=== PATIENT | female | born 1945 | race Caucasian/White ===

== ENCOUNTER 2017-07-28 08:51 | Outpatient (RCR) | payer MEDICARE, OTHER, SELFPAY ==
[2017-07-28 09:45] VITALS: RESP 16; BMI 26.5
--- NOTE | 2017-07-28 10:44 | PCM.WC.HP ---
(1) Peripheral vascular occlusive disease Status: Acute Current Visit: Yes Code(s): I73.9 - Peripheral vascular disease, unspecified (2) Lower leg edema Status: Acute Current Visit: Yes Code(s): R60.0 - Localized edema (3) Atherosclerotic peripheral vascular disease with ulceration Status: Acute Current Visit: Yes Qualifiers: Peripheral atherosclerosis location: lower extremity Lower extremity ulceration location: ankle Laterality: left Code(s): I70.209 - Unspecified atherosclerosis of [place] arteries of extremities, unspecified extremity; L98.499 - Non-pressure chronic ulcer of skin of other sites with unspecified severity (4) History of deep vein thrombosis (DVT) of lower extremity Status: Acute Current Visit: Yes Code(s): Z86.718 - Personal history of other venous thrombosis and embolism History of Present Illness Date of Service: 07/28/17 Chief Complaint: Follow-up on a ulcer on the left ankle History of Wound: 71-year-old white female with a prior history of peripheral vascular occlusive disease. Arrived with an ulcer on her left medial malleolus from June 21. Patient had been using antibiotic ointment and cream to the leg. Has seen her family doctor and was put on Santyl and has been using that daily. Past Medical History Past Medical History: High cholesterol history of DVTs anxiety peripheral vascular disease psoriasis of the skin Surgical History: cataract Home Medications: Ambulatory Orders Medication Instructions Recorded Cholecalciferol (Vitamin D3) 2,000 unit PO DAILY 07/28/17 [D3-2000] Citalopram Hydrobromide [Celexa] 20 mg PO DAILY 07/28/17 Pravastatin Sodium [Pravachol] 10 mg PO DAILY 07/28/17 Rivaroxaban [Xarelto] 10 mg PO DAILY 07/28/17 Ubidecarenone/Vit E Acetate [Co 1 each PO DAILY 07/28/17 Q-10 100 mg Softgel] Lives: Spouse/ Significant Other Smoking Status: Never smoker Tobacco Use: Non-smoker Alcohol: None Drugs: None Review of Systems Constitutional: Denies: Chills, Fever Eyes: Denies: Blurred vision, Drainage, Pain HEENT: Denies: Difficulty Hearing, Difficulty Swallowing, Sore Throat, Visual Changes Cardiovascular: Denies: Chest Pain, Palpitations, Syncope Respiratory: Denies: Cough, Shortness of Breath Gastrointestinal: Denies: Abdominal Pain, Nausea, Vomiting Genitourinary: Denies: Dysuria, Frequency Musculoskeletal: Denies: Joint Pain, Muscle pain Skin: Reports: - - Open ulcer left medial malleolus. Denies: Jaundice, Rash Neurological: Denies: Balance problems, Change in Speech, Difficulty swallowing, Focal weakness Psychiatric: Denies: Anxiety, Depression Endocrine: Denies: Change in Body Habitus Hematologic/ Lymphatic: Denies: Adenopathy - Physical Exam Vital Signs Resp 16 07/28/17 09:45 General: Oriented x3, Cooperative, Well developed HEENT: Atraumatic, PERRLA Oral: Moist Mucosa Neck: Supple, No JVD Lungs: Clear to auscultation, Normal air movement Cardiovascular: Regular rate, Regular Rhythm Abdomen: Bowel Sounds Present, Soft, Non Tender, No Hepato-splenomegaly Extremities: No clubbing, No edema, - - Left medial malleolus venous ulcer Wound Measurements and Assessment WC - Nurse 1 - General Ulcer Measurement Start: 07/28/17 09:19 Freq: Status: Active Protocol: Activity Type Activity Date Activity User E-Sign Co-Sign Detail Recorded Client Recorded Date Recorded By Document 07/28/17 09:45 DV [id number] 07/28/17 10:07 DV 07/28/17 09:45 Wound Center Nurse 1 [Ulcer Assessment Protocol: MELIDA.WD.LOC] #1 Left Medial Malleous -Combined with other wound No -Current Size (cm) - Length 1.0 -Current Size (cm) - Width 0.7 -Current Size (cm) - Depth 0.3 -Total Square Cm 0.70 -Photo Taken Yes -Epithelialization Small 1-33% -Tunneling No -Undermining/Tunneling No -Circular Undermining No -Exudate Amt Small (1-33%) -Exudate Type Serosanguineous -Wound Margin Distinct, Outline Attached -Granulation Amt None Present (0 %) -Granulation Quality N/A -Slough/Fibrin Yes -Necrosis Amt Large (67-100%) -Necrotic Tissue Type Adherent Slough -Structure Exposed None/Limited to Skin Breakdown -Texture (Ines-wound Skin Appearance) Assessed Localized Edema Scarring Rash -Moisture (Ines-wound Skin Appearance No Abnormality ) Weeping -Color (Ines-wound Skin Appearance) Assessed Erythema Hemosiderin Staining -Temperature (Ines-wound Skin No Abnormality Appearance) (Pt Warm) -Tenderness on Palpation (Ines-wound No Skin Appearance) -Ulcer Cleansing Rinsed/ Irrigated with Saline -Foul Odor after Cleansing No -Anesthetic Used 5% Lidocaine Gel [Edema Assessment] -Lower Limb Edema Present No -Right Calf (cm) 33.0 -Right Ankle (cm) 21.0 -Left Calf (cm) 36.5 -Left Ankle (cm) 22.5 WC - Nurse 2 - General Ulcer CM Notes Start: 07/28/17 09:19 Freq: Status: Active Protocol: Activity Type Activity Date Activity User E-Sign Co-Sign Detail Recorded Client Recorded Date Recorded By Document 07/28/17 10:32 MW [id number] 07/28/17 10:36 MW 07/28/17 10:32 Wound Center Nurse 2 [Procedure/Treatment] #1 Left Medial Malleous -Time 10:32 -Correct Patient Yes -Correct Side, Site, Position Yes -Correct Procedure Yes -Procedure Performed Yes -Type of Procedure Debridement -Clinical Debridement Subcutaneous -Post Debridement Size (cm) - Length 1.7 -Post Debridement Size (cm) - Width 1.5 -Post Debridement Size (cm) - Depth 0.2 -Total Square Cm 2.55 -Wound/Ulcer Outcome Not Healed -Ulcer Cleansing Rinsed/ Irrigated with Saline -Foul Odor after Cleansing No -Bioengineered Tissue No -Cetacaine [place] No -Bleeding Controlled with Pressure -Treatment Response Procedure Tolerated Well [See Physician Procedure note for Specifics] Pain Scale: 0-10 Numeric [Pain] -Is Patient Pain Free? Yes Musculoskeletal: No Tenderness to Palpation of Joints or Extremities Lymphatic: No Cervical, Supraclavicular, or Inguinal Adenopathy Neurological: Cranial nerves II-XII grossly intact, Neuro grossly intact Psych/Mental Status: Normal Affect, Appropriate Debridement Note Post-Debridement Measurements/Treatment WC - Nurse 2 - General Ulcer CM Notes Start: 07/28/17 09:19 Freq: Status: Active Protocol: Activity Type Activity Date Activity User E-Sign Co-Sign Detail Recorded Client Recorded Date Recorded By Document 07/28/17 10:32 MW [id number] 07/28/17 10:36 MW 07/28/17 10:32 Wound Center Nurse 2 #1 Left Medial Malleous -Time 10:32 -Correct Patient Yes -Correct Side, Site, Position Yes -Correct Procedure Yes -Procedure Performed Yes -Type of Procedure Debridement -Clinical Debridement Subcutaneous -Post Debridement Size (cm) - Length 1.7 -Post Debridement Size (cm) - Width 1.5 -Post Debridement Size (cm) - Depth 0.2 -Total Square Cm 2.55 -Wound/Ulcer Outcome Not Healed -Ulcer Cleansing Rinsed/ Irrigated with Saline -Foul Odor after Cleansing No -Bioengineered Tissue No -Cetacaine [place] No -Bleeding Controlled with Pressure -Treatment Response Procedure Tolerated Well Pain Scale: 0-10 Numeric Is Patient Pain Free? Yes Wound debrided: Left venous medial malleolus ulcer Type of Debridement: Excisional debridement Anesthesia Used: 5% Lidocaine Gel Depth: Down to and including healthy tissue, in the subcutaneous layer Percentage of wound debrided: 100 Instrument Used: 5mm curette Tissue Removed: Left some fibrin Severity: Limited To Skin Breakdown Amount of bleeding with debridement: Mild Bleeding Controlled with: Compression and gauze Patient tolerated procedure well Assessment/Plan Active Problems Peripheral vascular occlusive disease (Acute) Lower leg edema (Acute) Atherosclerotic peripheral vascular disease with ulceration (Acute) History of deep vein thrombosis (DVT) of lower extremity (Acute) Assessment: Venous ulcer left medial malleolus. Edema bilateral lower legs. Peripheral vascular occlusive disease. History of DVTs Plan: Wash leg with Hibiclens. Apply the Santyl nickel thickness cover with moistened gauze Valeriano. Double layer Tubigrip left leg. Follow-up one week
--- NOTE | 2017-07-28 10:53 | HP.PCM_ITS ---
(1) Peripheral vascular occlusive disease Status: Acute Current Visit: Yes Code(s): I73.9 - Peripheral vascular disease, unspecified (2) Lower leg edema Status: Acute Current Visit: Yes Code(s): R60.0 - Localized edema (3) Atherosclerotic peripheral vascular disease with ulceration Status: Acute Current Visit: Yes Qualifiers: Peripheral atherosclerosis location: lower extremity Lower extremity ulceration location: ankle Laterality: left Code(s): I70.209 - Unspecified atherosclerosis of [place] arteries of extremities , unspecified extremity; L98.499 - Non-pressure chronic ulcer of skin of other sites with unspecified severity (4) History of deep vein thrombosis (DVT) of lower extremity Status: Acute Current Visit: Yes Code(s): Z86.718 - Personal history of other venous thrombosis and embolism History of Present Illness Date of Service: 07/28/17 Chief Complaint: Follow-up on a ulcer on the left ankle History of Wound: 71-year-old white female with a prior history of peripheral vascular occlusive disease. Arrived with an ulcer on her left medial malleolus from June 21. Patient had been using antibiotic ointment and cream to the leg. Has seen her family doctor and was put on Santyl and has been using that daily. Past Medical History Past Medical History: High cholesterol history of DVTs anxiety peripheral vascular disease psoriasis of the skin Surgical History: cataract Home Medications: Ambulatory Orders Medication Instructions Recorded Cholecalciferol (Vitamin D3) 2,000 unit PO DAILY 07/28/17 [D3-2000] Citalopram Hydrobromide [Celexa] 20 mg PO DAILY 07/28/17 Pravastatin Sodium [Pravachol] 10 mg PO DAILY 07/28/17 Rivaroxaban [Xarelto] 10 mg PO DAILY 07/28/17 Ubidecarenone/Vit E Acetate [Co 1 each PO DAILY 07/28/17 Q-10 100 mg Softgel] Lives: Spouse/ Significant Other Smoking Status: Never smoker Tobacco Use: Non-smoker Alcohol: None Drugs: None Review of Systems Constitutional: Denies: Chills, Fever Eyes: Denies: Blurred vision, Drainage, Pain HEENT: Denies: Difficulty Hearing, Difficulty Swallowing, Sore Throat, Visual Changes Cardiovascular: Denies: Chest Pain, Palpitations, Syncope Respiratory: Denies: Cough, Shortness of Breath Gastrointestinal: Denies: Abdominal Pain, Nausea, Vomiting Genitourinary: Denies: Dysuria, Frequency Musculoskeletal: Denies: Joint Pain, Muscle pain Skin: Reports: - - Open ulcer left medial malleolus. Denies: Jaundice, Rash Neurological: Denies: Balance problems, Change in Speech, Difficulty swallowing , Focal weakness Psychiatric: Denies: Anxiety, Depression Endocrine: Denies: Change in Body Habitus Hematologic/ Lymphatic: Denies: Adenopathy - Physical Exam Vital Signs Resp 16 07/28/17 09:45 General: Oriented x3, Cooperative, Well developed HEENT: Atraumatic, PERRLA Oral: Moist Mucosa Neck: Supple, No JVD Lungs: Clear to auscultation, Normal air movement Cardiovascular: Regular rate, Regular Rhythm Abdomen: Bowel Sounds Present, Soft, Non Tender, No Hepato-splenomegaly Extremities: No clubbing, No edema, - - Left medial malleolus venous ulcer Wound Measurements and Assessment WC - Nurse 1 - General Ulcer Measurement Start: 07/28/17 09:19 Freq: Status: Active Protocol: Activity Type Activity Date Activity User E-Sign Co-Sign Detail Recorded Client Recorded Date Recorded By Document 07/28/17 09:45 DV [id number] 07/28/17 10:07 DV 07/28/17 09:45 Wound Center Nurse 1 [Ulcer Assessment Protocol: MELIDA.WD.LOC] #1 Left Medial Malleous -Combined with other wound No -Current Size (cm) - Length 1.0 -Current Size (cm) - Width 0.7 -Current Size (cm) - Depth 0.3 -Total Square Cm 0.70 -Photo Taken Yes -Epithelialization Small 1-33% -Tunneling No -Undermining/Tunneling No -Circular Undermining No -Exudate Amt Small (1-33%) -Exudate Type Serosanguineous -Wound Margin Distinct, Outline Attached -Granulation Amt None Present (0 %) -Granulation Quality N/A -Slough/Fibrin Yes -Necrosis Amt Large (67-100%) -Necrotic Tissue Type Adherent Slough -Structure Exposed None/Limited to Skin Breakdown -Texture (Ines-wound Skin Appearance) Assessed Localized Edema Scarring Rash -Moisture (Ines-wound Skin Appearance No Abnormality ) Weeping -Color (Ines-wound Skin Appearance) Assessed Erythema Hemosiderin Staining -Temperature (Ines-wound Skin No Abnormality Appearance) (Pt Warm) -Tenderness on Palpation (Ines-wound No Skin Appearance) -Ulcer Cleansing Rinsed/ Irrigated with Saline -Foul Odor after Cleansing No -Anesthetic Used 5% Lidocaine Gel [Edema Assessment] -Lower Limb Edema Present No -Right Calf (cm) 33.0 -Right Ankle (cm) 21.0 -Left Calf (cm) 36.5 -Left Ankle (cm) 22.5 WC - Nurse 2 - General Ulcer CM Notes Start: 07/28/17 09:19 Freq: Status: Active Protocol: Activity Type Activity Date Activity User E-Sign Co-Sign Detail Recorded Client Recorded Date Recorded By Document 07/28/17 10:32 MW [id number] 07/28/17 10:36 MW 07/28/17 10:32 Wound Center Nurse 2 [Procedure/Treatment] #1 Left Medial Malleous -Time 10:32 -Correct Patient Yes -Correct Side, Site, Position Yes -Correct Procedure Yes -Procedure Performed Yes -Type of Procedure Debridement -Clinical Debridement Subcutaneous -Post Debridement Size (cm) - Length 1.7 -Post Debridement Size (cm) - Width 1.5 -Post Debridement Size (cm) - Depth 0.2 -Total Square Cm 2.55 -Wound/Ulcer Outcome Not Healed -Ulcer Cleansing Rinsed/ Irrigated with Saline -Foul Odor after Cleansing No -Bioengineered Tissue No -Cetacaine [place] No -Bleeding Controlled with Pressure -Treatment Response Procedure Tolerated Well [See Physician Procedure note for Specifics] Pain Scale: 0-10 Numeric [Pain] -Is Patient Pain Free? Yes Musculoskeletal: No Tenderness to Palpation of Joints or Extremities Lymphatic: No Cervical, Supraclavicular, or Inguinal Adenopathy Neurological: Cranial nerves II-XII grossly intact, Neuro grossly intact Psych/Mental Status: Normal Affect, Appropriate Debridement Note Post-Debridement Measurements/Treatment WC - Nurse 2 - General Ulcer CM Notes Start: 07/28/17 09:19 Freq: Status: Active Protocol: Activity Type Activity Date Activity User E-Sign Co-Sign Detail Recorded Client Recorded Date Recorded By Document 07/28/17 10:32 MW [id number] 07/28/17 10:36 MW 07/28/17 10:32 Wound Center Nurse 2 #1 Left Medial Malleous -Time 10:32 -Correct Patient Yes -Correct Side, Site, Position Yes -Correct Procedure Yes -Procedure Performed Yes -Type of Procedure Debridement -Clinical Debridement Subcutaneous -Post Debridement Size (cm) - Length 1.7 -Post Debridement Size (cm) - Width 1.5 -Post Debridement Size (cm) - Depth 0.2 -Total Square Cm 2.55 -Wound/Ulcer Outcome Not Healed -Ulcer Cleansing Rinsed/ Irrigated with Saline -Foul Odor after Cleansing No -Bioengineered Tissue No -Cetacaine [place] No -Bleeding Controlled with Pressure -Treatment Response Procedure Tolerated Well Pain Scale: 0-10 Numeric Is Patient Pain Free? Yes Wound debrided: Left venous medial malleolus ulcer Type of Debridement: Excisional debridement Anesthesia Used: 5% Lidocaine Gel Depth: Down to and including healthy tissue, in the subcutaneous layer Percentage of wound debrided: 100 Instrument Used: 5mm curette Tissue Removed: Left some fibrin Severity: Limited To Skin Breakdown Amount of bleeding with debridement: Mild Bleeding Controlled with: Compression and gauze Patient tolerated procedure well Assessment/Plan Active Problems Peripheral vascular occlusive disease (Acute) Lower leg edema (Acute) Atherosclerotic peripheral vascular disease with ulceration (Acute) History of deep vein thrombosis (DVT) of lower extremity (Acute) Assessment: Venous ulcer left medial malleolus. Edema bilateral lower legs. Peripheral vascular occlusive disease. History of DVTs Plan: Wash leg with Hibiclens. Apply the Santyl nickel thickness cover with moistened gauze Valeriano. Double layer Tubigrip left leg. Follow-up one week
== END 2017-08-02 23:59 ==
LOC: WC 08:51
PROVIDERS: Family Provider Internal Medicine; PCP Internal Medicine; Visit Provider Nurse Practitioner
DX: I70.243 Atherosclerosis of native arteries of left leg with ulceration of ankle (principal); L97.321 Non-pressure chronic ulcer of left ankle limited to breakdown of skin; Z86.718 Personal history of other venous thrombosis and embolism; R60.0 Localized edema; E78.00 Pure hypercholesterolemia, unspecified; F41.9 Anxiety disorder, unspecified; Z79.899 Other long term (current) drug therapy; Z79.01 Long term (current) use of anticoagulants
CPT/HCPCS: 11042; 99213; G0463

== ENCOUNTER → 2017-08-21 09:14 | Outpatient (CLI) | payer MEDICARE, OTHER, SELFPAY ==
--- NOTE | 2017-08-21 09:16 | HPBI_ITS ---
MAMMOGRAPHY - BILATERAL SCREENING REASON FOR EXAM: Female, 71 years old. Routine annual screening examination. PERTINENT HISTORY: Non-contributory. Remote left stereotactic breast biopsy. TECHNIQUE: Digital bilateral breast pinky (3D mammographic acquisition) in the CC and MLO projections. 2-D mediolateral oblique (MLO) and craniocaudad (CC) views of both breasts were obtained. CAD: Full Field Digital Mammography with Computer Added Detection was performed. COMPARISON: Comparison is made with prior study dated August 18, 2016 and December 04, 2014. FINDINGS: Breast Composition: The breasts are heterogeneously dense, which may obscure small masses. There are no dominant masses or suspicious calcifications. A tissue clip marker from a prior stereotactic biopsy is seen in the slightly upper lateral portion of the left breast. Stable scattered bilateral secretory calcifications. No other significant abnormalities are identified. There has been no significant change since the prior study. HPBI/SCREENING MAMM (CAD), BILAT IMPRESSION: Stable bilateral screening mammogram. Yearly follow-up mammogram recommended. (A) ASSESSMENT CATEGORY: BIRADS Category 2: Benign. A letter regarding these results will be sent to the patient by the facility within 30 days. Approximately 10% of breast cancers are not detected by mammography. A normal mammogram should not delay biopsy of a clinically suspicious abnormality. [id number] Electronically Signed: Tj Roca MD at 11:01 EST Tel [phone], Service support ,
== END ==
PROVIDERS: Family Provider Internal Medicine; PCP Internal Medicine; Visit Provider Internal Medicine
DX: Z12.31 Encounter for screening mammogram for malignant neoplasm of breast (principal)
CPT/HCPCS: 77063; 77067

== ENCOUNTER 2017-08-28 13:00 | Outpatient (RCR) | payer MEDICARE, OTHER, SELFPAY ==
[2017-08-03 01:20] VITALS: RESP 16
[2017-08-04 11:39] VITALS: BP 125/72; PULSE 85; RESP 18; TEMP 36.8; BMI 26.5
--- NOTE | 2017-08-04 12:05 | PN.PCM_ITS ---
(1) Atherosclerotic peripheral vascular disease with ulceration Status: Acute Current Visit: Yes Code(s): I70.209 - Unspecified atherosclerosis of [place] arteries of extremities, unspecified extremity; L98.499 - Non-pressure chronic ulcer of skin of other sites with unspecified severity (2) History of deep vein thrombosis (DVT) of lower extremity Status: Acute Current Visit: Yes Code(s): Z86.718 - Personal history of other venous thrombosis and embolism (3) Lower leg edema Status: Acute Current Visit: Yes Code(s): R60.0 - Localized edema (4) Peripheral vascular occlusive disease Status: Acute Current Visit: Yes Code(s): I73.9 - Peripheral vascular disease, unspecified Type of Wound Date of Service: 08/04/17 Chief Complaint: Follow-up on a ulcer on the left ankle History of Wound: 71-year-old white female with a prior history of peripheral vascular occlusive disease. Arrived with an ulcer on her left medial malleolus from June 21. Patient had been using antibiotic ointment and cream to the leg. Has seen her family doctor and was put on Santyl and has been using that daily. Progress of Wound: Today the ulcer is about half the size very painful though still has a lot of slough in the base of the ulcer. Patient is still using Santyl with good results. - Physical Exam Vital Signs Temp Pulse Resp BP 98.2 F 85 18 125/72 H 08/04/17 11:39 08/04/17 11:39 08/04/17 11:39 08/04/17 11:39 General: Oriented x3, Cooperative, Well developed HEENT: Atraumatic, PERRLA Oral: Moist Mucosa Neck: Supple, No JVD Lungs: Clear to auscultation, Normal air movement Cardiovascular: Regular rate, Regular Rhythm Abdomen: Bowel Sounds Present, Soft, Non Tender, No Hepato-splenomegaly Extremities: No clubbing, No edema Skin: No rashes, Ulcer/ Wound - Left medial ankle ulcer Wound Measurements and Assessment WC - Nurse 1 - General Ulcer Measurement Start: 08/04/17 11:24 Freq: Status: Active Protocol: Activity Type Activity Date Activity User E-Sign Co-Sign Detail Recorded Client Recorded Date Recorded By Document 08/04/17 11:39 TM [id number] 08/04/17 11:42 TM 08/04/17 11:39 Wound Center Nurse 1 [Ulcer Assessment Protocol: WC.WD.LOC] #1 Left Medial Malleous -Combined with other wound No -Current Size (cm) - Length 1.0 -Current Size (cm) - Width 0.9 -Current Size (cm) - Depth 0.1 -Total Square Cm 0.90 -Photo Taken No -Epithelialization Small 1-33% -Tunneling No -Undermining/Tunneling No -Circular Undermining No -Classification - Thickness Full Thickness without Exposed Support Structure -Exudate Amt Small (1-33%) -Exudate Type Serosanguineous -Wound Margin Fibrotic Scar, Thickened Scar -Granulation Amt Small (1-33%) -Granulation Quality [place] -Slough/Fibrin Yes -Necrosis Amt Large (67-100%) -Necrotic Tissue Type Adherent Slough -Structure Exposed Fascia Fat Layer Exposed -Texture (Ines-wound Skin Appearance) Friable Scarring -Moisture (Ines-wound Skin Appearance No Abnormality ) -Color (Ines-wound Skin Appearance) Erythema Hemosiderin Staining -Temperature (Ines-wound Skin No Abnormality Appearance) (Pt Warm) -Tenderness on Palpation (Ines-wound No Skin Appearance) -Ulcer Cleansing Rinsed/ Irrigated with Saline -Foul Odor after Cleansing No [Edema Assessment] -Lower Limb Edema Present No -Left Calf (cm) 36.0 -Left Ankle (cm) 22.0 - Nurse 2 - General Ulcer CM Notes Start: 08/04/17 11:24 Freq: Status: Active Protocol: Activity Type Activity Date Activity User E-Sign Co-Sign Detail Recorded Client Recorded Date Recorded By Document 08/04/17 11:50 MW [id number] 08/04/17 11:51 MW 08/04/17 11:50 Wound Center Nurse 2 [Procedure/Treatment] #1 Left Medial Malleous -Time 11:50 -Correct Patient Yes -Correct Side, Site, Position Yes -Correct Procedure Yes -Procedure Performed Yes -Type of Procedure Debridement -Clinical Debridement Subcutaneous -Post Debridement Size (cm) - Length 1.0 -Post Debridement Size (cm) - Width 0.7 -Post Debridement Size (cm) - Depth 0.2 -Total Square Cm 0.70 -Wound/Ulcer Outcome Not Healed -Ulcer Cleansing Rinsed/ Irrigated with Saline -Foul Odor after Cleansing No -Bioengineered Tissue No -Cetacaine [place] No -Bleeding Controlled with Pressure -Treatment Response Procedure Tolerated Well [See Physician Procedure note for Specifics] Pain Scale: 0-10 Numeric [Pain] -Is Patient Pain Free? Yes Musculoskeletal: No Tenderness to Palpation of Joints or Extremities Lymphatic: No Cervical, Supraclavicular, or Inguinal Adenopathy Neurological: Cranial nerves II-XII grossly intact, Neuro grossly intact Psych/Mental Status: Normal Affect, Appropriate, Alert and oriented to time, place, person, mood and affect Debridement Note Post-Debridement Measurements/Treatment WC - Nurse 2 - General Ulcer CM Notes Start: 08/04/17 11:24 Freq: Status: Active Protocol: Activity Type Activity Date Activity User E-Sign Co-Sign Detail Recorded Client Recorded Date Recorded By Document 08/04/17 11:50 MW [id number] 08/04/17 11:51 MW 08/04/17 11:50 Wound Center Nurse 2 #1 Left Medial Malleous -Time 11:50 -Correct Patient Yes -Correct Side, Site, Position Yes -Correct Procedure Yes -Procedure Performed Yes -Type of Procedure Debridement -Clinical Debridement Subcutaneous -Post Debridement Size (cm) - Length 1.0 -Post Debridement Size (cm) - Width 0.7 -Post Debridement Size (cm) - Depth 0.2 -Total Square Cm 0.70 -Wound/Ulcer Outcome Not Healed -Ulcer Cleansing Rinsed/ Irrigated with Saline -Foul Odor after Cleansing No -Bioengineered Tissue No -Cetacaine [place] No -Bleeding Controlled with Pressure -Treatment Response Procedure Tolerated Well Pain Scale: 0-10 Numeric Is Patient Pain Free? Yes Wound debrided: Medial ankle ulcer Type of Debridement: Excisional debridement Anesthesia Used: 5% Lidocaine Gel Depth: Down to and including healthy tissue, in the subcutaneous layer Percentage of wound debrided: 100 Instrument Used: 5mm curette Tissue Removed: Slough Severity: Limited To Skin Breakdown Amount of bleeding with debridement: Mild Bleeding Controlled with: Compression and gauze Patient tolerated procedure well Assessment/Plan Active Problems Peripheral vascular occlusive disease (Acute) Lower leg edema (Acute) Atherosclerotic peripheral vascular disease with ulceration (Acute) History of deep vein thrombosis (DVT) of lower extremity (Acute) Assessment: Venous ulcer left medial malleolus. Edema bilateral lower legs. Peripheral vascular occlusive disease. History of DVTs Plan: Wash leg with Hibiclens. Apply the Santyl nickel thickness cover with moistened gauze Val[place]. Double layer Tubigrip left leg. Follow-up one week
[2017-08-11 10:37] VITALS: BP 137/71; PULSE 86; RESP 20; BMI 26.5
--- NOTE | 2017-08-11 11:52 | PCM.WC.PN ---
(1) Atherosclerotic peripheral vascular disease with ulceration Status: Acute Current Visit: Yes Qualifiers: Peripheral atherosclerosis location: lower extremity Lower extremity ulceration location: ankle Laterality: left Code(s): I70.209 - Unspecified atherosclerosis of [place] arteries of extremities, unspecified extremity; L98.499 - Non-pressure chronic ulcer of skin of other sites with unspecified severity (2) History of deep vein thrombosis (DVT) of lower extremity Status: Acute Current Visit: Yes Code(s): Z86.718 - Personal history of other venous thrombosis and embolism (3) Lower leg edema Status: Acute Current Visit: Yes Code(s): R60.0 - Localized edema (4) Peripheral vascular occlusive disease Status: Acute Current Visit: Yes Code(s): I73.9 - Peripheral vascular disease, unspecified Type of Wound Date of Service: 08/11/17 Chief Complaint: Follow-up on a ulcer on the left ankle History of Wound: 71-year-old white female with a prior history of peripheral vascular occlusive disease. Arrived with an ulcer on her left medial malleolus from June 21. Patient had been using antibiotic ointment and cream to the leg. Has seen her family doctor and was put on Santyl and has been using that daily. Progress of Wound: Today the ulcer is about half the size very painful though still has a lot of slough in the base of the ulcer. Patient is still using Santyl with good results. Use sharps today to debride. Bases clear change her from Santyl and we are going to try asthma moistened with Adaptic over the top daily - Physical Exam Vital Signs Temp Pulse Resp BP 98.2 F 86 20 H 137/71 H 08/04/17 11:39 08/11/17 10:37 08/11/17 10:37 08/11/17 10:37 General: Oriented x3, Cooperative, Well developed HEENT: Atraumatic, PERRLA Oral: Moist Mucosa Neck: Supple, No JVD Lungs: Clear to auscultation, Normal air movement Cardiovascular: Regular rate, Regular Rhythm Abdomen: Bowel Sounds Present, Soft, Non Tender, No Hepato-splenomegaly Extremities: No clubbing, No edema, - - Left medial ankle peripheral vascular ulcer Wound Measurements and Assessment WC - Nurse 1 - General Ulcer Measurement Start: 08/04/17 11:24 Freq: Status: Active Protocol: Activity Type Activity Date Activity User E-Sign Co-Sign Detail Recorded Client Recorded Date Recorded By Document 08/11/17 10:37 JS [id number] 08/11/17 10:52 JS 08/11/17 10:37 Wound Center Nurse 1 [Ulcer Assessment Protocol: MELIDA.WD.LOC] #1 Left Medial Malleous -Combined with other wound No -Current Size (cm) - Length 1.0 -Current Size (cm) - Width 0.7 -Current Size (cm) - Depth 0.2 -Total Square Cm 0.70 -Date of Last Picture (Recall this 07/28/17 field) -Photo Taken No -Epithelialization None Present -Tunneling No -Undermining/Tunneling No -Circular Undermining No -Classification - Thickness Full Thickness without Exposed Support Structure -Exudate Amt Medium (34-66%) -Exudate Type Yellow/Green -Wound Margin Distinct, Outline Attached -Granulation Amt None Present (0 %) -Granulation Quality N/A -Slough/Fibrin Yes -Necrosis Amt None Present (0 %) -Necrotic Tissue Type Adherent Slough -Structure Exposed Fascia Fat Layer Exposed -Texture (Ines-wound Skin Appearance) Scarring -Moisture (Ines-wound Skin Appearance No Abnormality ) -Color (Ines-wound Skin Appearance) Hemosiderin Staining -Temperature (Ines-wound Skin No Abnormality Appearance) (Pt Warm) -Tenderness on Palpation (Ines-wound Yes Skin Appearance) -Ulcer Cleansing Rinsed/ Irrigated with Saline -Foul Odor after Cleansing No -Anesthetic Used 5% Lidocaine Gel [Edema Assessment] -Lower Limb Edema Present No -Left Calf (cm) 36.0 -Left Ankle (cm) 22.0 - Nurse 2 - General Ulcer CM Notes Start: 08/04/17 11:24 Freq: Status: Active Protocol: Activity Type Activity Date Activity User E-Sign Co-Sign Detail Recorded Client Recorded Date Recorded By Document 08/11/17 11:02 MW [id number] 08/11/17 11:03 MW 08/11/17 11:02 Wound Center Nurse 2 [Procedure/Treatment] #1 Left Medial Malleous -Time 11:02 -Correct Patient Yes -Correct Side, Site, Position Yes -Correct Procedure Yes -Procedure Performed Yes -Type of Procedure Debridement -Clinical Debridement Subcutaneous -Post Debridement Size (cm) - Length 1.0 -Post Debridement Size (cm) - Width 0.3 -Post Debridement Size (cm) - Depth 0.2 -Total Square Cm 0.30 -Wound/Ulcer Outcome Not Healed -Ulcer Cleansing Rinsed/ Irrigated with Saline -Foul Odor after Cleansing No -Bioengineered Tissue No -Bleeding Controlled with Pressure -Treatment Response Procedure Tolerated Well [See Physician Procedure note for Specifics] Pain Scale: 0-10 Numeric [Pain] -Is Patient Pain Free? Yes Musculoskeletal: No Tenderness to Palpation of Joints or Extremities Lymphatic: No Cervical, Supraclavicular, or Inguinal Adenopathy Neurological: Cranial nerves II-XII grossly intact, Neuro grossly intact Psych/Mental Status: Normal Affect, Appropriate, Alert and oriented to time, place, person, mood and affect Debridement Note Post-Debridement Measurements/Treatment WC - Nurse 2 - General Ulcer CM Notes Start: 08/04/17 11:24 Freq: Status: Active Protocol: Activity Type Activity Date Activity User E-Sign Co-Sign Detail Recorded Client Recorded Date Recorded By Document 08/04/17 11:50 MW [id number] 08/04/17 11:51 MW Document 08/11/17 11:02 MW [id number] 08/11/17 11:03 MW 08/04/17 08/11/17 11:50 11:02 Wound Center Nurse 2 #1 Left Medial Malleous -Time 11:50 11:02 -Correct Patient Yes Yes -Correct Side, Site, Position Yes Yes -Correct Procedure Yes Yes -Procedure Performed Yes Yes -Type of Procedure Debridement Debridement -Clinical Debridement Subcutaneous Subcutaneous -Post Debridement Size (cm) - Length 1.0 1.0 -Post Debridement Size (cm) - Width 0.7 0.3 -Post Debridement Size (cm) - Depth 0.2 0.2 -Total Square Cm 0.70 0.30 -Wound/Ulcer Outcome Not Healed Not Healed -Ulcer Cleansing Rinsed/ Rinsed/ Irrigated with Irrigated with Saline Saline -Foul Odor after Cleansing No No -Bioengineered Tissue No No -Cetacaine [place] No -Bleeding Controlled with Pressure Pressure -Treatment Response Procedure Procedure Tolerated Well Tolerated Well Pain Scale: 0-10 Numeric Is Patient Pain Free? Yes Yes Wound debrided: Left medial peripheral vascular ulcer Type of Debridement: Excisional debridement Anesthesia Used: 4% Lidocaine Solution Depth: Down to and including healthy tissue, in the subcutaneous layer Percentage of wound debrided: 100 Instrument Used: 3mm curette, #15 blade Tissue Removed: Slough Severity: Limited To Skin Breakdown Amount of bleeding with debridement: Mild Bleeding Controlled with: Compression and gauze Patient tolerated procedure well Assessment/Plan Active Problems History of deep vein thrombosis (DVT) of lower extremity (Acute) Atherosclerotic peripheral vascular disease with ulceration (Acute) Lower leg edema (Acute) Peripheral vascular occlusive disease (Acute) Assessment: Venous ulcer left medial malleolus. Edema bilateral lower legs. Peripheral vascular occlusive disease. History of DVTs Plan: Wash leg with Hibiclens. Apply Bianca moistened cover with Adaptic and gauze tape moistened gauze Valeriano. Double layer Tubigrip left leg. Follow-up one week
--- NOTE | 2017-08-11 11:56 | PN.PCM_ITS ---
(1) Atherosclerotic peripheral vascular disease with ulceration Status: Acute Current Visit: Yes Qualifiers: Peripheral atherosclerosis location: lower extremity Lower extremity ulceration location: ankle Laterality: left Code(s): I70.209 - Unspecified atherosclerosis of [place] arteries of extremities , unspecified extremity; L98.499 - Non-pressure chronic ulcer of skin of other sites with unspecified severity (2) History of deep vein thrombosis (DVT) of lower extremity Status: Acute Current Visit: Yes Code(s): Z86.718 - Personal history of other venous thrombosis and embolism (3) Lower leg edema Status: Acute Current Visit: Yes Code(s): R60.0 - Localized edema (4) Peripheral vascular occlusive disease Status: Acute Current Visit: Yes Code(s): I73.9 - Peripheral vascular disease, unspecified Type of Wound Date of Service: 08/11/17 Chief Complaint: Follow-up on a ulcer on the left ankle History of Wound: 71-year-old white female with a prior history of peripheral vascular occlusive disease. Arrived with an ulcer on her left medial malleolus from June 21. Patient had been using antibiotic ointment and cream to the leg. Has seen her family doctor and was put on Santyl and has been using that daily. Progress of Wound: Today the ulcer is about half the size very painful though still has a lot of slough in the base of the ulcer. Patient is still using Santyl with good results. Use sharps today to debride. Bases clear change her from Santyl and we are going to try asthma moistened with Adaptic over the top daily - Physical Exam Vital Signs Temp Pulse Resp BP 98.2 F 86 20 H 137/71 H 08/04/17 11:39 08/11/17 10:37 08/11/17 10:37 08/11/17 10:37 General: Oriented x3, Cooperative, Well developed HEENT: Atraumatic, PERRLA Oral: Moist Mucosa Neck: Supple, No JVD Lungs: Clear to auscultation, Normal air movement Cardiovascular: Regular rate, Regular Rhythm Abdomen: Bowel Sounds Present, Soft, Non Tender, No Hepato-splenomegaly Extremities: No clubbing, No edema, - - Left medial ankle peripheral vascular ulcer Wound Measurements and Assessment WC - Nurse 1 - General Ulcer Measurement Start: 08/04/17 11:24 Freq: Status: Active Protocol: Activity Type Activity Date Activity User E-Sign Co-Sign Detail Recorded Client Recorded Date Recorded By Document 08/11/17 10:37 JS [id number] 08/11/17 10:52 JS 08/11/17 10:37 Wound Center Nurse 1 [Ulcer Assessment Protocol: MELIDA.WD.LOC] #1 Left Medial Malleous -Combined with other wound No -Current Size (cm) - Length 1.0 -Current Size (cm) - Width 0.7 -Current Size (cm) - Depth 0.2 -Total Square Cm 0.70 -Date of Last Picture (Recall this 07/28/17 field) -Photo Taken No -Epithelialization None Present -Tunneling No -Undermining/Tunneling No -Circular Undermining No -Classification - Thickness Full Thickness without Exposed Support Structure -Exudate Amt Medium (34-66%) -Exudate Type Yellow/Green -Wound Margin Distinct, Outline Attached -Granulation Amt None Present (0 %) -Granulation Quality N/A -Slough/Fibrin Yes -Necrosis Amt None Present (0 %) -Necrotic Tissue Type Adherent Slough -Structure Exposed Fascia Fat Layer Exposed -Texture (Ines-wound Skin Appearance) Scarring -Moisture (Ines-wound Skin Appearance No Abnormality ) -Color (Ines-wound Skin Appearance) Hemosiderin Staining -Temperature (Ines-wound Skin No Abnormality Appearance) (Pt Warm) -Tenderness on Palpation (Ines-wound Yes Skin Appearance) -Ulcer Cleansing Rinsed/ Irrigated with Saline -Foul Odor after Cleansing No -Anesthetic Used 5% Lidocaine Gel [Edema Assessment] -Lower Limb Edema Present No -Left Calf (cm) 36.0 -Left Ankle (cm) 22.0 - Nurse 2 - General Ulcer CM Notes Start: 08/04/17 11:24 Freq: Status: Active Protocol: Activity Type Activity Date Activity User E-Sign Co-Sign Detail Recorded Client Recorded Date Recorded By Document 08/11/17 11:02 MW [id number] 08/11/17 11:03 MW 08/11/17 11:02 Wound Center Nurse 2 [Procedure/Treatment] #1 Left Medial Malleous -Time 11:02 -Correct Patient Yes -Correct Side, Site, Position Yes -Correct Procedure Yes -Procedure Performed Yes -Type of Procedure Debridement -Clinical Debridement Subcutaneous -Post Debridement Size (cm) - Length 1.0 -Post Debridement Size (cm) - Width 0.3 -Post Debridement Size (cm) - Depth 0.2 -Total Square Cm 0.30 -Wound/Ulcer Outcome Not Healed -Ulcer Cleansing Rinsed/ Irrigated with Saline -Foul Odor after Cleansing No -Bioengineered Tissue No -Bleeding Controlled with Pressure -Treatment Response Procedure Tolerated Well [See Physician Procedure note for Specifics] Pain Scale: 0-10 Numeric [Pain] -Is Patient Pain Free? Yes Musculoskeletal: No Tenderness to Palpation of Joints or Extremities Lymphatic: No Cervical, Supraclavicular, or Inguinal Adenopathy Neurological: Cranial nerves II-XII grossly intact, Neuro grossly intact Psych/Mental Status: Normal Affect, Appropriate, Alert and oriented to time, place, person, mood and affect Debridement Note Post-Debridement Measurements/Treatment WC - Nurse 2 - General Ulcer CM Notes Start: 08/04/17 11:24 Freq: Status: Active Protocol: Activity Type Activity Date Activity User E-Sign Co-Sign Detail Recorded Client Recorded Date Recorded By Document 08/04/17 11:50 MW [id number] 08/04/17 11:51 MW Document 08/11/17 11:02 MW [id number] 08/11/17 11:03 MW 08/04/17 08/11/17 11:50 11:02 Wound Center Nurse 2 #1 Left Medial Malleous -Time 11:50 11:02 -Correct Patient Yes Yes -Correct Side, Site, Position Yes Yes -Correct Procedure Yes Yes -Procedure Performed Yes Yes -Type of Procedure Debridement Debridement -Clinical Debridement Subcutaneous Subcutaneous -Post Debridement Size (cm) - Length 1.0 1.0 -Post Debridement Size (cm) - Width 0.7 0.3 -Post Debridement Size (cm) - Depth 0.2 0.2 -Total Square Cm 0.70 0.30 -Wound/Ulcer Outcome Not Healed Not Healed -Ulcer Cleansing Rinsed/ Rinsed/ Irrigated with Irrigated with Saline Saline -Foul Odor after Cleansing No No -Bioengineered Tissue No No -Cetacaine [place] No -Bleeding Controlled with Pressure Pressure -Treatment Response Procedure Procedure Tolerated Well Tolerated Well Pain Scale: 0-10 Numeric Is Patient Pain Free? Yes Yes Wound debrided: Left medial peripheral vascular ulcer Type of Debridement: Excisional debridement Anesthesia Used: 4% Lidocaine Solution Depth: Down to and including healthy tissue, in the subcutaneous layer Percentage of wound debrided: 100 Instrument Used: 3mm curette, #15 blade Tissue Removed: Slough Severity: Limited To Skin Breakdown Amount of bleeding with debridement: Mild Bleeding Controlled with: Compression and gauze Patient tolerated procedure well Assessment/Plan Active Problems History of deep vein thrombosis (DVT) of lower extremity (Acute) Atherosclerotic peripheral vascular disease with ulceration (Acute) Lower leg edema (Acute) Peripheral vascular occlusive disease (Acute) Assessment: Venous ulcer left medial malleolus. Edema bilateral lower legs. Peripheral vascular occlusive disease. History of DVTs Plan: Wash leg with Hibiclens. Apply Bianca moistened cover with Adaptic and gauze tape moistened gauze Valeriano. Double layer Tubigrip left leg. Follow-up one week
--- NOTE | 2017-08-28 12:56 | VDLE_ITS ---
Reason For Study: Non-healing wound RIGHT LEFT FV is compressible, spontaneous, phasic, CFV, FV and POP V are patent, compressible, competent and demonstrates normal spontaneous, phasic and demonstrate augmentation. INCOMPETENCY with augmentation POP V is compressible, spontaneous, phasic, T/P trunk is compressible competent and demonstrates normal PTV is compressible augmentation. PER V is compressible T/P Trunk is compressible. PTV is compressible. SFJ is INCOMPETENT with reflux greater RT PerV is compressible. than .5 sec CFV is partially compressible with bright GSV is INCOMPETENT with reflux greater intraluminal ehoes consistant with chronic than .5 sec and diameter of .62 x .64 cm clot GSV branch at S4 is INCOMPETENT with reflux greater than .5 sec and diameter of .56 SFJ is competent x .55 cm GSV is INCOMPETENT with reflux greater SSV is competent than .5 sec and diameter of .35 x .40 cm INCOMPETENT perforators at 13 and 23 cm prox SSV is INCOMPETENT with reflux greater to medial malleolus. than .5 sec and diameter of .36 x .38 cm. Procedure Exam performed in department. A preliminary report was called and/or faxed to [facility]. Interpretation Summary Chronic venous changes are noted in the right common femoral vein, which is partially compressible and demonstrates bright intraluminal echogenicity. The remainder of the right lower extremity deep venous system is patent and compressible. The right femoral vein and popliteal vein are competent. Deep veins of the left lower extremity are patent and compressible segmentally. There is no evidence of left lower extremity deep vein thrombosis. The left common femoral vein, femoral vein, and popliteal vein are incompetent. Great saphenous veins are patent and compressible bilaterally. The right sapheno-femoral junction is competent. The left sapheno-femoral junction is incompetent. Great saphenous veins are incompetent bilaterally. The right small saphenous vein is patent and incompetent. The left small saphenous vein is patent and competent. The left accessory saphenous vein at S4 is incompetent. Incompetent campus administrative assistant veins are identified in the left calf, located 13 centimeters and 23 centimeters proximal to the left medial malleolus. Ordering Physician: PROMISE MOON Referring Physician: Promise Moon Performed By: Yen Issa RVT
--- NOTE | 2017-09-03 11:09 | LEAS ---
Arterial Study - Arterial Study Arterial Study: This is a 71-year-old female with a history of hyperlipidemia. The patient presents with a chronic nonhealing wound to the left lower extremity. Suspecting the presence of atherosclerotic peripheral arterial occlusive disease, the patient was brought to the noninvasive vascular laboratory at this time for the purpose of bilateral noninvasive lower extremity arterial assessment. Doppler signal assessment was used to evaluate the pulses at ankle level bilaterally. Posterior tibial and dorsalis pedis pulses were triphasic bilaterally. Segmental limb pressures were obtained at ankle level bilaterally. The right ankle pressure, as determined by posterior tibial pulse, was measured at 151 mmHg. The right ankle pressure, as determined by dorsalis pedis pulse, was measured at 147 mmHg. The left ankle pressure, as determined by posterior tibial pulse, was measured at 150 mmHg. The left ankle pressure, as determined by dorsalis pedis pulse, was measured at 125 mmHg. Pulse-volume recordings were obtained bilaterally and segmentally. Waveform amplitudes appeared to be satisfactory at all levels bilaterally, including low thigh, calf, ankle, and digital levels. Resting ankle-brachial indices were calculated bilaterally. The resting right ankle-brachial index was calculated to be 1.23. The resting left ankle-brachial index was calculated to be 1.22. Impression: Based upon the findings of this resting noninvasive lower extremity trial study, there is no evidence of significant atherosclerotic peripheral arterial occlusive disease in the lower extremities bilaterally. Triphasic waveforms are noted at ankle level bilaterally. Resting ankle-brachial indices are bilaterally normal. In summary, this represents a normal resting noninvasive lower extremity arterial study bilaterally.
--- NOTE | 2017-09-03 11:12 | LEAS_ITS ---
Arterial Study - Arterial Study Arterial Study: This is a 71-year-old female with a history of hyperlipidemia. The patient presents with a chronic nonhealing wound to the left lower extremity. Suspecting the presence of atherosclerotic peripheral arterial occlusive disease , the patient was brought to the noninvasive vascular laboratory at this time for the purpose of bilateral noninvasive lower extremity arterial assessment. Doppler signal assessment was used to evaluate the pulses at ankle level bilaterally. Posterior tibial and dorsalis pedis pulses were triphasic bilaterally. Segmental limb pressures were obtained at ankle level bilaterally. The right ankle pressure, as determined by posterior tibial pulse, was measured at 151 mmHg. The right ankle pressure, as determined by dorsalis pedis pulse, was measured at 147 mmHg. The left ankle pressure, as determined by posterior tibial pulse, was measured at 150 mmHg. The left ankle pressure, as determined by dorsalis pedis pulse, was measured at 125 mmHg. Pulse-volume recordings were obtained bilaterally and segmentally. Waveform amplitudes appeared to be satisfactory at all levels bilaterally, including low thigh, calf, ankle, and digital levels. Resting ankle-brachial indices were calculated bilaterally. The resting right ankle-brachial index was calculated to be 1.23. The resting left ankle- brachial index was calculated to be 1.22. Impression: Based upon the findings of this resting noninvasive lower extremity trial study, there is no evidence of significant atherosclerotic peripheral arterial occlusive disease in the lower extremities bilaterally. Triphasic waveforms are noted at ankle level bilaterally. Resting ankle-brachial indices are bilaterally normal. In summary, this represents a normal resting noninvasive lower extremity arterial study bilaterally.
== END 2017-08-30 23:59 ==
LOC: CVS 13:00
PROVIDERS: Family Provider Internal Medicine; PCP Internal Medicine; Visit Provider Nurse Practitioner
DX: I70.243 Atherosclerosis of native arteries of left leg with ulceration of ankle (principal); Z86.718 Personal history of other venous thrombosis and embolism; R60.0 Localized edema; L97.321 Non-pressure chronic ulcer of left ankle limited to breakdown of skin
CPT/HCPCS: 11042; 93923; 93970

== ENCOUNTER 2017-09-22 09:00 | Outpatient (RCR) | payer MEDICARE, OTHER, SELFPAY ==
[2017-08-31 00:59] VITALS: BP 137/71; PULSE 86; RESP 20; TEMP 36.8; BMI 26.5
[2017-09-01 10:24] VITALS: BP 133/60; PULSE 76; RESP 18; TEMP 35.6; BMI 26.5
--- NOTE | 2017-09-01 13:35 | PCM.WC.PN ---
(1) Atherosclerotic peripheral vascular disease with ulceration Status: Acute Current Visit: Yes Code(s): I70.209 - Unspecified atherosclerosis of [place] arteries of extremities, unspecified extremity; L98.499 - Non-pressure chronic ulcer of skin of other sites with unspecified severity (2) Peripheral vascular occlusive disease Status: Acute Current Visit: Yes Code(s): I73.9 - Peripheral vascular disease, unspecified Type of Wound Date of Service: 09/01/17 Chief Complaint: Follow-up on a ulcer on the left ankle History of Wound: 71-year-old white female with a prior history of peripheral vascular occlusive disease. Arrived with an ulcer on her left medial malleolus from June 21. Patient had been using antibiotic ointment and cream to the leg. Has seen her family doctor and was put on Santyl and has been using that daily. Progress of Wound: Today the ulcer is about half the size very painful though. Still has some slough in the base. Patient had been changed to Bianca and it seemed to irritate the skin around the ulcer. Seems to think she is having allergic reaction to silver. Patient will be started on Promogran instead. Patient received her arterial brachial studies and venous studies arteries are good veins she has a lot of blockage especially in the upper leg and in the lower calf anterior posterior area on both legs the lower extremities. Fine varicosities. The wound itself is very pebbled and punctuated like it UC and on venous ulcer. Patient talked to her family doctor and would prefer to go to a vascular surgeon in [place] for follow-up. - Physical Exam Vital Signs Temp Pulse Resp BP 96.0 F L 76 18 133/60 H 09/01/17 10:24 09/01/17 10:24 09/01/17 10:24 09/01/17 10:24 General: Oriented x3, Cooperative, Well developed HEENT: Atraumatic, PERRLA Oral: Moist Mucosa Neck: Supple, No JVD Lungs: Clear to auscultation, Normal air movement Cardiovascular: Regular rate, Regular Rhythm Abdomen: Bowel Sounds Present, Soft, Non Tender, No Hepato-splenomegaly Extremities: No clubbing, No edema, - - Left medial ankle ulcer Wound Measurements and Assessment WC - Nurse 1 - General Ulcer Measurement Start: 09/01/17 10:23 Freq: Status: Active Protocol: Activity Type Activity Date Activity User E-Sign Co-Sign Detail Recorded Client Recorded Date Recorded By Document 09/01/17 10:24 TM [id number] 09/01/17 10:26 TM 09/01/17 10:24 Wound Center Nurse 1 [Ulcer Assessment] #1 Left Medial Malleous -Combined with other wound No -Current Size (cm) - Length 2.6 -Current Size (cm) - Width 2.7 -Current Size (cm) - Depth 0.2 -Total Square Cm 7.02 -Date of Last Picture (Recall this 09/01/17 field) -Photo Taken Yes -Epithelialization Small 1-33% -Tunneling No -Undermining/Tunneling No -Circular Undermining No -Classification - Thickness Full Thickness without Exposed Support Structure -Exudate Amt Small (1-33%) -Exudate Type Serosanguineous -Wound Margin Fibrotic Scar, Thickened Scar -Granulation Amt Small (1-33%) -Granulation Quality Red -Slough/Fibrin Yes -Necrosis Amt Large (67-100%) -Necrotic Tissue Type Adherent Slough -Structure Exposed Fascia Fat Layer Exposed -Texture (Ines-wound Skin Appearance) Friable Localized Edema Scarring Rash -Moisture (Ines-wound Skin Appearance No Abnormality ) -Color (Ines-wound Skin Appearance) Erythema Hemosiderin Staining -Temperature (Ines-wound Skin No Abnormality Appearance) (Pt Warm) -Tenderness on Palpation (Ines-wound Yes Skin Appearance) -Ulcer Cleansing Rinsed/ Irrigated with Saline -Foul Odor after Cleansing No -Anesthetic Used 5% Lidocaine Gel [Edema Assessment] -Lower Limb Edema Present Yes -Left Calf (cm) 36.5 -Left Ankle (cm) 22.5 WC - Nurse 2 - General Ulcer CM Notes Start: 09/01/17 10:23 Freq: Status: Active Protocol: Activity Type Activity Date Activity User E-Sign Co-Sign Detail Recorded Client Recorded Date Recorded By Document 09/01/17 10:33 MW [id number] 09/01/17 10:40 MW 09/01/17 10:33 Wound Center Nurse 2 [Procedure/Treatment] #1 Left Medial Malleous -Time 10:33 -Correct Patient Yes -Correct Side, Site, Position Yes -Correct Procedure Yes -Procedure Performed Yes -Type of Procedure Debridement -Clinical Debridement Subcutaneous -Post Debridement Size (cm) - Length 2.3 -Post Debridement Size (cm) - Width 0.7 -Post Debridement Size (cm) - Depth 0.1 -Total Square Cm 1.61 -Wound/Ulcer Outcome Not Healed -Ulcer Cleansing Rinsed/ Irrigated with Saline -Foul Odor after Cleansing No -Bioengineered Tissue No -Bleeding Controlled with Pressure -Treatment Response Procedure Tolerated Well [See Physician Procedure note for Specifics] Pain Scale: 0-10 Numeric [Pain] -Is Patient Pain Free? Yes Musculoskeletal: No Tenderness to Palpation of Joints or Extremities Lymphatic: No Cervical, Supraclavicular, or Inguinal Adenopathy Neurological: Cranial nerves II-XII grossly intact, Neuro grossly intact Psych/Mental Status: Normal Affect, Appropriate, Alert and oriented to time, place, person, mood and affect Debridement Note Post-Debridement Measurements/Treatment WC - Nurse 2 - General Ulcer CM Notes Start: 09/01/17 10:23 Freq: Status: Active Protocol: Activity Type Activity Date Activity User E-Sign Co-Sign Detail Recorded Client Recorded Date Recorded By Document 09/01/17 10:33 MW [id number] 09/01/17 10:40 MW 09/01/17 10:33 Wound Center Nurse 2 #1 Left Medial Malleous -Time 10:33 -Correct Patient Yes -Correct Side, Site, Position Yes -Correct Procedure Yes -Procedure Performed Yes -Type of Procedure Debridement -Clinical Debridement Subcutaneous -Post Debridement Size (cm) - Length 2.3 -Post Debridement Size (cm) - Width 0.7 -Post Debridement Size (cm) - Depth 0.1 -Total Square Cm 1.61 -Wound/Ulcer Outcome Not Healed -Ulcer Cleansing Rinsed/ Irrigated with Saline -Foul Odor after Cleansing No -Bioengineered Tissue No -Bleeding Controlled with Pressure -Treatment Response Procedure Tolerated Well Pain Scale: 0-10 Numeric Is Patient Pain Free? Yes Wound debrided: Left medial ankle ulcer venous Type of Debridement: Excisional debridement Anesthesia Used: 5% Lidocaine Gel Depth: Down to and including healthy tissue, in the subcutaneous layer Percentage of wound debrided: 100 Instrument Used: 5mm curette Tissue Removed: Slough fibrin Severity: Limited To Skin Breakdown Amount of bleeding with debridement: Mild Bleeding Controlled with: Compression and gauze Patient tolerated procedure well Assessment/Plan Active Problems Atherosclerotic peripheral vascular disease with ulceration (Acute) Peripheral vascular occlusive disease (Acute) Assessment: Venous ulcer left medial malleolus. Edema bilateral lower legs. Peripheral vascular occlusive disease. History of DVTs Plan: Wash leg with Hibiclens. Apply promogran moistened cover with Adaptic and gauze tape moistened gauze Valeriano. Double layer Tubigrip left leg. Follow-up 2 week. Patient to her vascular surgeon in [place] Dr Bass
--- NOTE | 2017-09-01 13:41 | PN.PCM_ITS ---
(1) Atherosclerotic peripheral vascular disease with ulceration Status: Acute Current Visit: Yes Code(s): I70.209 - Unspecified atherosclerosis of [place] arteries of extremities, unspecified extremity; L98.499 - Non-pressure chronic ulcer of skin of other sites with unspecified severity (2) Peripheral vascular occlusive disease Status: Acute Current Visit: Yes Code(s): I73.9 - Peripheral vascular disease, unspecified Type of Wound Date of Service: 09/01/17 Chief Complaint: Follow-up on a ulcer on the left ankle History of Wound: 71-year-old white female with a prior history of peripheral vascular occlusive disease. Arrived with an ulcer on her left medial malleolus from June 21. Patient had been using antibiotic ointment and cream to the leg. Has seen her family doctor and was put on Santyl and has been using that daily. Progress of Wound: Today the ulcer is about half the size very painful though. Still has some slough in the base. Patient had been changed to Bianca and it seemed to irritate the skin around the ulcer. Seems to think she is having allergic reaction to silver. Patient will be started on Promogran instead. Patient received her arterial brachial studies and venous studies arteries are good veins she has a lot of blockage especially in the upper leg and in the lower calf anterior posterior area on both legs the lower extremities. Fine varicosities. The wound itself is very pebbled and punctuated like it UC and on venous ulcer. Patient talked to her family doctor and would prefer to go to a vascular surgeon in [place] for follow-up. - Physical Exam Vital Signs Temp Pulse Resp BP 96.0 F L 76 18 133/60 H 09/01/17 10:24 09/01/17 10:24 09/01/17 10:24 09/01/17 10:24 General: Oriented x3, Cooperative, Well developed HEENT: Atraumatic, PERRLA Oral: Moist Mucosa Neck: Supple, No JVD Lungs: Clear to auscultation, Normal air movement Cardiovascular: Regular rate, Regular Rhythm Abdomen: Bowel Sounds Present, Soft, Non Tender, No Hepato-splenomegaly Extremities: No clubbing, No edema, - - Left medial ankle ulcer Wound Measurements and Assessment WC - Nurse 1 - General Ulcer Measurement Start: 09/01/17 10:23 Freq: Status: Active Protocol: Activity Type Activity Date Activity User E-Sign Co-Sign Detail Recorded Client Recorded Date Recorded By Document 09/01/17 10:24 TM [id number] 09/01/17 10:26 TM 09/01/17 10:24 Wound Center Nurse 1 [Ulcer Assessment] #1 Left Medial Malleous -Combined with other wound No -Current Size (cm) - Length 2.6 -Current Size (cm) - Width 2.7 -Current Size (cm) - Depth 0.2 -Total Square Cm 7.02 -Date of Last Picture (Recall this 09/01/17 field) -Photo Taken Yes -Epithelialization Small 1-33% -Tunneling No -Undermining/Tunneling No -Circular Undermining No -Classification - Thickness Full Thickness without Exposed Support Structure -Exudate Amt Small (1-33%) -Exudate Type Serosanguineous -Wound Margin Fibrotic Scar, Thickened Scar -Granulation Amt Small (1-33%) -Granulation Quality Red -Slough/Fibrin Yes -Necrosis Amt Large (67-100%) -Necrotic Tissue Type Adherent Slough -Structure Exposed Fascia Fat Layer Exposed -Texture (Ines-wound Skin Appearance) Friable Localized Edema Scarring Rash -Moisture (Ines-wound Skin Appearance No Abnormality ) -Color (Nies-wound Skin Appearance) Erythema Hemosiderin Staining -Temperature (Ines-wound Skin No Abnormality Appearance) (Pt Warm) -Tenderness on Palpation (Ines-wound Yes Skin Appearance) -Ulcer Cleansing Rinsed/ Irrigated with Saline -Foul Odor after Cleansing No -Anesthetic Used 5% Lidocaine Gel [Edema Assessment] -Lower Limb Edema Present Yes -Left Calf (cm) 36.5 -Left Ankle (cm) 22.5 WC - Nurse 2 - General Ulcer CM Notes Start: 09/01/17 10:23 Freq: Status: Active Protocol: Activity Type Activity Date Activity User E-Sign Co-Sign Detail Recorded Client Recorded Date Recorded By Document 09/01/17 10:33 MW [id number] 09/01/17 10:40 MW 09/01/17 10:33 Wound Center Nurse 2 [Procedure/Treatment] #1 Left Medial Malleous -Time 10:33 -Correct Patient Yes -Correct Side, Site, Position Yes -Correct Procedure Yes -Procedure Performed Yes -Type of Procedure Debridement -Clinical Debridement Subcutaneous -Post Debridement Size (cm) - Length 2.3 -Post Debridement Size (cm) - Width 0.7 -Post Debridement Size (cm) - Depth 0.1 -Total Square Cm 1.61 -Wound/Ulcer Outcome Not Healed -Ulcer Cleansing Rinsed/ Irrigated with Saline -Foul Odor after Cleansing No -Bioengineered Tissue No -Bleeding Controlled with Pressure -Treatment Response Procedure Tolerated Well [See Physician Procedure note for Specifics] Pain Scale: 0-10 Numeric [Pain] -Is Patient Pain Free? Yes Musculoskeletal: No Tenderness to Palpation of Joints or Extremities Lymphatic: No Cervical, Supraclavicular, or Inguinal Adenopathy Neurological: Cranial nerves II-XII grossly intact, Neuro grossly intact Psych/Mental Status: Normal Affect, Appropriate, Alert and oriented to time, place, person, mood and affect Debridement Note Post-Debridement Measurements/Treatment WC - Nurse 2 - General Ulcer CM Notes Start: 09/01/17 10:23 Freq: Status: Active Protocol: Activity Type Activity Date Activity User E-Sign Co-Sign Detail Recorded Client Recorded Date Recorded By Document 09/01/17 10:33 MW [id number] 09/01/17 10:40 MW 09/01/17 10:33 Wound Center Nurse 2 #1 Left Medial Malleous -Time 10:33 -Correct Patient Yes -Correct Side, Site, Position Yes -Correct Procedure Yes -Procedure Performed Yes -Type of Procedure Debridement -Clinical Debridement Subcutaneous -Post Debridement Size (cm) - Length 2.3 -Post Debridement Size (cm) - Width 0.7 -Post Debridement Size (cm) - Depth 0.1 -Total Square Cm 1.61 -Wound/Ulcer Outcome Not Healed -Ulcer Cleansing Rinsed/ Irrigated with Saline -Foul Odor after Cleansing No -Bioengineered Tissue No -Bleeding Controlled with Pressure -Treatment Response Procedure Tolerated Well Pain Scale: 0-10 Numeric Is Patient Pain Free? Yes Wound debrided: Left medial ankle ulcer venous Type of Debridement: Excisional debridement Anesthesia Used: 5% Lidocaine Gel Depth: Down to and including healthy tissue, in the subcutaneous layer Percentage of wound debrided: 100 Instrument Used: 5mm curette Tissue Removed: Slough fibrin Severity: Limited To Skin Breakdown Amount of bleeding with debridement: Mild Bleeding Controlled with: Compression and gauze Patient tolerated procedure well Assessment/Plan Active Problems Atherosclerotic peripheral vascular disease with ulceration (Acute) Peripheral vascular occlusive disease (Acute) Assessment: Venous ulcer left medial malleolus. Edema bilateral lower legs. Peripheral vascular occlusive disease. History of DVTs Plan: Wash leg with Hibiclens. Apply promogran moistened cover with Adaptic and gauze tape moistened gauze Valeriano. Double layer Tubigrip left leg. Follow- up 2 week. Patient to her vascular surgeon in [place] Dr Bass
[2017-09-15 09:40] VITALS: BP 121/70; PULSE 85; RESP 16; TEMP 36.5; BMI 26.5
--- NOTE | 2017-09-15 10:10 | PCM.WC.PN ---
(1) Atherosclerotic peripheral vascular disease with ulceration Status: Acute Current Visit: Yes Qualifiers: Peripheral atherosclerosis location: lower extremity Code(s): I70.209 - Unspecified atherosclerosis of [place] arteries of extremities, unspecified extremity; L98.499 - Non-pressure chronic ulcer of skin of other sites with unspecified severity (2) Peripheral vascular occlusive disease Status: Acute Current Visit: Yes Code(s): I73.9 - Peripheral vascular disease, unspecified Type of Wound Date of Service: 09/15/17 Chief Complaint: Follow-up on a ulcer on the left ankle History of Wound: 71-year-old white female with a prior history of peripheral vascular occlusive disease. Arrived with an ulcer on her left medial malleolus from June 21. Patient had been using antibiotic ointment and cream to the leg. Has seen her family doctor and was put on Santyl and has been using that daily. Progress of Wound: Today the ulcer is about quqrter of the size it wasand denies pain. Patient should be healed by next week very superficial now. Still has some slough in the base. Patient has been using Promogran and tolerating well. Patient received her arterial brachial studies and venous studies arteries are good veins she has a lot of blockage especially in the upper leg and in the lower calf anterior posterior area on both legs the lower extremities. Fine varicosities. The wound itself is very pebbled and punctuated like it UC and on venous ulcer. Patient talked to her family doctor and would prefer to go to a vascular surgeon in [place] for follow-up. Patient has met with her [place] Dr and was told she is not a canadate for ablation because of her clotting disorder and that this is the only 2 nd time in 10 years she has had a wound he suggests better copression. - Physical Exam Vital Signs Temp Pulse Resp BP 97.7 F L 85 16 121/70 H 09/15/17 09:40 09/15/17 09:40 09/15/17 09:40 09/15/17 09:40 General: Oriented x3, Cooperative, Well developed HEENT: Atraumatic, PERRLA Oral: Moist Mucosa Neck: Supple, No JVD Lungs: Clear to auscultation, Normal air movement Cardiovascular: Regular rate, Regular Rhythm Abdomen: Bowel Sounds Present, Soft, Non Tender, No Hepato-splenomegaly Extremities: No clubbing, No edema Wound Measurements and Assessment WC - Nurse 1 - General Ulcer Measurement Start: 09/01/17 10:23 Freq: Status: Active Protocol: Activity Type Activity Date Activity User E-Sign Co-Sign Detail Recorded Client Recorded Date Recorded By Document 09/15/17 09:40 BM [id number] 09/15/17 09:48 BM 09/15/17 09:40 Wound Center Nurse 1 [Ulcer Assessment] #1 Left Medial Malleous -Combined with other wound No -Current Size (cm) - Length 0.5 -Current Size (cm) - Width 0.3 -Current Size (cm) - Depth 0.2 -Total Square Cm 0.15 -Photo Taken No -Epithelialization Small 1-33% -Tunneling No -Undermining/Tunneling No -Exudate Amt Small (1-33%) -Exudate Type Serous -Wound Margin Distinct, Outline Attached -Granulation Amt None Present (0 %) -Slough/Fibrin No -Necrosis Amt Large (67-100%) -Necrotic Tissue Type Adherent Slough -Structure Exposed N/A -Texture (Ines-wound Skin Appearance) Scarring -Moisture (Ines-wound Skin Appearance Dry/Scaly ) -Color (Ines-wound Skin Appearance) Erythema -Temperature (Ines-wound Skin No Abnormality Appearance) (Pt Warm) -Tenderness on Palpation (Ines-wound No Skin Appearance) -Ulcer Cleansing Rinsed/ Irrigated with Saline -Foul Odor after Cleansing No -Anesthetic Used 4% Lidocaine Solution [Edema Assessment] -Lower Limb Edema Present Yes -Right Calf (cm) 37.5 -Right Ankle (cm) 22.5 WC - Nurse 2 - General Ulcer CM Notes Start: 09/01/17 10:23 Freq: Status: Active Protocol: Activity Type Activity Date Activity User E-Sign Co-Sign Detail Recorded Client Recorded Date Recorded By Document 09/15/17 10:03 MW [id number] 09/15/17 10:04 MW 09/15/17 10:03 Wound Center Nurse 2 [Procedure/Treatment] #1 Left Medial Malleous -Time 10:03 -Correct Patient Yes -Correct Side, Site, Position Yes -Correct Procedure Yes -Procedure Performed Yes -Type of Procedure Debridement -Clinical Debridement Subcutaneous -Post Debridement Size (cm) - Length 2.0 -Post Debridement Size (cm) - Width 3.0 -Post Debridement Size (cm) - Depth 0.1 -Total Square Cm 6.00 -Wound/Ulcer Outcome Not Healed -Ulcer Cleansing Rinsed/ Irrigated with Saline -Foul Odor after Cleansing No -Bioengineered Tissue No -Bleeding Controlled with Pressure -Treatment Response Procedure Tolerated Well [See Physician Procedure note for Specifics] Pain Scale: 0-10 Numeric [Pain] -Is Patient Pain Free? Yes Musculoskeletal: No Tenderness to Palpation of Joints or Extremities Lymphatic: No Cervical, Supraclavicular, or Inguinal Adenopathy Neurological: Cranial nerves II-XII grossly intact, Neuro grossly intact Psych/Mental Status: Normal Affect, Appropriate, Alert and oriented to time, place, person, mood and affect Debridement Note Post-Debridement Measurements/Treatment WC - Nurse 2 - General Ulcer CM Notes Start: 09/01/17 10:23 Freq: Status: Active Protocol: Activity Type Activity Date Activity User E-Sign Co-Sign Detail Recorded Client Recorded Date Recorded By Document 09/01/17 10:33 MW [id number] 09/01/17 10:40 MW Document 09/15/17 10:03 MW [id number] 09/15/17 10:04 MW 09/01/17 09/15/17 10:33 10:03 Wound Center Nurse 2 #1 Left Medial Malleous -Time 10:33 10:03 -Correct Patient Yes Yes -Correct Side, Site, Position Yes Yes -Correct Procedure Yes Yes -Procedure Performed Yes Yes -Type of Procedure Debridement Debridement -Clinical Debridement Subcutaneous Subcutaneous -Post Debridement Size (cm) - Length 2.3 2.0 -Post Debridement Size (cm) - Width 0.7 3.0 -Post Debridement Size (cm) - Depth 0.1 0.1 -Total Square Cm 1.61 6.00 -Wound/Ulcer Outcome Not Healed Not Healed -Ulcer Cleansing Rinsed/ Rinsed/ Irrigated with Irrigated with Saline Saline -Foul Odor after Cleansing No No -Bioengineered Tissue No No -Bleeding Controlled with Pressure Pressure -Treatment Response Procedure Procedure Tolerated Well Tolerated Well Pain Scale: 0-10 Numeric Is Patient Pain Free? Yes Yes Wound debrided: Left medial ankle Type of Debridement: Excisional debridement Anesthesia Used: 5% Lidocaine Gel Depth: Down to and including healthy tissue, in the subcutaneous layer Percentage of wound debrided: 100 Instrument Used: 3mm curette Tissue Removed: slough Severity: Limited To Skin Breakdown Amount of bleeding with debridement: None Bleeding Controlled with: Pressure Patient tolerated procedure well Assessment/Plan Active Problems Atherosclerotic peripheral vascular disease with ulceration (Acute) Peripheral vascular occlusive disease (Acute) Assessment: Venous ulcer left medial malleolus. Edema bilateral lower legs. Peripheral vascular occlusive disease. History of DVTs Plan: Wash leg with Hibiclens. Apply promogran moistened cover with Adaptic and gauze tape moistened gauze Valeriano. Double layer Tubigrip left leg. Follow-up 1 week. Patient to her vascular surgeon in [place] Dr Bass
--- NOTE | 2017-09-15 10:15 | PN.PCM_ITS ---
(1) Atherosclerotic peripheral vascular disease with ulceration Status: Acute Current Visit: Yes Qualifiers: Peripheral atherosclerosis location: lower extremity Code(s): I70.209 - Unspecified atherosclerosis of [place] arteries of extremities , unspecified extremity; L98.499 - Non-pressure chronic ulcer of skin of other sites with unspecified severity (2) Peripheral vascular occlusive disease Status: Acute Current Visit: Yes Code(s): I73.9 - Peripheral vascular disease, unspecified Type of Wound Date of Service: 09/15/17 Chief Complaint: Follow-up on a ulcer on the left ankle History of Wound: 71-year-old white female with a prior history of peripheral vascular occlusive disease. Arrived with an ulcer on her left medial malleolus from June 21. Patient had been using antibiotic ointment and cream to the leg. Has seen her family doctor and was put on Santyl and has been using that daily. Progress of Wound: Today the ulcer is about quqrter of the size it wasand denies pain. Patient should be healed by next week very superficial now. Still has some slough in the base. Patient has been using Promogran and tolerating well. Patient received her arterial brachial studies and venous studies arteries are good veins she has a lot of blockage especially in the upper leg and in the lower calf anterior posterior area on both legs the lower extremities. Fine varicosities. The wound itself is very pebbled and punctuated like it UC and on venous ulcer. Patient talked to her family doctor and would prefer to go to a vascular surgeon in [place] for follow-up. Patient has met with her [place] Dr and was told she is not a canadate for ablation because of her clotting disorder and that this is the only 2 nd time in 10 years she has had a wound he suggests better copression. - Physical Exam Vital Signs Temp Pulse Resp BP 97.7 F L 85 16 121/70 H 09/15/17 09:40 09/15/17 09:40 09/15/17 09:40 09/15/17 09:40 General: Oriented x3, Cooperative, Well developed HEENT: Atraumatic, PERRLA Oral: Moist Mucosa Neck: Supple, No JVD Lungs: Clear to auscultation, Normal air movement Cardiovascular: Regular rate, Regular Rhythm Abdomen: Bowel Sounds Present, Soft, Non Tender, No Hepato-splenomegaly Extremities: No clubbing, No edema Wound Measurements and Assessment WC - Nurse 1 - General Ulcer Measurement Start: 09/01/17 10:23 Freq: Status: Active Protocol: Activity Type Activity Date Activity User E-Sign Co-Sign Detail Recorded Client Recorded Date Recorded By Document 09/15/17 09:40 BM [id number] 09/15/17 09:48 BM 09/15/17 09:40 Wound Center Nurse 1 [Ulcer Assessment] #1 Left Medial Malleous -Combined with other wound No -Current Size (cm) - Length 0.5 -Current Size (cm) - Width 0.3 -Current Size (cm) - Depth 0.2 -Total Square Cm 0.15 -Photo Taken No -Epithelialization Small 1-33% -Tunneling No -Undermining/Tunneling No -Exudate Amt Small (1-33%) -Exudate Type Serous -Wound Margin Distinct, Outline Attached -Granulation Amt None Present (0 %) -Slough/Fibrin No -Necrosis Amt Large (67-100%) -Necrotic Tissue Type Adherent Slough -Structure Exposed N/A -Texture (Ines-wound Skin Appearance) Scarring -Moisture (Ines-wound Skin Appearance Dry/Scaly ) -Color (Ines-wound Skin Appearance) Erythema -Temperature (Ines-wound Skin No Abnormality Appearance) (Pt Warm) -Tenderness on Palpation (Ines-wound No Skin Appearance) -Ulcer Cleansing Rinsed/ Irrigated with Saline -Foul Odor after Cleansing No -Anesthetic Used 4% Lidocaine Solution [Edema Assessment] -Lower Limb Edema Present Yes -Right Calf (cm) 37.5 -Right Ankle (cm) 22.5 WC - Nurse 2 - General Ulcer CM Notes Start: 09/01/17 10:23 Freq: Status: Active Protocol: Activity Type Activity Date Activity User E-Sign Co-Sign Detail Recorded Client Recorded Date Recorded By Document 09/15/17 10:03 MW [id number] 09/15/17 10:04 MW 09/15/17 10:03 Wound Center Nurse 2 [Procedure/Treatment] #1 Left Medial Malleous -Time 10:03 -Correct Patient Yes -Correct Side, Site, Position Yes -Correct Procedure Yes -Procedure Performed Yes -Type of Procedure Debridement -Clinical Debridement Subcutaneous -Post Debridement Size (cm) - Length 2.0 -Post Debridement Size (cm) - Width 3.0 -Post Debridement Size (cm) - Depth 0.1 -Total Square Cm 6.00 -Wound/Ulcer Outcome Not Healed -Ulcer Cleansing Rinsed/ Irrigated with Saline -Foul Odor after Cleansing No -Bioengineered Tissue No -Bleeding Controlled with Pressure -Treatment Response Procedure Tolerated Well [See Physician Procedure note for Specifics] Pain Scale: 0-10 Numeric [Pain] -Is Patient Pain Free? Yes Musculoskeletal: No Tenderness to Palpation of Joints or Extremities Lymphatic: No Cervical, Supraclavicular, or Inguinal Adenopathy Neurological: Cranial nerves II-XII grossly intact, Neuro grossly intact Psych/Mental Status: Normal Affect, Appropriate, Alert and oriented to time, place, person, mood and affect Debridement Note Post-Debridement Measurements/Treatment WC - Nurse 2 - General Ulcer CM Notes Start: 09/01/17 10:23 Freq: Status: Active Protocol: Activity Type Activity Date Activity User E-Sign Co-Sign Detail Recorded Client Recorded Date Recorded By Document 09/01/17 10:33 MW [id number] 09/01/17 10:40 MW Document 09/15/17 10:03 MW [id number] 09/15/17 10:04 MW 09/01/17 09/15/17 10:33 10:03 Wound Center Nurse 2 #1 Left Medial Malleous -Time 10:33 10:03 -Correct Patient Yes Yes -Correct Side, Site, Position Yes Yes -Correct Procedure Yes Yes -Procedure Performed Yes Yes -Type of Procedure Debridement Debridement -Clinical Debridement Subcutaneous Subcutaneous -Post Debridement Size (cm) - Length 2.3 2.0 -Post Debridement Size (cm) - Width 0.7 3.0 -Post Debridement Size (cm) - Depth 0.1 0.1 -Total Square Cm 1.61 6.00 -Wound/Ulcer Outcome Not Healed Not Healed -Ulcer Cleansing Rinsed/ Rinsed/ Irrigated with Irrigated with Saline Saline -Foul Odor after Cleansing No No -Bioengineered Tissue No No -Bleeding Controlled with Pressure Pressure -Treatment Response Procedure Procedure Tolerated Well Tolerated Well Pain Scale: 0-10 Numeric Is Patient Pain Free? Yes Yes Wound debrided: Left medial ankle Type of Debridement: Excisional debridement Anesthesia Used: 5% Lidocaine Gel Depth: Down to and including healthy tissue, in the subcutaneous layer Percentage of wound debrided: 100 Instrument Used: 3mm curette Tissue Removed: slough Severity: Limited To Skin Breakdown Amount of bleeding with debridement: None Bleeding Controlled with: Pressure Patient tolerated procedure well Assessment/Plan Active Problems Atherosclerotic peripheral vascular disease with ulceration (Acute) Peripheral vascular occlusive disease (Acute) Assessment: Venous ulcer left medial malleolus. Edema bilateral lower legs. Peripheral vascular occlusive disease. History of DVTs Plan: Wash leg with Hibiclens. Apply promogran moistened cover with Adaptic and gauze tape moistened gauze Valeriano. Double layer Tubigrip left leg. Follow- up 1 week. Patient to her vascular surgeon in [place] Dr Bass
[2017-09-22 09:03] VITALS: BP 136/69; PULSE 81; RESP 16; TEMP 36.2; BMI 26.5
--- NOTE | 2017-09-22 09:37 | PCM.WC.PN ---
(1) Atherosclerotic peripheral vascular disease with ulceration Status: Acute Current Visit: Yes Qualifiers: Peripheral atherosclerosis location: lower extremity Code(s): I70.209 - Unspecified atherosclerosis of [place] arteries of extremities, unspecified extremity; L98.499 - Non-pressure chronic ulcer of skin of other sites with unspecified severity (2) Peripheral vascular occlusive disease Status: Acute Current Visit: Yes Code(s): I73.9 - Peripheral vascular disease, unspecified Type of Wound Date of Service: 09/22/17 Chief Complaint: Follow-up on a ulcer on the left ankle History of Wound: 71-year-old white female with a prior history of peripheral vascular occlusive disease. Arrived with an ulcer on her left medial malleolus from June 21. Patient had been using antibiotic ointment and cream to the leg. Has seen her family doctor and was put on Santyl and has been using that daily. Progress of Wound: Today the ulcer is about quqrter of the size it was and denies pain. The distal part of the 1 of the cluster parts is still slightly open should heal by next week patient was disappointed but her skin is smoothing out and less cobblestone affect is apparent. Patient has been using Promogran and tolerating well. Patient received her arterial brachial studies and venous studies arteries are good veins she has a lot of blockage especially in the upper leg and in the lower calf anterior posterior area on both legs the lower extremities. Fine varicosities. The wound itself is very pebbled and punctuated like it UC and on venous ulcer. Patient talked to her family doctor and would prefer to go to a vascular surgeon in [place] for follow-up. Patient has met with her [place] Dr and was told she is not a canadate for ablation because of her clotting disorder and that this is the only 2 nd time in 10 years she has had a wound he suggests better copression. - Physical Exam Vital Signs Temp Pulse Resp BP 97.1 F L 81 16 136/69 H 09/22/17 09:03 09/22/17 09:03 09/22/17 09:03 09/22/17 09:03 General: Oriented x3, Cooperative, Well developed HEENT: Atraumatic, PERRLA Oral: Moist Mucosa Neck: Supple, No JVD Lungs: Clear to auscultation, Normal air movement Cardiovascular: Regular rate, Regular Rhythm Abdomen: Bowel Sounds Present, Soft, Non Tender, No Hepato-splenomegaly Extremities: No clubbing, No edema, - - Left medial ankle ulcer Skin: Ulcer/ Wound Wound Measurements and Assessment WC - Nurse 1 - General Ulcer Measurement Start: 09/01/17 10:23 Freq: Status: Active Protocol: Activity Type Activity Date Activity User E-Sign Co-Sign Detail Recorded Client Recorded Date Recorded By Document 09/22/17 09:03 BM [id number] 09/22/17 09:10 BMF 09/22/17 09:03 Wound Center Nurse 1 [Ulcer Assessment] #1 Left Medial Malleous -Combined with other wound No -Current Size (cm) - Length 0.4 -Current Size (cm) - Width 0.2 -Current Size (cm) - Depth 0.2 -Total Square Cm 0.08 -Photo Taken No -Epithelialization None Present -Tunneling No -Undermining/Tunneling No -Exudate Amt Small (1-33%) -Exudate Type Serous -Wound Margin Distinct, Outline Attached -Granulation Amt None Present (0 %) -Slough/Fibrin Yes -Necrosis Amt Large (67-100%) -Necrotic Tissue Type Adherent Slough -Structure Exposed None/Limited to Skin Breakdown -Texture (Ines-wound Skin Appearance) Scarring Rash -Moisture (Ines-wound Skin Appearance Assessed ) -Color (Ines-wound Skin Appearance) Erythema -Temperature (Ines-wound Skin No Abnormality Appearance) (Pt Warm) -Tenderness on Palpation (Ines-wound No Skin Appearance) -Ulcer Cleansing Rinsed/ Irrigated with Saline -Foul Odor after Cleansing No -Anesthetic Used 4% Lidocaine Solution [Edema Assessment] -Lower Limb Edema Present Yes -Left Calf (cm) 36.9 -Left Ankle (cm) 22.7 WC - Nurse 2 - General Ulcer CM Notes Start: 09/01/17 10:23 Freq: Status: Active Protocol: Activity Type Activity Date Activity User E-Sign Co-Sign Detail Recorded Client Recorded Date Recorded By Document 09/22/17 09:29 MW [id number] 09/22/17 09:30 MW 09/22/17 09:29 Wound Center Nurse 2 [Procedure/Treatment] #1 Left Medial Malleous -Time 09:30 -Correct Patient Yes -Correct Side, Site, Position Yes -Correct Procedure Yes -Procedure Performed Yes -Type of Procedure Debridement -Clinical Debridement Subcutaneous -Post Debridement Size (cm) - Length 0.5 -Post Debridement Size (cm) - Width 0.3 -Post Debridement Size (cm) - Depth 0.1 -Total Square Cm 0.15 -Wound/Ulcer Outcome Not Healed -Ulcer Cleansing Rinsed/ Irrigated with Saline -Foul Odor after Cleansing No -Bioengineered Tissue No -Bleeding Controlled with Pressure -Treatment Response Procedure Tolerated Well [See Physician Procedure note for Specifics] Pain Scale: 0-10 Numeric [Pain] -Is Patient Pain Free? Yes Musculoskeletal: No Tenderness to Palpation of Joints or Extremities Lymphatic: No Cervical, Supraclavicular, or Inguinal Adenopathy Neurological: Cranial nerves II-XII grossly intact, Neuro grossly intact Psych/Mental Status: Normal Affect, Appropriate, Alert and oriented to time, place, person, mood and affect Debridement Note Post-Debridement Measurements/Treatment WC - Nurse 2 - General Ulcer CM Notes Start: 09/01/17 10:23 Freq: Status: Active Protocol: Activity Type Activity Date Activity User E-Sign Co-Sign Detail Recorded Client Recorded Date Recorded By Document 09/01/17 10:33 MW [id number] 09/01/17 10:40 MW Document 09/15/17 10:03 MW [id number] 09/15/17 10:04 MW Document 09/22/17 09:29 MW [id number] 09/22/17 09:30 MW 09/01/17 09/15/17 09/22/17 10:33 10:03 09:29 Wound Center Nurse 2 #1 Left Medial Malleous -Time 10:33 10:03 09:30 -Correct Patient Yes Yes Yes -Correct Side, Site, Position Yes Yes Yes -Correct Procedure Yes Yes Yes -Procedure Performed Yes Yes Yes -Type of Procedure Debridement Debridement Debridement -Clinical Debridement Subcutaneous Subcutaneous Subcutaneous -Post Debridement Size (cm) - Length 2.3 2.0 0.5 -Post Debridement Size (cm) - Width 0.7 3.0 0.3 -Post Debridement Size (cm) - Depth 0.1 0.1 0.1 -Total Square Cm 1.61 6.00 0.15 -Wound/Ulcer Outcome Not Healed Not Healed Not Healed -Ulcer Cleansing Rinsed/ Rinsed/ Rinsed/ Irrigated with Irrigated with Irrigated with Saline Saline Saline -Foul Odor after Cleansing No No No -Bioengineered Tissue No No No -Bleeding Controlled with Pressure Pressure Pressure -Treatment Response Procedure Procedure Procedure Tolerated Well Tolerated Well Tolerated Well Pain Scale: 0-10 Numeric Is Patient Pain Free? Yes Yes Yes Wound debrided: Left medial ankle ulcer Type of Debridement: Excisional debridement Anesthesia Used: 5% Lidocaine Gel Depth: Down to and including healthy tissue, in the subcutaneous layer Percentage of wound debrided: 100 Instrument Used: 3mm curette Tissue Removed: Slough and fibrin Severity: Limited To Skin Breakdown Amount of bleeding with debridement: Mild Bleeding Controlled with: Compression and gauze Patient tolerated procedure well Assessment/Plan Active Problems Atherosclerotic peripheral vascular disease with ulceration (Acute) Peripheral vascular occlusive disease (Acute) Assessment: Venous ulcer left medial malleolus. Edema bilateral lower legs. Peripheral vascular occlusive disease. History of DVTs Plan: Wash leg with Hibiclens. Apply promogran moistened cover with Adaptic and gauze tape moistened gauze Valeriano every other day. Double layer Tubigrip left leg. Follow-up 1 week. Patient to her vascular surgeon in [place] Dr Bass
--- NOTE | 2017-09-22 09:40 | PN.PCM_ITS ---
(1) Atherosclerotic peripheral vascular disease with ulceration Status: Acute Current Visit: Yes Qualifiers: Peripheral atherosclerosis location: lower extremity Code(s): I70.209 - Unspecified atherosclerosis of [place] arteries of extremities , unspecified extremity; L98.499 - Non-pressure chronic ulcer of skin of other sites with unspecified severity (2) Peripheral vascular occlusive disease Status: Acute Current Visit: Yes Code(s): I73.9 - Peripheral vascular disease, unspecified Type of Wound Date of Service: 09/22/17 Chief Complaint: Follow-up on a ulcer on the left ankle History of Wound: 71-year-old white female with a prior history of peripheral vascular occlusive disease. Arrived with an ulcer on her left medial malleolus from June 21. Patient had been using antibiotic ointment and cream to the leg. Has seen her family doctor and was put on Santyl and has been using that daily. Progress of Wound: Today the ulcer is about quqrter of the size it was and denies pain. The distal part of the 1 of the cluster parts is still slightly open should heal by next week patient was disappointed but her skin is smoothing out and less cobblestone affect is apparent. Patient has been using Promogran and tolerating well. Patient received her arterial brachial studies and venous studies arteries are good veins she has a lot of blockage especially in the upper leg and in the lower calf anterior posterior area on both legs the lower extremities. Fine varicosities. The wound itself is very pebbled and punctuated like it UC and on venous ulcer. Patient talked to her family doctor and would prefer to go to a vascular surgeon in [place] for follow-up. Patient has met with her [place] Dr and was told she is not a canadate for ablation because of her clotting disorder and that this is the only 2 nd time in 10 years she has had a wound he suggests better copression. - Physical Exam Vital Signs Temp Pulse Resp BP 97.1 F L 81 16 136/69 H 09/22/17 09:03 09/22/17 09:03 09/22/17 09:03 09/22/17 09:03 General: Oriented x3, Cooperative, Well developed HEENT: Atraumatic, PERRLA Oral: Moist Mucosa Neck: Supple, No JVD Lungs: Clear to auscultation, Normal air movement Cardiovascular: Regular rate, Regular Rhythm Abdomen: Bowel Sounds Present, Soft, Non Tender, No Hepato-splenomegaly Extremities: No clubbing, No edema, - - Left medial ankle ulcer Skin: Ulcer/ Wound Wound Measurements and Assessment WC - Nurse 1 - General Ulcer Measurement Start: 09/01/17 10:23 Freq: Status: Active Protocol: Activity Type Activity Date Activity User E-Sign Co-Sign Detail Recorded Client Recorded Date Recorded By Document 09/22/17 09:03 BM [id number] 09/22/17 09:10 BMF 09/22/17 09:03 Wound Center Nurse 1 [Ulcer Assessment] #1 Left Medial Malleous -Combined with other wound No -Current Size (cm) - Length 0.4 -Current Size (cm) - Width 0.2 -Current Size (cm) - Depth 0.2 -Total Square Cm 0.08 -Photo Taken No -Epithelialization None Present -Tunneling No -Undermining/Tunneling No -Exudate Amt Small (1-33%) -Exudate Type Serous -Wound Margin Distinct, Outline Attached -Granulation Amt None Present (0 %) -Slough/Fibrin Yes -Necrosis Amt Large (67-100%) -Necrotic Tissue Type Adherent Slough -Structure Exposed None/Limited to Skin Breakdown -Texture (Ines-wound Skin Appearance) Scarring Rash -Moisture (Ines-wound Skin Appearance Assessed ) -Color (Ines-wound Skin Appearance) Erythema -Temperature (Ines-wound Skin No Abnormality Appearance) (Pt Warm) -Tenderness on Palpation (Ines-wound No Skin Appearance) -Ulcer Cleansing Rinsed/ Irrigated with Saline -Foul Odor after Cleansing No -Anesthetic Used 4% Lidocaine Solution [Edema Assessment] -Lower Limb Edema Present Yes -Left Calf (cm) 36.9 -Left Ankle (cm) 22.7 WC - Nurse 2 - General Ulcer CM Notes Start: 09/01/17 10:23 Freq: Status: Active Protocol: Activity Type Activity Date Activity User E-Sign Co-Sign Detail Recorded Client Recorded Date Recorded By Document 09/22/17 09:29 MW [id number] 09/22/17 09:30 MW 09/22/17 09:29 Wound Center Nurse 2 [Procedure/Treatment] #1 Left Medial Malleous -Time 09:30 -Correct Patient Yes -Correct Side, Site, Position Yes -Correct Procedure Yes -Procedure Performed Yes -Type of Procedure Debridement -Clinical Debridement Subcutaneous -Post Debridement Size (cm) - Length 0.5 -Post Debridement Size (cm) - Width 0.3 -Post Debridement Size (cm) - Depth 0.1 -Total Square Cm 0.15 -Wound/Ulcer Outcome Not Healed -Ulcer Cleansing Rinsed/ Irrigated with Saline -Foul Odor after Cleansing No -Bioengineered Tissue No -Bleeding Controlled with Pressure -Treatment Response Procedure Tolerated Well [See Physician Procedure note for Specifics] Pain Scale: 0-10 Numeric [Pain] -Is Patient Pain Free? Yes Musculoskeletal: No Tenderness to Palpation of Joints or Extremities Lymphatic: No Cervical, Supraclavicular, or Inguinal Adenopathy Neurological: Cranial nerves II-XII grossly intact, Neuro grossly intact Psych/Mental Status: Normal Affect, Appropriate, Alert and oriented to time, place, person, mood and affect Debridement Note Post-Debridement Measurements/Treatment WC - Nurse 2 - General Ulcer CM Notes Start: 09/01/17 10:23 Freq: Status: Active Protocol: Activity Type Activity Date Activity User E-Sign Co-Sign Detail Recorded Client Recorded Date Recorded By Document 09/01/17 10:33 MW [id number] 09/01/17 10:40 MW Document 09/15/17 10:03 MW [id number] 09/15/17 10:04 MW Document 09/22/17 09:29 MW [id number] 09/22/17 09:30 MW 09/01/17 09/15/17 09/22/17 10:33 10:03 09:29 Wound Center Nurse 2 #1 Left Medial Malleous -Time 10:33 10:03 09:30 -Correct Patient Yes Yes Yes -Correct Side, Site, Position Yes Yes Yes -Correct Procedure Yes Yes Yes -Procedure Performed Yes Yes Yes -Type of Procedure Debridement Debridement Debridement -Clinical Debridement Subcutaneous Subcutaneous Subcutaneous -Post Debridement Size (cm) - Length 2.3 2.0 0.5 -Post Debridement Size (cm) - Width 0.7 3.0 0.3 -Post Debridement Size (cm) - Depth 0.1 0.1 0.1 -Total Square Cm 1.61 6.00 0.15 -Wound/Ulcer Outcome Not Healed Not Healed Not Healed -Ulcer Cleansing Rinsed/ Rinsed/ Rinsed/ Irrigated with Irrigated with Irrigated with Saline Saline Saline -Foul Odor after Cleansing No No No -Bioengineered Tissue No No No -Bleeding Controlled with Pressure Pressure Pressure -Treatment Response Procedure Procedure Procedure Tolerated Well Tolerated Well Tolerated Well Pain Scale: 0-10 Numeric Is Patient Pain Free? Yes Yes Yes Wound debrided: Left medial ankle ulcer Type of Debridement: Excisional debridement Anesthesia Used: 5% Lidocaine Gel Depth: Down to and including healthy tissue, in the subcutaneous layer Percentage of wound debrided: 100 Instrument Used: 3mm curette Tissue Removed: Slough and fibrin Severity: Limited To Skin Breakdown Amount of bleeding with debridement: Mild Bleeding Controlled with: Compression and gauze Patient tolerated procedure well Assessment/Plan Active Problems Atherosclerotic peripheral vascular disease with ulceration (Acute) Peripheral vascular occlusive disease (Acute) Assessment: Venous ulcer left medial malleolus. Edema bilateral lower legs. Peripheral vascular occlusive disease. History of DVTs Plan: Wash leg with Hibiclens. Apply promogran moistened cover with Adaptic and gauze tape moistened gauze Valeriano every other day. Double layer Tubigrip left leg. Follow-up 1 week. Patient to her vascular surgeon in [place] Dr Bass
== END 2017-09-30 23:59 ==
LOC: WC 09:00
PROVIDERS: Family Provider Internal Medicine; PCP Internal Medicine; Visit Provider Nurse Practitioner
DX: I70.243 Atherosclerosis of native arteries of left leg with ulceration of ankle (principal); L97.321 Non-pressure chronic ulcer of left ankle limited to breakdown of skin; R60.0 Localized edema; Z86.718 Personal history of other venous thrombosis and embolism
CPT/HCPCS: 11042

== ENCOUNTER 2017-10-06 10:01 | Outpatient (RCR) | payer MEDICARE, OTHER, SELFPAY ==
[2017-10-01 00:49] VITALS: BP 137/71; PULSE 81; RESP 16; TEMP 36.2; BMI 26.5
[2017-10-06 11:46] VITALS: BP 143/81; PULSE 88; RESP 18; TEMP 36.9; BMI 26.5
--- NOTE | 2017-10-06 13:08 | PN.PCM_ITS ---
(1) Atherosclerotic peripheral vascular disease with ulceration Status: Acute Current Visit: Yes Code(s): I70.209 - Unspecified atherosclerosis of [place] arteries of extremities, unspecified extremity; L98.499 - Non-pressure chronic ulcer of skin of other sites with unspecified severity (2) History of deep vein thrombosis (DVT) of lower extremity Status: Chronic Current Visit: No Code(s): Z86.718 - Personal history of other venous thrombosis and embolism (3) Lower leg edema Status: Acute Current Visit: Yes Code(s): R60.0 - Localized edema (4) Peripheral vascular occlusive disease Status: Acute Current Visit: Yes Code(s): I73.9 - Peripheral vascular disease, unspecified Type of Wound Date of Service: 10/06/17 Chief Complaint: Follow-up on a ulcer on the left ankle History of Wound: 71-year-old white female with a prior history of peripheral vascular occlusive disease. Arrived with an ulcer on her left medial malleolus from June 21. Patient had been using antibiotic ointment and cream to the leg. Has seen her family doctor and was put on Santyl and has been using that daily. Progress of Wound: Today the ulcer is healed patient will be discharged from wound center - Physical Exam Vital Signs Temp Pulse Resp BP 98.4 F 88 18 143/81 H 10/06/17 11:46 10/06/17 11:46 10/06/17 11:46 10/06/17 11:46 General: Oriented x3, Cooperative, Well developed HEENT: Atraumatic, PERRLA Oral: Moist Mucosa Neck: Supple, No JVD Lungs: Clear to auscultation, Normal air movement Cardiovascular: Regular rate, Regular Rhythm Abdomen: Bowel Sounds Present, Soft, Non Tender, No Hepato-splenomegaly Extremities: No clubbing, No edema Wound Measurements and Assessment WC - Nurse 1 - General Ulcer Measurement Start: 10/06/17 11:46 Freq: Status: Active Protocol: Activity Type Activity Date Activity User E-Sign Co-Sign Detail Recorded Client Recorded Date Recorded By Document 10/06/17 11:46 [id number] 10/06/17 11:48 TM 10/06/17 11:46 Wound Center Nurse 1 [Ulcer Assessment] #1 Left Medial Malleous -Combined with other wound No -Current Size (cm) - Length 0.1 -Current Size (cm) - Width 0.1 -Current Size (cm) - Depth 0.1 -Total Square Cm 0.01 -Date of Last Picture (Recall this 10/06/17 field) -Photo Taken Yes -Epithelialization Large 67-100% -Tunneling No -Undermining/Tunneling No -Circular Undermining No -Classification - Thickness Full Thickness without Exposed Support Structure -Exudate Amt None Present (0 %) -Wound Margin Distinct, Outline Attached -Granulation Amt Large (67-100%) -Granulation Quality [place] -Slough/Fibrin No -Necrosis Amt None Present (0 %) -Structure Exposed None/Limited to Skin Breakdown -Texture (Ines-wound Skin Appearance) Friable Scarring -Moisture (Ines-wound Skin Appearance Dry/Scaly ) -Color (Ines-wound Skin Appearance) Erythema Hemosiderin Staining -Temperature (Ines-wound Skin No Abnormality Appearance) (Pt Warm) -Tenderness on Palpation (Ines-wound Yes Skin Appearance) -Ulcer Cleansing Rinsed/ Irrigated with Saline -Foul Odor after Cleansing No [Edema Assessment] -Lower Limb Edema Present Yes -Left Calf (cm) 37.2 -Left Ankle (cm) 22.5 WC - Nurse 2 - General Ulcer CM Notes Start: 10/06/17 11:46 Freq: Status: Active Protocol: Activity Type Activity Date Activity User E-Sign Co-Sign Detail Recorded Client Recorded Date Recorded By Document 10/06/17 12:34 MW [id number] 10/06/17 12:36 MW 10/06/17 12:34 Wound Center Nurse 2 [Procedure/Treatment] #1 Left Medial Malleous -Time 12:35 -Correct Patient Yes -Correct Side, Site, Position Yes -Correct Procedure Yes -Procedure Performed No -Post Debridement Size (cm) - Length 0 -Post Debridement Size (cm) - Width 0 -Post Debridement Size (cm) - Depth 0 -Total Square Cm 0 -Wound/Ulcer Outcome Healed- Epithelialized -Ulcer Cleansing Not Cleansed -Foul Odor after Cleansing No -Bleeding Controlled with NA -Treatment Response Procedure Tolerated Well [See Physician Procedure note for Specifics] Pain Scale: 0-10 Numeric [Pain] -Is Patient Pain Free? Yes Musculoskeletal: No Tenderness to Palpation of Joints or Extremities Lymphatic: No Cervical, Supraclavicular, or Inguinal Adenopathy Neurological: Cranial nerves II-XII grossly intact, Neuro grossly intact Psych/Mental Status: Normal Affect, Appropriate, Alert and oriented to time, place, person, mood and affect Debridement Note Post-Debridement Measurements/Treatment WC - Nurse 2 - General Ulcer CM Notes Start: 10/06/17 11:46 Freq: Status: Active Protocol: Activity Type Activity Date Activity User E-Sign Co-Sign Detail Recorded Client Recorded Date Recorded By Document 10/06/17 12:34 MW [id number] 10/06/17 12:36 MW 10/06/17 12:34 Wound Center Nurse 2 #1 Left Medial Malleous -Time 12:35 -Correct Patient Yes -Correct Side, Site, Position Yes -Correct Procedure Yes -Procedure Performed No -Post Debridement Size (cm) - Length 0 -Post Debridement Size (cm) - Width 0 -Post Debridement Size (cm) - Depth 0 -Total Square Cm 0 -Wound/Ulcer Outcome Healed- Epithelialized -Ulcer Cleansing Not Cleansed -Foul Odor after Cleansing No -Bleeding Controlled with NA -Treatment Response Procedure Tolerated Well Pain Scale: 0-10 Numeric Is Patient Pain Free? Yes No debridement was completed today Assessment/Plan Active Problems Atherosclerotic peripheral vascular disease with ulceration (Acute) Lower leg edema (Acute) Peripheral vascular occlusive disease (Acute) Assessment: Venous ulcer left medial malleolus. Edema bilateral lower legs. Peripheral vascular occlusive disease. History of DVTs Plan: Charge from the wound center follow-up as needed
== END 2017-10-30 23:59 ==
LOC: WC 10:01
PROVIDERS: Family Provider Internal Medicine; PCP Internal Medicine; Visit Provider Nurse Practitioner
DX: I70.243 Atherosclerosis of native arteries of left leg with ulceration of ankle (principal); L97.329 Non-pressure chronic ulcer of left ankle with unspecified severity; Z86.718 Personal history of other venous thrombosis and embolism; R60.0 Localized edema; I73.9 Peripheral vascular disease, unspecified
CPT/HCPCS: 99212; G0463

== ENCOUNTER → 2018-09-24 14:11 | Outpatient (CLI) | payer MEDICARE, OTHER, SELFPAY ==
[2017-10-31 00:42] VITALS: BMI 26.5
--- NOTE | 2018-09-24 14:18 | CT_ITS ---
STUDY: CT ABDOMEN WITH CONTRAST REASON FOR EXAM: Female, 73 years old. Right-sided abdominal pain x3 months. RADIATION DOSAGE (If Supplied By Facility): CTDIvol = ( 24.33 ) mGy, DLP = ( 400.34 ) mGycm TECHNIQUE: Transaxial images were obtained post I.V. administration of 100 IV Isovue 300, and without oral contrast. Sagittal and coronal images were reconstructed. Individualized dose optimization techniques were used for this CT. COMPARISON: 11/27/2014. FINDINGS: The visualized lung bases are unremarkable. The visualized portions of the heart are within normal limits. Normal liver. Postsurgical absence of the gallbladder. Normal spleen. Normal pancreas. Normal bilateral adrenal glands. Normal right kidney. Normal left kidney. Small hiatal hernia. Normal small intestine. Normal colon. The appendix is not visualized and is probably not included since the pelvis was not scanned. A few atherosclerotic calcifications in the abdominal aorta and the common iliac arteries. Normal inferior vena cava. Normal retroperitoneum. Normal abdominal wall. Degenerative disc space height narrowing with degenerative vacuum phenomenon at the L3-L4 down to L5-S1 disc space levels. Mild degenerative retrolisthesis of L3 on L4. No acute osseous abnormality. CT/Abdomen WITH IV Contrast IMPRESSION: 1. No CT evidence of suspicious mass or acute abnormality in the abdomen. 2. Small hiatal hernia. 3. Degenerative disc space height narrowing with degenerative vacuum phenomena at L3-L4 down to L5-S1 disc space levels and mild degenerative retrolisthesis of L3 on L4. 4. No significant interval changes when compared to 11/27/2014. Electronically Signed: Lul Mcdonnell MD at 15:56 EDT , Service support ,
== END ==
PROVIDERS: Family Provider Internal Medicine; PCP Internal Medicine; Referring Provider Internal Medicine; Visit Provider Internal Medicine
DX: R10.9 Unspecified abdominal pain (principal)
CPT/HCPCS: 74160; Q9967

== ENCOUNTER → 2018-10-30 15:28 | Outpatient (CLI) | payer MEDICARE, OTHER, SELFPAY ==
--- NOTE | 2018-10-30 15:36 | BI_ITS ---
MAMMOGRAPHY - BILATERAL SCREENING REASON FOR EXAM: Female, 73 years old. Routine annual screening examination. PERTINENT HISTORY: Non-contributory. Remote left stereotactic breast biopsy. TECHNIQUE: Digital bilateral breast pinky (3D mammographic acquisition) in the CC and MLO projections. 2-D mediolateral oblique (MLO) and craniocaudad (CC) views of both breasts were obtained. CAD: Full Field Digital Mammography with Computer Added Detection was performed. COMPARISON: Comparison is made with prior study dated August 21, 2017 and August 18, 2016. FINDINGS: Breast Composition: The breasts are heterogeneously dense, which may obscure small masses. There are no dominant masses or suspicious calcifications. A tissue clip marker is once again seen in the slightly upper lateral portion of the left breast. Stable bilateral secretory calcifications. No other significant abnormalities are identified. There has been no significant change since the prior study. BI/SCREENING MAMM (CAD), BILAT IMPRESSION: Stable bilateral screening mammogram. Yearly follow-up mammogram recommended. (A) ASSESSMENT CATEGORY: BIRADS Category 2: Benign. A letter regarding these results will be sent to the patient by the facility within 30 days. Approximately 10% of breast cancers are not detected by mammography. A normal mammogram should not delay biopsy of a clinically suspicious abnormality. [id number] Electronically Signed: Tj Roca, at 10:58 EDT , Service support ,
--- NOTE | 2018-10-30 15:39 | BD_ITS ---
STUDY: DUAL ENERGY X-RAY ABSORPTIOMETRY / DXA REASON FOR EXAM: Female, 73 years old. The patient is postmenopausal. Loss of height. TECHNIQUE: Bone Mineral Density (BMD) measurements of lumbar spine and bilateral hips were obtained. COMPARISON: Comparison is made with prior study dated August 18, 2016. FINDINGS: Lumbar Spine (L1-L4): g/cm2 (1.363) / T-score (1.5) / Z-score (3.2) Findings are suggestive of normal bone density with a low fracture risk. Left Femur Total: g/cm2 (0.955) / T-score (-0.4) / Z-score (1.1) Left Femoral Neck: g/cm2 (0.909) / T-score (-0.9) / Z-score (0.8) Right Femur Total: g/cm2 (0.933) / T-score (-0.6) / Z-score (0.9) Right Femoral Neck: g/cm2 (0.883) / T-score (-1.1) / Z-score (0.6) The T-Scores on the most recent prior examination were: Lumbar Spine (L1-L4): There has been worsening of bone density since the previous examination. Left Femur Total: which represents a worsening of 0.2%. Right Femur Total: which represents a worsening of 3.1%. BD/Dexa Bone Density Study IMPRESSION: The patient is considered osteopenic as outlined below according to World [place] Organization (WHO) criteria with a low fracture risk. There has been worsening of bone density since the previous examination. Reference Information: The T-score is the number of standard deviations above or below the standard which is normal for young adults at their peak bone mineral density. The World Health Organization (WHO) interprets the T-scores as follows: Above -1 Normal bone density Between -1 and -2.5 Osteopenia Equal to / or below -2.5 Osteoporosis As a practical clinical guideline, osteopenia may be graded as follows: Mild -1 through -1.5 Moderate -1.6 through -2.0 Severe -2.1 through -2.4 The Z-score is the number of standard deviations above or below age-matched controls. A Z-score of less than -1.5 would be considered abnormal. References: 1. NIH Osteoporosis and Related Bone Diseases http://www.osteo.org 2. International Society for Clinical Densitometry http://www.iscd.org 3. National Osteoporosis Foundation http://www.nof.org Electronically Signed: Tj Roca, at 15:42 EDT , Service support ,
== END ==
PROVIDERS: Family Provider Internal Medicine; PCP Internal Medicine; Referring Provider Internal Medicine; Visit Provider Internal Medicine
DX: Z78.0 Asymptomatic menopausal state (principal); Z12.31 Encounter for screening mammogram for malignant neoplasm of breast
CPT/HCPCS: 77063; 77067; 77080

== ENCOUNTER 2019-01-25 09:54 | Outpatient (RCR) | payer MEDICARE, OTHER, SELFPAY ==
[2019-01-25 10:18] VITALS: BP 158/67; PULSE 80; RESP 18; TEMP 36.1
--- NOTE | 2019-01-25 11:14 | PCM.WC.PN ---
(1) Atherosclerotic peripheral vascular disease with ulceration Status: Acute Current Visit: Yes Qualifiers: Peripheral atherosclerosis location: lower extremity Laterality: left Lower extremity ulceration location: ankle Code(s): I70.209 - Unspecified atherosclerosis of [place] arteries of extremities, unspecified extremity; L98.499 - Non-pressure chronic ulcer of skin of other sites with unspecified severity (2) Lower leg edema Status: Chronic Current Visit: Yes Code(s): R60.0 - Localized edema (3) Peripheral vascular occlusive disease Status: Acute Current Visit: Yes Code(s): I73.9 - Peripheral vascular disease, unspecified (4) History of deep vein thrombosis (DVT) of lower extremity Status: Chronic Current Visit: Yes Code(s): Z86.718 - Personal history of other venous thrombosis and embolism (5) Blood clotting factor deficiency disorder Status: Acute Current Visit: Yes Code(s): D68.4 - Acquired coagulation factor deficiency Type of Wound Date of Service: 01/25/19 Chief Complaint: Follow-up on a ulcer on the left ankle History of Wound: 73 year-old white female with a prior history of peripheral vascular occlusive disease. Arrived with an ulcer on her left medial malleolus from October 2018 due to a trauma hit the leg with a grocery bag. Patient had been using antibiotic ointment and cream to the leg. She also has been washing it with Hibiclens and use Santyl but had a severe drug reaction to the Santyl and was no longer able to use. She has been using wet-to-dry gauze dressings till she was seen here at the wound center. Progress of Wound: The wound itself is one by one with a 0.2-3 depth clean ulcer of the left malleolus. Patient complains of severe pain with dressing changes and walking. The perimeter of the ulcer is very erythematous she feels this is from the Santyl reaction. Some edema of the lower leg no pitting. - Physical Exam Vital Signs Temp Pulse Resp BP 97 F L 80 18 158/67 H 01/25/19 10:18 01/25/19 10:18 01/25/19 10:18 01/25/19 10:18 General: Oriented x3, Cooperative, Well developed HEENT: Atraumatic, PERRLA Oral: Moist Mucosa Neck: Supple, No JVD Lungs: Clear to auscultation, Normal air movement Cardiovascular: Regular rate, Regular Rhythm Abdomen: Bowel Sounds Present, Soft, Non Tender, No Hepato-splenomegaly Extremities: No clubbing, No edema, - - Left malleolus peripheral vascular disease ulcer from trauma Wound Measurements and Assessment WC - Nurse 1 - General Ulcer Measurement Start: 01/25/19 10:18 Freq: Status: Active Protocol: Activity Type Activity Date Activity User E-Sign Co-Sign Detail Recorded Client Recorded Date Recorded By Document 01/25/19 10:18 RB [id number] 01/25/19 10:30 RB 01/25/19 10:18 Wound Center Nurse 1 [Ulcer Assessment] 2. L medial ankle -Combined with other wound No -Current Size (cm) - Length 1.2 -Current Size (cm) - Width 0.7 -Current Size (cm) - Depth 0.3 -Total Square Cm 0.84 -Photo Taken Yes -Tunneling No -Undermining/Tunneling No -Circular Undermining No -Exudate Amt Small -Exudate Type Serosanguineous -Wound Margin Distinct, Outline Attached -Granulation Amt Medium (34-66%) -Granulation Quality [place] -Slough/Fibrin Yes -Necrosis Amt Small (1-33%) -Necrotic Tissue Type Adherent Slough -Structure Exposed N/A -Texture (Ines-wound Skin Appearance) Assessed, Excoriation -Moisture (Ines-wound Skin Appearance Assessed ) -Color (Ines-wound Skin Appearance) Erythema -Temperature (Ines-wound Skin No Abnormality Appearance) (Pt Warm) -Tenderness on Palpation (Ines-wound No Skin Appearance) -Ulcer Cleansing Wound Cleanser -Foul Odor after Cleansing No -Anesthetic Used 5% Lidocaine Gel [Edema Assessment] -Lower Limb Edema Present Yes -Right Calf (cm) 36.5 -Right Ankle (cm) 21.5 -Left Calf (cm) 37.5 -Left Ankle (cm) 23 WC - Nurse 2 - General Ulcer CM Notes Start: 01/25/19 10:18 Freq: Status: Active Protocol: Activity Type Activity Date Activity User E-Sign Co-Sign Detail Recorded Client Recorded Date Recorded By Document 01/25/19 10:53 MW [id number] 01/25/19 11:00 MW 01/25/19 10:53 Wound Center Nurse 2 [Procedure/Treatment] 2. L medial ankle -Time 10:55 -Correct Patient Yes -Correct Side, Site, Position Yes -Correct Procedure Yes -Procedure Performed Yes -Type of Procedure Debridement -Clinical Debridement Subcutaneous -Post Debridement Size (cm) - Length 1.2 -Post Debridement Size (cm) - Width 1.0 -Post Debridement Size (cm) - Depth 0.2 -Total Square Cm 1.20 -Wound/Ulcer Outcome Not Healed -Ulcer Cleansing Rinsed/ Irrigated with Saline -Foul Odor after Cleansing No -Bioengineered Tissue No -Bleeding Controlled with Pressure -Offloading No -Treatment Response Procedure Tolerated Well [See Physician Procedure note for Specifics] Pain Scale: 0-10 Numeric [Pain] -Is Patient Pain Free? Yes Musculoskeletal: No Tenderness to Palpation of Joints or Extremities Lymphatic: No Cervical, Supraclavicular, or Inguinal Adenopathy Neurological: Cranial nerves II-XII grossly intact, Neuro grossly intact Psych/Mental Status: Normal Affect, Appropriate Debridement Note Post-Debridement Measurements/Treatment WC - Nurse 2 - General Ulcer CM Notes Start: 01/25/19 10:18 Freq: Status: Active Protocol: Activity Type Activity Date Activity User E-Sign Co-Sign Detail Recorded Client Recorded Date Recorded By Document 01/25/19 10:53 MW [email or web address] 01/25/19 11:00 MW 01/25/19 10:53 Wound Center Nurse 2 2. L medial ankle -Time 10:55 -Correct Patient Yes -Correct Side, Site, Position Yes -Correct Procedure Yes -Procedure Performed Yes -Type of Procedure Debridement -Clinical Debridement Subcutaneous -Post Debridement Size (cm) - Length 1.2 -Post Debridement Size (cm) - Width 1.0 -Post Debridement Size (cm) - Depth 0.2 -Total Square Cm 1.20 -Wound/Ulcer Outcome Not Healed -Ulcer Cleansing Rinsed/ Irrigated with Saline -Foul Odor after Cleansing No -Bioengineered Tissue No -Bleeding Controlled with Pressure -Offloading No -Treatment Response Procedure Tolerated Well Pain Scale: 0-10 Numeric Is Patient Pain Free? Yes Wound debrided: Left malleolus ulcer Type of Debridement: Excisional debridement Anesthesia Used: 5% Lidocaine Gel Depth: Down to and including healthy tissue, in the subcutaneous layer Percentage of wound debrided: 100 Instrument Used: 3mm curette Tissue Removed: Fibrin Severity: Limited To Skin Breakdown Amount of bleeding with debridement: Mild Bleeding Controlled with: Compression and gauze Patient tolerated procedure well Assessment/Plan Active Problems Blood clotting factor deficiency disorder (Acute) History of deep vein thrombosis (DVT) of lower extremity (Chronic) Atherosclerotic peripheral vascular disease with ulceration (Acute) Lower leg edema (Chronic) Peripheral vascular occlusive disease (Acute) Assessment: Venous ulcer left medial malleolus. Edema bilateral lower legs. Peripheral vascular occlusive disease. History of DVTs Plan: Wash the left ankle area with Hibiclens. Apply Promogran to wound base. Cover with Adaptic and dressing. We will apply for skin substitutes since it has been greater than 4 weeks in the wound is greater than 1 cm. Follow-up 1 week
== END 2019-01-30 23:59 ==
LOC: WC 09:54
PROVIDERS: Family Provider Internal Medicine; PCP Internal Medicine; Visit Provider Nurse Practitioner
DX: I70.243 Atherosclerosis of native arteries of left leg with ulceration of ankle (principal); L97.321 Non-pressure chronic ulcer of left ankle limited to breakdown of skin; Z86.718 Personal history of other venous thrombosis and embolism; R60.0 Localized edema; D68.4 Acquired coagulation factor deficiency
CPT/HCPCS: 11042; 99213; G0463

== ENCOUNTER 2019-03-01 10:45 | Outpatient (RCR) | payer MEDICARE, OTHER, SELFPAY ==
[2017-10-31 00:42] VITALS: BMI 26.5
[2019-01-31 01:19] VITALS: BP 158/67; PULSE 80; RESP 18; TEMP 36.1
[2019-02-01 10:31] VITALS: BP 128/71; PULSE 75; RESP 16; TEMP 36.6; BMI 26.5
--- NOTE | 2019-02-01 11:05 | PCM.WC.PN ---
(1) Atherosclerotic peripheral vascular disease with ulceration Status: Acute Current Visit: Yes Qualifiers: Peripheral atherosclerosis location: lower extremity Laterality: left Lower extremity ulceration location: ankle Code(s): I70.209 - Unspecified atherosclerosis of [place] arteries of extremities, unspecified extremity; L98.499 - Non-pressure chronic ulcer of skin of other sites with unspecified severity (2) Blood clotting factor deficiency disorder Status: Acute Current Visit: Yes Code(s): D68.4 - Acquired coagulation factor deficiency (3) Peripheral vascular occlusive disease Status: Acute Current Visit: Yes Code(s): I73.9 - Peripheral vascular disease, unspecified (4) History of deep vein thrombosis (DVT) of lower extremity Status: Chronic Current Visit: Yes Code(s): Z86.718 - Personal history of other venous thrombosis and embolism (5) Lower leg edema Status: Chronic Current Visit: Yes Code(s): R60.0 - Localized edema Type of Wound Date of Service: 02/01/19 Chief Complaint: Follow-up on a ulcer on the left ankle History of Wound: 73 year-old white female with a prior history of peripheral vascular occlusive disease. Arrived with an ulcer on her left medial malleolus from October 2018 due to a trauma hit the leg with a grocery bag. Patient had been using antibiotic ointment and cream to the leg. She also has been washing it with Hibiclens and use Santyl but had a severe drug reaction to the Santyl and was no longer able to use. She has been using wet-to-dry gauze dressings till she was seen here at the wound center. Progress of Wound: The wound itself is smaller using Promogran for 1 week. Patient was approved for epi fix #1 will be applied today. Still has some 0.2 depth. Redness around the perimeter is improving. Patient did not feel the Neurontin helped her for with her pain and will stick with her extra strength Tylenol. Some edema of the lower leg no pitting. - Physical Exam Vital Signs Temp Pulse Resp BP 97.8 F 75 16 128/71 H 02/01/19 10:31 02/01/19 10:31 02/01/19 10:31 02/01/19 10:31 General: Oriented x3, Cooperative, Well developed HEENT: Atraumatic, PERRLA Oral: Moist Mucosa Neck: Supple, No JVD Lungs: Clear to auscultation, Normal air movement Cardiovascular: Regular rate, Regular Rhythm Abdomen: Bowel Sounds Present, Soft, Non Tender, No Hepato-splenomegaly Extremities: No clubbing, No edema Skin: Ulcer/ Wound - Left lateral malleolus ulcer Wound Measurements and Assessment WC - Nurse 1 - General Ulcer Measurement Start: 02/01/19 10:31 Freq: Status: Active Protocol: Activity Type Activity Date Activity User E-Sign Co-Sign Detail Recorded Client Recorded Date Recorded By Document 02/01/19 10:31 BS [id number] 02/01/19 10:38 BS 02/01/19 10:31 Wound Center Nurse 1 [Ulcer Assessment] 2. L medial ankle -Combined with other wound No -Current Size (cm) - Length 1 -Current Size (cm) - Width 0.5 -Current Size (cm) - Depth 0.2 -Total Square Cm 0.5 -Photo Taken No -Tunneling No -Granulation Amt Small (1-33%) -Granulation Quality [place],Red -Moisture (Ines-wound Skin Appearance Assessed ) -Color (Ines-wound Skin Appearance) Assessed -Temperature (Ines-wound Skin No Abnormality Appearance) (Pt Warm) -Tenderness on Palpation (Ines-wound Yes Skin Appearance) -Ulcer Cleansing Rinsed/ Irrigated with Saline -Foul Odor after Cleansing No -Anesthetic Used 5% Lidocaine Gel [Edema Assessment] -Point of measurement (cm from the 36.5 medial instep) -Point of Measurement (cm from the 22.5 medial instep) WC - Nurse 2 - General Ulcer CM Notes Start: 02/01/19 10:31 Freq: Status: Active Protocol: Activity Type Activity Date Activity User E-Sign Co-Sign Detail Recorded Client Recorded Date Recorded By Document 02/01/19 11:01 MW [id number] 02/01/19 11:03 MW 02/01/19 11:01 Wound Center Nurse 2 [Procedure/Treatment] 2. L medial ankle -Time 11:01 -Correct Patient Yes -Correct Side, Site, Position Yes -Correct Procedure Yes -Procedure Performed Yes -Type of Procedure Debridement -Clinical Debridement Subcutaneous -Post Debridement Size (cm) - Length 1.0 -Post Debridement Size (cm) - Width 0.3 -Post Debridement Size (cm) - Depth 0.2 -Total Square Cm 0.30 -Wound/Ulcer Outcome Not Healed -Ulcer Cleansing Rinsed/ Irrigated with Saline -Foul Odor after Cleansing No -Bioengineered Tissue Yes -Type of bioengineered Tissue EPIFIX -Expiration Date 06/02/23 -Product Lot Number [id number] -Percent Used 100 -Saline Lot Number [id number] -Bleeding Controlled with Pressure -Offloading No -Treatment Response Procedure Tolerated Well [See Physician Procedure note for Specifics] Pain Scale: 0-10 Numeric [Pain] -Is Patient Pain Free? Yes Musculoskeletal: No Tenderness to Palpation of Joints or Extremities Lymphatic: No Cervical, Supraclavicular, or Inguinal Adenopathy Neurological: Cranial nerves II-XII grossly intact, Neuro grossly intact Psych/Mental Status: Normal Affect, Appropriate Debridement Note Post-Debridement Measurements/Treatment WC - Nurse 2 - General Ulcer CM Notes Start: 02/01/19 10:31 Freq: Status: Active Protocol: Activity Type Activity Date Activity User E-Sign Co-Sign Detail Recorded Client Recorded Date Recorded By Document 02/01/19 11:01 MW [id number] 02/01/19 11:03 MW 02/01/19 11:01 Wound Center Nurse 2 2. L medial ankle -Time 11:01 -Correct Patient Yes -Correct Side, Site, Position Yes -Correct Procedure Yes -Procedure Performed Yes -Type of Procedure Debridement -Clinical Debridement Subcutaneous -Post Debridement Size (cm) - Length 1.0 -Post Debridement Size (cm) - Width 0.3 -Post Debridement Size (cm) - Depth 0.2 -Total Square Cm 0.30 -Wound/Ulcer Outcome Not Healed -Ulcer Cleansing Rinsed/ Irrigated with Saline -Foul Odor after Cleansing No -Bioengineered Tissue Yes -Type of bioengineered Tissue EPIFIX -Expiration Date 06/02/23 -Product Lot Number [id number] -Percent Used 100 -Saline Lot Number [id number] -Bleeding Controlled with Pressure -Offloading No -Treatment Response Procedure Tolerated Well Pain Scale: 0-10 Numeric Is Patient Pain Free? Yes Wound debrided: Left lateral malleolus ulcer Type of Debridement: Excisional debridement Depth: Down to and including healthy tissue, in the subcutaneous layer Percentage of wound debrided: 100 Instrument Used: - - Curette number 2 mm Tissue Removed: Fibrin and some slough Severity: Limited To Skin Breakdown Amount of bleeding with debridement: Mild Bleeding Controlled with: Compression and gauze Patient tolerated procedure well Assessment/Plan Active Problems Blood clotting factor deficiency disorder (Acute) History of deep vein thrombosis (DVT) of lower extremity (Chronic) Atherosclerotic peripheral vascular disease with ulceration (Acute) Lower leg edema (Chronic) Peripheral vascular occlusive disease (Acute) Assessment: Venous ulcer left medial malleolus. Edema bilateral lower legs. Peripheral vascular occlusive disease. History of DVTs Plan: Epi fix #1 applied covered with wound veil and Steri-Strips gauze. Using a double layer Tubigrip to left leg. Leave on for 1 week do not get wet. Follow-up in 1 week
[2019-02-08 10:43] VITALS: BP 143/77; PULSE 78; RESP 18; TEMP 35.9; BMI 26.5
--- NOTE | 2019-02-08 12:44 | PN.PCM_ITS ---
(1) Atherosclerotic peripheral vascular disease with ulceration Status: Acute Current Visit: Yes Qualifiers: Peripheral atherosclerosis location: lower extremity Laterality: left Lower extremity ulceration location: ankle Code(s): I70.209 - Unspecified atherosclerosis of [place] arteries of extremities, unspecified extremity; L98.499 - Non-pressure chronic ulcer of skin of other sites with unspecified severity (2) Blood clotting factor deficiency disorder Status: Acute Current Visit: Yes Code(s): D68.4 - Acquired coagulation factor deficiency (3) Peripheral vascular occlusive disease Status: Acute Current Visit: Yes Code(s): I73.9 - Peripheral vascular disease, unspecified (4) History of deep vein thrombosis (DVT) of lower extremity Status: Chronic Current Visit: Yes Code(s): Z86.718 - Personal history of other venous thrombosis and embolism (5) Lower leg edema Status: Chronic Current Visit: Yes Code(s): R60.0 - Localized edema Type of Wound Date of Service: 02/08/19 Chief Complaint: Follow-up on a ulcer on the left ankle History of Wound: 73 year-old white female with a prior history of peripheral vascular occlusive disease. Arrived with an ulcer on her left medial malleolus from October 2018 due to a trauma hit the leg with a grocery bag. Patient had been using antibiotic ointment and cream to the leg. She also has been washing it with Hibiclens and use Santyl but had a severe drug reaction to the Santyl and was no longer able to use. She has been using wet-to-dry gauze dressings till she was seen here at the wound center. Progress of Wound: Patient was approved for epi fix #1 and did fairly well but still has a lot of slough in the base. Still has some 0.2 depth. Redness arou nd the perimeter is improving. Patient did not feel the Neurontin helped her for with her pain and will stick with her extra strength Tylenol. Some edema of the lower leg no pitting. - Physical Exam Vital Signs Temp Pulse Resp BP 96.7 F L 78 18 143/77 H 02/08/19 10:43 02/08/19 10:43 02/08/19 10:43 02/08/19 10:43 General: Oriented x3, Cooperative, Well developed HEENT: Atraumatic, PERRLA Oral: Moist Mucosa Neck: Supple, No JVD Lungs: Clear to auscultation, Normal air movement Cardiovascular: Regular rate, Regular Rhythm Abdomen: Bowel Sounds Present, Soft, Non Tender, No Hepato-splenomegaly Extremities: No clubbing, No edema Skin: Ulcer/ Wound - Left medial ankle Wound Measurements and Assessment WC - Nurse 1 - General Ulcer Measurement Start: 02/01/19 10:31 Freq: Status: Active Protocol: Activity Type Activity Date Activity User E-Sign Co-Sign Detail Recorded Client Recorded Date Recorded By Document 02/08/19 10:43 DL [id number] 02/08/19 10:51 DL 02/08/19 10:43 Wound Center Nurse 1 [Ulcer Assessment] 2. L medial ankle -Current Size (cm) - Length 0.8 -Current Size (cm) - Width 0.5 -Current Size (cm) - Depth 0.1 -Total Square Cm 0.40 -Photo Taken No -Exudate Amt Small -Exudate Type Serosanguineous -Wound Margin Flat & Intact -Granulation Amt Large (67-100%) -Granulation Quality [place] -Necrosis Amt Small (1-33%) -Necrotic Tissue Type Adherent Slough -Structure Exposed N/A -Texture (Ines-wound Skin Appearance) Localized Edema ,Scarring -Moisture (Ines-wound Skin Appearance No Abnormality ) -Color (Ines-wound Skin Appearance) Hemosiderin Staining,Rubor -Temperature (Ines-wound Skin No Abnormality Appearance) (Pt Warm) -Tenderness on Palpation (Ines-wound No Skin Appearance) -Ulcer Cleansing Wound Cleanser -Foul Odor after Cleansing No -Anesthetic Used 5% Lidocaine Gel [Edema Assessment] -Left Calf (cm) 35.6 -Left Ankle (cm) 21.2 - Nurse 2 - General Ulcer CM Notes Start: 02/01/19 10:31 Freq: Status: Active Protocol: Activity Type Activity Date Activity User E-Sign Co-Sign Detail Recorded Client Recorded Date Recorded By Document 02/08/19 11:08 MW [id number] 02/08/19 11:13 MW 02/08/19 11:08 Wound Center Nurse 2 [Procedure/Treatment] 2. L medial ankle -Time 11:11 -Correct Patient Yes -Correct Side, Site, Position Yes -Correct Procedure Yes -Procedure Performed Yes -Type of Procedure Debridement -Clinical Debridement Subcutaneous -Post Debridement Size (cm) - Length 0.8 -Post Debridement Size (cm) - Width 0.4 -Post Debridement Size (cm) - Depth 0.2 -Total Square Cm 0.32 -Wound/Ulcer Outcome Not Healed -Ulcer Cleansing Rinsed/ Irrigated with Saline -Foul Odor after Cleansing No -Bioengineered Tissue Yes -Type of bioengineered Tissue EPIFIX -Expiration Date 06/02/23 -Product Lot Number [id number] -Percent Used 100 -Saline Lot Number [id number] -Bleeding Controlled with Pressure -Offloading No -Treatment Response Procedure Tolerated Well [See Physician Procedure note for Specifics] Pain Scale: 0-10 Numeric [Pain] -Is Patient Pain Free? Yes Musculoskeletal: No Tenderness to Palpation of Joints or Extremities Lymphatic: No Cervical, Supraclavicular, or Inguinal Adenopathy Neurological: Cranial nerves II-XII grossly intact, Neuro grossly intact Psych/Mental Status: Normal Affect, Appropriate Debridement Note Post-Debridement Measurements/Treatment WC - Nurse 2 - General Ulcer CM Notes Start: 02/01/19 10:31 Freq: Status: Active Protocol: Activity Type Activity Date Activity User E-Sign Co-Sign Detail Recorded Client Recorded Date Recorded By Document 02/01/19 11:01 MW [id number] 02/01/19 11:03 MW Document 02/08/19 11:08 MW [id number] 02/08/19 11:13 MW 02/01/19 02/08/19 11:01 11:08 Wound Center Nurse 2 2. L medial ankle -Time 11:01 11:11 -Correct Patient Yes Yes -Correct Side, Site, Position Yes Yes -Correct Procedure Yes Yes -Procedure Performed Yes Yes -Type of Procedure Debridement Debridement -Clinical Debridement Subcutaneous Subcutaneous -Post Debridement Size (cm) - Length 1.0 0.8 -Post Debridement Size (cm) - Width 0.3 0.4 -Post Debridement Size (cm) - Depth 0.2 0.2 -Total Square Cm 0.30 0.32 -Wound/Ulcer Outcome Not Healed Not Healed -Ulcer Cleansing Rinsed/ Rinsed/ Irrigated with Irrigated with Saline Saline -Foul Odor after Cleansing No No -Bioengineered Tissue Yes Yes -Type of bioengineered Tissue EPIFIX EPIFIX -Expiration Date 06/02/23 06/02/23 -Product Lot Number [id number] -Percent Used 100 100 -Saline Lot Number [id number] -Bleeding Controlled with Pressure Pressure -Offloading No No -Treatment Response Procedure Procedure Tolerated Well Tolerated Well Pain Scale: 0-10 Numeric Is Patient Pain Free? 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 Edema bilateral lower legs. Peripheral vascular occlusive disease. History of DVTs Plan: Epi fix 2 applied covered with wound veil and Steri-Strips gauze. Using a double layer Tubigrip to left leg. Leave on for 1 week do not get wet. Follow-up in 1 week
[2019-02-15 10:31] VITALS: TEMP 36.2; BMI 26.5
--- NOTE | 2019-02-15 11:27 | PCM.WC.PN ---
(1) Atherosclerotic peripheral vascular disease with ulceration Status: Acute Current Visit: Yes Qualifiers: Peripheral atherosclerosis location: lower extremity Laterality: left Lower extremity ulceration location: ankle Code(s): I70.209 - Unspecified atherosclerosis of [place] arteries of extremities, unspecified extremity; L98.499 - Non-pressure chronic ulcer of skin of other sites with unspecified severity (2) Blood clotting factor deficiency disorder Status: Acute Current Visit: Yes Code(s): D68.4 - Acquired coagulation factor deficiency (3) Peripheral vascular occlusive disease Status: Acute Current Visit: Yes Code(s): I73.9 - Peripheral vascular disease, unspecified (4) History of deep vein thrombosis (DVT) of lower extremity Status: Chronic Current Visit: Yes Code(s): Z86.718 - Personal history of other venous thrombosis and embolism (5) Lower leg edema Status: Chronic Current Visit: Yes Code(s): R60.0 - Localized edema Type of Wound Date of Service: 02/15/19 Chief Complaint: Follow-up on a ulcer on the left ankle History of Wound: 73 year-old white female with a prior history of peripheral vascular occlusive disease. Arrived with an ulcer on her left medial malleolus from October 2018 due to a trauma hit the leg with a grocery bag. Patient had been using antibiotic ointment and cream to the leg. She also has been washing it with Hibiclens and use Santyl but had a severe drug reaction to the Santyl and was no longer able to use. She has been using wet-to-dry gauze dressings till she was seen here at the wound center. Progress of Wound: Left medial ankle ulcer is resolved and healed patient will be discharged from the wound center - Physical Exam Vital Signs Temp Pulse Resp BP 97.1 F L 78 18 143/77 H 02/15/19 10:31 02/08/19 10:43 02/08/19 10:43 02/08/19 10:43 General: Oriented x3, Cooperative, Well developed HEENT: Atraumatic, PERRLA Oral: Moist Mucosa Neck: Supple, No JVD Lungs: Clear to auscultation, Normal air movement Cardiovascular: Regular rate, Regular Rhythm Abdomen: Bowel Sounds Present, Soft, Non Tender, No Hepato-splenomegaly Extremities: No clubbing, No edema, - - Left medial ankle ulcer Wound Measurements and Assessment WC - Nurse 1 - General Ulcer Measurement Start: 02/01/19 10:31 Freq: Status: Active Protocol: Activity Type Activity Date Activity User E-Sign Co-Sign Detail Recorded Client Recorded Date Recorded By Document 02/15/19 10:31 [facility] [id number] 02/15/19 10:37 [facility] 02/15/19 10:31 Wound Center Nurse 1 [Ulcer Assessment] 2. L medial ankle -Combined with other wound No -Current Size (cm) - Length 1 -Current Size (cm) - Width 0.3 -Current Size (cm) - Depth 0.2 -Total Square Cm 0.3 -Photo Taken No -Epithelialization None Present -Tunneling No -Undermining/Tunneling No -Circular Undermining No -Exudate Amt Small -Exudate Type Serous -Wound Margin Distinct, Outline Attached -Granulation Amt Small (1-33%) -Granulation Quality Red -Slough/Fibrin Yes -Necrosis Amt Large (67-100%) -Necrotic Tissue Type Adherent Slough -Texture (Ines-wound Skin Appearance) Assessed, Excoriation, Scarring,Rash -Moisture (Ines-wound Skin Appearance Assessed, ) Maceration -Color (Ines-wound Skin Appearance) Assessed, Erythema -Temperature (Ines-wound Skin No Abnormality Appearance) (Pt Warm) -Tenderness on Palpation (Ines-wound No Skin Appearance) -Ulcer Cleansing Rinsed/ Irrigated with Saline -Foul Odor after Cleansing No -Anesthetic Used 5% Lidocaine Gel [Edema Assessment] -Lower Limb Edema Present Yes -Left Calf (cm) 37.7 -Left Ankle (cm) 23.5 - Nurse 2 - General Ulcer CM Notes Start: 02/01/19 10:31 Freq: Status: Active Protocol: Activity Type Activity Date Activity User E-Sign Co-Sign Detail Recorded Client Recorded Date Recorded By Document 02/15/19 10:50 [id number] 02/15/19 10:51 02/15/19 10:50 Wound Center Nurse 2 [Procedure/Treatment] 2. L medial ankle -Correct Patient Yes -Correct Side, Site, Position Yes -Correct Procedure Yes -Procedure Performed Yes -Type of Procedure Debridement -Clinical Debridement Selective -Post Debridement Size (cm) - Length 0 -Post Debridement Size (cm) - Width 0 -Post Debridement Size (cm) - Depth 0 -Total Square Cm 0 -Wound/Ulcer Outcome Healed- Epithelialized [See Physician Procedure note for Specifics] Pain Scale: 0-10 Numeric [Pain] -Is Patient Pain Free? Yes Musculoskeletal: No Tenderness to Palpation of Joints or Extremities Lymphatic: No Cervical, Supraclavicular, or Inguinal Adenopathy Neurological: Cranial nerves II-XII grossly intact, Neuro grossly intact Psych/Mental Status: Normal Affect, Appropriate Debridement Note Post-Debridement Measurements/Treatment WC - Nurse 2 - General Ulcer CM Notes Start: 02/01/19 10:31 Freq: Status: Active Protocol: Activity Type Activity Date Activity User E-Sign Co-Sign Detail Recorded Client Recorded Date Recorded By Document 02/01/19 11:01 MW [id number] 02/01/19 11:03 MW Document 02/08/19 11:08 MW [id number] 02/08/19 11:13 MW Document 02/15/19 10:50 JF [id number] 02/15/19 10:51 02/01/19 02/08/19 02/15/19 11:01 11:08 10:50 Wound Center Nurse 2 2. L medial ankle -Time 11:01 11:11 -Correct Patient Yes Yes Yes -Correct Side, Site, Position Yes Yes Yes -Correct Procedure Yes Yes Yes -Procedure Performed Yes Yes Yes -Type of Procedure Debridement Debridement Debridement -Clinical Debridement Subcutaneous Subcutaneous Selective -Post Debridement Size (cm) - Length 1.0 0.8 0 -Post Debridement Size (cm) - Width 0.3 0.4 0 -Post Debridement Size (cm) - Depth 0.2 0.2 0 -Total Square Cm 0.30 0.32 0 -Wound/Ulcer Outcome Not Healed Not Healed Healed- Epithelialized -Ulcer Cleansing Rinsed/ Rinsed/ Irrigated with Irrigated with Saline Saline -Foul Odor after Cleansing No No -Bioengineered Tissue Yes Yes -Type of bioengineered Tissue EPIFIX EPIFIX -Expiration Date 06/02/23 06/02/23 -Product Lot Number [id number] -Percent Used 100 100 -Saline Lot Number [id number] -Bleeding Controlled with Pressure Pressure -Offloading No No -Treatment Response Procedure Procedure Tolerated Well Tolerated Well Pain Scale: 0-10 Numeric Is Patient Pain Free? Yes Yes Yes Wound debrided: Left medial ankle ulcer Type of Debridement: Selective debridement Anesthesia Used: 5% Lidocaine Gel Instrument Used: 3mm curette Tissue Removed: Devitalized tissue Amount of bleeding with debridement: None Patient tolerated procedure well Assessment/Plan Active Problems Blood clotting factor deficiency disorder (Acute) History of deep vein thrombosis (DVT) of lower extremity (Chronic) Atherosclerotic peripheral vascular disease with ulceration (Acute) Lower leg edema (Chronic) Peripheral vascular occlusive disease (Acute) Assessment: Venous ulcer left medial malleolus resolved. Edema bilateral lower legs. Peripheral vascular occlusive disease. History of DVTs Plan: Discharge from the wound center continue covering for the next week continue wearing Tubigrip's or compression stocking.
[2019-02-22 12:11] VITALS: BP 148/78; PULSE 77; RESP 18; TEMP 36.4; BMI 26.5
--- NOTE | 2019-02-22 12:27 | PCM.WC.PN ---
(1) Atherosclerotic peripheral vascular disease with ulceration Status: Acute Current Visit: No Qualifiers: Peripheral atherosclerosis location: lower extremity Laterality: left Lower extremity ulceration location: ankle Code(s): I70.209 - Unspecified atherosclerosis of [place] arteries of extremities, unspecified extremity; L98.499 - Non-pressure chronic ulcer of skin of other sites with unspecified severity (2) Blood clotting factor deficiency disorder Status: Chronic Current Visit: Yes Code(s): D68.4 - Acquired coagulation factor deficiency (3) Peripheral vascular occlusive disease Status: Chronic Current Visit: Yes Code(s): I73.9 - Peripheral vascular disease, unspecified (4) History of deep vein thrombosis (DVT) of lower extremity Status: Chronic Current Visit: Yes Code(s): Z86.718 - Personal history of other venous thrombosis and embolism (5) Lower leg edema Status: Chronic Current Visit: Yes Code(s): R60.0 - Localized edema Type of Wound Date of Service: 02/22/19 Chief Complaint: Follow-up on a ulcer on the left ankle History of Wound: 73 year-old white female with a prior history of peripheral vascular occlusive disease. Arrived with an ulcer on her left medial malleolus from October 2018 due to a trauma hit the leg with a grocery bag. Patient had been using antibiotic ointment and cream to the leg. She also has been washing it with Hibiclens and use Santyl but had a severe drug reaction to the Santyl and was no longer able to use. She has been using wet-to-dry gauze dressings till she was seen here at the wound center. Progress of Wound: Left medial ankle is healing but she has 1.that keeps seeping she is most concerned with the pain in her left ankle and returned after being discharged. No redness no discharge at this point patient was using Promogran all week skin looks very good healing well. Will continue the Promogran and stases pads for added pressure and her compression stocking - Physical Exam Vital Signs Temp Pulse Resp BP 97.5 F L 77 18 148/78 H 02/22/19 12:11 02/22/19 12:11 02/22/19 12:11 02/22/19 12:11 General: Oriented x3, Cooperative, Well developed HEENT: Atraumatic, PERRLA Oral: Moist Mucosa Neck: Supple, No JVD Lungs: Clear to auscultation, Normal air movement Cardiovascular: Regular rate, Regular Rhythm Abdomen: Bowel Sounds Present, Soft, Non Tender, No Hepato-splenomegaly Extremities: No clubbing, No edema, - - Medial ankle Wound Measurements and Assessment WC - Nurse 1 - General Ulcer Measurement Start: 02/01/19 10:31 Freq: Status: Active Protocol: Activity Type Activity Date Activity User E-Sign Co-Sign Detail Recorded Client Recorded Date Recorded By Document 02/22/19 12:11 RB [id number] 02/22/19 12:15 RB 02/22/19 12:11 Wound Center Nurse 1 [Ulcer Assessment] 2. L medial ankle -Combined with other wound No -Current Size (cm) - Length 0.7 -Current Size (cm) - Width 0.3 -Current Size (cm) - Depth 0.1 -Total Square Cm 0.21 -Photo Taken No -Tunneling No -Undermining/Tunneling No -Circular Undermining No -Exudate Amt Small -Exudate Type Serosanguineous -Wound Margin Distinct, Outline Attached -Granulation Amt Medium (34-66%) -Granulation Quality [place] -Slough/Fibrin Yes -Necrosis Amt Small (1-33%) -Necrotic Tissue Type Adherent Slough -Structure Exposed N/A -Texture (Ines-wound Skin Appearance) Assessed -Moisture (Ines-wound Skin Appearance Assessed ) -Color (Ines-wound Skin Appearance) Assessed -Temperature (Ines-wound Skin No Abnormality Appearance) (Pt Warm) -Tenderness on Palpation (Ines-wound No Skin Appearance) -Ulcer Cleansing Wound Cleanser -Foul Odor after Cleansing No -Anesthetic Used 5% Lidocaine Gel [Edema Assessment] -Lower Limb Edema Present Yes -Left Calf (cm) 37.5 -Left Ankle (cm) 22.5 WC - Nurse 2 - General Ulcer CM Notes Start: 02/01/19 10:31 Freq: Status: Active Protocol: Activity Type Activity Date Activity User E-Sign Co-Sign Detail Recorded Client Recorded Date Recorded By Document 02/22/19 12:25 MW [id number] 02/22/19 12:25 MW 02/22/19 12:25 Wound Center Nurse 2 [Procedure/Treatment] 2. L medial ankle -Time 12:25 -Correct Patient Yes -Correct Side, Site, Position Yes -Correct Procedure Yes -Procedure Performed No -Post Debridement Size (cm) - Length 0.1 -Post Debridement Size (cm) - Width 0.1 -Post Debridement Size (cm) - Depth 0.1 -Total Square Cm 0.01 -Wound/Ulcer Outcome Not Healed -Ulcer Cleansing Rinsed/ Irrigated with Saline -Foul Odor after Cleansing No -Bioengineered Tissue No -Bleeding Controlled with Pressure -Offloading No -Treatment Response Procedure Tolerated Well [See Physician Procedure note for Specifics] Pain Scale: 0-10 Numeric [Pain] -Is Patient Pain Free? Yes Musculoskeletal: No Tenderness to Palpation of Joints or Extremities Lymphatic: No Cervical, Supraclavicular, or Inguinal Adenopathy Neurological: Cranial nerves II-XII grossly intact, Neuro grossly intact Psych/Mental Status: Normal Affect, Appropriate Debridement Note Post-Debridement Measurements/Treatment WC - Nurse 2 - General Ulcer CM Notes Start: 02/01/19 10:31 Freq: Status: Active Protocol: Activity Type Activity Date Activity User E-Sign Co-Sign Detail Recorded Client Recorded Date Recorded By Document 02/01/19 11:01 MW [id number] 02/01/19 11:03 MW Document 02/08/19 11:08 MW [id number] 02/08/19 11:13 MW Document 02/15/19 10:50 JF [id number] 02/15/19 10:51 JF Document 02/22/19 12:25 MW [id number] 02/22/19 12:25 MW 02/01/19 02/08/19 02/15/19 11:01 11:08 10:50 Wound Center Nurse 2 2. L medial ankle -Time 11:01 11:11 -Correct Patient Yes Yes Yes -Correct Side, Site, Position Yes Yes Yes -Correct Procedure Yes Yes Yes -Procedure Performed Yes Yes Yes -Type of Procedure Debridement Debridement Debridement -Clinical Debridement Subcutaneous Subcutaneous Selective -Post Debridement Size (cm) - Length 1.0 0.8 0 -Post Debridement Size (cm) - Width 0.3 0.4 0 -Post Debridement Size (cm) - Depth 0.2 0.2 0 -Total Square Cm 0.30 0.32 0 -Wound/Ulcer Outcome Not Healed Not Healed Healed- Epithelialized -Ulcer Cleansing Rinsed/ Rinsed/ Irrigated with Irrigated with Saline Saline -Foul Odor after Cleansing No No -Bioengineered Tissue Yes Yes -Type of bioengineered Tissue EPIFIX EPIFIX -Expiration Date 06/02/23 06/02/23 -Product Lot Number [id number] -Percent Used 100 100 -Saline Lot Number [id number] -Bleeding Controlled with Pressure Pressure -Offloading No No -Treatment Response Procedure Procedure Tolerated Well Tolerated Well Pain Scale: 0-10 Numeric Is Patient Pain Free? Yes Yes Yes 02/22/19 12:25 Wound Center Nurse 2 2. L medial ankle -Time 12:25 -Correct Patient Yes -Correct Side, Site, Position Yes -Correct Procedure Yes -Procedure Performed No -Type of Procedure -Clinical Debridement -Post Debridement Size (cm) - Length 0.1 -Post Debridement Size (cm) - Width 0.1 -Post Debridement Size (cm) - Depth 0.1 -Total Square Cm 0.01 -Wound/Ulcer Outcome Not Healed -Ulcer Cleansing Rinsed/ Irrigated with Saline -Foul Odor after Cleansing No -Bioengineered Tissue No -Type of bioengineered Tissue -Expiration Date -Product Lot Number -Percent Used -Saline Lot Number -Bleeding Controlled with Pressure -Offloading No -Treatment Response Procedure Tolerated Well Pain Scale: 0-10 Numeric Is Patient Pain Free? Yes No debridement was completed today Assessment/Plan Active Problems Blood clotting factor deficiency disorder (Chronic) History of deep vein thrombosis (DVT) of lower extremity (Chronic) Lower leg edema (Chronic) Peripheral vascular occlusive disease (Chronic) Assessment: Venous ulcer left medial malleolus resolved. Edema bilateral lower legs. Peripheral vascular occlusive disease. History of DVTs. Pain left ankle from previous open ulcer Plan: Promogran to the area with stasis pads around dressing over top with compression stockings
[2019-03-01 10:57] VITALS: BP 147/79; PULSE 81; RESP 16; TEMP 36.2; BMI 26.5
--- NOTE | 2019-03-01 11:38 | PCM.WC.PN ---
(1) Atherosclerotic peripheral vascular disease with ulceration Status: Acute Current Visit: No Qualifiers: Peripheral atherosclerosis location: lower extremity Laterality: left Lower extremity ulceration location: ankle Code(s): I70.209 - Unspecified atherosclerosis of [place] arteries of extremities, unspecified extremity; L98.499 - Non-pressure chronic ulcer of skin of other sites with unspecified severity (2) Blood clotting factor deficiency disorder Status: Chronic Current Visit: Yes Code(s): D68.4 - Acquired coagulation factor deficiency (3) Peripheral vascular occlusive disease Status: Chronic Current Visit: Yes Code(s): I73.9 - Peripheral vascular disease, unspecified (4) History of deep vein thrombosis (DVT) of lower extremity Status: Chronic Current Visit: Yes Code(s): Z86.718 - Personal history of other venous thrombosis and embolism (5) Lower leg edema Status: Chronic Current Visit: Yes Code(s): R60.0 - Localized edema Type of Wound Date of Service: 03/01/19 Chief Complaint: Follow-up on a ulcer on the left ankle History of Wound: 73 year-old white female with a prior history of peripheral vascular occlusive disease. Arrived with an ulcer on her left medial malleolus from October 2018 due to a trauma hit the leg with a grocery bag. Patient had been using antibiotic ointment and cream to the leg. She also has been washing it with Hibiclens and use Santyl but had a severe drug reaction to the Santyl and was no longer able to use. She has been using wet-to-dry gauze dressings till she was seen here at the wound center. Progress of Wound: Left medial ankle is healing but she has 1.that keeps seeping she is most concerned with the pain in her left ankle this week she says the pain is just so much better I suggested she there is nothing else we can do for her and she should be discharged and she is to continue the compression and that will help her the most she can continue the Promogran dressing for another week if that makes her feel comfortable but she asked she has a little dot of skin that just needs to be healed she still bleeds easily. Patient will be discharged and she agrees she will not return - Physical Exam Vital Signs Temp Pulse Resp BP 97.1 F L 81 16 147/79 H 03/01/19 10:57 03/01/19 10:57 03/01/19 10:57 03/01/19 10:57 General: Oriented x3, Cooperative, Well developed HEENT: Atraumatic, PERRLA Oral: Moist Mucosa Neck: Supple, No JVD Lungs: Clear to auscultation, Normal air movement Cardiovascular: Regular rate, Regular Rhythm Abdomen: Bowel Sounds Present, Soft, Non Tender, No Hepato-splenomegaly Extremities: No clubbing, No edema Wound Measurements and Assessment WC - Nurse 1 - General Ulcer Measurement Start: 02/01/19 10:31 Freq: Status: Active Protocol: Activity Type Activity Date Activity User E-Sign Co-Sign Detail Recorded Client Recorded Date Recorded By Document 03/01/19 10:57 [facility] [id number] 03/01/19 11:04 [facility] 03/01/19 10:57 Wound Center Nurse 1 [Ulcer Assessment] 2. L medial ankle -Combined with other wound No -Current Size (cm) - Length 1.1 -Current Size (cm) - Width 0.5 -Current Size (cm) - Depth 0.1 -Total Square Cm 0.55 -Photo Taken No -Epithelialization None Present -Tunneling No -Undermining/Tunneling No -Circular Undermining No -Exudate Amt Small -Exudate Type Serous -Wound Margin Flat & Intact -Granulation Amt Small (1-33%) -Granulation Quality [place] -Slough/Fibrin Yes -Necrosis Amt Medium (34-66%) -Necrotic Tissue Type Adherent Slough -Texture (Ines-wound Skin Appearance) Assessed, Scarring -Moisture (Ines-wound Skin Appearance Assessed,Dry/ ) Scaly -Color (Ines-wound Skin Appearance) Assessed, Erythema -Temperature (Ines-wound Skin No Abnormality Appearance) (Pt Warm) -Tenderness on Palpation (Ines-wound No Skin Appearance) -Ulcer Cleansing Rinsed/ Irrigated with Saline -Foul Odor after Cleansing No -Anesthetic Used 5% Lidocaine Gel [Edema Assessment] -Lower Limb Edema Present Yes -Left Calf (cm) 38.1 -Left Ankle (cm) 22.9 WC - Nurse 2 - General Ulcer CM Notes Start: 02/01/19 10:31 Freq: Status: Active Protocol: Activity Type Activity Date Activity User E-Sign Co-Sign Detail Recorded Client Recorded Date Recorded By Document 03/01/19 11:18 MW [id number] 03/01/19 11:22 MW 03/01/19 11:18 Wound Center Nurse 2 [Procedure/Treatment] 2. L medial ankle -Time 11:18 -Correct Patient Yes -Correct Side, Site, Position Yes -Correct Procedure Yes -Procedure Performed No -Post Debridement Size (cm) - Length 0 -Post Debridement Size (cm) - Width 0 -Post Debridement Size (cm) - Depth 0 -Total Square Cm 0 -Wound/Ulcer Outcome Healed- Epithelialized -Ulcer Cleansing Rinsed/ Irrigated with Saline -Foul Odor after Cleansing No -Bioengineered Tissue No -Bleeding Controlled with Pressure -Offloading No -Treatment Response Procedure Tolerated Well [See Physician Procedure note for Specifics] Pain Scale: 0-10 Numeric [Pain] -Is Patient Pain Free? Yes Musculoskeletal: No Tenderness to Palpation of Joints or Extremities Lymphatic: No Cervical, Supraclavicular, or Inguinal Adenopathy Neurological: Cranial nerves II-XII grossly intact, Neuro grossly intact Psych/Mental Status: Normal Affect, Appropriate Debridement Note Post-Debridement Measurements/Treatment WC - Nurse 2 - General Ulcer CM Notes Start: 02/01/19 10:31 Freq: Status: Active Protocol: Activity Type Activity Date Activity User E-Sign Co-Sign Detail Recorded Client Recorded Date Recorded By Document 02/01/19 11:01 MW [id number] 02/01/19 11:03 MW Document 02/08/19 11:08 MW [id number] 02/08/19 11:13 MW Document 02/15/19 10:50 [id number] 02/15/19 10:51 JF Document 02/22/19 12:25 MW [id number] 02/22/19 12:25 MW Document 03/01/19 11:18 MW [id number] 03/01/19 11:22 MW 02/01/19 02/08/19 02/15/19 11:01 11:08 10:50 Wound Center Nurse 2 2. L medial ankle -Time 11:01 11:11 -Correct Patient Yes Yes Yes -Correct Side, Site, Position Yes Yes Yes -Correct Procedure Yes Yes Yes -Procedure Performed Yes Yes Yes -Type of Procedure Debridement Debridement Debridement -Clinical Debridement Subcutaneous Subcutaneous Selective -Post Debridement Size (cm) - Length 1.0 0.8 0 -Post Debridement Size (cm) - Width 0.3 0.4 0 -Post Debridement Size (cm) - Depth 0.2 0.2 0 -Total Square Cm 0.30 0.32 0 -Wound/Ulcer Outcome Not Healed Not Healed Healed- Epithelialized -Ulcer Cleansing Rinsed/ Rinsed/ Irrigated with Irrigated with Saline Saline -Foul Odor after Cleansing No No -Bioengineered Tissue Yes Yes -Type of bioengineered Tissue EPIFIX EPIFIX -Expiration Date 06/02/23 06/02/23 -Product Lot Number [id number] -Percent Used 100 100 -Saline Lot Number [id number] -Bleeding Controlled with Pressure Pressure -Offloading No No -Treatment Response Procedure Procedure Tolerated Well Tolerated Well Pain Scale: 0-10 Numeric Is Patient Pain Free? Yes Yes Yes 02/22/19 03/01/19 12:25 11:18 Wound Center Nurse 2 2. L medial ankle -Time 12:25 11:18 -Correct Patient Yes Yes -Correct Side, Site, Position Yes Yes -Correct Procedure Yes Yes -Procedure Performed No No -Type of Procedure -Clinical Debridement -Post Debridement Size (cm) - Length 0.1 0 -Post Debridement Size (cm) - Width 0.1 0 -Post Debridement Size (cm) - Depth 0.1 0 -Total Square Cm 0.01 0 -Wound/Ulcer Outcome Not Healed Healed- Epithelialized -Ulcer Cleansing Rinsed/ Rinsed/ Irrigated with Irrigated with Saline Saline -Foul Odor after Cleansing No No -Bioengineered Tissue No No -Type of bioengineered Tissue -Expiration Date -Product Lot Number -Percent Used -Saline Lot Number -Bleeding Controlled with Pressure Pressure -Offloading No No -Treatment Response Procedure Procedure Tolerated Well Tolerated Well Pain Scale: 0-10 Numeric Is Patient Pain Free? Yes Yes No debridement was completed today Assessment/Plan Active Problems Blood clotting factor deficiency disorder (Chronic) History of deep vein thrombosis (DVT) of lower extremity (Chronic) Lower leg edema (Chronic) Peripheral vascular occlusive disease (Chronic) Assessment: Venous ulcer left medial malleolus resolved. Edema bilateral lower legs. Peripheral vascular occlusive disease. History of DVTs. Pain left ankle from previous open ulcer Plan: Charge from the wound center follow-up as needed. May continue the Promogran to the area with stasis pads around dressing over top with compression stockings
== END 2019-03-02 23:59 ==
LOC: WC 10:45
PROVIDERS: Family Provider Internal Medicine; PCP Internal Medicine; Visit Provider Nurse Practitioner
DX: I70.243 Atherosclerosis of native arteries of left leg with ulceration of ankle (principal); L97.321 Non-pressure chronic ulcer of left ankle limited to breakdown of skin; D68.4 Acquired coagulation factor deficiency; Z86.718 Personal history of other venous thrombosis and embolism; R60.0 Localized edema
CPT/HCPCS: 15271; 97597; 99213; Q4186; G0463

== ENCOUNTER → 2019-03-27 11:14 | Outpatient (CLI) | payer MEDICARE, OTHER, SELFPAY ==
[2019-03-01 10:57] VITALS: BMI 26.5
--- NOTE | 2019-03-27 11:16 | US_ITS ---
STUDY: THYROID ULTRASOUND REASON FOR EXAM: Female, 73 years old. Thyroid nodule. TECHNIQUE: Ultrasound evaluation of the thyroid was performed with real-time and static hyatt-scale imaging. COMPARISON: None. FINDINGS: RIGHT LOBE: The right lobe of the thyroid gland measures 4.4 x 1.4 x 2.0 cm. There is a homogeneous echotexture. There is a 4 x 2 x 2 mm ovoid well-defined complex nodule of the lower pole and a 3 x 3 x 2 mm cystic nodule of the lower pole. LEFT LOBE: The left lobe of the thyroid gland measures 4.5 x 1.7 x 1.7 cm. There is a homogeneous echotexture. There are no demonstrated solid, cystic or complex lesions. ISTHMUS: The isthmus measures 2 millimeter. US/Thyroid IMPRESSION: Normal size of the thyroid. The parenchyma is generally homogeneous. There is a 4 x 2 x 2 mm well-defined ovoid complex nodule of the lower pole of the thyroid and a 3 x 3 x 2 mm cystic nodule of the lower pole of the right thyroid. Electronically Signed: Shauna Palafox MD at 19:48 EDT , Service support ,
--- NOTE | 2019-03-27 11:55 | RAD_ITS ---
STUDY: X-RAY - RIGHT SHOULDER REASON FOR EXAM: Female, 73 years old. Chronic pain TECHNIQUE: 4 view(s) of the shoulder. COMPARISON: None. FINDINGS: There is mild degenerative arthrosis of the glenohumeral articulation. There is hypertrophic osteoarthrosis of the acromioclavicular joint with inferior osseous spur formation. Normal acromion. Normal humeral head and visualized proximal humerus. There is faint calcifications associated with the rotator cuff tendon. Normal visualized pulmonary apex. RAD/Shoulder min 2 Views IMPRESSION: Mild degenerative arthrosis of the glenohumeral joint. Hypertrophic osteoarthritic changes of the acromioclavicular joint. Mild degenerative changes of the greater tubercle with small linear and amorphous calcifications of the rotator cuff tendon. Electronically Signed: Shauna Palafox MD at 19:45 EDT , Service support ,
--- NOTE | 2019-03-27 11:55 | RAD_ITS ---
STUDY: X-RAY - RIGHT KNEE REASON FOR EXAM: Female, 73 years old. Chronic pain. TECHNIQUE: 4 view(s) of the knee. COMPARISON: None. FINDINGS: Normal visualized distal femur. Normal visualized proximal tibia and fibula. Normal proximal tibiofibular articulation. Enthesophyte of the patella. Slight degenerative squaring of the medial compartment. Slight degenerative squaring of the lateral compartment. Meniscal chondrocalcinosis. There is mild degenerative arthrosis of the patellofemoral articulation. Negative for substantial joint effusion. The soft tissue structures are unremarkable. RAD/Knee 4 or More Views IMPRESSION: Normal knee alignment without fracture, osteolytic or blastic bone lesion. Mild degenerative arthrosis of the patellofemoral compartment and enthesophytes of the superior pole of the patella. Mild degenerative squaring of the medial and lateral compartments with mild meniscal chondrocalcinosis. Negative for substantial joint effusion. Electronically Signed: Shauna Palafox MD at 19:32 EDT , Service support ,
== END ==
PROVIDERS: Family Provider Internal Medicine; PCP Internal Medicine; Referring Provider Internal Medicine; Visit Provider Internal Medicine
DX: E04.1 Nontoxic single thyroid nodule (principal); M17.11 Unilateral primary osteoarthritis, right knee; M19.011 Primary osteoarthritis, right shoulder
CPT/HCPCS: 73030; 73564; 76536

== ENCOUNTER 2019-03-29 09:21 | Outpatient (RCR) | payer MEDICARE, OTHER, SELFPAY ==
[2019-03-03 01:04] VITALS: BP 147/79; PULSE 81; RESP 16; TEMP 36.2
[2019-03-29 10:03] VITALS: BP 151/70; PULSE 80; RESP 18; TEMP 36.3; BMI 26.5
--- NOTE | 2019-03-29 10:56 | HP.PCM_ITS ---
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 She was seeing Lisandra Marte CNP at the wound center and was discharged on 03/01/19 as Lisandra felt the ulcer was healed but the patient states that it was still draining and worsened in the last few weeks. She saw her pCP on Monday and was referred back for evaluation and treatment. Her ulcer on her left medial malleolus began in October 2018 due to a trauma where she hit the leg with a grocery bag. She initially had been using antibiotic ointment and cream to the leg, also was washing it with Hibiclens and using Santyl but had a severe drug reaction to the Santyl and was no longer able to use. During her treatment with Lisandra she received 2 applications of Epifix starting on 02/01/19. She was using Promogran for the last several weeks as instructed by Lisandra when she was discharged. She continues to use tubigrip compression and elevates her legs as much as possible. The ulcer is painful but less than it was previously. Past Medical History Past Medical History: Chronic Problems Blood clotting factor deficiency disorder (Chronic) Venous ulcer of left lower extremity with varicose veins (Chronic) History of deep vein thrombosis (DVT) of lower extremity (Chronic) Lower leg edema (Chronic) Peripheral vascular occlusive disease (Chronic) Surgical History: cataract Allergies/Adverse Reactions: Allergies No Known Allergies Allergy (Verified 01/25/19 10:34) Home Medications: Ambulatory Orders Medication Instructions Recorded Cholecalciferol (Vitamin D3) 2,000 unit PO DAILY 07/28/17 [D3-2000] Citalopram Hydrobromide [Celexa] 20 mg PO DAILY 07/28/17 Pravastatin Sodium [Pravachol] 10 mg PO DAILY 07/28/17 Rivaroxaban [Xarelto] 10 mg PO DAILY 07/28/17 Ubidecarenone/Vit E Acet [Co Q-10 1 each PO DAILY 07/28/17 100 mg Softgel] Vit C/Ascorb Sod/Multivit-Min 500 mg PO DAILY 01/25/19 [Emergen-C 500 mg Chewable Tab] - Family History Maternal No pertinent history Paternal No pertinent history Lives: Spouse/ Significant Other Smoking Status: Never smoker Tobacco Use: Non-smoker Alcohol: None Drugs: None Review of Systems Constitutional: Denies: Chills, Fever, Weight Change Eyes: Denies: Pain, Vision Change HEENT: Denies: Difficulty Hearing, Difficulty Swallowing, Sinus Congestion Cardiovascular: Reports: Edema. Denies: Chest Pain, Palpitations Respiratory: Denies: Cough, Shortness of Breath Gastrointestinal: Denies: Diarrhea, Nausea, Vomiting Genitourinary: Denies: Dysuria, Hematuria Musculoskeletal: Reports: Leg Pain Skin: Reports: Wounds Endocrine: Denies: Heat/ Cold Intolerance, Polydipsia, Polyuria Hematologic/ Lymphatic: Reports: Easy Bruising, Easy Bleeding - Physical Exam Vital Signs Temp Pulse Resp BP 97.3 F L 80 18 151/70 H 03/29/19 10:03 03/29/19 10:03 03/29/19 10:03 03/29/19 10:03 General: Alert, Oriented x3, Cooperative, No apparent distress HEENT: Atraumatic, Normocephalic Oral: Moist Mucosa Neck: Supple Lungs: Clear to auscultation Cardiovascular: Regular rate, Regular Rhythm Abdomen: Soft, Non Tender Extremities: Edema Skin: Ulcer/ Wound Wound Measurements and Assessment WC - Nurse 1 - General Ulcer Measurement Start: 03/29/19 09:43 Freq: Status: Active Protocol: Activity Type Activity Date Activity User E-Sign Co-Sign Detail Recorded Client Recorded Date Recorded By Document 03/29/19 10:03 RB [id number] 03/29/19 10:11 RB 03/29/19 10:03 Wound Center Nurse 1 [Ulcer Assessment] 3. L medial ankle -Combined with other wound No -Current Size (cm) - Length 0.2 -Current Size (cm) - Width 0.1 -Current Size (cm) - Depth 0.1 -Total Square Cm 0.02 -Photo Taken Yes -Tunneling No -Undermining/Tunneling No -Circular Undermining No -Exudate Amt Small -Exudate Type Serosanguineous -Wound Margin Flat & Intact -Granulation Amt Medium (34-66%) -Granulation Quality [place] -Slough/Fibrin Yes -Necrosis Amt Small (1-33%) -Necrotic Tissue Type Adherent Slough -Structure Exposed N/A -Texture (Ines-wound Skin Appearance) Assessed -Moisture (Ines-wound Skin Appearance Assessed ) -Color (Ines-wound Skin Appearance) Erythema -Temperature (Ines-wound Skin No Abnormality Appearance) (Pt Warm) -Tenderness on Palpation (Ines-wound No Skin Appearance) -Ulcer Cleansing Wound Cleanser -Foul Odor after Cleansing No -Anesthetic Used 5% Lidocaine Gel [Edema Assessment] -Lower Limb Edema Present Yes -Left Calf (cm) 38 -Left Ankle (cm) 22.5 WC - Nurse 2 - General Ulcer CM Notes Start: 03/29/19 09:43 Freq: Status: Active Protocol: Activity Type Activity Date Activity User E-Sign Co-Sign Detail Recorded Client Recorded Date Recorded By Document 03/29/19 10:27 MW [id number] 03/29/19 10:38 MW 03/29/19 10:27 Wound Center Nurse 2 [Procedure/Treatment] 3. L medial ankle -Time 10:31 -Correct Patient Yes -Correct Side, Site, Position Yes -Correct Procedure Yes -Procedure Performed Yes -Type of Procedure Debridement -Clinical Debridement Subcutaneous -Post Debridement Size (cm) - Length 0.8 -Post Debridement Size (cm) - Width 0.3 -Post Debridement Size (cm) - Depth 0.2 -Total Square Cm 0.24 -Wound/Ulcer Outcome Not Healed -Ulcer Cleansing Rinsed/ Irrigated with Saline -Foul Odor after Cleansing No -Bioengineered Tissue Yes -Type of bioengineered Tissue EPIFIX -Expiration Date 07/03/23 -Product Lot Number [id number] -Percent Used 100 -Saline Lot Number [id number] -Other c. hydrogel lot #[id number] [See Physician Procedure note for Specifics] Pain Scale: 0-10 Numeric [Pain] -Is Patient Pain Free? Yes Psych/Mental Status: Normal Affect, Appropriate Debridement Note Post-Debridement Measurements/Treatment WC - Nurse 2 - General Ulcer CM Notes Start: 03/29/19 09:43 Freq: Status: Active Protocol: Activity Type Activity Date Activity User E-Sign Co-Sign Detail Recorded Client Recorded Date Recorded By Document 03/29/19 10:27 MW [id number] 03/29/19 10:38 MW 03/29/19 10:27 Wound Center Nurse 2 3. L medial ankle -Time 10:31 -Correct Patient Yes -Correct Side, Site, Position Yes -Correct Procedure Yes -Procedure Performed Yes -Type of Procedure Debridement -Clinical Debridement Subcutaneous -Post Debridement Size (cm) - Length 0.8 -Post Debridement Size (cm) - Width 0.3 -Post Debridement Size (cm) - Depth 0.2 -Total Square Cm 0.24 -Wound/Ulcer Outcome Not Healed -Ulcer Cleansing Rinsed/ Irrigated with Saline -Foul Odor after Cleansing No -Bioengineered Tissue Yes -Type of bioengineered Tissue EPIFIX -Expiration Date 07/03/23 -Product Lot Number [id number] -Percent Used 100 -Saline Lot Number [id number] -Other c. hydrogel lot #[id number] Pain Scale: 0-10 Numeric Is Patient Pain Free? 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 Edema bilateral lower legs. Peripheral vascular occlusive disease. History of DVTs Plan: Yannick ulcer was evaluated and debrided today. It appears free of infection. Epifix #3 was applied to her ulcer using 100% of the product. It was cut in half and layered on the ulcer and rehydrated with hydrogel, covered with adaptic touch and secured with steristrips and covered with gauze. She will be out of town in 1 week so it will remain in place for 2 weeks. She will apply hydrogel over the adaptic touch next Monday and can change the outer dressing as needed for soiling but will keep the Epifix in place and dry until she is next seen. Continue tubigrip compression. F/U in 2 weeks.
== END 2019-04-01 23:59 ==
LOC: WC 09:21
PROVIDERS: Family Provider Internal Medicine; PCP Internal Medicine; Visit Provider Nurse Practitioner
DX: I83.023 Varicose veins of left lower extremity with ulcer of ankle (principal); L97.322 Non-pressure chronic ulcer of left ankle with fat layer exposed; D68.4 Acquired coagulation factor deficiency; Z86.718 Personal history of other venous thrombosis and embolism; R60.0 Localized edema; I87.2 Venous insufficiency (chronic) (peripheral)
CPT/HCPCS: 15271; 99213; Q4186; G0463

== ENCOUNTER 2019-04-19 13:45 | Outpatient (RCR) | payer MEDICARE, OTHER, SELFPAY ==
[2019-04-02 00:57] VITALS: BP 151/70; PULSE 80; RESP 18; TEMP 36.3
[2019-04-12 13:02] VITALS: BP 129/77; PULSE 90; RESP 18; TEMP 36.2; BMI 26.5
--- NOTE | 2019-04-12 18:46 | PCM.WC.PN ---
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 Status: Chronic Current Visit: Yes Code(s): I83.029 - Varicose veins of left lower extremity with ulcer of unspecified site; L97.929 - Non-pressure chronic ulcer of unspecified part of left lower leg with unspecified severity (2) History of deep vein thrombosis (DVT) of lower extremity Status: Chronic Current Visit: Yes Code(s): Z86.718 - Personal history of other venous thrombosis and embolism Type of Wound Date of Service: 04/12/19 Chief Complaint: Follow-up on a ulcer on the left ankle History of Wound: Ivy is a sweet 73 year-old female with a prior history of peripheral vascular occlusive disease and venous insufficiency who is here for a nonhealing left medial ankle venous ulcer. She was seeing Lisandra Marte CNP at the wound center and was discharged on 03/01/19 as Lisandra felt the ulcer was healed but the patient states that it was still draining and worsened in the last few weeks. She saw her pCP on Monday and was referred back for evaluation and treatment. Her ulcer on her left medial malleolus began in October 2018 due to a trauma where she hit the leg with a grocery bag. She initially had been using antibiotic ointment and cream to the leg, also was washing it with Hibiclens and using Santyl but had a severe drug reaction to the Santyl and was no longer able to use. During her treatment with Lisandra she received 2 applications of Epifix starting on 02/01/19. She was using Promogran for the last several weeks as instructed by Lisandra when she was discharged. She continues to use tubigrip compression and elevates her legs as much as possible. The ulcer is painful but less than it was previously. Progress of Wound: Ivy is here for follow up of a venous ulcer of her left medial ankle. SHe underwent application of epifix at her last visit. She was not seen for 2 weeks due to her being in [place] last week. She denies any issues with her dressings. She changed the outer dressing once since she was here last due to soiling of the outer dressing. Denies fever, chills, increased drainage or pain or odor. - Physical Exam Vital Signs Temp Pulse Resp BP 97.1 F L 90 18 129/77 H 04/12/19 13:02 04/12/19 13:02 04/12/19 13:02 04/12/19 13:02 General: Alert, Oriented x3, Cooperative, No apparent distress HEENT: Atraumatic, Normocephalic Oral: Moist Mucosa Extremities: Edema Skin: Ulcer/ Wound Wound Measurements and Assessment WC - Nurse 1 - General Ulcer Measurement Start: 04/12/19 13:01 Freq: Status: Active Protocol: Activity Type Activity Date Activity User E-Sign Co-Sign Detail Recorded Client Recorded Date Recorded By Document 04/12/19 13:02 RB [id number] 04/12/19 13:08 RB 04/12/19 13:02 Wound Center Nurse 1 [Ulcer Assessment] 3. L medial ankle -Combined with other wound No -Current Size (cm) - Length 0.9 -Current Size (cm) - Width 0.4 -Current Size (cm) - Depth 0.1 -Total Square Cm 0.36 -Tunneling No -Undermining/Tunneling No -Circular Undermining No -Exudate Amt Small -Exudate Type Serosanguineous -Wound Margin Flat & Intact -Granulation Amt Medium (34-66%) -Granulation Quality [place] -Slough/Fibrin Yes -Necrosis Amt Small (1-33%) -Necrotic Tissue Type Adherent Slough -Structure Exposed N/A -Texture (Ines-wound Skin Appearance) Assessed -Moisture (Ines-wound Skin Appearance Assessed ) -Color (Ines-wound Skin Appearance) Assessed, Hemosiderin Staining -Temperature (Ines-wound Skin No Abnormality Appearance) (Pt Warm) -Tenderness on Palpation (Ines-wound No Skin Appearance) -Ulcer Cleansing Wound Cleanser -Foul Odor after Cleansing No -Anesthetic Used 5% Lidocaine Gel [Edema Assessment] -Lower Limb Edema Present Yes -Left Calf (cm) 38 -Left Ankle (cm) 23 WC - Nurse 2 - General Ulcer CM Notes Start: 04/12/19 13:01 Freq: Status: Active Protocol: Activity Type Activity Date Activity User E-Sign Co-Sign Detail Recorded Client Recorded Date Recorded By Document 04/12/19 13:23 DV [id number] 04/12/19 13:29 DV 04/12/19 13:23 Wound Center Nurse 2 [Procedure/Treatment] 3. L medial ankle -Time 13:26 -Correct Patient Yes -Correct Side, Site, Position Yes -Correct Procedure Yes -Procedure Performed Yes -Type of Procedure Debridement -Clinical Debridement Subcutaneous -Post Debridement Size (cm) - Length 0.9 -Post Debridement Size (cm) - Width 0.4 -Post Debridement Size (cm) - Depth 0.2 -Total Square Cm 0.36 -Wound/Ulcer Outcome Not Healed -Ulcer Cleansing Rinsed/ Irrigated with Saline -Foul Odor after Cleansing No -Bioengineered Tissue Yes -Type of bioengineered Tissue EPIFIX -Expiration Date 11/01/23 -Product Lot Number [id number] -Percent Used 100 -Topical Lidocaine (%) 5 -Bleeding Controlled with Pressure -Other HYDROGEL -Offloading No -Treatment Response Procedure Tolerated Well [See Physician Procedure note for Specifics] Pain Scale: 0-10 Numeric [Pain] -Is Patient Pain Free? Yes Psych/Mental Status: Normal Affect, Appropriate Debridement Note Post-Debridement Measurements/Treatment WC - Nurse 2 - General Ulcer CM Notes Start: 04/12/19 13:01 Freq: Status: Active Protocol: Activity Type Activity Date Activity User E-Sign Co-Sign Detail Recorded Client Recorded Date Recorded By Document 04/12/19 13:23 DV [id number] 04/12/19 13:29 DV 04/12/19 13:23 Wound Center Nurse 2 3. L medial ankle -Time 13:26 -Correct Patient Yes -Correct Side, Site, Position Yes -Correct Procedure Yes -Procedure Performed Yes -Type of Procedure Debridement -Clinical Debridement Subcutaneous -Post Debridement Size (cm) - Length 0.9 -Post Debridement Size (cm) - Width 0.4 -Post Debridement Size (cm) - Depth 0.2 -Total Square Cm 0.36 -Wound/Ulcer Outcome Not Healed -Ulcer Cleansing Rinsed/ Irrigated with Saline -Foul Odor after Cleansing No -Bioengineered Tissue Yes -Type of bioengineered Tissue EPIFIX -Expiration Date 11/01/23 -Product Lot Number [id number] -Percent Used 100 -Topical Lidocaine (%) 5 -Bleeding Controlled with Pressure -Other HYDROGEL -Offloading No -Treatment Response Procedure Tolerated Well Pain Scale: 0-10 Numeric Is Patient Pain Free? 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 Edema bilateral lower legs. Peripheral vascular occlusive disease. History of DVTs Plan: Yannick ulcer was evaluated and debrided today. It appears free of infection. Epifix #4 was applied to her ulcer using 100% of the product. It was cut in half and layered on the ulcer and rehydrated with hydrogel, covered with adaptic touch and secured with steristrips and covered with gauze. Continue double layer tubigrip compression. Encouraged increase protein and elevation of legs when sitting. F/U in 1 week.
[2019-04-19 14:24] VITALS: BP 145/74; PULSE 76; RESP 16; TEMP 36.2; BMI 26.5
--- NOTE | 2019-04-19 18:51 | PN.PCM_ITS ---
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 Status: Chronic Current Visit: Yes Code(s): I83.029 - Varicose veins of left lower extremity with ulcer of unspecified site; L97.929 - Non-pressure chronic ulcer of unspecified part of left lower leg with unspecified severity (2) History of deep vein thrombosis (DVT) of lower extremity Status: Chronic Current Visit: Yes Code(s): Z86.718 - Personal history of other venous thrombosis and embolism Type of Wound Date of Service: 04/19/19 Chief Complaint: Follow-up on a ulcer on the left ankle History of Wound: Ivy is a sweet 73 year-old female with a prior history of peripheral vascular occlusive disease and venous insufficiency who is here for a nonhealing left medial ankle venous ulcer. She was seeing Lisandra Marte CNP at the wound center and was discharged on 03/01/19 as Lisandra felt the ulcer was healed but the patient states that it was still draining and worsened in the last few weeks. She saw her pCP on Monday and was referred back for evaluation and treatment. Her ulcer on her left medial malleolus began in October 2018 due to a trauma where she hit the leg with a grocery bag. She initially had been using antibiotic ointment and cream to the leg, also was washing it with Hibiclens and using Santyl but had a severe drug reaction to the Santyl and was no longer able to use. During her treatment with Lisandra she received 2 applications of Epifix starting on 02/01/19. She was using Promogran for the last several weeks as inst ructed by Lisandra when she was discharged. She continues to use tubigrip compression and elevates her legs as much as possible. The ulcer is painful but less than it was previously. Progress of Wound: Ivy is here for follow up of a venous ulcer of her left medial ankle. She underwent application of epifix at her last visit. She denies any issues with her dressings. She changed the outer dressing once since she was here last due to soiling of the outer dressing. Denies fever, chills, increased drainage or pain or odor. - Physical Exam Vital Signs Temp Pulse Resp BP 97.1 F L 76 16 145/74 H 04/19/19 14:24 04/19/19 14:24 04/19/19 14:24 04/19/19 14:24 General: Alert, Oriented x3, Cooperative, No apparent distress HEENT: Atraumatic, Normocephalic Oral: Moist Mucosa Extremities: Edema Skin: Ulcer/ Wound Wound Measurements and Assessment WC - Nurse 1 - General Ulcer Measurement Start: 04/12/19 13:01 Freq: Status: Active Protocol: Activity Type Activity Date Activity User E-Sign Co-Sign Detail Recorded Client Recorded Date Recorded By Document 04/19/19 14:24 [facility] [id number] 04/19/19 14:32 [facility] 04/19/19 14:24 Wound Center Nurse 1 [Ulcer Assessment] 3. L medial ankle -Combined with other wound No -Current Size (cm) - Length 0.7 -Current Size (cm) - Width 0.3 -Current Size (cm) - Depth 0.2 -Total Square Cm 0.21 -Photo Taken No -Epithelialization None Present -Tunneling No -Undermining/Tunneling No -Circular Undermining No -Exudate Amt Small -Exudate Type Sanguineous -Wound Margin Distinct, Outline Attached -Granulation Amt Large (67-100%) -Granulation Quality Red -Slough/Fibrin No -Necrosis Amt Small (1-33%) -Necrotic Tissue Type Adherent Slough -Texture (Ines-wound Skin Appearance) Assessed, Scarring -Moisture (Ines-wound Skin Appearance Assessed,Dry/ ) Scaly -Color (Ines-wound Skin Appearance) Assessed -Temperature (Ines-wound Skin No Abnormality Appearance) (Pt Warm) -Tenderness on Palpation (Ines-wound No Skin Appearance) -Ulcer Cleansing soap and water -Foul Odor after Cleansing No -Anesthetic Used 5% Lidocaine Gel [Edema Assessment] -Lower Limb Edema Present Yes -Left Calf (cm) 37.8 -Left Ankle (cm) 22.4 WC - Nurse 2 - General Ulcer CM Notes Start: 04/12/19 13:01 Freq: Status: Active Protocol: Activity Type Activity Date Activity User E-Sign Co-Sign Detail Recorded Client Recorded Date Recorded By Document 04/19/19 15:06 [id number] 04/19/19 15:14 04/19/19 15:06 Wound Center Nurse 2 [Procedure/Treatment] 3. L medial ankle -Time 15:06 -Correct Patient Yes -Correct Side, Site, Position Yes -Correct Procedure Yes -Procedure Performed Yes -Type of Procedure Debridement -Clinical Debridement Subcutaneous -Post Debridement Size (cm) - Length 0.7 -Post Debridement Size (cm) - Width 0.3 -Post Debridement Size (cm) - Depth 0.2 -Total Square Cm 0.21 -Wound/Ulcer Outcome Not Healed -Ulcer Cleansing Rinsed/ Irrigated with Saline -Foul Odor after Cleansing No -Type of bioengineered Tissue EPIFIX -Expiration Date 11/01/23 -Product Lot Number [id number] -Percent Used 100 -Saline Lot Number [id number] -Bleeding Controlled with Pressure -Offloading No [See Physician Procedure note for Specifics] Pain Scale: 0-10 Numeric [Pain] -Is Patient Pain Free? No Psych/Mental Status: Normal Affect, Appropriate Debridement Note Post-Debridement Measurements/Treatment WC - Nurse 2 - General Ulcer CM Notes Start: 04/12/19 13:01 Freq: Status: Active Protocol: Activity Type Activity Date Activity User E-Sign Co-Sign Detail Recorded Client Recorded Date Recorded By Document 04/12/19 13:23 DV [id number] 04/12/19 13:29 DV Document 04/19/19 15:06 [id number] 04/19/19 15:14 04/12/19 04/19/19 13:23 15:06 Wound Center Nurse 2 3. L medial ankle -Time 13:26 15:06 -Correct Patient Yes Yes -Correct Side, Site, Position Yes Yes -Correct Procedure Yes Yes -Procedure Performed Yes Yes -Type of Procedure Debridement Debridement -Clinical Debridement Subcutaneous Subcutaneous -Post Debridement Size (cm) - Length 0.9 0.7 -Post Debridement Size (cm) - Width 0.4 0.3 -Post Debridement Size (cm) - Depth 0.2 0.2 -Total Square Cm 0.36 0.21 -Wound/Ulcer Outcome Not Healed Not Healed -Ulcer Cleansing Rinsed/ Rinsed/ Irrigated with Irrigated with Saline Saline -Foul Odor after Cleansing No No -Bioengineered Tissue Yes -Type of bioengineered Tissue EPIFIX EPIFIX -Expiration Date 11/01/23 11/01/23 -Product Lot Number [id number] -Percent Used 100 100 -Saline Lot Number [id number] -Topical Lidocaine (%) 5 -Bleeding Controlled with Pressure Pressure -Other HYDROGEL -Offloading No No -Treatment Response Procedure Tolerated Well Pain Scale: 0-10 Numeric Is Patient Pain Free? Yes No Wound debrided: left medial ankle Laterality: Left Type of Debridement: Excisional debridement Anesthesia Used: 4% Lidocaine Solution, 5% Lidocaine Gel Depth: Down to and including healthy tissue, in the subcutaneous layer Percentage of wound debrided: 100 Instrument Used: 3mm curette Tissue Removed: yellow slough, devitalized tissue Severity: Fat Layer Exposed Amount of bleeding with debridement: Mild Bleeding Controlled with: Compression and gauze Patient tolerated procedure well Assessment/Plan Active Problems Venous ulcer of left lower extremity with varicose veins (Chronic) History of deep vein thrombosis (DVT) of lower extremity (Chronic) Assessment: Venous ulcer left medial malleolus. Edema bilateral lower legs. Peripheral vascular occlusive disease. History of DVTs Plan: Yannick ulcer was evaluated and debrided today. It appears free of infect ion. Epifix #5 was applied to her ulcer using 100% of the product. It was cut in half and layered on the ulcer and rehydrated with hydrogel, covered with adaptic touch and secured with steristrips and covered with gauze. Continue double layer tubigrip compression. Encouraged increase protein and elevation of legs when sitting. F/U in 2 weeks.
== END 2019-05-02 23:59 ==
LOC: WC 13:45
PROVIDERS: Family Provider Internal Medicine; PCP Internal Medicine; Visit Provider Nurse Practitioner
DX: I83.023 Varicose veins of left lower extremity with ulcer of ankle (principal); L97.322 Non-pressure chronic ulcer of left ankle with fat layer exposed; Z86.718 Personal history of other venous thrombosis and embolism; I87.2 Venous insufficiency (chronic) (peripheral)
CPT/HCPCS: 15271; Q4186

== ENCOUNTER 2019-05-17 15:00 | Outpatient (RCR) | payer MEDICARE, OTHER, SELFPAY ==
[2019-05-03 00:56] VITALS: BP 145/74; PULSE 76; RESP 16; TEMP 36.2
[2019-05-03 14:30] VITALS: BP 134/70; PULSE 80; RESP 18; TEMP 36; BMI 26.5
--- NOTE | 2019-05-03 20:44 | PCM.WC.PN ---
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 She was seeing Lisandra Marte CNP at the wound center and was discharged on 03/01/19 as Lisandra felt the ulcer was healed but the patient states that it was still draining and worsened in the last few weeks. She saw her pCP on Monday and was referred back for evaluation and treatment. Her ulcer on her left medial malleolus began in October 2018 due to a trauma where she hit the leg with a grocery bag. She initially had been using antibiotic ointment and cream to the leg, also was washing it with Hibiclens and using Santyl but had a severe drug reaction to the Santyl and was no longer able to use. During her treatment with Lisandra she received 2 applications of Epifix starting on 02/01/19. She was using Promogran for the last several weeks as instructed by Lisandra when she was discharged. She continues to use tubigrip compression and elevates her legs as much as possible. The ulcer is painful but less than it was previously. Progress of Wound: Ivy is here for follow up of a venous ulcer of her left medial ankle. She underwent application of epifix at her last visit. She denies any issues with her dressings. She changed the outer dressing once since she was here last due to soiling of the outer dressing. Denies fever, chills, increased drainage or pain or odor. - Physical Exam Vital Signs Temp Pulse Resp BP 96.8 F L 80 18 134/70 H 05/03/19 14:30 05/03/19 14:30 05/03/19 14:30 05/03/19 14:30 General: Alert, Oriented x3, Cooperative, No apparent distress HEENT: Atraumatic, Normocephalic Oral: Moist Mucosa Extremities: Edema Skin: Ulcer/ Wound Wound Measurements and Assessment WC - Nurse 1 - General Ulcer Measurement Start: 05/03/19 14:30 Freq: Status: Active Protocol: Activity Type Activity Date Activity User E-Sign Co-Sign Detail Recorded Client Recorded Date Recorded By Document 05/03/19 14:30 RB [id number] 05/03/19 14:33 RB 05/03/19 14:30 Wound Center Nurse 1 [Ulcer Assessment] 3. L medial ankle -Combined with other wound No -Current Size (cm) - Length 0.8 -Current Size (cm) - Width 0.4 -Current Size (cm) - Depth 0.1 -Total Square Cm 0.32 -Tunneling No -Undermining/Tunneling No -Circular Undermining No -Exudate Amt Small -Exudate Type Serosanguineous -Wound Margin Flat & Intact -Granulation Amt Medium (34-66%) -Granulation Quality [place] -Slough/Fibrin Yes -Necrosis Amt Small (1-33%) -Necrotic Tissue Type Adherent Slough -Structure Exposed N/A -Texture (Ines-wound Skin Appearance) Assessed -Moisture (Ines-wound Skin Appearance Assessed ) -Color (Ines-wound Skin Appearance) Assessed -Temperature (Ines-wound Skin No Abnormality Appearance) (Pt Warm) -Tenderness on Palpation (Ines-wound No Skin Appearance) -Ulcer Cleansing Wound Cleanser -Foul Odor after Cleansing No -Anesthetic Used 5% Lidocaine Gel [Edema Assessment] -Lower Limb Edema Present Yes -Left Calf (cm) 38.5 -Left Ankle (cm) 22 WC - Nurse 2 - General Ulcer CM Notes Start: 05/03/19 14:30 Freq: Status: Active Protocol: Activity Type Activity Date Activity User E-Sign Co-Sign Detail Recorded Client Recorded Date Recorded By Document 05/03/19 15:30 [id number] 05/03/19 15:44 05/03/19 15:30 Wound Center Nurse 2 [Procedure/Treatment] 3. L medial ankle -Time 15:31 -Correct Patient Yes -Correct Side, Site, Position Yes -Correct Procedure Yes -Procedure Performed Yes -Type of Procedure Debridement -Clinical Debridement Subcutaneous -Post Debridement Size (cm) - Length 0.6 -Post Debridement Size (cm) - Width 0.4 -Post Debridement Size (cm) - Depth 0.2 -Total Square Cm 0.24 -Wound/Ulcer Outcome Not Healed -Ulcer Cleansing Rinsed/ Irrigated with Saline -Foul Odor after Cleansing No -Bioengineered Tissue Yes -Type of bioengineered Tissue EPIFIX -Expiration Date 11/01/23 -Product Lot Number [id number] -Percent Used 100 -Saline Lot Number [id number] -Bleeding Controlled with Pressure -Other C.Hydrogel [See Physician Procedure note for Specifics] Psych/Mental Status: Normal Affect, Appropriate Debridement Note Post-Debridement Measurements/Treatment WC - Nurse 2 - General Ulcer CM Notes Start: 05/03/19 14:30 Freq: Status: Active Protocol: Activity Type Activity Date Activity User E-Sign Co-Sign Detail Recorded Client Recorded Date Recorded By Document 05/03/19 15:30 [id number] 05/03/19 15:44 05/03/19 15:30 Wound Center Nurse 2 3. L medial ankle -Time 15:31 -Correct Patient Yes -Correct Side, Site, Position Yes -Correct Procedure Yes -Procedure Performed Yes -Type of Procedure Debridement -Clinical Debridement Subcutaneous -Post Debridement Size (cm) - Length 0.6 -Post Debridement Size (cm) - Width 0.4 -Post Debridement Size (cm) - Depth 0.2 -Total Square Cm 0.24 -Wound/Ulcer Outcome Not Healed -Ulcer Cleansing Rinsed/ Irrigated with Saline -Foul Odor after Cleansing No -Bioengineered Tissue Yes -Type of bioengineered Tissue EPIFIX -Expiration Date 11/01/23 -Product Lot Number [id number] -Percent Used 100 -Saline Lot Number [id number] -Bleeding Controlled with Pressure -Other C.Hydrogel Wound debrided: left medial ankle Laterality: Left Type of Debridement: Excisional debridement Anesthesia Used: 4% Lidocaine Solution, 5% Lidocaine Gel Depth: Down to and including healthy tissue, in the subcutaneous layer Percentage of wound debrided: 100 Instrument Used: 3mm curette Tissue Removed: yellow slough, devitalized tissue Severity: Fat Layer Exposed Amount of bleeding with debridement: Mild Bleeding Controlled with: Compression and gauze Patient tolerated procedure well Assessment/Plan Active Problems 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 Edema bilateral lower legs. Peripheral vascular occlusive disease. History of DVTs Plan: Ivy's ulcer was evaluated and debrided today. It appears free of infection. Epifix #6 was applied to her ulcer using 100% of the product. It was cut in half and layered on the ulcer and rehydrated with hydrogel, covered with adaptic touch and secured with steristrips and covered with gauze. Continue double layer tubigrip compression. Encouraged increase protein and elevation of legs when sitting. F/U in 1 week.
[2019-05-10 14:05] VITALS: BP 140/71; PULSE 88; RESP 16; TEMP 36.5; BMI 26.5
--- NOTE | 2019-05-10 19:29 | PCM.WC.PN ---
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 She was seeing Lisandra Marte CNP at the wound center and was discharged on 03/01/19 as Lisandra felt the ulcer was healed but the patient states that it was still draining and worsened in the last few weeks. She saw her pCP on Monday and was referred back for evaluation and treatment. Her ulcer on her left medial malleolus began in October 2018 due to a trauma where she hit the leg with a grocery bag. She initially had been using antibiotic ointment and cream to the leg, also was washing it with Hibiclens and using Santyl but had a severe drug reaction to the Santyl and was no longer able to use. During her treatment with Lisandra she received 2 applications of Epifix starting on 02/01/19. She was using Promogran for the last several weeks as instructed by Lisandra when she was discharged. She continues to use tubigrip compression and elevates her legs as much as possible. The ulcer is painful but less than it was previously. Progress of Wound: Ivy is here for follow up of a venous ulcer of her left medial ankle. She underwent application of epifix at her last visit. She denies any issues with her dressings. She changed the outer dressing once since she was here last due to soiling of the outer dressing. Denies fever, chills, increased drainage or pain or odor. - Physical Exam Vital Signs Temp Pulse Resp BP 97.7 F L 88 16 140/71 H 05/10/19 14:05 05/10/19 14:05 05/10/19 14:05 05/10/19 14:05 General: Alert, Oriented x3, Cooperative, No apparent distress HEENT: Atraumatic, Normocephalic Oral: Moist Mucosa Extremities: Edema Skin: Ulcer/ Wound Wound Measurements and Assessment WC - Nurse 1 - General Ulcer Measurement Start: 05/03/19 14:30 Freq: Status: Active Protocol: Activity Type Activity Date Activity User E-Sign Co-Sign Detail Recorded Client Recorded Date Recorded By Document 05/10/19 14:05 [facility] [id number] 05/10/19 14:13 [facility] 05/10/19 14:05 Wound Center Nurse 1 [Ulcer Assessment] 3. L medial ankle -Combined with other wound No -Current Size (cm) - Length 0.7 -Current Size (cm) - Width 0.2 -Current Size (cm) - Depth 0.2 -Total Square Cm 0.14 -Photo Taken No -Epithelialization Small 1-33% -Tunneling No -Undermining/Tunneling No -Circular Undermining No -Exudate Amt Small -Exudate Type Serous -Wound Margin Distinct, Outline Attached -Granulation Amt Small (1-33%) -Granulation Quality Red -Slough/Fibrin Yes -Necrosis Amt Medium (34-66%) -Necrotic Tissue Type Adherent Slough -Texture (Ines-wound Skin Appearance) Assessed, Scarring -Moisture (Ines-wound Skin Appearance Assessed, ) Maceration,Dry/ Scaly -Color (Ines-wound Skin Appearance) Assessed,Palor -Temperature (Ines-wound Skin No Abnormality Appearance) (Pt Warm) -Tenderness on Palpation (Ines-wound No Skin Appearance) -Ulcer Cleansing soapy water -Foul Odor after Cleansing No -Anesthetic Used 5% Lidocaine Gel [Edema Assessment] -Lower Limb Edema Present Yes -Left Calf (cm) 37 -Left Ankle (cm) 22.4 WC - Nurse 2 - General Ulcer CM Notes Start: 05/03/19 14:30 Freq: Status: Active Protocol: Activity Type Activity Date Activity User E-Sign Co-Sign Detail Recorded Client Recorded Date Recorded By Document 05/10/19 14:49 DV [id number] 05/10/19 14:51 DV 05/10/19 14:49 Wound Center Nurse 2 [Procedure/Treatment] 3. L medial ankle -Time 14:49 -Correct Patient Yes -Correct Side, Site, Position Yes -Correct Procedure Yes -Procedure Performed Yes -Type of Procedure Debridement -Clinical Debridement Subcutaneous -Post Debridement Size (cm) - Length 0.1 -Post Debridement Size (cm) - Width 0.2 -Post Debridement Size (cm) - Depth 0.1 -Total Square Cm 0.02 -Wound/Ulcer Outcome Not Healed -Ulcer Cleansing Rinsed/ Irrigated with Saline -Foul Odor after Cleansing No -Bioengineered Tissue No -Bleeding Controlled with Pressure -Offloading No -Treatment Response Procedure Tolerated Well [See Physician Procedure note for Specifics] Pain Scale: 0-10 Numeric [Pain] -Is Patient Pain Free? Yes Psych/Mental Status: Normal Affect, Appropriate Debridement Note Post-Debridement Measurements/Treatment WC - Nurse 2 - General Ulcer CM Notes Start: 05/03/19 14:30 Freq: Status: Active Protocol: Activity Type Activity Date Activity User E-Sign Co-Sign Detail Recorded Client Recorded Date Recorded By Document 05/03/19 15:30 [id number] 05/03/19 15:44 Document 05/10/19 14:49 DV [id number] 05/10/19 14:51 DV 05/03/19 05/10/19 15:30 14:49 Wound Center Nurse 2 3. L medial ankle -Time 15:31 14:49 -Correct Patient Yes Yes -Correct Side, Site, Position Yes Yes -Correct Procedure Yes Yes -Procedure Performed Yes Yes -Type of Procedure Debridement Debridement -Clinical Debridement Subcutaneous Subcutaneous -Post Debridement Size (cm) - Length 0.6 0.1 -Post Debridement Size (cm) - Width 0.4 0.2 -Post Debridement Size (cm) - Depth 0.2 0.1 -Total Square Cm 0.24 0.02 -Wound/Ulcer Outcome Not Healed Not Healed -Ulcer Cleansing Rinsed/ Rinsed/ Irrigated with Irrigated with Saline Saline -Foul Odor after Cleansing No No -Bioengineered Tissue Yes No -Type of bioengineered Tissue EPIFIX -Expiration Date 11/01/23 -Product Lot Number [id number] -Percent Used 100 -Saline Lot Number [id number] -Bleeding Controlled with Pressure Pressure -Other C.Hydrogel -Offloading No -Treatment Response Procedure Tolerated Well Pain Scale: 0-10 Numeric Is Patient Pain Free? 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 Edema bilateral lower legs. Peripheral vascular occlusive disease. History of DVTs Plan: Trues ulcer was evaluated and debrided today. It appears free of infection. Her ulcer is nearly healed. She will apply promogran every other day moistened with hydrogel and covered with adaptic then covered with gauze and secured with tape. Continue double layer tubigrip compression. Encouraged increase protein and elevation of legs when sitting. F/U in 1 week.
[2019-05-17 14:52] VITALS: BP 140/82; PULSE 79; RESP 18; TEMP 36.1; BMI 26.5
--- NOTE | 2019-05-17 18:44 | PCM.WC.PN ---
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 She was seeing Lisandra Marte CNP at the wound center and was discharged on 03/01/19 as Lisandra felt the ulcer was healed but the patient states that it was still draining and worsened in the last few weeks. She saw her pCP on Monday and was referred back for evaluation and treatment. Her ulcer on her left medial malleolus began in October 2018 due to a trauma where she hit the leg with a grocery bag. She initially had been using antibiotic ointment and cream to the leg, also was washing it with Hibiclens and using Santyl but had a severe drug reaction to the Santyl and was no longer able to use. During her treatment with Lisandra she received 2 applications of Epifix starting on 02/01/19. She was using Promogran for the last several weeks as instructed by Lisandra when she was discharged. She continues to use tubigrip compression and elevates her legs as much as possible. The ulcer is painful but less than it was previously. Progress of Wound: Ivy is here for follow up of a venous ulcer of her left medial ankle. She is healed today. Denies fever, chills, increased drainage or pain or odor. - Physical Exam Vital Signs Temp Pulse Resp BP 97 F L 79 18 140/82 H 05/17/19 14:52 05/17/19 14:52 05/17/19 14:52 05/17/19 14:52 General: Alert, Oriented x3, Cooperative, No apparent distress HEENT: Atraumatic, Normocephalic Oral: Moist Mucosa Extremities: Edema Skin: Ulcer/ Wound Wound Measurements and Assessment WC - Nurse 1 - General Ulcer Measurement Start: 05/03/19 14:30 Freq: Status: Active Protocol: Activity Type Activity Date Activity User E-Sign Co-Sign Detail Recorded Client Recorded Date Recorded By Document 05/17/19 14:52 RB [id number] 05/17/19 14:54 RB 05/17/19 14:52 Wound Center Nurse 1 [Ulcer Assessment] 3. L medial ankle -Combined with other wound No -Current Size (cm) - Length 0.1 -Current Size (cm) - Width 0.1 -Current Size (cm) - Depth 0.1 -Total Square Cm 0.01 -Tunneling No -Undermining/Tunneling No -Circular Undermining No -Exudate Amt Small -Exudate Type Serosanguineous -Wound Margin Flat & Intact -Granulation Amt Medium (34-66%) -Granulation Quality [place] -Slough/Fibrin Yes -Necrosis Amt Small (1-33%) -Necrotic Tissue Type Adherent Slough -Structure Exposed N/A -Texture (Ines-wound Skin Appearance) Assessed -Moisture (Ines-wound Skin Appearance Assessed ) -Color (Ines-wound Skin Appearance) Assessed, Hemosiderin Staining -Temperature (Inse-wound Skin No Abnormality Appearance) (Pt Warm) -Tenderness on Palpation (Ines-wound No Skin Appearance) -Ulcer Cleansing Wound Cleanser -Foul Odor after Cleansing No -Anesthetic Used 4% Lidocaine Solution [Edema Assessment] -Lower Limb Edema Present Yes -Left Calf (cm) 38 -Left Ankle (cm) 22.5 WC - Nurse 2 - General Ulcer CM Notes Start: 05/03/19 14:30 Freq: Status: Active Protocol: Activity Type Activity Date Activity User E-Sign Co-Sign Detail Recorded Client Recorded Date Recorded By Document 05/17/19 15:39 DV [id number] 05/17/19 15:44 DV 05/17/19 15:39 Wound Center Nurse 2 [Procedure/Treatment] 3. L medial ankle -Time 15:42 -Correct Patient Yes -Correct Side, Site, Position Yes -Correct Procedure No -Procedure Performed No -Post Debridement Size (cm) - Length 0 -Post Debridement Size (cm) - Width 0 -Post Debridement Size (cm) - Depth 0 -Total Square Cm 0 -Wound/Ulcer Outcome Healed- Epithelialized [See Physician Procedure note for Specifics] Pain Scale: 0-10 Numeric [Pain] -Is Patient Pain Free? Yes Psych/Mental Status: Normal Affect, Appropriate Debridement Note Post-Debridement Measurements/Treatment WC - Nurse 2 - General Ulcer CM Notes Start: 05/03/19 14:30 Freq: Status: Active Protocol: Activity Type Activity Date Activity User E-Sign Co-Sign Detail Recorded Client Recorded Date Recorded By Document 05/03/19 15:30 [id number] 05/03/19 15:44 MD Document 05/10/19 14:49 DV [id number] 05/10/19 14:51 DV Document 05/17/19 15:39 DV [id number] 05/17/19 15:44 DV 05/03/19 05/10/19 05/17/19 15:30 14:49 15:39 Wound Center Nurse 2 3. L medial ankle -Time 15:31 14:49 15:42 -Correct Patient Yes Yes Yes -Correct Side, Site, Position Yes Yes Yes -Correct Procedure Yes Yes No -Procedure Performed Yes Yes No -Type of Procedure Debridement Debridement -Clinical Debridement Subcutaneous Subcutaneous -Post Debridement Size (cm) - Length 0.6 0.1 0 -Post Debridement Size (cm) - Width 0.4 0.2 0 -Post Debridement Size (cm) - Depth 0.2 0.1 0 -Total Square Cm 0.24 0.02 0 -Wound/Ulcer Outcome Not Healed Not Healed Healed- Epithelialized -Ulcer Cleansing Rinsed/ Rinsed/ Irrigated with Irrigated with Saline Saline -Foul Odor after Cleansing No No -Bioengineered Tissue Yes No -Type of bioengineered Tissue EPIFIX -Expiration Date 11/01/23 -Product Lot Number [id number] -Percent Used 100 -Saline Lot Number [id number] -Bleeding Controlled with Pressure Pressure -Other C.Hydrogel -Offloading No -Treatment Response Procedure Tolerated Well Pain Scale: 0-10 Numeric Is Patient Pain Free? Yes Yes Wound debrided: Left medial ankle Laterality: Left No debridement was completed today - due to her ulcer being healed Assessment/Plan Active Problems 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 Edema bilateral lower legs. Peripheral vascular occlusive disease. History of DVTs Plan: Yannick ulcer was evaluated and is healed today. She will aplly lotion and keep her skin soft and supple to prevent cracking of her skin. Continue double layer tubigrip compression until she receives compression stockings. Encouraged increase protein and elevation of legs when sitting. She will be discharged to follow up as needed.
== END 2019-06-01 23:59 ==
LOC: WC 15:00
PROVIDERS: Family Provider Internal Medicine; PCP Internal Medicine; Visit Provider Nurse Practitioner
DX: I83.023 Varicose veins of left lower extremity with ulcer of ankle (principal); L97.322 Non-pressure chronic ulcer of left ankle with fat layer exposed; I87.2 Venous insufficiency (chronic) (peripheral); Z86.718 Personal history of other venous thrombosis and embolism
CPT/HCPCS: 11042; 15271; 99212; Q4186; G0463

== ENCOUNTER → 2019-11-01 11:57 | Outpatient (CLI) | payer MEDICARE, OTHER, SELFPAY ==
--- NOTE | 2019-11-01 12:00 | BI_ITS ---
MAMMOGRAPHY - BILATERAL SCREENING REASON FOR EXAM: Female, 74 years old. Routine annual screening examination. PERTINENT HISTORY: Non-contributory. Remote left stereotactic breast biopsy. TECHNIQUE: Digital bilateral breast jas (3D mammographic acquisition) in the CC and MLO projections. 2-D mediolateral oblique (MLO) and craniocaudad (CC) views of both breasts were obtained. CAD: Full Field Digital Mammography with Computer Added Detection was performed. COMPARISON: Comparison is made with prior examination dated October 30, 2018 and August 21, 2017. FINDINGS: Breast Composition: The breasts are heterogeneously dense, which may obscure small masses. There are no dominant masses or suspicious calcifications. Stable breast asymmetry were more breast tissue is seen in the right breast as compared to the left side. Once again, a tissue clip marker is seen in the slightly upper lateral aspect of the left breast. Stable bilateral secretory calcifications. No other significant abnormalities are identified. There has been no significant change since the prior study. BI/SCREEN MAMM (CAD) W/JAS BILAT IMPRESSION: Stable bilateral screening mammogram. Yearly follow-up mammogram recommended. (A) ASSESSMENT CATEGORY: BIRADS Category 2: Benign. A letter regarding these results will be sent to the patient by the facility within 30 days. Approximately 10% of breast cancers are not detected by mammography. A normal mammogram should not delay biopsy of a clinically suspicious abnormality. [id number] Electronically Signed: Tj Roca, at 12:48 EDT , Service support ,
== END ==
PROVIDERS: PCP Internal Medicine; Referring Provider Internal Medicine; Visit Provider Internal Medicine
DX: Z12.31 Encounter for screening mammogram for malignant neoplasm of breast (principal)
CPT/HCPCS: 77063; 77067

== ENCOUNTER → 2020-04-24 12:22 | Outpatient (CLI) | payer MEDICARE, OTHER, SELFPAY ==
--- NOTE | 2020-04-24 12:25 | RAD_ITS ---
STUDY: X-RAY - LEFT FOOT CLINICAL: Female, 74 years old. pain TECHNIQUE: 3 view(s) of the foot. COMPARISON: None. FINDINGS: Normal talus, calcaneus, and tarsal bones. Normal visualized subtalar, talonavicular, calcaneocuboid, tarsal and tarsometatarsal articulations. Normal metatarsi. Normal metatarsophalangeal joint of the great toe. Normal tibial and fibular sesamoid bones. Normal interphalangeal joint of the great toe. Normal phalanges of the great toe. Normal second through fifth metatarsophalangeal joints. Normal interphalangeal joints and phalanges of the lesser toes. The soft tissue structures are unremarkable. RAD/Foot min 3 Views IMPRESSION: Normal x-ray examination of the foot. Electronically Signed: Alberto Arcos MD at 15:58 EDT Tel , Service support ,
--- NOTE | 2020-04-24 12:25 | RAD_ITS ---
STUDY: X-RAY - RIGHT FOOT CLINICAL: Female, 74 years old. pain TECHNIQUE: 3 view(s) of the foot. COMPARISON: None. FINDINGS: Normal talus, calcaneus, and tarsal bones. Moderate plantar calcaneal enthesophyte. Normal visualized subtalar, talonavicular, calcaneocuboid, tarsal and tarsometatarsal articulations. Normal metatarsi. There is degenerative arthrosis of the metatarsophalangeal joint of the hallux . Normal tibial and fibular sesamoid bones. Normal interphalangeal joint of the great toe. Normal phalanges of the great toe. Normal second through fifth metatarsophalangeal joints. Normal interphalangeal joints and phalanges of the lesser toes. The soft tissue structures are unremarkable. RAD/Foot min 3 Views IMPRESSION: Mild first metatarsophalangeal joint arthrosis. Electronically Signed: Alberto Arcos MD at 15:59 EDT Tel , Service support ,
--- NOTE | 2020-04-24 12:25 | RAD_ITS ---
STUDY: X-RAY - RIGHT KNEE REASON FOR EXAM: Female, 74 years old. pain TECHNIQUE: 4 view(s) of the knee. COMPARISON: None. FINDINGS: Normal visualized distal femur. Normal visualized proximal tibia and fibula. Normal proximal tibiofibular articulation. There is mild degenerative arthrosis of the medial femorotibial compartment. There is mild degenerative arthrosis of the lateral femorotibial compartment. There is mild degenerative arthrosis of the patellofemoral articulation. 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 The soft tissue structures are unremarkable. RAD/Knee 4 or More Views IMPRESSION: CPPD with mild arthrosis. Electronically Signed: Alberto Arcos MD at 15:56 EDT Tel , Service support ,
== END ==
PROVIDERS: PCP Internal Medicine; Referring Provider Internal Medicine; Visit Provider Internal Medicine
DX: M79.671 Pain in right foot (principal); M79.672 Pain in left foot; M25.561 Pain in right knee
CPT/HCPCS: 73564; 73630

== ENCOUNTER → 2020-05-05 14:51 | Outpatient (CLI) | payer MEDICARE, OTHER, SELFPAY ==
--- NOTE | 2020-05-05 14:54 | ECHOD_ITS ---
Reason For Study: ABN EKG Procedure This was a 2D Doppler, Color Flow transthoracic echocardiogram. The exam was of adequate technical quality. Exam performed in department. Left Ventricle Normal LV size. Left ventricular systolic function is normal. The estimated ejection fraction is 65 %. Diastolic function is indeterminate. No regional wall motion abnormalities noted. Right Ventricle Normal RV size. Normal systolic function. Atria Normal left atrium. Normal right atrium. No doppler evidence for ASD. Mitral Valve There is moderate mitral annular calcification. Mild diffuse mitral valve thickening. Equivocal mitral valve prolapse. Trivial mitral valve insufficiency. Tricuspid Valve Normal tricuspid valve. Trivial tricuspid valve insufficiency. Aortic Valve Trisinus/trileaflet aortic valve. Normal aortic valve. Trivial aortic valve insufficiency. Pulmonic Valve The pulmonic valve is not well visualized. Trivial pulmonic valve insufficiency. Great Vessels Normal sized aortic root. Pericardium/Pleural No pericardial effusion. MMode/2D Measurements & Calculations LVIDd: 4.2 cm IVSd: 0.82 cm Ao root diam: 3.1 cm LVIDs: 2.6 cm LVPWd: 0.81 cm FS: 38.4 % LAV(MOD-bp): 59.5 ml LA A4 area: 19.6 cm2 LA dimension(2D): 3.1 cm LAV(MOD-bp) Indexed: 35.7 ml/m2 LAV(MOD-sp2): 58.0 ml LAV(MOD-sp4): 58.0 ml RA A4 area: 11.9 cm2 Time Measurements MV dec time: 0.17 sec Doppler Measurements & Calculations MV E max fuad: 66.9 cm/sec Lat Peak E' Fuad: 8.6 cm/sec Med Peak E' Fuad: 5.9 cm/sec MV A max fuad: 85.5 cm/sec E/E' lat: 7.7 E/E' med: 11.4 MV E/A: 0.78 Ao V2 max: 123.9 cm/sec AI max fuad: 386.4 cm/sec LV V1 max: 104.1 cm/sec Ao max P.1 mmHg AI max P.8 mmHg LV V1 max P.3 mmHg AI dec slope: 283.2 cm/sec2 AI P1/2t: 399.5 msec PA V2 max: 91.1 cm/sec Interpretation Summary Left ventricular systolic function is normal. The estimated ejection fraction is 65 %. There is moderate mitral annular calcification. Mild diffuse mitral valve thickening. Equivocal mitral valve prolapse. Trivial mitral valve insufficiency. Trivial tricuspid valve insufficiency. Trivial aortic valve insufficiency. Trivial pulmonic valve insufficiency. Diastolic function is indeterminate. Ordering Physician: Nia Tipton Referring Physician: Albertina Garzon Performed By: Shantel Snowden RDCS, RVT
--- NOTE | 2020-05-05 15:32 | US_ITS ---
STUDY: THYROID ULTRASOUND REASON FOR EXAM: Female, 74 years old. Nodules for follow-up. TECHNIQUE: Ultrasound evaluation of the thyroid was performed with real-time and static hyatt-scale imaging. COMPARISON: March 27, 2019. FINDINGS: RIGHT LOBE: The right lobe of the thyroid gland measures 4.7 x 1.4 x 1.3 cm. There is a homogeneous echotexture. A total of 3 simple cystic nodules mid pole measuring 0.4 x 0.3 x 0.3 cm, 0.4 x 0.4 x 0.3 cm and 0.4 x 0.4 x 0.3 cm. A new small cystic nodule is now present. LEFT LOBE: The left lobe of the thyroid gland measures 4.2 x 1.5 x 1.4 cm. There is a homogeneous echotexture. There are no demonstrated solid, cystic or complex lesions. ISTHMUS: The isthmus measures 3 mm . The regional lymph nodes are normal. US/Thyroid IMPRESSION: Borderline enlargement of the right lobe. 3 small cystic nodules right lobe not significantly changed. Electronically Signed: John James MD at 5:56 EST , Service support ,
== END ==
PROVIDERS: PCP Internal Medicine; Referring Provider Internal Medicine; Visit Provider Internal Medicine
DX: R94.31 Abnormal electrocardiogram [ECG] [EKG] (principal); E04.1 Nontoxic single thyroid nodule
CPT/HCPCS: 76536; 93306

== ENCOUNTER → 2021-02-09 12:21 | Outpatient (CLI) | payer MEDICARE, OTHER, SELFPAY ==
--- NOTE | 2021-02-09 12:25 | BI_ITS ---
MAMMOGRAPHY - BILATERAL SCREENING REASON FOR EXAM: Female, 75 years old. Routine annual screening examination. PERTINENT HISTORY: Non-contributory. TECHNIQUE: Digital bilateral breast jas (3D mammographic acquisition) in the CC and MLO projections. 2-D mediolateral oblique (MLO) and craniocaudad (CC) views of both breasts were obtained. CAD: Full Field Digital Mammography with Computer Added Detection was performed. COMPARISON: Comparison is made with prior study dated 11/01/2019 and 10/31/1999 FINDINGS: Breast Composition: The breasts are extremely dense, which lowers the sensitivity of mammography. There are no dominant masses or suspicious calcifications. A tissue clip marker is once again seen in the slightly upper lateral aspect of the left breast. Stable bilateral secretory calcifications. No other significant abnormalities are identified. There has been no significant change since the prior study. BI/SCRN MAMM (CAD)W/JAS BILAT IMPRESSION: Stable bilateral screening mammogram. Yearly follow-up mammogram recommended. (A) ASSESSMENT CATEGORY: BIRADS Category 2: Benign. A letter regarding these results will be sent to the patient by the facility within 30 days. Approximately 10% of breast cancers are not detected by mammography. A normal mammogram should not delay biopsy of a clinically suspicious abnormality. [id number] Electronically Signed: Tj Roca MD at 13:31 EDT , Service support ,
--- NOTE | 2021-02-09 12:29 | BD_ITS ---
STUDY: DUAL ENERGY X-RAY ABSORPTIOMETRY / DXA REASON FOR EXAM: Female, 75 years old. Z780. Patient is postmenopausal. TECHNIQUE: Bone Mineral Density (BMD) measurements of lumbar spine and bilateral hips were obtained. COMPARISON: Comparison is made with prior examination of 10/30/2018. FINDINGS: Lumbar Spine (L1-L4): g/cm2 (1.132) / T-score (1.0) / Z-score (3.3) Findings are suggestive of normal bone density with a low fracture risk. Left Femur Total: g/cm2 (0.881) / T-score (-0.5) / Z-score (1.2) Left Femoral Neck: g/cm2 (0.756) / T-score (-0.8) / Z-score (1.2) Right Femur Total: g/cm2 (0.870) / T-score (-0.6) / Z-score (1.1) Right Femoral Neck: g/cm2 (0.706) / T-score (-1.3) / Z-score (0.7) The T-Scores on the most recent prior examination were: Lumbar Spine (L1-L4): There has been worsening of bone density since the previous examination. Left Femur Total: which represents a worsening of 1.1%. Right Femur Total: which represents an improvement of 0.1%. BD/Dexa Bone Density Study IMPRESSION: The patient is considered osteopenic as outlined below according to World [place] Organization (WHO) criteria with a low fracture risk. There has been worsening of bone density since the previous examination. Reference Information: The T-score is the number of standard deviations above or below the standard which is normal for young adults at their peak bone mineral density. The World Health Organization (WHO) interprets the T-scores as follows: Above -1 Normal bone density Between -1 and -2.5 Osteopenia Equal to / or below -2.5 Osteoporosis As a practical clinical guideline, osteopenia may be graded as follows: Mild -1 through -1.5 Moderate -1.6 through -2.0 Severe -2.1 through -2.4 The Z-score is the number of standard deviations above or below age-matched controls. A Z-score of less than -1.5 would be considered abnormal. References: 1. NIH Osteoporosis and Related Bone Diseases www osteo.org 2. International Society for Clinical Densitometry www iscd.org 3. National Osteoporosis Foundation www nof.org Electronically Signed: Tj Roca MD at 14:46 EDT , Service support ,
== END ==
PROVIDERS: PCP Internal Medicine; Referring Provider Internal Medicine; Visit Provider Internal Medicine
DX: Z78.0 Asymptomatic menopausal state (principal); Z12.31 Encounter for screening mammogram for malignant neoplasm of breast
CPT/HCPCS: 77063; 77067; 77080

== ENCOUNTER → 2021-05-17 14:06 | Outpatient (CLI) | payer MEDICARE, OTHER, SELFPAY ==
--- NOTE | 2021-05-17 14:09 | US_ITS ---
STUDY: THYROID ULTRASOUND REASON FOR EXAM: Female, 75 years old. NODULE TECHNIQUE: Ultrasound evaluation of the thyroid was performed with real-time and static hyatt-scale imaging. COMPARISON: 05/05/2020 FINDINGS: RIGHT LOBE: The right lobe of the thyroid gland measures 4.5 x 1.2 x 1.4 cm. There is a homogeneous echotexture. No change in multiple small colloid cysts measuring less than 5 mm in diameter. LEFT LOBE: The left lobe of the thyroid gland measures 4.2 x 1.8 x 1.1 cm. There is a homogeneous echotexture. No change in multiple small colloid cysts measuring less than 5 mm in diameter. ISTHMUS: The isthmus measures 2 mm thick. . The regional lymph nodes are normal. US/Thyroid IMPRESSION: No change in small colloid cyst. Electronically Signed: Alberto Arcos MD at 15:27 EST Tel , Service support ,
== END ==
PROVIDERS: PCP Internal Medicine; Referring Provider Internal Medicine; Visit Provider Internal Medicine
DX: E04.1 Nontoxic single thyroid nodule (principal); R94.2 Abnormal results of pulmonary function studies
CPT/HCPCS: 76536

== ENCOUNTER → 2021-05-26 17:28 | Outpatient (CLI) | payer MEDICARE, OTHER, SELFPAY ==
--- NOTE | 2021-05-26 17:33 | CT_ITS ---
INDICATION: ILD EXAMINATION: CT CHEST WITHOUT CONTRAST - CT Chest W/O Contrast Injection TECHNIQUE: Helically acquired images were obtained of the chest. A radiation dose optimization technique was used for this scan. IV Contrast dosage and agent: None. COMPARISON: CT abdomen from 09/24/2018. CT abdomen from 06/23/2012 FINDINGS: CENTRAL AIRWAYS: Unremarkable. LUNGS, PLEURA: Parenchymal scarring along the periphery of the right upper lobe and the right lower lobe. There is a 0.7 cm groundglass round nodular opacity in the left lower lobe that has been stable since 2011 that requires no further follow up due to temporal stability. No suspicious pulmonary nodules or masses. No focal consolidations. No pleural effusion or thickening. No pneumothorax. VASCULATURE: Normal caliber thoracic aorta and pulmonary arteries without aneurysmal dilatation. Arterial atherosclerotic disease. Coronary artery calcifications. MEDIASTINUM: Heart size is normal No mediastinal or hilar adenopathy. Esophagus is unremarkable. No hiatal hernia. UPPER ABDOMEN: No acute pathology. BONES: No destructive osseous lesions. No acute findings. CT/Chest without Contrast IMPRESSION: 1. No acute findings. 2. No findings to suggest interstitial lung disease. Electronically Signed: Noé Denson MD at 9:32 EST Tel , Service support ,
== END ==
PROVIDERS: PCP Internal Medicine; Visit Provider Internal Medicine
DX: J98.4 Other disorders of lung (principal)
CPT/HCPCS: 71250

== ENCOUNTER → 2022-02-10 | Outpatient (CLI) | payer MEDICARE, OTHER, SELFPAY ==
--- NOTE | 2022-02-10 12:19 | BI_ITS ---
MAMMOGRAPHY - BILATERAL SCREENING REASON FOR EXAM: Female, 76 years old. Routine annual screening examination. PERTINENT HISTORY: Non-contributory. Remote left stereotactic breast biopsy. TECHNIQUE: Digital bilateral breast jas (3D mammographic acquisition) in the CC and MLO projections. 2-D mediolateral oblique (MLO) and craniocaudad (CC) views of both breasts were obtained. CAD: Full Field Digital Mammography with Computer Added Detection was performed. COMPARISON: Comparison is made with prior study dated 02/09/2021 and 11/01/2019. FINDINGS: Breast Composition: The breasts are extremely dense, which lowers the sensitivity of mammography. There are no dominant masses or suspicious calcifications. A tissue clip marker is once again seen in the slightly upper lateral aspect of the left breast. Stable bilateral secretory calcifications. No other significant abnormalities are identified. There has been no significant change since the prior study. BI/SCRN MAMM (CAD)W/JAS BILAT IMPRESSION: Stable bilateral screening mammogram. Yearly follow-up mammogram recommended. (A) ASSESSMENT CATEGORY: BIRADS Category 2: Benign. A letter regarding these results will be sent to the patient by the facility within 30 days. Approximately 10% of breast cancers are not detected by mammography. A normal mammogram should not delay biopsy of a clinically suspicious abnormality. [id number] Electronically Signed: Tj Roca MD at 13:18 EDT ,
== END | disposition home or self-care (01) ==
LOC: OPBI 12:17
PROVIDERS: PCP Internal Medicine; Visit Provider Internal Medicine
DX: Z12.31 Encounter for screening mammogram for malignant neoplasm of breast (principal)
CPT/HCPCS: 77063; 77067

== ENCOUNTER 2022-07-29 10:30 | Outpatient (RCR) | payer MEDICARE, OTHER, SELFPAY ==
[2022-07-14 13:31] VITALS: BP 144/74; PULSE 82; RESP 16; TEMP 36.2; BMI 26.2
--- NOTE | 2022-07-14 21:26 | HP.PCM_ITS ---
History of Present Illness Date of Service: 07/14/22 Chief Complaint: Follow-up on a ulcer on the left ankle History of Wound: Patient is a pleasant 76 y/o female who presents to the [facility] today for evaluation and treatment of a recurrent left medial ankle ulcer. She reports that this is at least the 10th time she has had this ulcer recur, she is well known to the [facility] though last here in 2019. 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 She does not smoke. She is not diabetic. She has been on Xarelto for years. She reports since starting the Xarelto she has had no further DVTs to her knowledge. She reports all her DVTs have been in the LLE. Most recent vascular labs were in 2018. LEAS revealed no significant arterial disease. Venous studies revealed multiple incompetent veins and chronic post-thrombotic changes. She reports she was evaluated by vascular surgeon in the past for ablation but was told she was not a candidate due to her hypercoagulable state. Her current wound has been ongoing for about 3 weeks. She thinks it may have been incited by a recent INGRID performed during her annual medicare physical. She has been treating at home with leftover wound care supplies. She was seen by her PCP for the wound and was placed her on doxycycline x 10 days. She reports she took about 4 days and then developed a blistering rash around the wound and a yeast infection and thus stopped the doxycycline. She was also applying aquaphor to the wound and covering with occlusive dressing. Since the wound started she has been wearing tubigrips she ordered online, but was not previously wearing co mpression. She reports moderate amounts of drainage and the wound is quite painful. No foul odor, F/C, N/V. No other complaints. [facility] Home Medications cholecalciferol (vitamin D3) 50 mcg (2,000 unit) capsule (D3-2000) 500 PO DAILY 07/28/17 [History Last Taken Unknown] citalopram 20 mg tablet (Celexa) 10 mg PO DAILY 07/28/17 [History Last Taken Unknown] rivaroxaban 10 mg tablet (Xarelto) 10 mg PO DAILY 07/28/17 [History Last Taken Unknown] omega-3 fatty acids 500 mg capsule 1,500 mg PO DAILY 07/14/22 [History Last Taken Unknown] Allergy/AdvReac Type Severity Reaction Status Date / Time doxycycline Allergy Hives Verified 07/14/22 13:51 fluconazole Allergy Other Verified 07/14/22 14:18 Penicillins [PCN] Allergy Other Verified 07/14/22 13:51 isosorbide [From Imdur] AdvReac Other Verified 07/14/22 13:51 furosin Allergy Hives Uncoded 07/14/22 13:51 Social History Smoking Status: Never smoker ROS Constitutional Constitutional: Denies change in weight, chills, difficulty sleeping, fatigue, fever(s), frequent falls, lethargy, night sweats or weakness Eyes Eyes: Denies blindness, blurry vision, change in vision, eye pain or ptosis ENT HEENT: Denies abnormal hearing, change in voice, hearing loss, loss taste/smell or vertigo Cardiovascular Cardiovascular: Reports leg edema and leg ulcers; Denies abdominal pain, chest pain, claudication, cold extremities, cyanosis, diaphoresis, dyspnea, dyspnea on exertion, fatigue, hypertension, irregular heart rhythm, orthopnea, palpitations, radiating jaw, neck or arm pain or syncope Respiratory/Chest Respiratory/Chest: Denies cough, dyspnea, hemoptysis, nail bed cyanosis, ines- oral cyanosis, portable oxygen @ home, productive cough or wheezing Gastrointestinal Gastrointestinal: Denies abdominal pain, change in bowel habits, change in stool character, coffee ground emesis, melena, rectal bleeding or weight changes Genitourinary Genitourinary: Denies abdominal discomfort, burning urination, difficulty urinating or flank pain Musculoskeletal Musculoskeletal: Denies abnormal gait, difficulty walking, joint swelling, muscle cramps, muscle weakness or numbness Integumentary Integumentary: Reports wounds; Denies change in pigmentation, changing lesions, erythema, lesions or unusual bruising Neurologic Neurologic: Denies abnormal gait, abnormal movements, abnormal speech, behavior changes, frequent falls, syncope, tingling or weakness Psychiatric Psychiatric: Denies behavioral changes, cognitive impairment or depression Endocrine Endocrinology: Denies change in body appearance, cold intolerance, excessive sweating, flushing, heat intolerance, palpitations, polydipsia, polyphagia or polyuria Hematologic/Lymphatic Hematologic/Lymphatic: Denies anemia, easy bleeding, easy bruising or lymphadenopathy Allergic/Immunologic Allergic/Immunologic: Denies seasonal rhinorrhea, throat swelling, tongue swelling, hives or asthma Vital Signs Vital Signs Vital Signs: 07/14/22 13:31 Temperature 97.1 F L Temperature Source Temporal Pulse Rate 82 Respiratory Rate 16 Blood Pressure 144/74 H Blood Pressure Mean 97 Blood Pressure Source Monitor Blood Pressure Position Sitting Blood Pressure Location Left Arm Oxygen Delivery Method Room Air Weight Weight: 143 lb Body Mass Index (BMI) 26.2 Physical Exam Const alert, oriented x3, no apparent distress and healthy appearing General Appearance: cooperative, comfortable and well kempt Exam Limitations: no limitations HEENT normocephalic, head/scalp atraumatic, hearing grossly normal bilaterally, external ears normal and external nose normal Eyes PERRL and EOMs intact bilaterally General Eye: normal appearance of both eyes Neck full ROM General: normal visual inspection and trachea midline; Negative for anterior neck swelling Resp normal respiratory effort, normal air movement, no retractions, no use of accessory muscles and clear to auscultation bilaterally Effort and Inspection: able to speak in complete sentences and symmetric chest movement; Negative for labored, stridor, uses accessory muscles or audible wheezes Cardio regular rate, regular rhythm and peripheral pulses 2+ throughout Bruits: Negative for carotid bruit Extremity Extremity Narrative: Bilateral lower extremity edema. Multiple varicosities and reticular veins noted bilaterally. Skin Wounds: wounds noted Wound Narrative: Venous ulcer noted to left medial ankle. slough noted in wound bed. significant periwound erythema, border of which is in the shape of a square dressing, can see that was previously blistered but no active blisters. No foul odor, fluctuance, induration. Neuro oriented x3, CN's II-XII intact bilaterally, moves all extremities, no focal motor deficits, no sensory deficits noted and gait normal Speech: speech normal Psych mental status grossly normal, thought process normal, affect normal, speech normal and activity/motor behavior normal Insight: insight good Judgement: judgement good Debridement Note Debridement Note Wound debrided: Left medial ankle ulcer Laterality: Left Type of Debridement: Excisional debridement Anesthesia Used: 5% Lidocaine Gel Depth: Down to and including healthy tissue and in the subcutaneous layer Percentage of wound debrided: 100 Instrument Used: 5mm curette Tissue Removed: slough, devitalized tissue Amount of bleeding with debridement: Mild Bleeding Controlled with: Pressure Patient tolerated procedure: Patient tolerated procedure well Post-Debridement Measurements and Additional Note: Post-Debridement Measurements/Treatment WC - Nurse 1 - General Ulcer Assessment Start: 07/14/22 13:30 Freq: Status: Active Protocol: [email or web address] Activity Type Activity Date Activity User E-sign Co-sign Detail Recorded Client Recorded Date Recorded By Document 07/14/22 13:31 [facility] [id number] 07/14/22 13:42 [facility] 07/14/22 13:31 WC - Today's Visit Information Type of service Initial Visit Arrival Mode Ambulatory Transfer Assistance None Patient Identification Verified (Name & Yes ) Height and Weight Height 5 ft 2 in Weight 143 lb Weight in Pounds 143.0 lbs Body Mass Index (BMI) 26.2 BMI Classification Overweight BSA - Kwame 1.66 Vital Signs Temperature (97.8 F-99.1 F) 97.1 F L Temperature Source Temporal Pulse Rate (60-100) 82 Pulse Location Monitor Respiratory Rate (12-18) 16 Respiratory rate source Observation Oxygen Delivery Method Room Air Blood Pressure (90/60-120/80) 144/74 H Blood Pressure Mean 97 Source Monitor Position Sitting Blood Pressure Location Left Arm History Since Last Visit- (Skip if this is Patient's initial visit) Left Footwear Regular Shoe Right Footwear Regular Shoe Pain Scale: 0-10 Numeric Is Patient Pain Free? Yes Lower Extremity Assessment/ Foot Assessment/ Toe Nail Assessment Right -Posterior Tibial Doppler Multiphasic -Dorsalis Pedis Palpable Yes -Dorsalis Pedis Doppler Multiphasic -Extremity Color Pale -Hair Growth on Legs Yes -Hair Growth on Toes Yes -Temperature of Extremity Warm -Thick No -Discolored No -Deformed No -Improper Length & Hygeine No Left -Posterior Tibial Doppler Multiphasic -Dorsalis Pedis Palpable Yes -Dorsalis Pedis Doppler Monophasic -Extremity Color Pale -Hair Growth on Legs Yes -Hair Growth on Toes Yes -Temperature of Extremity Warm -Capillary Refill Less than 3 Seconds -Other Deformity No -Prior Foot Ulcer No -Charcot Joint No -Prior Amputation No -Thick No -Discolored No -Deformed No -Improper Length & Hygeine No Neuropathy Assessment Feet - Top Side and Bottom <Entered> (a) Communication Assessment Preferred language 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 Able to Read Yes Able to Write Yes Communication Tools None Right Hearing Abillity Normal Left Hearing Abillity Normal Visual Assistive Devices Glasses Teaching Assessment Preferences Verbal,Written, Audio/Visual, Demonstration Barriers to Learning None Readiness To Learn Excellent Willingness to Engage in Self Management High Activies Readiness to Engage in Self Management High Activities Anxiety Level Calm Cooperation Cooperative Perception Coherent Interest in Health Problem Asks Questions Education Importance Acknowledges Need Does Patient Smoke tobacco or other No substances Smoking Status Never smoker Is Patient Diabetic Yes Functional Assessment Recent Decline in Ability to Perform Denies Any Declines Culture/Mosque/[place] Cultural/Mosque Needs that may affect No Treatment Plan Teaching: Wound Center *Welcome to the Wound Center -Person Taught Patient, Significant Other -Teaching Method Discussion -Response to teaching Verbalize understanding Welcome to the Wound Care Center Citizen [place] (a) 1 - + WC - Nurse 1 - General Ulcer Measurement Start: 07/14/22 13:30 Freq: Status: Active Protocol: Activity Type Activity Date Activity User E-sign Co-sign Detail Recorded Client Recorded Date Recorded By Document 07/14/22 13:31 [facility] [id number] 07/14/22 13:42 [facility] 07/14/22 13:31 Wound Center Nurse 1 #4- L MED ANKLE -Combined with other wound No -Current Size (cm) - Length 0.4 -Current Size (cm) - Width 0.5 -Current Size (cm) - Depth 0.1 -Total Square Cm 0.20 -Date of Last Picture (Recall this 07/14/22 field) -Photo Taken Yes -Epithelialization None Present -Tunneling No -Undermining/Tunneling No -Exudate Amt Medium -Exudate Type Serosanguineous -Wound Margin Distinct, Outline Attached -Granulation Amt Small (1-33%) -Granulation Quality [place] -Slough/Fibrin Yes -Necrosis Amt Large (67-100%) -Necrotic Tissue Type Adherent Slough -Texture (Ines-wound Skin Appearance) Assessed, Scarring -Moisture (Ines-wound Skin Appearance) Assessed,Dry/ Scaly -Color (Ines-wound Skin Appearance) Assessed, Erythema -Temperature (Ines-wound Skin No Abnormality Appearance) (Pt Warm) -Tenderness on Palpation (Ines-wound No Skin Appearance) -Ulcer Cleansing Rinsed/ Irrigated with Saline -Foul Odor after Cleansing No -Anesthetic Used 5% Lidocaine Gel WC - Nurse 2 - General Ulcer CM Notes Start: 07/14/22 13:30 Freq: Status: Active Protocol: Activity Type Activity Date Activity User E-sign Co-sign Detail Recorded Client Recorded Date Recorded By Document 07/14/22 14:11 MW [id number] 07/14/22 14:33 MW 07/14/22 14:11 Wound Center Nurse 2 -Time 14:12 -Correct Patient Yes -Correct Side, Site, Position Yes -Correct Procedure Yes -Procedure Performed Yes -Type of Procedure Chemical Cauterization ( $) -Clinical Debridement Subcutaneous -Tissue Removed Subcutaneous -Post Debridement (cm) - Length 0.5 -Post Debridement (cm) - Width 0.7 -Post Debridement (cm) - Depth 0.1 -Total Square (Post) (cm) 0.35 -Area of Debridement (cm) - Length 0.5 -Area of Debridement (cm) - Width 0.7 -Total Square (Area) (cm) 0.35 -Tunneling No -Undermining/Tunneling No -Circular Undermining No -Wound/Ulcer Outcome Not Healed -Ulcer Cleansing Rinsed/ Irrigated with Saline -Foul Odor after Cleansing No -Bioengineered Tissue No -Bleeding Controlled with Pressure -Treatment Response Procedure Tolerated Well -Offloading No -Debridement - Subq, 1st 20sq cm Yes Pain Scale: 0-10 Numeric Is Patient Pain Free? Yes WC - Nurse 3 - General Ulcer D/C NN Start: 07/14/22 13:30 Freq: Status: Active Protocol: Activity Type Activity Date Activity User E-sign Co-sign Detail Recorded Client Recorded Date Recorded By Document 07/14/22 14:50 [facility] [id number] 07/14/22 14:52 [facility] 07/14/22 14:50 Wound Care Nurse 3 #4- L MED ANKLE -Ulcer Cleansing Rinsed/ Irrigated with Saline -Foul Odor after Cleansing No -Primary Dressing Applied Mepilex Border, Promogran -Mepilex Border 1 -Promogran 1 Left -Tubular Bandage Double Layer -Size of Tubigrip Used Size D -Size D ($) 1 Treatment Response Procedure Tolerated Well Pain Scale: 0-10 Numeric Is Patient Pain Free? 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 Will apply promogram with foam dressing, double tubigrips. Change dressing daily or more often as needed to keep clean and dry. Periwound area erythematous, but erythema sharply demarcated and edges square- shaped. Patient believes this periwound erythema to be a rash associated with doxycycline. I think this is unlikely as rashes associated with systemic antibiotic not likely to be so focal, typically more diffuse and begin centrally. I think it is more likely that the erythema/periwound irritation is secondary to occlusive dressing and aquaphor application leading to too much trapped moisture compromising skin integrity. I hope a more absorbent/nonocclusive dressing will help. Also possible infection contributing, especially since antibiotic course was not completed. Obtained wound cultures, will call patient with results. Would like to obtain new venous studies given recurrent nature of wound and known venous disease. Would consider vascular surgery referral for re-evaluation for ablation. Discussed the importance of continued consistent compression and elevation/off- loading. Discussed the importance of increasing protein and decreasing carbohydrates/sugars in diet. Patient will follow up in the wound center in 1 week or sooner as needed should symptoms worsen.
--- NOTE | 2022-07-18 09:47 | VDLE_ITS ---
Reason For Study: EDEMA RIGHT LEFT CFV is compressible, spontaneous, phasic, CFV is compressible, spontaneous, phasic, competent and demonstrates normal competent, and demonstrates normal augmentation. augmentation. FV is compressible, spontaneous, phasic, FV & POP V are compressible, spontaneous, competent and demonstrates normal phasic and demonstrates refulx > 1.0 second. augmentation. T/P Trunk is compressible. POP V is compressible, spontaneous, phasic, PTV is compressible. competent and demonstrates normal LT PerV is compressible. augmentation. SFJ is INCOMPETENT and measures 0.68 x 0.58 T/P Trunk is compressible. cm. PTV is compressible. GSV proximal thigh measures 0.67 x 0.59 cm. RT PerV is compressible. GSV at knee measures 0.55 x 0.51 cm. SFJ is competent and measures 0.51 x 0.48 cm. GSV INCOMPETENT throughout for greater than GSV proximal thigh measures 0.38 x 0.32 cm. 0.5 seconds. GSV at knee measures 0.24 x 0.24 cm. SSV proximal calf is competent and measures GSV is competent throughout. 0.32 x 0.29 cm. SSV proximal calf is competent and measures 0.33 x 0.33 cm. Procedure Exam performed in department. The exam was diagnostic. VL/Venous Duplex US - Joo Extrem Interpretation Summary Deep veins of the bilateral lower extremities are patent and compressible segme ntally. There is no evidence of bilateral lower extremity deep vein thrombosis. The bilateral great saphenous veins appear patent and compressible segmentally. Positive for reflux in the left saphenofemoral junction and throughout the grea ter saphenous vein Ordering Physician: Ashley Arenas Referring Physician: Albertina Garzon Performed By: Shantel Snowden, JOELCS, RVT
[2022-07-22 09:26] VITALS: BP 156/70; PULSE 90; RESP 20; TEMP 36.5; BMI 26.2
--- NOTE | 2022-07-22 10:58 | PN.PCM_ITS ---
History of Present Illness Date of Service: 07/22/22 Chief Complaint: Follow-up on a ulcer on the left ankle History of Wound: Patient is a pleasant 76 y/o female who presents to the [facility] today for evaluation and treatment of a recurrent left medial ankle ulcer. She reports that this is at least the 10th time she has had this ulcer recur, she is well known to the [facility] though last here in 2019. She has a medical history significant for clotting disorder (Prothrombin thrombophilia), history of DVTs, and venous insufficiency. She does not smoke. She is not diabetic. She has been on Xarelto for years. She reports since starting the Xarelto she has had no further DVTs to her knowledge. She reports all her DVTs have been in the LLE. She reports she was evaluated by vascular surgeon in the past for ablation but was told she was not a candidate due to her hypercoagulable state. Her current wound has been ongoing since late June. She thinks it may have been incited by a recent INGRID performed during her annual medicare physical. She has been treating at home with leftover wound care supplies. She was seen by her PCP for the wound and was empirically started on doxycycline x 10 days. She reports she took about 4 days and then developed a blistering rash around the wound and a yeast infection and thus stopped the doxycycline. She was also applying aquaphor to the wound and covering with occlusive dressing. Since the wound started she has been wearing tubigrips she ordered online, but was not previously wearing compression. Subjective Subjective She reports moderate amounts of drainage and the wound remains quite painful, she reports it as a burning pain around the wound. No foul odor, F/C, N/V. No other complaints. She started the Bactrim on Monday evening and has been doing well with it. She reports some nausea right after she takes it, but no vomiting/diarrhea, no rash, no yeast infection thus far. Objective Data Objective Data Vital Signs: Vital Signs Temp Pulse Resp BP O2 Del Method 97.7 F L 90 20 H 156/70 H Room Air 07/22/22 09:26 07/22/22 09:26 07/22/22 09:26 07/22/22 09:26 07/14/22 13:31 Oxygen Delivery Method Room Air Weight: 143 lb Body Mass Index (BMI) 26.2 Lab / Micro Data Micro: Microbiology 07/14/22 14:30 Wound - Ankle Gram Stain - Final 07/14/22 14:30 Wound - Ankle Wound Culture - Final Serratia liquefaciens group Staphylococcus aureus Enterococcus faecalis 07/14/22 14:30 Wound - Ankle Anaerobic Culture - Final No anaerobic bacteria isolated. Charges/Coding Wound Center CF Procedures [id number]: [id number] RMVL DEVITAL TIS 20 CM/< Multi Select Codes Wound Center CF Procedures [id number]: [id number] RMVL DEVITAL TIS 20 CM/< Physical Exam Const alert, oriented x3, no apparent distress and healthy appearing General Appearance: cooperative, comfortable and well kempt Exam Limitations: no limitations HEENT normocephalic, head/scalp atraumatic, hearing grossly normal bilaterally, external ears normal and external nose normal Eyes PERRL and EOMs intact bilaterally General Eye: normal appearance of both eyes Neck full ROM General: normal visual inspection and trachea midline; Negative for anterior neck swelling Resp normal respiratory effort, normal air movement, no retractions and no use of accessory muscles Effort and Inspection: able to speak in complete sentences and symmetric chest movement; Negative for labored, stridor, uses accessory muscles or audible wheezes Cardio regular rate, regular rhythm and peripheral pulses 2+ throughout Bruits: Negative for carotid bruit Extremity Extremity Narrative: Bilateral lower extremity edema. Multiple varicosities and reticular veins noted bilaterally. Skin Wounds: wounds noted Wound Narrative: Venous ulcer noted to left medial ankle. slough in wound bed. No foul odor, fluctuance, induration. Periwound erythema reduced from prior exam. Neuro oriented x3, CN's II-XII intact bilaterally, moves all extremities, no focal motor deficits, no sensory deficits noted and gait normal Speech: speech normal Psych mental status grossly normal, thought process normal, affect normal, speech normal and activity/motor behavior normal Insight: insight good Judgement: judgement good Debridement Note Debridement Note Wound debrided: Left medial ankle ulcer Laterality: Left Type of Debridement: Excisional debridement Anesthesia Used: 5% Lidocaine Gel Depth: Down to and including healthy tissue and in the subcutaneous layer Percentage of wound debrided: 100 Instrument Used: 3mm curette Tissue Removed: slough, devitalized tissue Amount of bleeding with debridement: Mild Bleeding Controlled with: Pressure Patient tolerated procedure: Patient tolerated procedure well Post-Debridement Measurements and Additional Note: Post-Debridement Measurements/Treatment WC - Nurse 1 - General Ulcer Assessment Start: 07/14/22 13:30 Freq: Status: Active Protocol: PEMA Activity Type Activity Date Activity User E-sign Co-sign Detail Recorded Client Recorded Date Recorded By Document 07/14/22 13:31 [facility] [id number] 07/14/22 13:42 BM Document 07/22/22 09:26 DL [id number] 07/22/22 09:31 DL 07/14/22 07/22/22 13:31 09:26 WC - Today's Visit Information Type of service Initial Visit Follow-up Visit (Physician/DENTAL OFFICE MANAGER ) Arrival Mode Ambulatory Ambulatory Transfer Assistance None None Patient Identification Verified (Name & Yes Yes ) Patient Requires Transmission-Based No Precautions Height and Weight Height 5 ft 2 in Weight 143 lb Weight in Pounds 143.0 lbs Body Mass Index (BMI) 26.2 26.2 BMI Classification Overweight Overweight BSA - Kwame 1.66 Vital Signs Temperature (97.8 F-99.1 F) 97.1 F L 97.7 F L Temperature Source Temporal Temporal Pulse Rate (60-100) 82 90 Pulse Location Monitor Monitor Respiratory Rate (12-18) 16 20 H Respiratory rate source Observation Observation Oxygen Delivery Method Room Air Blood Pressure (90/60-120/80) 144/74 H 156/70 H Blood Pressure Mean (mm Hg) 97 98 Source Monitor Monitor Position Sitting Blood Pressure Location Left Arm History Since Last Visit- (Skip if this is Patient's initial visit) Have you changed medications since your No last visit? Any new allergies or adverse reactions No Had a fall/change in ADL's that may No increase risk of falls Signs or symptoms of abuse and/or No neglect since last visit Have you been in the hospital since your No last visit? Has dressing in place as prescribed Yes Has compression in place as prescribed Yes Has offloadiing in place as prescribed N/A Experienced any changes in pain level or No management Left Footwear Regular Shoe Regular Shoe Right Footwear Regular Shoe Regular Shoe Pain Scale: 0-10 Numeric Is Patient Pain Free? Yes Yes Lower Extremity Assessment/ Foot Assessment/ Toe Nail Assessment Right -Posterior Tibial Doppler Multiphasic -Dorsalis Pedis Palpable Yes -Dorsalis Pedis Doppler Multiphasic -Extremity Color Pale -Hair Growth on Legs Yes -Hair Growth on Toes Yes -Temperature of Extremity Warm -Thick No -Discolored No -Deformed No -Improper Length & Hygeine No Left -Posterior Tibial Doppler Multiphasic -Dorsalis Pedis Palpable Yes -Dorsalis Pedis Doppler Monophasic -Extremity Color Pale -Hair Growth on Legs Yes -Hair Growth on Toes Yes -Temperature of Extremity Warm -Capillary Refill Less than 3 Seconds -Other Deformity No -Prior Foot Ulcer No -Charcot Joint No -Prior Amputation No -Thick No -Discolored No -Deformed No -Improper Length & Hygeine No Neuropathy Assessment Feet - Top Side and Bottom <Entered> (a) Communication Assessment Preferred language [place]e Mammographer Required No Able to Read Yes Able to Write Yes Communication Tools None Right Hearing Abillity Normal Left Hearing Abillity Normal Visual Assistive Devices Glasses Teaching Assessment Preferences Verbal,Written, Audio/Visual, Demonstration Barriers to Learning None Readiness To Learn Excellent Willingness to Engage in Self Management High Activies Readiness to Engage in Self Management High Activities Anxiety Level Calm Cooperation Cooperative Perception Coherent Interest in Health Problem Asks Questions Education Importance Acknowledges Need Does Patient Smoke tobacco or other No substances Smoking Status Never smoker Is Patient Diabetic Yes Functional Assessment Recent Decline in Ability to Perform Denies Any Declines Culture/Mandaeism/Dairy Laboratory Technician Cultural/Mandaeism Needs that may affect No Treatment Plan Teaching: Wound Center *Welcome to the Wound Center -Person Taught Patient, Significant Other -Teaching Method Discussion -Response to teaching Verbalize understanding Welcome to the Wound Care Center [place]amese (a) 1 - + WC - Nurse 1 - General Ulcer Measurement Start: 07/14/22 13:30 Freq: Status: Active Protocol: Activity Type Activity Date Activity User E-sign Co-sign Detail Recorded Client Recorded Date Recorded By Document 07/14/22 13:31 [facility] [id number] 07/14/22 13:42 BMF Document 07/22/22 09:26 DL [id number] 07/22/22 09:31 DL 07/14/22 07/22/22 13:31 09:26 Wound Center Nurse 1 #4- L MED ANKLE -Combined with other wound No -Current Size (cm) - Length 0.4 1.4 -Current Size (cm) - Width 0.5 0.7 -Current Size (cm) - Depth 0.1 0.2 -Total Square Cm 0.20 0.98 -Date of Last Picture (Recall this 07/14/22 field) -Photo Taken Yes Yes -Epithelialization None Present -Tunneling No -Undermining/Tunneling No -Exudate Amt Medium Small -Exudate Type Serosanguineous Serosanguineous -Wound Margin Distinct, Distinct, Outline Outline Attached Attached -Granulation Amt Small (1-33%) None Present (0 %) -Granulation Quality [place] -Slough/Fibrin Yes -Necrosis Amt Large (67-100%) Large (67-100%) -Necrotic Tissue Type Adherent Slough Adherent Slough -Texture (Ines-wound Skin Appearance) Assessed, Scarring,Rash Scarring -Moisture (Ines-wound Skin Appearance) Assessed,Dry/ Dry/Scaly Scaly -Color (Ines-wound Skin Appearance) Assessed, Erythema, Erythema Hemosiderin Staining -Temperature (Ines-wound Skin No Abnormality No Abnormality Appearance) (Pt Warm) (Pt Warm) -Tenderness on Palpation (Ines-wound No Yes Skin Appearance) -Ulcer Cleansing Rinsed/ Rinsed/ Irrigated with Irrigated with Saline Saline -Foul Odor after Cleansing No -Anesthetic Used 5% Lidocaine 5% Lidocaine Gel Gel Left Calf (cm) 36.4 Left Ankle (cm) 23.4 WC - Nurse 2 - General Ulcer CM Notes Start: 07/14/22 13:30 Freq: Status: Active Protocol: Activity Type Activity Date Activity User E-sign Co-sign Detail Recorded Client Recorded Date Recorded By Document 07/14/22 14:11 MW [id number] 07/14/22 14:33 MW 07/14/22 14:11 Wound Center Nurse 2 #4- L MED ANKLE -Time 14:12 -Correct Patient Yes -Correct Side, Site, Position Yes -Correct Procedure Yes -Procedure Performed Yes -Type of Procedure Chemical Cauterization ( $) -Clinical Debridement Subcutaneous -Tissue Removed Subcutaneous -Post Debridement (cm) - Length 0.5 -Post Debridement (cm) - Width 0.7 -Post Debridement (cm) - Depth 0.1 -Total Square (Post) (cm) 0.35 -Area of Debridement (cm) - Length 0.5 -Area of Debridement (cm) - Width 0.7 -Total Square (Area) (cm) 0.35 -Tunneling No -Undermining/Tunneling No -Circular Undermining No -Wound/Ulcer Outcome Not Healed -Ulcer Cleansing Rinsed/ Irrigated with Saline -Foul Odor after Cleansing No -Bioengineered Tissue No -Bleeding Controlled with Pressure -Treatment Response Procedure Tolerated Well -Offloading No -Debridement - Subq, 1st 20sq cm Yes Pain Scale: 0-10 Numeric Is Patient Pain Free? Yes - Nurse 3 - General Ulcer D/C NN Start: 07/14/22 13:30 Freq: Status: Active Protocol: Activity Type Activity Date Activity User E-sign Co-sign Detail Recorded Client Recorded Date Recorded By Document 07/14/22 14:50 [facility] [id number] 07/14/22 14:52 BM Document 07/22/22 10:17 DL [id number] 07/22/22 10:20 DL 07/14/22 07/22/22 14:50 10:17 Wound Care Nurse 3 #4- L MED ANKLE -Ulcer Cleansing Rinsed/ Rinsed/ Irrigated with Irrigated with Saline Saline -Foul Odor after Cleansing No No -Primary Dressing Applied Mepilex Border, Mepilex Border, Promogran Promogran -Mepilex Border 1 1 -Promogran 1 1 Left -Tubular Bandage Double Layer Single Layer -Size of Tubigrip Used Size D Size C -Size C ($) 1 -Size D ($) 1 Treatment Response Procedure Procedure Tolerated Well Tolerated Well Pain Scale: 0-10 Numeric Is Patient Pain Free? 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 Will continue promogram with foam dressing, tubigrip compression 20-40mmHg. Change dressing daily or more often as needed to keep clean and dry. Periwound area mildly erythematous, improved from last week. Wound cultures positive for Serratia liquefaciens, Staph aureus, and E. faecalis. Will treat in staged fashion as will require 2 antibiotics to address based upon sensitivity results. Prescribed Bactrim DS x14 days. Patient has tolerated well so far. 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 Will refer to Dr. Lord for evaluation for possible ablation given recurrent wounds, pain, and swelling. Patient has been consistent with compression, tolerates it well. Patient will follow up in the wound center in 1 week or sooner as needed should symptoms worsen.
[2022-07-29 10:49] VITALS: BP 137/82; PULSE 79; TEMP 35.7; BMI 26.2
--- NOTE | 2022-07-29 11:23 | PCM.WC.PN ---
History of Present Illness Date of Service: 07/29/22 Chief Complaint: Follow-up on a ulcer on the left ankle History of Wound: Patient is a pleasant 76 y/o female who presents to the [facility] today for evaluation and treatment of a recurrent left medial ankle ulcer. She reports that this is at least the 10th time she has had this ulcer recur, she is well known to the [facility] though last here in 2019. She has a medical history significant for clotting disorder (Prothrombin thrombophilia), history of DVTs, and venous insufficiency. She does not smoke. She is not diabetic. She has been on Xarelto for years. She reports since starting the Xarelto she has had no further DVTs to her knowledge. She reports all her DVTs have been in the LLE. She reports she was evaluated by vascular surgeon in the past for ablation but was told she was not a candidate due to her hypercoagulable state. Her current wound has been ongoing since late June. She was seen by her PCP for the wound and was empirically started on doxycycline x 10 days. She reports she took about 4 days and then developed a blistering rash around the wound and a yeast infection and thus stopped the doxycycline. She was also applying aquaphor to the wound and covering with occlusive dressing. Since the wound started she has been wearing tubigrips she ordered online, but was not previously wearing compression. Subjective Subjective She reports moderate amounts of drainage and the wound remains quite painful, she reports it as a burning pain around the wound. No foul odor, F/C, N/V. No other complaints. She continues to do well with Bactrim. She reports some nausea right after she takes it, but no vomiting/diarrhea, no rash, no yeast infection thus far. Objective Data Objective Data Vital Signs: Vital Signs Temp Pulse Resp BP O2 Del Method 96.2 F L 79 20 H 137/82 H Room Air 07/29/22 10:49 07/29/22 10:49 07/22/22 09:26 07/29/22 10:49 07/14/22 13:31 Oxygen Delivery Method Room Air Weight: 143 lb Body Mass Index (BMI) 26.2 Lab / Micro Data Micro: Microbiology 07/14/22 14:30 Wound - Ankle Gram Stain - Final 07/14/22 14:30 Wound - Ankle Wound Culture - Final Serratia liquefaciens group Staphylococcus aureus Enterococcus faecalis 07/14/22 14:30 Wound - Ankle Anaerobic Culture - Final No anaerobic bacteria isolated. Charges/Coding Wound Center CF Procedures [id number]: [id number] RMVL DEVITAL TIS 20 CM/< Multi Select Codes Wound Center CF Procedures [id number]: [id number] RMVL DEVITAL TIS 20 CM/< Physical Exam Const alert, oriented x3, no apparent distress and healthy appearing General Appearance: cooperative, comfortable and well kempt Exam Limitations: no limitations HEENT normocephalic, head/scalp atraumatic, hearing grossly normal bilaterally, external ears normal and external nose normal Eyes PERRL and EOMs intact bilaterally General Eye: normal appearance of both eyes Neck full ROM General: normal visual inspection and trachea midline; Negative for anterior neck swelling Resp normal respiratory effort, normal air movement, no retractions and no use of accessory muscles Effort and Inspection: able to speak in complete sentences and symmetric chest movement; Negative for labored, stridor, uses accessory muscles or audible wheezes Cardio regular rate, regular rhythm and peripheral pulses 2+ throughout Bruits: Negative for carotid bruit Extremity Extremity Narrative: Bilateral lower extremity edema. Multiple varicosities and reticular veins noted bilaterally. Skin Wounds: wounds noted Wound Narrative: Venous ulcer noted to left medial ankle. slough in wound bed. No foul odor, fluctuance, induration. Periwound erythema reduced from prior exam. Neuro oriented x3, CN's II-XII intact bilaterally, moves all extremities, no focal motor deficits, no sensory deficits noted and gait normal Speech: speech normal Psych mental status grossly normal, thought process normal, affect normal, speech normal and activity/motor behavior normal Insight: insight good Judgement: judgement good Debridement Note Debridement Note Wound debrided: Left medial ankle ulcer Laterality: Left Type of Debridement: Excisional debridement Anesthesia Used: 5% Lidocaine Gel Depth: Down to and including healthy tissue and in the subcutaneous layer Percentage of wound debrided: 100 Instrument Used: 5mm curette Tissue Removed: slough, devitalized tissue Amount of bleeding with debridement: Mild Bleeding Controlled with: Pressure Patient tolerated procedure: Patient tolerated procedure well Post-Debridement Measurements and Additional Note: Post-Debridement Measurements/Treatment MELIDA - Nurse 1 - General Ulcer Assessment Start: 07/14/22 13:30 Freq: Status: Active Protocol: WC.LOWEXT Activity Type Activity Date Activity User E-sign Co-sign Detail Recorded Client Recorded Date Recorded By Document 07/14/22 13:31 [facility] [id number] 07/14/22 13:42 BMF Document 07/22/22 09:26 DL [id number] 07/22/22 09:31 DL Document 07/29/22 10:49 AK [id number] 07/29/22 10:51 AK 07/14/22 07/22/22 07/29/22 13:31 09:26 10:49 WC - Today's Visit Information Type of service Initial Visit Follow-up Visit Follow-up Visit (Physician/MEASUREMENT DEPARTMENT CHIEF CLERK (Physician/MEASUREMENT DEPARTMENT CHIEF CLERK ) ) Arrival Mode Ambulatory Ambulatory Ambulatory Transfer Assistance None None Patient Identification Verified (Name & Yes Yes Yes ) Patient Requires Transmission-Based No No Precautions Safety Precautions NA Height and Weight Height 5 ft 2 in Weight 143 lb Weight in Pounds 143.0 lbs Body Mass Index (BMI) 26.2 26.2 26.2 BMI Classification Overweight Overweight Overweight BSA - Kwame 1.66 Vital Signs Temperature (97.8 F-99.1 F) 97.1 F L 97.7 F L 96.2 F L Temperature Source Temporal Temporal Temporal Pulse Rate (60-100) 82 90 79 Pulse Location Monitor Monitor Monitor Respiratory Rate (12-18) 16 20 H Respiratory rate source Observation Observation Oxygen Delivery Method Room Air Blood Pressure (90/60-120/80) 144/74 H 156/70 H 137/82 H Blood Pressure Mean (mm Hg) 97 98 100 Source Monitor Monitor Monitor Position Sitting Blood Pressure Location Left Arm History Since Last Visit- (Skip if this is Patient's initial visit) Have you changed medications since your No No last visit? Any new allergies or adverse reactions No No Had a fall/change in ADL's that may No No increase risk of falls Signs or symptoms of abuse and/or No No neglect since last visit Have you been in the hospital since your No No last visit? Has dressing in place as prescribed Yes Yes Has compression in place as prescribed Yes Yes Has offloadiing in place as prescribed N/A N/A Experienced any changes in pain level or No No management Left Footwear Regular Shoe Regular Shoe Regular Shoe Right Footwear Regular Shoe Regular Shoe Regular Shoe Pain Scale: 0-10 Numeric Is Patient Pain Free? Yes Yes No Lower Extremity Assessment/ Foot Assessment/ Toe Nail Assessment Right -Posterior Tibial Doppler Multiphasic -Dorsalis Pedis Palpable Yes -Dorsalis Pedis Doppler Multiphasic -Extremity Color Pale -Hair Growth on Legs Yes -Hair Growth on Toes Yes -Temperature of Extremity Warm -Thick No -Discolored No -Deformed No -Improper Length & Hygeine No Left -Posterior Tibial Doppler Multiphasic -Dorsalis Pedis Palpable Yes -Dorsalis Pedis Doppler Monophasic -Extremity Color Pale -Hair Growth on Legs Yes -Hair Growth on Toes Yes -Temperature of Extremity Warm -Capillary Refill Less than 3 Seconds -Other Deformity No -Prior Foot Ulcer No -Charcot Joint No -Prior Amputation No -Thick No -Discolored No -Deformed No -Improper Length & Hygeine No Neuropathy Assessment Feet - Top Side and Bottom <Entered> (a) Communication Assessment Preferred language [place] 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 Able to Read Yes Able to Write Yes Communication Tools None Right Hearing Abillity Normal Left Hearing Abillity Normal Visual Assistive Devices Glasses Teaching Assessment Preferences Verbal,Written, Audio/Visual, Demonstration Barriers to Learning None Readiness To Learn Excellent Willingness to Engage in Self Management High Activies Readiness to Engage in Self Management High Activities Anxiety Level Calm Cooperation Cooperative Perception Coherent Interest in Health Problem Asks Questions Education Importance Acknowledges Need Does Patient Smoke tobacco or other No substances Smoking Status Never smoker Is Patient Diabetic Yes Functional Assessment Recent Decline in Ability to Perform Denies Any Declines 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 Cultural/Mosque Needs that may affect No Treatment Plan Teaching: Wound Center *Welcome to the Wound Center -Person Taught Patient, Significant Other -Teaching Method Discussion -Response to teaching Verbalize understanding Welcome to the Wound Care Center [place]an (a) 1 - + WC - Nurse 1 - General Ulcer Measurement Start: 07/14/22 13:30 Freq: Status: Active Protocol: Activity Type Activity Date Activity User E-sign Co-sign Detail Recorded Client Recorded Date Recorded By Document 07/14/22 13:31 BMF [id number] 07/14/22 13:42 BMF Document 07/22/22 09:26 DL [id number] 07/22/22 09:31 DL Document 07/29/22 10:49 AK [id number] 07/29/22 10:51 AK 07/14/22 07/22/22 07/29/22 13:31 09:26 10:49 Wound Center Nurse 1 #4- L MED ANKLE -Combined with other wound No No -Current Size (cm) - Length 0.4 1.4 0.4 -Current Size (cm) - Width 0.5 0.7 0.5 -Current Size (cm) - Depth 0.1 0.2 0.2 -Total Square Cm 0.20 0.98 0.20 -Date of Last Picture (Recall this 07/14/22 07/29/22 field) -Photo Taken Yes Yes Yes -Epithelialization None Present -Tunneling No No -Undermining/Tunneling No No -Circular Undermining No -Change in Wound Grade/Stage No -Exudate Amt Medium Small Small -Exudate Type Serosanguineous Serosanguineous Serosanguineous -Wound Margin Distinct, Distinct, Distinct, Outline Outline Outline Attached Attached Attached -Granulation Amt Small (1-33%) None Present (0 Small (1-33%) %) -Granulation Quality [place] -Slough/Fibrin Yes Yes -Necrosis Amt Large (67-100%) Large (67-100%) Large (67-100%) -Necrotic Tissue Type Adherent Slough Adherent Slough Adherent Slough -Structure Exposed N/A -Texture (Ines-wound Skin Appearance) Assessed, Scarring,Rash No Abnormality, Scarring Assessed -Moisture (Ines-wound Skin Appearance) Assessed,Dry/ Dry/Scaly No Abnormality, Scaly Assessed -Color (Ines-wound Skin Appearance) Assessed, Erythema, Assessed, Erythema Hemosiderin Erythema Staining -Temperature (Ines-wound Skin No Abnormality No Abnormality No Abnormality Appearance) (Pt Warm) (Pt Warm) (Pt Warm) -Tenderness on Palpation (Ines-wound No Yes No Skin Appearance) -Ulcer Cleansing Rinsed/ Rinsed/ Rinsed/ Irrigated with Irrigated with Irrigated with Saline Saline Saline -Foul Odor after Cleansing No No -Anesthetic Used 5% Lidocaine 5% Lidocaine 5% Lidocaine Gel Gel Gel Left Calf (cm) 36.4 35.5 Left Ankle (cm) 23.4 23.2 WC - Nurse 2 - General Ulcer CM Notes Start: 07/14/22 13:30 Freq: Status: Active Protocol: Activity Type Activity Date Activity User E-sign Co-sign Detail Recorded Client Recorded Date Recorded By Document 07/14/22 14:11 MW [id number] 07/14/22 14:33 MW Document 07/22/22 13:00 PL [id number] 07/22/22 13:01 PL 07/14/22 07/22/22 14:11 13:00 Wound Center Nurse 2 #4- L MED ANKLE -Time 14:12 09:48 -Correct Patient Yes Yes -Correct Side, Site, Position Yes Yes -Correct Procedure Yes Yes -Procedure Performed Yes Yes -Type of Procedure Chemical Debridement Cauterization ( $) -Clinical Debridement Subcutaneous Subcutaneous -Tissue Removed Subcutaneous Subcutaneous -Post Debridement (cm) - Length 0.5 1.3 -Post Debridement (cm) - Width 0.7 1.0 -Post Debridement (cm) - Depth 0.1 0.1 -Total Square (Post) (cm) 0.35 1.30 -Area of Debridement (cm) - Length 0.5 1.3 -Area of Debridement (cm) - Width 0.7 1.0 -Total Square (Area) (cm) 0.35 1.30 -Tunneling No No -Undermining/Tunneling No No -Circular Undermining No No -Wound/Ulcer Outcome Not Healed Not Healed -Ulcer Cleansing Rinsed/ Rinsed/ Irrigated with Irrigated with Saline Saline -Foul Odor after Cleansing No No -Bioengineered Tissue No No -Bleeding Controlled with Pressure Pressure -Treatment Response Procedure Procedure Tolerated Well Tolerated Well -Offloading No -Debridement - Subq, 1st 20sq cm Yes Yes Pain Scale: 0-10 Numeric Is Patient Pain Free? Yes Yes WC - Nurse 3 - General Ulcer D/C NN Start: 07/14/22 13:30 Freq: Status: Active Protocol: Activity Type Activity Date Activity User E-sign Co-sign Detail Recorded Client Recorded Date Recorded By Document 07/14/22 14:50 [facility] [id number] 07/14/22 14:52 BM Document 07/22/22 10:17 DL [id number] 07/22/22 10:20 DL Document 07/29/22 10:59 JF [id number] 07/29/22 11:00 JF 07/14/22 07/22/22 07/29/22 14:50 10:17 10:59 Wound Care Center Nurse 3 #4- L MED ANKLE -Ulcer Cleansing Rinsed/ Rinsed/ Rinsed/ Irrigated with Irrigated with Irrigated with Saline Saline Saline -Foul Odor after Cleansing No No No -Primary Dressing Applied Mepilex Border, Mepilex Border, NonAdherent Promogran Promogran Contact Layer, Promogran, Mepilex Border -Mepilex Border 1 1 1 -Promogran 1 1 0 Left -Tubular Bandage Double Layer Single Layer Single Layer -Size of Tubigrip Used Size D Size C Size D -Size C ($) 1 -Size D ($) 1 0 Treatment Response Procedure Procedure Tolerated Well Tolerated Well Pain Scale: 0-10 Numeric Is Patient Pain Free? 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 Some adherent slough noted in wound bed, she reports minimal drainage. Continue promogram, cover with adaptic followed by foam dressing, tubigrip compression 20-40mmHg. Change dressing daily or more often as needed to keep clean and dry. Will apply for Epifix as this wound has been ongoing for over 2 months. She has had great response to epifix in the past (last applied in 2019). Periwound area mildly erythematous, stable from last week. Wound cultures positive for Serratia liquefaciens, Staph aureus, and E. faecalis. Will treat in staged fashion as will require 2 antibiotics to address based upon sensitivity results. Prescribed Bactrim DS x14 days. Patient has tolerated well so far. Patient is scheduled to see Dr. Lord on 08/04/22. Patient has been consistent with compression, tolerates it well. Patient will follow up in the wound center in 1 week or sooner as needed should symptoms worsen.
== END 2022-08-02 23:59 | disposition home or self-care (01) ==
LOC: WC 10:30
PROVIDERS: PCP Internal Medicine; Referring Provider Physician Assistant; Visit Provider Physician Assistant
DX: I83.023 Varicose veins of left lower extremity with ulcer of ankle (principal); L97.322 Non-pressure chronic ulcer of left ankle with fat layer exposed; D68.9 Coagulation defect, unspecified; Z86.718 Personal history of other venous thrombosis and embolism; Z79.01 Long term (current) use of anticoagulants; Z79.899 Other long term (current) drug therapy
CPT/HCPCS: 11042; 17250; 87070; 87075; 87077; 87186; 87205; 93970; 99213; G0463

== ENCOUNTER 2022-08-26 10:00 | Outpatient (RCR) | payer MEDICARE, OTHER, SELFPAY ==
[2022-08-03 00:39] VITALS: BP 137/82; PULSE 79; RESP 20; TEMP 35.7; BMI 26.2
[2022-08-05 09:28] VITALS: BP 143/66; PULSE 96; RESP 16; TEMP 36.1; BMI 26.2
--- NOTE | 2022-08-05 10:10 | PCM.WC.PN ---
History of Present Illness Date of Service: 08/05/22 Chief Complaint: Follow-up on a ulcer on the left ankle History of Wound: Patient is a pleasant 76 y/o female who presents to the [facility] today for evaluation and treatment of a recurrent left medial ankle ulcer. She reports that this is at least the 10th time she has had this ulcer recur, she is well known to the [facility] though last here in 2019. She has a medical history significant for clotting disorder (Prothrombin thrombophilia), history of DVTs, and venous insufficiency. She does not smoke. She is not diabetic. She has been on Xarelto for years. She reports since starting the Xarelto she has had no further DVTs to her knowledge. She reports all her DVTs have been in the LLE. She reports she was evaluated by vascular surgeon in the past for ablation but was told she was not a candidate due to her hypercoagulable state. Her current wound has been ongoing since late June. She was seen by her PCP for the wound and was empirically started on doxycycline x 10 days. She reports she took about 4 days and then developed a blistering rash around the wound and a yeast infection and thus stopped the doxycycline. She was also applying aquaphor to the wound and covering with occlusive dressing. Since the wound started she has been wearing tubigrips she ordered online, but was not previously wearing compression. Subjective Subjective She reports moderate amounts of drainage and the wound remains quite painful, she reports it as a burning pain around the wound. No foul odor, F/C, N/V. No other complaints. She has completed Bactrim regimen without issue. She saw Dr. Lord in office yesterday, venogram was offered to evaluate for central venous outflow obstruction and treat as necessary followed by below knee venous glue ablation as indicated. She is considering. Objective Data Objective Data Vital Signs: Vital Signs Temp Pulse Resp BP O2 Del Method 96.9 F L 96 16 143/66 H Room Air 08/05/22 09:28 08/05/22 09:28 08/05/22 09:28 08/05/22 09:28 08/05/22 09:28 Oxygen Delivery Method Room Air Weight: 143 lb Body Mass Index (BMI) 26.2 Charges/Coding Wound Center CF Procedures 96XXX-98XXX: 97176 RMVL DEVITAL TIS 20 CM/< Multi Select Codes Wound Center CF Procedures 96XXX-98XXX: 09732 RMVL DEVITAL TIS 20 CM/< Physical Exam Const alert, oriented x3, no apparent distress and healthy appearing General Appearance: cooperative, comfortable and well kempt Exam Limitations: no limitations HEENT normocephalic, head/scalp atraumatic, hearing grossly normal bilaterally, external ears normal and external nose normal Eyes PERRL and EOMs intact bilaterally General Eye: normal appearance of both eyes Neck full ROM General: normal visual inspection and trachea midline; Negative for anterior neck swelling Resp normal respiratory effort, normal air movement, no retractions and no use of accessory muscles Effort and Inspection: able to speak in complete sentences and symmetric chest movement; Negative for labored, stridor, uses accessory muscles or audible wheezes Cardio regular rate, regular rhythm and peripheral pulses 2+ throughout Bruits: Negative for carotid bruit Extremity Extremity Narrative: Bilateral lower extremity edema. Multiple varicosities and reticular veins noted bilaterally. Skin Wounds: wounds noted Wound Narrative: Venous ulcer noted to left medial ankle. slough in wound bed. No foul odor, fluctuance, induration. Periwound erythema reduced from prior exam. Neuro oriented x3, CN's II-XII intact bilaterally, moves all extremities, no focal motor deficits, no sensory deficits noted and gait normal Speech: speech normal Psych mental status grossly normal, thought process normal, affect normal, speech normal and activity/motor behavior normal Insight: insight good Judgement: judgement good Debridement Note Debridement Note Wound debrided: Left medial ankle ulcer Laterality: Left Type of Debridement: Excisional debridement Anesthesia Used: 5% Lidocaine Gel Depth: Down to and including healthy tissue and in the subcutaneous layer Percentage of wound debrided: 100 Instrument Used: 3mm curette Tissue Removed: slough, devitalized tissue Amount of bleeding with debridement: Mild Bleeding Controlled with: Pressure Patient tolerated procedure: Patient tolerated procedure well Post-Debridement Measurements and Additional Note: Post-Debridement Measurements/Treatment - Nurse 1 - General Ulcer Assessment Start: 08/05/22 09:28 Freq: Status: Active Protocol: PEMA Activity Type Activity Date Activity User E-sign Co-sign Detail Recorded Client Recorded Date Recorded By Document 08/05/22 09:28 [facility] [id number] 08/05/22 09:33 [facility] 08/05/22 09:28 - Today's Visit Information Type of service Follow-up Visit (Physician/RESEARCH BIOSTATISTICIAN ) Arrival Mode Ambulatory Transfer Assistance None Patient Identification Verified (Name & Yes ) Patient Requires Transmission-Based No Precautions Height and Weight Body Mass Index (BMI) 26.2 BMI Classification Overweight Vital Signs Temperature (97.8 F-99.1 F) 96.9 F L Temperature Source Temporal Pulse Rate (60-100) 96 Pulse Location Monitor Respiratory Rate (12-18) 16 Respiratory rate source Observation Oxygen Delivery Method Room Air Blood Pressure (90/60-120/80) 143/66 H Blood Pressure Mean (mm Hg) 91 Source Monitor Position Sitting Blood Pressure Location Left Arm History Since Last Visit- (Skip if this is Patient's initial visit) Have you changed medications since your No last visit? Any new allergies or adverse reactions No Had a fall/change in ADL's that may No increase risk of falls Signs or symptoms of abuse and/or No neglect since last visit Have you been in the hospital since your No last visit? Has dressing in place as prescribed Yes Has compression in place as prescribed Yes Has offloadiing in place as prescribed N/A Experienced any changes in pain level or No management Left Footwear Regular Shoe Right Footwear Regular Shoe Pain Scale: 0-10 Numeric Is Patient Pain Free? Yes - Nurse 1 - General Ulcer Measurement Start: 08/05/22 09:28 Freq: Status: Active Protocol: Activity Type Activity Date Activity User E-sign Co-sign Detail Recorded Client Recorded Date Recorded By Document 08/05/22 09:28 [facility] [id number] 08/05/22 09:33 [facility] 08/05/22 09:28 Wound Center Nurse 1 #4- L MED ANKLE -Combined with other wound No -Current Size (cm) - Length 1.6 -Current Size (cm) - Width 1 -Current Size (cm) - Depth 0.2 -Total Square Cm 1.6 -Date of Last Picture (Recall this 08/05/22 field) -Photo Taken Yes -Epithelialization None Present -Tunneling No -Undermining/Tunneling No -Circular Undermining No -Exudate Amt Small -Exudate Type Serous -Wound Margin Distinct, Outline Attached -Granulation Amt None Present (0 %) -Slough/Fibrin Yes -Necrosis Amt Large (67-100%) -Necrotic Tissue Type Adherent Slough -Texture (Ines-wound Skin Appearance) Assessed, Scarring -Moisture (Ines-wound Skin Appearance) Assessed,Dry/ Scaly -Color (Ines-wound Skin Appearance) Assessed, Hemosiderin Staining -Temperature (Ines-wound Skin No Abnormality Appearance) (Pt Warm) -Tenderness on Palpation (Ines-wound No Skin Appearance) -Ulcer Cleansing Rinsed/ Irrigated with Saline -Foul Odor after Cleansing No -Anesthetic Used 5% Lidocaine Gel Left Calf (cm) 36.7 Left Ankle (cm) 22.4 - Nurse 3 - General Ulcer D/C NN Start: 08/05/22 09:28 Freq: Status: Active Protocol: Activity Type Activity Date Activity User E-sign Co-sign Detail Recorded Client Recorded Date Recorded By Document 08/05/22 10:05 [facility] [id number] 08/05/22 10:06 [facility] 08/05/22 10:05 Wound Care Center Nurse 3 #4- L MED ANKLE -Ulcer Cleansing Rinsed/ Irrigated with Saline -Foul Odor after Cleansing No -Primary Dressing Covered/Secured with Dry Gauze & Roll Gauze, Secured with Tape Left -Tubular Bandage Single Layer -Size of Tubigrip Used Size D -Size D ($) 1 Pain Scale: 0-10 Numeric Is Patient Pain Free? 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 Wound was debrided and wound bed with good bleeding prior to application. Epifix was applied in sterile fashion, moistened with saline, covered with adaptic, secured with steri-strips, covered with dry dressing. 100% of Epifix product was used. Patient was instructed to leave the Epifix securely in place until next week, keep clean and dry. Continue with current compression. Periwound area mildly erythematous, appears now as chronic skin changes related to recurrent wounds in this area versus contact dermatitis secondary to adhesive as prior. Wound cultures positive for Serratia liquefaciens, Staph aureus, and E. faecalis. Patient completed Bactrim regimen. Patient is considering proceeding with venous procedures as discussed with Dr. Lord. Answered additional questions she had, she will continue to consider. Patient will follow up in the wound center in 1 week or sooner as needed should symptoms worsen.
[2022-08-12 09:32] VITALS: BP 119/44; TEMP 36.1; BMI 26.2
--- NOTE | 2022-08-12 11:16 | PCM.WC.PN ---
History of Present Illness Date of Service: 08/12/22 Chief Complaint: Follow-up on a ulcer on the left ankle History of Wound: Patient is a pleasant 76 y/o female who presents to the [facility] today for evaluation and treatment of a recurrent left medial ankle ulcer. She reports that this is at least the 10th time she has had this ulcer recur, she is well known to the [facility] though last here in 2019. She has a medical history significant for clotting disorder (Prothrombin thrombophilia), history of DVTs, and venous insufficiency. She does not smoke. She is not diabetic. She has been on Xarelto for years. She reports since starting the Xarelto she has had no further DVTs to her knowledge. She reports all her DVTs have been in the LLE. She reports she was evaluated by vascular surgeon in the past for ablation but was told she was not a candidate due to her hypercoagulable state. Her current wound has been ongoing since late June. She was seen by her PCP for the wound and was empirically started on doxycycline x 10 days. She reports she took about 4 days and then developed a blistering rash around the wound and a yeast infection and thus stopped the doxycycline. She was also applying aquaphor to the wound and covering with occlusive dressing. Since the wound started she has been wearing tubigrips she ordered online, but was not previously wearing compression. Subjective Subjective She reports moderate amounts of drainage and the wound remains quite painful, she reports it as a burning pain around the wound. She feels there is some increased redness around the wound. No foul odor, F/C, N/V. No other complaints. She continues to consider venous ablation, is concerned about allergy/possible side effects to glue, worried about DVT risk. Objective Data Objective Data Vital Signs: Vital Signs Temp Pulse Resp BP O2 Del Method 97 F L 96 16 119/44 L Room Air 08/12/22 09:32 08/05/22 09:28 08/05/22 09:28 08/12/22 09:32 08/12/22 09:32 Oxygen Delivery Method Room Air Weight: 143 lb Body Mass Index (BMI) 26.2 Charges/Coding Wound Center CF Procedures 96XXX-98XXX: 81301 RMVL DEVITAL TIS 20 CM/< Multi Select Codes Wound Center CF Procedures 96XXX-98XXX: 44835 RMVL DEVITAL TIS 20 CM/< Physical Exam Const alert, oriented x3, no apparent distress and healthy appearing General Appearance: cooperative, comfortable and well kempt Exam Limitations: no limitations HEENT normocephalic, head/scalp atraumatic, hearing grossly normal bilaterally, external ears normal and external nose normal Eyes PERRL and EOMs intact bilaterally General Eye: normal appearance of both eyes Neck full ROM General: normal visual inspection and trachea midline; Negative for anterior neck swelling Resp normal respiratory effort, normal air movement, no retractions and no use of accessory muscles Effort and Inspection: able to speak in complete sentences and symmetric chest movement; Negative for labored, stridor, uses accessory muscles or audible wheezes Cardio regular rate, regular rhythm and peripheral pulses 2+ throughout Bruits: Negative for carotid bruit Extremity Extremity Narrative: Bilateral lower extremity edema. Multiple varicosities and reticular veins noted bilaterally. Skin Wounds: wounds noted Wound Narrative: Venous ulcer noted to left medial ankle. slough in wound bed. No foul odor, fluctuance, induration. Mild periwound erythema. Neuro oriented x3, CN's II-XII intact bilaterally, moves all extremities, no focal motor deficits, no sensory deficits noted and gait normal Speech: speech normal Psych mental status grossly normal, thought process normal, affect normal, speech normal and activity/motor behavior normal Insight: insight good Judgement: judgement good Debridement Note Debridement Note Wound debrided: Left medial ankle ulcer Laterality: Left Type of Debridement: Excisional debridement Anesthesia Used: 5% Lidocaine Gel Depth: Down to and including healthy tissue and in the subcutaneous layer Percentage of wound debrided: 100 Instrument Used: 3mm curette Tissue Removed: slough, devitalized tissue Amount of bleeding with debridement: Mild Bleeding Controlled with: Pressure Patient tolerated procedure: Patient tolerated procedure well Post-Debridement Measurements and Additional Note: Post-Debridement Measurements/Treatment WC - Nurse 1 - General Ulcer Assessment Start: 08/05/22 09:28 Freq: Status: Active Protocol: PEMA Activity Type Activity Date Activity User E-sign Co-sign Detail Recorded Client Recorded Date Recorded By Document 08/05/22 09:28 [facility] [id number] 08/05/22 09:33 [facility] Document 08/12/22 09:32 IN [id number] 08/12/22 09:40 [place] 08/05/22 08/12/22 09:28 09:32 - Today's Visit Information Type of service Follow-up Visit Follow-up Visit (Physician/BOILER SHOP SUPERVISOR (Physician/BOILER SHOP SUPERVISOR ) ) Arrival Mode Ambulatory Ambulatory Transfer Assistance None Accompanied by Patient Identification Verified (Name & Yes Yes ) Patient Requires Transmission-Based No Precautions Safety Precautions Fall Prevention Height and Weight Body Mass Index (BMI) 26.2 26.2 BMI Classification Overweight Overweight Vital Signs Temperature (97.8 F-99.1 F) 96.9 F L 97 F L Temperature Source Temporal Temporal Pulse Rate (60-100) 96 Pulse Location Monitor Monitor Respiratory Rate (12-18) 16 Respiratory rate source Observation Observation Oxygen Delivery Method Room Air Room Air Blood Pressure (90/60-120/80) 143/66 H 119/44 L Blood Pressure Mean (mm Hg) 91 69 Source Monitor Monitor Position Sitting Sitting Blood Pressure Location Left Arm History Since Last Visit- (Skip if this is Patient's initial visit) Have you changed medications since your No No last visit? Any new allergies or adverse reactions No No Had a fall/change in ADL's that may No No increase risk of falls Signs or symptoms of abuse and/or No No neglect since last visit Have you been in the hospital since your No No last visit? Has dressing in place as prescribed Yes Yes Has compression in place as prescribed Yes Yes Has offloadiing in place as prescribed N/A N/A Experienced any changes in pain level or No No management Left Footwear Regular Shoe Regular Shoe Right Footwear Regular Shoe Regular Shoe Pain Scale: 0-10 Numeric Is Patient Pain Free? Yes Yes - Nurse 1 - General Ulcer Measurement Start: 08/05/22 09:28 Freq: Status: Active Protocol: Activity Type Activity Date Activity User E-sign Co-sign Detail Recorded Client Recorded Date Recorded By Document 08/05/22 09:28 [facility] [id number] 08/05/22 09:33 [facility] Document 08/12/22 09:32 IN [id number] 08/12/22 09:40 [place] 08/05/22 08/12/22 09:28 09:32 Wound Center Nurse 1 #4- L MED ANKLE -Combined with other wound No No -Current Size (cm) - Length 1.6 1 -Current Size (cm) - Width 1 0.8 -Current Size (cm) - Depth 0.2 -Total Square Cm 1.6 0.8 -Date of Last Picture (Recall this 08/05/22 field) -Photo Taken Yes Yes -Epithelialization None Present -Tunneling No No -Undermining/Tunneling No No -Circular Undermining No No -Change in Wound Grade/Stage No -Exudate Amt Small Medium -Exudate Type Serous Serosanguineous -Wound Margin Distinct, Distinct, Outline Outline Attached Attached -Granulation Amt None Present (0 Medium (34-66%) %) -Granulation Quality [place] -Slough/Fibrin Yes Yes -Necrosis Amt Large (67-100%) Medium (34-66%) -Necrotic Tissue Type Adherent Slough Adherent Slough -Structure Exposed N/A -Texture (Ines-wound Skin Appearance) Assessed, No Abnormality, Scarring Assessed -Moisture (Ines-wound Skin Appearance) Assessed,Dry/ No Abnormality, Scaly Assessed -Color (Ines-wound Skin Appearance) Assessed, No Abnormality, Hemosiderin Assessed Staining -Temperature (Ines-wound Skin No Abnormality No Abnormality Appearance) (Pt Warm) (Pt Warm) -Tenderness on Palpation (Ines-wound No No Skin Appearance) -Ulcer Cleansing Rinsed/ Soap and Water Irrigated with Saline -Foul Odor after Cleansing No No -Anesthetic Used 5% Lidocaine 5% Lidocaine Gel Gel Left Calf (cm) 36.7 Left Ankle (cm) 22.4 WC - Nurse 2 - General Ulcer CM Notes Start: 08/05/22 09:28 Freq: Status: Active Protocol: Activity Type Activity Date Activity User E-sign Co-sign Detail Recorded Client Recorded Date Recorded By Document 08/05/22 11:50 PL [id number] 08/05/22 11:52 PL 08/05/22 11:50 Wound Center Nurse 2 -Time 09:41 -Correct Patient Yes -Correct Side, Site, Position Yes -Correct Procedure Yes -Procedure Performed Yes -Type of Procedure Debridement -Clinical Debridement Subcutaneous -Tissue Removed Subcutaneous -Post Debridement (cm) - Length 1.2 -Post Debridement (cm) - Width 0.9 -Post Debridement (cm) - Depth 0.1 -Total Square (Post) (cm) 1.08 -Area of Debridement (cm) - Length 1.2 -Area of Debridement (cm) - Width 0.9 -Total Square (Area) (cm) 1.08 -Tunneling No -Undermining/Tunneling No -Circular Undermining No -Wound/Ulcer Outcome Not Healed -Ulcer Cleansing Rinsed/ Irrigated with Saline -Foul Odor after Cleansing No -Bioengineered Tissue Yes -Type of Bioengineered Tissue Epifix 18mm Disc -Expiration Date 05/03/27 -Product Lot Number [id number] -Percent Used 100 -Bleeding Controlled with Pressure -Treatment Response Procedure Tolerated Well -Debridement - Subq, 1st 20sq cm No -Apply Skin Sub - 1st 25 sq cm - Legs 1 -Epifix 18mm Disc 3 Pain Scale: 0-10 Numeric Is Patient Pain Free? Yes - Nurse 3 - General Ulcer D/C NN Start: 08/05/22 09:28 Freq: Status: Active Protocol: Activity Type Activity Date Activity User E-sign Co-sign Detail Recorded Client Recorded Date Recorded By Document 08/05/22 10:05 [facility] [id number] 08/05/22 10:06 [facility] Document 08/12/22 10:44 [place] [id number] 08/12/22 10:44 [place] 08/05/22 08/12/22 10:05 10:44 Wound Care Center Nurse 3 #4- L MED ANKLE -Ulcer Cleansing Rinsed/ Irrigated with Saline -Foul Odor after Cleansing No -Primary Dressing Covered/Secured with Dry Gauze & Roll Gauze, Secured with Tape Left -Lotion applied to leg before No compression wrap -Tubular Bandage Single Layer Single Layer -Size of Tubigrip Used Size D Size D -Size D ($) 1 1 Pain Scale: 0-10 Numeric Is Patient Pain Free? 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 Wound was debrided and wound bed with good bleeding prior to application. Epifix was applied in sterile fashion, moistened with saline, covered with adaptic, secured with steri-strips, covered with dry dressing. 100% of Epifix product was used. Patient was instructed to leave the Epifix securely in place until next week, keep clean and dry. Continue with current compression. Periwound area mildly erythematous, does appear it has extended a bit from last visit. She completed Bactrim regimen, has been taking probiotics. Will start linezolid this week to address E. faecalis. Patient is considering proceeding with venous procedures as discussed with Dr. Lord. Answered additional questions she had, she will continue to consider. Patient will follow up in the wound center in 1 week or sooner as needed should symptoms worsen.
[2022-08-19 09:39] VITALS: BP 131/67; PULSE 86; RESP 18; TEMP 36.1; BMI 26.2
--- NOTE | 2022-08-19 10:27 | PCM.WC.PN ---
History of Present Illness Date of Service: 08/19/22 Chief Complaint: Follow-up on a ulcer on the left ankle History of Wound: Patient is a pleasant 76 y/o female who presents to the [facility] today for evaluation and treatment of a recurrent left medial ankle ulcer. She reports that this is at least the 10th time she has had this ulcer recur, she is well known to the [facility] though last here in 2019. She has a medical history significant for clotting disorder (Prothrombin thrombophilia), history of DVTs, and venous insufficiency. She does not smoke. She is not diabetic. She has been on Xarelto for years. She reports since starting the Xarelto she has had no further DVTs to her knowledge. She reports all her DVTs have been in the LLE. She reports she was evaluated by vascular surgeon in the past for ablation but was told she was not a candidate due to her hypercoagulable state. Her current wound has been ongoing since late June. She was seen by her PCP for the wound and was empirically started on doxycycline x 10 days. She reports she took about 4 days and then developed a blistering rash around the wound and a yeast infection and thus stopped the doxycycline. She was also applying aquaphor to the wound and covering with occlusive dressing. Since the wound started she has been wearing tubigrips she ordered online, but was not previously wearing compression. Subjective Subjective She is doing very well this week. She reports that the pain is much improved, as well as the redness from last week. She has been keeping the dressing dry and intact. No foul odor, F/C, N/V. No other complaints. She continues to consider venous ablation, is concerned about allergy/possible side effects to glue, worried about DVT risk. Objective Data Objective Data Vital Signs: Vital Signs Temp Pulse Resp BP O2 Del Method 97 F L 86 18 131/67 H Room Air 08/19/22 09:39 08/19/22 09:39 08/19/22 09:39 08/19/22 09:39 08/19/22 09:39 Oxygen Delivery Method Room Air Weight: 143 lb Body Mass Index (BMI) 26.2 Charges/Coding Wound Center CF Procedures 96XXX-98XXX: 24931 RMVL DEVITAL TIS 20 CM/< Multi Select Codes Wound Center CF Procedures [id number]-98XXX: 21322 RMVL DEVITAL TIS 20 CM/< Physical Exam Const alert, oriented x3, no apparent distress and healthy appearing General Appearance: cooperative, comfortable and well kempt Exam Limitations: no limitations HEENT normocephalic, head/scalp atraumatic, hearing grossly normal bilaterally, external ears normal and external nose normal Eyes PERRL and EOMs intact bilaterally General Eye: normal appearance of both eyes Neck full ROM General: normal visual inspection and trachea midline; Negative for anterior neck swelling Resp normal respiratory effort, normal air movement, no retractions and no use of accessory muscles Effort and Inspection: able to speak in complete sentences and symmetric chest movement; Negative for labored, stridor, uses accessory muscles or audible wheezes Cardio regular rate, regular rhythm and peripheral pulses 2+ throughout Bruits: Negative for carotid bruit Extremity Extremity Narrative: Bilateral lower extremity edema. Multiple varicosities and reticular veins noted bilaterally. Skin Wounds: wounds noted Wound Narrative: Venous ulcer noted to left medial ankle. slough in wound bed. No foul odor, fluctuance, induration. No cezar-wound erythema today. Neuro oriented x3, CN's II-XII intact bilaterally, moves all extremities, no focal motor deficits, no sensory deficits noted and gait normal Speech: speech normal Psych mental status grossly normal, thought process normal, affect normal, speech normal and activity/motor behavior normal Insight: insight good Judgement: judgement good Debridement Note Debridement Note Wound debrided: Left medial ankle ulcer Laterality: Left Type of Debridement: Excisional debridement Anesthesia Used: 5% Lidocaine Gel and Cetacaine Depth: Down to and including healthy tissue and in the subcutaneous layer Percentage of wound debrided: 100 Instrument Used: 5mm curette Tissue Removed: slough, devitalized tissue Amount of bleeding with debridement: Mild Bleeding Controlled with: Pressure Patient tolerated procedure: Patient tolerated procedure well Post-Debridement Measurements and Additional Note: Post-Debridement Measurements/Treatment WC - Nurse 1 - General Ulcer Assessment Start: 08/05/22 09:28 Freq: Status: Active Protocol: PEMA Activity Type Activity Date Activity User E-sign Co-sign Detail Recorded Client Recorded Date Recorded By Document 08/05/22 09:28 [facility] [id number] 08/05/22 09:33 BM Document 08/12/22 09:32 [place] [id number] 08/12/22 09:40 [place] Document 08/19/22 09:39 [id number] 08/19/22 09:45 08/05/22 08/12/22 08/19/22 09:28 09:32 09:39 - Today's Visit Information Type of service Follow-up Visit Follow-up Visit Follow-up Visit (Physician/SKELP PROCESSOR (Physician/SKELP PROCESSOR (Physician/SKELP PROCESSOR ) ) ) Arrival Mode Ambulatory Ambulatory Ambulatory Transfer Assistance None Accompanied by Patient Identification Verified (Name & Yes Yes No ) Patient Requires Transmission-Based No No Precautions Safety Precautions Fall Prevention Height and Weight Body Mass Index (BMI) 26.2 26.2 26.2 BMI Classification Overweight Overweight Overweight Vital Signs Temperature (97.8 F-99.1 F) 96.9 F L 97 F L 97 F L Temperature Source Temporal Temporal Temporal Pulse Rate (60-100) 96 86 Pulse Location Monitor Monitor Monitor Respiratory Rate (12-18) 16 18 Respiratory rate source Observation Observation Observation Oxygen Delivery Method Room Air Room Air Room Air Blood Pressure (90/60-120/80) 143/66 H 119/44 L 131/67 H Blood Pressure Mean (mm Hg) 91 69 88 Source Monitor Monitor Monitor Position Sitting Sitting Sitting Blood Pressure Location Left Arm Left Arm History Since Last Visit- (Skip if this is Patient's initial visit) Have you changed medications since your No No last visit? Any new allergies or adverse reactions No No Had a fall/change in ADL's that may No No increase risk of falls Signs or symptoms of abuse and/or No No neglect since last visit Have you been in the hospital since your No No No last visit? Has dressing in place as prescribed Yes Yes Yes Has compression in place as prescribed Yes Yes Yes Has offloadiing in place as prescribed N/A N/A Yes Experienced any changes in pain level or No No Yes management Left Footwear Regular Shoe Regular Shoe Regular Shoe Right Footwear Regular Shoe Regular Shoe Regular Shoe Pain Scale: 0-10 Numeric Is Patient Pain Free? Yes Yes Yes - Nurse 1 - General Ulcer Measurement Start: 08/05/22 09:28 Freq: Status: Active Protocol: Activity Type Activity Date Activity User E-sign Co-sign Detail Recorded Client Recorded Date Recorded By Document 08/05/22 09:28 [facility] [id number] 08/05/22 09:33 BMF Document 08/12/22 09:32 [place] [id number] 08/12/22 09:40 [place] Document 08/19/22 09:39 [id number] 08/19/22 09:45 JF 08/05/22 08/12/22 08/19/22 09:28 09:32 09:39 Wound Center Nurse 1 #4- L MED ANKLE -Combined with other wound No No -Current Size (cm) - Length 1.6 1 0.7 -Current Size (cm) - Width 1 0.8 0.4 -Current Size (cm) - Depth 0.2 0.2 -Total Square Cm 1.6 0.8 0.28 -Date of Last Picture (Recall this 08/05/22 08/19/22 field) -Photo Taken Yes Yes Yes -Epithelialization None Present -Tunneling No No -Undermining/Tunneling No No -Circular Undermining No No -Change in Wound Grade/Stage No -Exudate Amt Small Medium Small -Exudate Type Serous Serosanguineous Serosanguineous -Wound Margin Distinct, Distinct, Thickened Outline Outline Attached Attached -Granulation Amt None Present (0 Medium (34-66%) Medium (34-66%) %) -Granulation Quality [place] Pale,[place] -Slough/Fibrin Yes Yes -Necrosis Amt Large (67-100%) Medium (34-66%) Medium (34-66%) -Necrotic Tissue Type Adherent Slough Adherent Slough Adherent Slough -Structure Exposed N/A -Texture (Cezar-wound Skin Appearance) Assessed, No Abnormality, Assessed Scarring Assessed -Moisture (Cezar-wound Skin Appearance) Assessed,Dry/ No Abnormality, Assessed Scaly Assessed -Color (Cezar-wound Skin Appearance) Assessed, No Abnormality, Assessed Hemosiderin Assessed Staining -Temperature (Cezar-wound Skin No Abnormality No Abnormality No Abnormality Appearance) (Pt Warm) (Pt Warm) (Pt Warm) -Tenderness on Palpation (Cezar-wound No No No Skin Appearance) -Ulcer Cleansing Rinsed/ Soap and Water Soap and Water Irrigated with Saline -Foul Odor after Cleansing No No No -Anesthetic Used 5% Lidocaine 5% Lidocaine 5% Lidocaine Gel Gel Gel Left Calf (cm) 36.7 37 Left Ankle (cm) 22.4 23 WC - Nurse 2 - General Ulcer CM Notes Start: 08/05/22 09:28 Freq: Status: Active Protocol: Activity Type Activity Date Activity User E-sign Co-sign Detail Recorded Client Recorded Date Recorded By Document 08/05/22 11:[address] [id number] 08/05/22 11:52 PL Document 08/12/22 13:05 PL [id number] 08/12/22 13:08 PL 08/05/22 08/12/22 11:50 13:05 Wound Center Nurse 2 #4- L MED ANKLE -Time 09:41 09:57 -Correct Patient Yes Yes -Correct Side, Site, Position Yes Yes -Correct Procedure Yes Yes -Procedure Performed Yes Yes -Type of Procedure Debridement Debridement -Clinical Debridement Subcutaneous Subcutaneous -Tissue Removed Subcutaneous Subcutaneous -Post Debridement (cm) - Length 1.2 1.0 -Post Debridement (cm) - Width 0.9 0.9 -Post Debridement (cm) - Depth 0.1 0.1 -Total Square (Post) (cm) 1.08 0.90 -Area of Debridement (cm) - Length 1.2 1.0 -Area of Debridement (cm) - Width 0.9 0.9 -Total Square (Area) (cm) 1.08 0.90 -Tunneling No No -Undermining/Tunneling No No -Circular Undermining No No -Wound/Ulcer Outcome Not Healed Not Healed -Ulcer Cleansing Rinsed/ Rinsed/ Irrigated with Irrigated with Saline Saline -Foul Odor after Cleansing No No -Bioengineered Tissue Yes Yes -Type of Bioengineered Tissue Epifix 18mm Epifix 18mm Disc Disc -Expiration Date 05/03/27 05/03/27 -Product Lot Number [id number] -Percent Used 100 100 -Bleeding Controlled with Pressure Pressure -Treatment Response Procedure Procedure Tolerated Well Tolerated Well -Debridement - Subq, 1st 20sq cm No No -Apply Skin Sub - 1st 25 sq cm - Legs 1 1 -Epifix 18mm Disc 3 3 Pain Scale: 0-10 Numeric Is Patient Pain Free? Yes Yes WC - Nurse 3 - General Ulcer D/C NN Start: 08/05/22 09:28 Freq: Status: Active Protocol: Activity Type Activity Date Activity User E-sign Co-sign Detail Recorded Client Recorded Date Recorded By Document 08/05/22 10:05 [facility] [id number] 08/05/22 10:06 [facility] Document 08/12/22 10:44 [place] [id number] 08/12/22 10:44 [place] 08/05/22 08/12/22 10:05 10:44 Wound Care Center Nurse 3 #4- L MED ANKLE -Ulcer Cleansing Rinsed/ Irrigated with Saline -Foul Odor after Cleansing No -Primary Dressing Covered/Secured with Dry Gauze & Roll Gauze, Secured with Tape Left -Lotion applied to leg before No compression wrap -Tubular Bandage Single Layer Single Layer -Size of Tubigrip Used Size D Size D -Size D ($) 1 1 Pain Scale: 0-10 Numeric Is Patient Pain Free? 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 Epifix was applied in sterile fashion, moistened with hydrogel, covered with adaptic, secured with steri-strips, covered with dry dressing. 100% of Epifix product was used. Patient was instructed to leave the Epifix securely in place until next week, keep clean and dry. Continue with current compression. Periwound erythema has resolved. Her pain has significantly reduced from last week. Clinically, no signs/symptoms of infection at this time. Her wound is making great positive progress. Linezolid has significant interactions with some of her current medications so did not go through with prescribing last week. Do not feel it is indicated at this time. Should she stop making progress or symptoms return would repeat cultures and consult ID as needed for antibiotic selection. She continues to consider venous ablation. She would like to at least wait until the wound is healed. This is reasonable. I encouraged her to make additional appointment with us in vascular should she like to talk more about options, whenever she is ready to proceed. Patient will follow up in the wound center in 1 week or sooner as needed should symptoms worsen.
[2022-08-26 10:04] VITALS: BP 138/77; PULSE 76; TEMP 36.2; BMI 26.2
--- NOTE | 2022-08-26 10:54 | PCM.WC.PN ---
History of Present Illness Date of Service: 08/26/22 Chief Complaint: Follow-up on a ulcer on the left ankle History of Wound: Patient is a pleasant 76 y/o female who presents to the [facility] today for evaluation and treatment of a recurrent left medial ankle ulcer. She reports that this is at least the 10th time she has had this ulcer recur, she is well known to the [facility] though last here in 2019. She has a medical history significant for clotting disorder (Prothrombin thrombophilia), history of DVTs, and venous insufficiency. She does not smoke. She is not diabetic. She has been on Xarelto for years. She reports since starting the Xarelto she has had no further DVTs to her knowledge. She reports all her DVTs have been in the LLE. She reports she was evaluated by vascular surgeon in the past for ablation but was told she was not a candidate due to her hypercoagulable state. Her current wound has been ongoing since late June. She was seen by her PCP for the wound and was empirically started on doxycycline x 10 days. She reports she took about 4 days and then developed a blistering rash around the wound and a yeast infection and thus stopped the doxycycline. She was also applying aquaphor to the wound and covering with occlusive dressing. Since the wound started she has been wearing tubigrips she ordered online, but was not previously wearing compression. Subjective Subjective She is doing very well this week. She reports that the pain continues to improve. She has been keeping the dressing dry and intact. No erythema, swelling, foul odor, F/C, N/V. No other complaints. Objective Data Objective Data Vital Signs: Vital Signs Temp Pulse Resp BP O2 Del Method 97.1 F L 76 18 138/77 H Room Air 08/26/22 10:04 08/26/22 10:04 08/19/22 09:39 08/26/22 10:04 08/19/22 09:39 Oxygen Delivery Method Room Air Weight: 143 lb Body Mass Index (BMI) 26.2 Charges/Coding Wound Center CF Procedures [id number]: [id number] RMVL DEVITAL TIS 20 CM/< Multi Select Codes Wound Center CF Procedures [id number]: [id number] RMVL DEVITAL TIS 20 CM/< Physical Exam Const alert, oriented x3, no apparent distress and healthy appearing General Appearance: cooperative, comfortable and well ket Exam Limitations: no limitations HEENT normocephalic, head/scalp atraumatic, hearing grossly normal bilaterally, external ears normal and external nose normal Eyes EOMs intact bilaterally General Eye: normal appearance of both eyes Neck full ROM General: normal visual inspection and trachea midline; Negative for anterior neck swelling Resp normal respiratory effort, normal air movement, no retractions and no use of accessory muscles Effort and Inspection: able to speak in complete sentences and symmetric chest movement; Negative for labored, stridor, uses accessory muscles or audible wheezes Cardio regular rate, regular rhythm and peripheral pulses 2+ throughout Bruits: Negative for carotid bruit Extremity Extremity Narrative: Bilateral lower extremity edema. Multiple varicosities and reticular veins noted bilaterally. Skin Wounds: wounds noted Wound Narrative: Venous ulcer noted to left medial ankle. slough in wound bed. No foul odor, fluctuance, induration. No cezar-wound erythema. Neuro oriented x3, CN's II-XII intact bilaterally, moves all extremities, no focal motor deficits, no sensory deficits noted and gait normal Speech: speech normal Psych mental status grossly normal, thought process normal, affect normal, speech normal and activity/motor behavior normal Insight: insight good Judgement: judgement good Debridement Note Debridement Note Wound debrided: Left medial ankle ulcer Laterality: Left Type of Debridement: Excisional debridement Anesthesia Used: 5% Lidocaine Gel and Cetacaine Depth: Down to and including healthy tissue and in the subcutaneous layer Percentage of wound debrided: 100 Instrument Used: 3mm curette Tissue Removed: slough, devitalized tissue Amount of bleeding with debridement: Mild Bleeding Controlled with: Pressure Patient tolerated procedure: Patient tolerated procedure well Post-Debridement Measurements and Additional Note: Post-Debridement Measurements/Treatment MELIDA - Nurse 1 - General Ulcer Assessment Start: 08/05/22 09:28 Freq: Status: Active Protocol: PEMA Activity Type Activity Date Activity User E-sign Co-sign Detail Recorded Client Recorded Date Recorded By Document 08/05/22 09:28 [facility] [id number] 08/05/22 09:33 BM Document 08/12/22 09:32 [place] [id number] 08/12/22 09:40 [place] Document 08/19/22 09:39 [id number] 08/19/22 09:45 JF Document 08/26/22 10:04 [place] [id number] 08/26/22 10:06 [place] 08/05/22 08/12/22 08/19/22 09:28 09:32 09:39 WC - Today's Visit Information Type of service Follow-up Visit Follow-up Visit Follow-up Visit (Physician/COMPUTER SYSTEM VALIDATION SPECIALIST (Physician/COMPUTER SYSTEM VALIDATION SPECIALIST (Physician/COMPUTER SYSTEM VALIDATION SPECIALIST ) ) ) Arrival Mode Ambulatory Ambulatory Ambulatory Transfer Assistance None Accompanied by Patient Identification Verified (Name & Yes Yes No ) Patient Requires Transmission-Based No No Precautions Safety Precautions Fall Prevention Height and Weight Body Mass Index (BMI) 26.2 26.2 26.2 BMI Classification Overweight Overweight Overweight Vital Signs Temperature (97.8 F-99.1 F) 96.9 F L 97 F L 97 F L Temperature Source Temporal Temporal Temporal Pulse Rate (60-100) 96 86 Pulse Location Monitor Monitor Monitor Respiratory Rate (12-18) 16 18 Respiratory rate source Observation Observation Observation Oxygen Delivery Method Room Air Room Air Room Air Blood Pressure (90/60-120/80) 143/66 H 119/44 L 131/67 H Blood Pressure Mean (mm Hg) 91 69 88 Source Monitor Monitor Monitor Position Sitting Sitting Sitting Blood Pressure Location Left Arm Left Arm History Since Last Visit- (Skip if this is Patient's initial visit) Have you changed medications since your No No last visit? Any new allergies or adverse reactions No No Had a fall/change in ADL's that may No No increase risk of falls Signs or symptoms of abuse and/or No No neglect since last visit Have you been in the hospital since your No No No last visit? Has dressing in place as prescribed Yes Yes Yes Has compression in place as prescribed Yes Yes Yes Has offloadiing in place as prescribed N/A N/A Yes Experienced any changes in pain level or No No Yes management Left Footwear Regular Shoe Regular Shoe Regular Shoe Right Footwear Regular Shoe Regular Shoe Regular Shoe Pain Scale: 0-10 Numeric Is Patient Pain Free? Yes Yes Yes 08/26/22 10:04 - Today's Visit Information Type of service Follow-up Visit (Physician/COMPUTER SYSTEM VALIDATION SPECIALIST ) Arrival Mode Ambulatory Transfer Assistance Accompanied by Patient Identification Verified (Name & Yes ) Patient Requires Transmission-Based No Precautions Safety Precautions Height and Weight Body Mass Index (BMI) 26.2 BMI Classification Overweight Vital Signs Temperature (97.8 F-99.1 F) 97.1 F L Temperature Source Temporal Pulse Rate (60-100) 76 Pulse Location Monitor Respiratory Rate (12-18) Respiratory rate source Oxygen Delivery Method Blood Pressure (90/60-120/80) 138/77 H Blood Pressure Mean (mm Hg) 97 Source Monitor Position Blood Pressure Location History Since Last Visit- (Skip if this is Patient's initial visit) Have you changed medications since your No last visit? Any new allergies or adverse reactions No Had a fall/change in ADL's that may No increase risk of falls Signs or symptoms of abuse and/or No neglect since last visit Have you been in the hospital since your No last visit? Has dressing in place as prescribed Yes Has compression in place as prescribed Yes Has offloadiing in place as prescribed N/A Experienced any changes in pain level or No management Left Footwear Regular Shoe Right Footwear Regular Shoe Pain Scale: 0-10 Numeric Is Patient Pain Free? Yes WC - Nurse 1 - General Ulcer Measurement Start: 08/05/22 09:28 Freq: Status: Active Protocol: Activity Type Activity Date Activity User E-sign Co-sign Detail Recorded Client Recorded Date Recorded By Document 08/05/22 09:28 [facility] [id number] 08/05/22 09:33 [facility] Document 08/12/22 09:32 [place] [id number] 08/12/22 09:40 [place] Document 08/19/22 09:39 [id number] 08/19/22 09:45 Document 08/26/22 10:04 ND [id number] 08/26/22 10:06 [place] 08/05/22 08/12/22 08/19/22 09:28 09:32 09:39 Wound Center Nurse 1 #4- L MED ANKLE -Combined with other wound No No -Current Size (cm) - Length 1.6 1 0.7 -Current Size (cm) - Width 1 0.8 0.4 -Current Size (cm) - Depth 0.2 0.2 -Total Square Cm 1.6 0.8 0.28 -Date of Last Picture (Recall this 08/05/22 08/19/22 field) -Photo Taken Yes Yes Yes -Epithelialization None Present -Tunneling No No -Undermining/Tunneling No No -Circular Undermining No No -Change in Wound Grade/Stage No -Exudate Amt Small Medium Small -Exudate Type Serous Serosanguineous Serosanguineous -Wound Margin Distinct, Distinct, Thickened Outline Outline Attached Attached -Granulation Amt None Present (0 Medium (34-66%) Medium (34-66%) %) -Granulation Quality [place] Pale,[place] -Slough/Fibrin Yes Yes -Necrosis Amt Large (67-100%) Medium (34-66%) Medium (34-66%) -Necrotic Tissue Type Adherent Slough Adherent Slough Adherent Slough -Structure Exposed N/A -Texture (Cezar-wound Skin Appearance) Assessed, No Abnormality, Assessed Scarring Assessed -Moisture (Cezar-wound Skin Appearance) Assessed,Dry/ No Abnormality, Assessed Scaly Assessed -Color (Cezar-wound Skin Appearance) Assessed, No Abnormality, Assessed Hemosiderin Assessed Staining -Temperature ([place]ezar-wound Skin No Abnormality No Abnormality No Abnormality Appearance) (Pt Warm) (Pt Warm) (Pt Warm) -Tenderness on Palpation ([place]ezar-wound No No No Skin Appearance) -Ulcer Cleansing Rinsed/ Soap and Water Soap and Water Irrigated with Saline -Foul Odor after Cleansing No No No -Anesthetic Used 5% Lidocaine 5% Lidocaine 5% Lidocaine Gel Gel Gel Left Calf (cm) 36.7 37 Left Ankle (cm) 22.4 23 08/26/22 10:04 Wound Center Nurse 1 #4- L MED ANKLE -Combined with other wound No -Current Size (cm) - Length 0.4 -Current Size (cm) - Width 0.4 -Current Size (cm) - Depth 0.1 -Total Square Cm 0.16 -Date of Last Picture (Recall this field) -Photo Taken Yes -Epithelialization -Tunneling No -Undermining/Tunneling No -Circular Undermining No -Change in Wound Grade/Stage No -Exudate Amt Medium -Exudate Type Serosanguineous -Wound Margin Distinct, Outline Attached -Granulation Amt None Present (0 %) -Granulation Quality N/A -Slough/Fibrin Yes -Necrosis Amt Medium (34-66%) -Necrotic Tissue Type Adherent Slough -Structure Exposed N/A -Texture (Cezar-wound Skin Appearance) No Abnormality, Assessed -Moisture ([place]ezar-wound Skin Appearance) No Abnormality, Assessed -Color ([place]ar-wound Skin Appearance) No Abnormality, Assessed -Temperature ([place]-wound Skin No Abnormality Appearance) (Pt Warm) -Tenderness on Palpation (Cezar-wound No Skin Appearance) -Ulcer Cleansing Soap and Water -Foul Odor after Cleansing No -Anesthetic Used 5% Lidocaine Gel Left Calf (cm) 37.5 Left Ankle (cm) 23.2 WC - Nurse 2 - General Ulcer CM Notes Start: 08/05/22 09:28 Freq: Status: Active Protocol: Activity Type Activity Date Activity User E-sign Co-sign Detail Recorded Client Recorded Date Recorded By Document 08/05/22 11:50 PL [id number] 08/05/22 11:52 PL Document 08/12/22 13:05 PL [id number] 08/12/22 13:08 PL Document 08/19/22 12:36 PL [id number] 08/19/22 12:42 PL 08/05/22 08/12/22 08/19/22 11:50 13:05 12:36 Wound Center Nurse 2 #4- L MED ANKLE -Time 09:41 09:57 10:03 -Correct Patient Yes Yes Yes -Correct Side, Site, Position Yes Yes Yes -Correct Procedure Yes Yes Yes -Procedure Performed Yes Yes Yes -Type of Procedure Debridement Debridement Debridement -Clinical Debridement Subcutaneous Subcutaneous Subcutaneous -Tissue Removed Subcutaneous Subcutaneous Subcutaneous -Post Debridement (cm) - Length 1.2 1.0 0.6 -Post Debridement (cm) - Width 0.9 0.9 0.5 -Post Debridement (cm) - Depth 0.1 0.1 0.1 -Total Square (Post) (cm) 1.08 0.90 0.30 -Area of Debridement (cm) - Length 1.2 1.0 0.6 -Area of Debridement (cm) - Width 0.9 0.9 0.5 -Total Square (Area) (cm) 1.08 0.90 0.30 -Tunneling No No No -Undermining/Tunneling No No No -Circular Undermining No No No -Wound/Ulcer Outcome Not Healed Not Healed Not Healed -Ulcer Cleansing Rinsed/ Rinsed/ Rinsed/ Irrigated with Irrigated with Irrigated with Saline Saline Saline -Foul Odor after Cleansing No No No -Bioengineered Tissue Yes Yes Yes -Type of Bioengineered Tissue Epifix 18mm Epifix 18mm Epifix 18mm Disc Disc Disc -Expiration Date 05/03/27 05/03/27 05/03/27 -Product Lot Number [id number] -Percent Used 100 100 100 -Bleeding Controlled with Pressure Pressure Pressure -Treatment Response Procedure Procedure Procedure Tolerated Well Tolerated Well Tolerated Well -Debridement - Subq, 1st 20sq cm No No No -Apply Skin Sub - 1st 25 sq cm - Legs 1 1 1 -Epifix 18mm Disc 3 3 3 Pain Scale: 0-10 Numeric Is Patient Pain Free? Yes Yes Yes - Nurse 3 - General Ulcer D/C NN Start: 08/05/22 09:28 Freq: Status: Active Protocol: Activity Type Activity Date Activity User E-sign Co-sign Detail Recorded Client Recorded Date Recorded By Document 08/05/22 10:05 [facility] [id number] 08/05/22 10:06 [facility] Document 08/12/22 10:44 ND [id number] 08/12/22 10:44 [place] Document 08/19/22 10:27 [place] [id number] 08/19/22 10:29 [place] Document 08/26/22 10:38 [id number] 08/26/22 10:39 08/05/22 08/12/22 08/19/22 10:05 10:44 10:27 Wound Care Center Nurse 3 #4- L MED ANKLE -Ulcer Cleansing Rinsed/ Irrigated with Saline -Foul Odor after Cleansing No -Primary Dressing Applied Mepilex Border -Primary Dressing Covered/Secured with Dry Gauze & Roll Gauze, Secured with Tape -Mepilex Border 1 Left -Lotion applied to leg before No compression wrap -Tubular Bandage Single Layer Single Layer Single Layer -Size of Tubigrip Used Size D Size D Size D -Size D ($) 1 1 1 Pain Scale: 0-10 Numeric Is Patient Pain Free? Yes Yes Yes - Visit Discharge Discharge Condition Stable Stable Stable Ambulatory Status Ambulatory Ambulatory Ambulatory Transportation Private Auto Private Auto Private Auto Accompanied by Medication Reconcilliation completed & Yes Yes No provided to patient/care provider Clinical Summary of Care Provided Yes Yes Yes Notes: pt knows to keep wound, clean, dry and intact 08/26/22 10:38 Wound Care Center Nurse 3 #4- L MED ANKLE -Ulcer Cleansing Rinsed/ Irrigated with Saline -Foul Odor after Cleansing No -Primary Dressing Applied Mepilex Border -Primary Dressing Covered/Secured with -Mepilex Border 1 Left -Lotion applied to leg before compression wrap -Tubular Bandage -Size of Tubigrip Used -Size D ($) Pain Scale: 0-10 Numeric Is Patient Pain Free? 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 Epifix was applied in sterile fashion, moistened with hydrogel, covered with adaptic, secured with steri-strips, covered with dry dressing. 100% of Epifix product was used. Patient was instructed to leave the Epifix securely in place until next week, keep clean and dry. Continue with current compression. No signs/symptoms of active infection. Pain around the wound continues to improve. Patient will follow up in the wound center in 1 week or sooner as needed should symptoms worsen.
== END 2022-08-30 23:59 | disposition home or self-care (01) ==
LOC: WC 10:00
PROVIDERS: PCP Internal Medicine; Referring Provider Physician Assistant; Visit Provider Physician Assistant
DX: L97.329 Non-pressure chronic ulcer of left ankle with unspecified severity (principal); I82.409 Acute embolism and thrombosis of unspecified deep veins of unspecified lower extremity; D68.4 Acquired coagulation factor deficiency; I87.2 Venous insufficiency (chronic) (peripheral); B37.9 Candidiasis, unspecified; Z86.718 Personal history of other venous thrombosis and embolism
CPT/HCPCS: 15271; Q4186

== ENCOUNTER 2022-09-30 08:30 | Outpatient (RCR) | payer MEDICARE, OTHER, SELFPAY ==
[2022-08-31 00:26] VITALS: BP 138/77; PULSE 76; RESP 18; TEMP 36.2; BMI 26.2
[2022-09-02 10:16] VITALS: BP 130/72; PULSE 81; TEMP 36.2; BMI 26.2
--- NOTE | 2022-09-02 19:17 | PCM.WC.PN ---
History of Present Illness Date of Service: 09/02/22 Chief Complaint: Left ankle ulcer History of Wound: Patient is a pleasant 76 y/o female who presents to the [facility] today for evaluation and treatment of a recurrent left medial ankle ulcer. She reports that this is at least the 10th time she has had this ulcer recur, she is well known to the [facility] though last here in 2019. She has a medical history significant for clotting disorder (Prothrombin thrombophilia), history of DVTs, and venous insufficiency. She does not smoke. She is not diabetic. She has been on Xarelto for years. She reports since starting the Xarelto she has had no further DVTs to her knowledge. She reports all her DVTs have been in the LLE. She reports she was evaluated by vascular surgeon in the past for ablation but was told she was not a candidate due to her hypercoagulable state. Her current wound has been ongoing since late June. She was seen by her PCP for the wound and was empirically started on doxycycline x 10 days. She reports she took about 4 days and then developed a blistering rash around the wound and a yeast infection and thus stopped the doxycycline. She was also applying aquaphor to the wound and covering with occlusive dressing. Since the wound started she has been wearing tubigrips she ordered online, but was not previously wearing compression. Subjective Subjective She is doing well, keeping the dressing dry and intact. Pain continues to improve. No erythema, swelling, foul odor, F/C, N/V. No other complaints. Objective Data Objective Data Vital Signs: Vital Signs Temp Pulse Resp BP 97.2 F L 81 18 130/72 H 09/02/22 10:16 09/02/22 10:16 08/31/22 00:26 09/02/22 10:16 Weight: 143 lb Body Mass Index (BMI) 26.2 Charges/Coding Wound Center CF Procedures [id number]: 22317 RMVL DEVITAL TIS 20 CM/< Multi Select Codes Wound Center CF Procedures [id number]: [id number] RMVL DEVITAL TIS 20 CM/< Physical Exam Const alert, oriented x3, no apparent distress and healthy appearing General Appearance: cooperative, comfortable and well kempt Exam Limitations: no limitations HEENT normocephalic, head/scalp atraumatic, hearing grossly normal bilaterally, external ears normal and external nose normal Eyes EOMs intact bilaterally General Eye: normal appearance of both eyes Neck full ROM General: normal visual inspection and trachea midline; Negative for anterior neck swelling Resp normal respiratory effort, normal air movement, no retractions and no use of accessory muscles Effort and Inspection: able to speak in complete sentences and symmetric chest movement; Negative for labored, stridor, uses accessory muscles or audible wheezes Cardio regular rate, regular rhythm and peripheral pulses 2+ throughout Bruits: Negative for carotid bruit Extremity Extremity Narrative: Bilateral lower extremity edema. Multiple varicosities and reticular veins noted bilaterally. Skin Wounds: wounds noted Wound Narrative: Venous ulcer noted to left medial ankle. No foul odor, fluctuance, induration. No ines-wound erythema. Neuro oriented x3, CN's II-XII intact bilaterally, moves all extremities, no focal motor deficits, no sensory deficits noted and gait normal Speech: speech normal Psych mental status grossly normal, thought process normal, affect normal, speech normal and activity/motor behavior normal Insight: insight good Judgement: judgement good Debridement Note Debridement Note Wound debrided: Left medial ankle ulcer Laterality: Left Type of Debridement: Excisional debridement Anesthesia Used: 5% Lidocaine Gel and Cetacaine Depth: Down to and including healthy tissue and in the subcutaneous layer Percentage of wound debrided: 100 Instrument Used: 3mm curette Tissue Removed: slough, devitalized tissue Amount of bleeding with debridement: Mild Bleeding Controlled with: Pressure Patient tolerated procedure: Patient tolerated procedure well Post-Debridement Measurements and Additional Note: Post-Debridement Measurements/Treatment - Nurse 1 - General Ulcer Assessment Start: 09/02/22 10:16 Freq: Status: Active Protocol: PEMA Activity Type Activity Date Activity User E-sign Co-sign Detail Recorded Client Recorded Date Recorded By Document 09/02/22 10:16 PR [id number] 09/02/22 10:18 TALA 09/02/22 10:16 - Today's Visit Information Type of service Follow-up Visit (Physician/QUARTER DOPER ) Arrival Mode Ambulatory Patient Identification Verified (Name & Yes ) Patient Requires Transmission-Based No Precautions Safety Precautions NA Height and Weight Body Mass Index (BMI) 26.2 BMI Classification Overweight Vital Signs Temperature (97.8 F-99.1 F) 97.2 F L Temperature Source Temporal Pulse Rate (60-100) 81 Pulse Location Monitor Blood Pressure (90/60-120/80) 130/72 H Blood Pressure Mean (mm Hg) 91 Source Monitor History Since Last Visit- (Skip if this is Patient's initial visit) Have you changed medications since your No last visit? Any new allergies or adverse reactions No Had a fall/change in ADL's that may No increase risk of falls Signs or symptoms of abuse and/or No neglect since last visit Have you been in the hospital since your No last visit? Has dressing in place as prescribed Yes Has compression in place as prescribed N/A Has offloadiing in place as prescribed N/A Experienced any changes in pain level or No management Left Footwear Regular Shoe Right Footwear Regular Shoe Pain Scale: 0-10 Numeric Is Patient Pain Free? Yes MELIDA - Nurse 1 - General Ulcer Measurement Start: 09/02/22 10:16 Freq: Status: Active Protocol: Activity Type Activity Date Activity User E-sign Co-sign Detail Recorded Client Recorded Date Recorded By Document 09/02/22 10:16 PR [id number] 09/02/22 10:18 TALA 09/02/22 10:16 Wound Center Nurse 1 #4- L MED ANKLE -Combined with other wound No -Current Size (cm) - Length 0.4 -Current Size (cm) - Width 0.4 -Current Size (cm) - Depth 0.1 -Total Square Cm 0.16 -Date of Last Picture (Recall this 09/02/22 field) -Photo Taken Yes -Tunneling No -Undermining/Tunneling No -Circular Undermining No -Change in Wound Grade/Stage No -Exudate Amt Small -Exudate Type Serosanguineous -Wound Margin Distinct, Outline Attached -Granulation Amt None Present (0 %) -Granulation Quality N/A,[employer] -Slough/Fibrin Yes -Necrosis Amt Medium (34-66%) -Necrotic Tissue Type Adherent Slough -Structure Exposed N/A -Texture (Ines-wound Skin Appearance) Assessed -Moisture (Ines-wound Skin Appearance) No Abnormality, Assessed -Color (Ines-wound Skin Appearance) No Abnormality -Temperature (Ines-wound Skin No Abnormality Appearance) (Pt Warm) -Tenderness on Palpation (Ines-wound No Skin Appearance) -Ulcer Cleansing Rinsed/ Irrigated with Saline -Foul Odor after Cleansing No -Anesthetic Used 5% Lidocaine Gel MELIDA - Nurse 2 - General Ulcer CM Notes Start: 09/02/22 10:16 Freq: Status: Active Protocol: Activity Type Activity Date Activity User E-sign Co-sign Detail Recorded Client Recorded Date Recorded By Document 09/02/22 12:38 PL [id number] 09/02/22 12:39 PL 09/02/22 12:38 Wound Center Nurse 2 -Time 10:44 -Correct Patient Yes -Correct Side, Site, Position Yes -Correct Procedure Yes -Procedure Performed Yes -Type of Procedure Debridement -Clinical Debridement Subcutaneous -Tissue Removed Subcutaneous -Post Debridement (cm) - Length 0.6 -Post Debridement (cm) - Width 0.5 -Post Debridement (cm) - Depth 0.1 -Total Square (Post) (cm) 0.30 -Area of Debridement (cm) - Length 0.6 -Area of Debridement (cm) - Width 0.5 -Total Square (Area) (cm) 0.30 -Tunneling No -Undermining/Tunneling No -Circular Undermining No -Wound/Ulcer Outcome Not Healed -Ulcer Cleansing Rinsed/ Irrigated with Saline -Foul Odor after Cleansing No -Bioengineered Tissue Yes -Type of Bioengineered Tissue Epifix 18mm Disc -Expiration Date 06/02/27 -Product Lot Number [id number] -Percent Used 100 -Bleeding Controlled with Pressure -Treatment Response Procedure Tolerated Well -Debridement - Subq, 1st 20sq cm No -Apply Skin Sub - 1st 25 sq cm - Legs 1 -Epifix 18mm Disc 3 Pain Scale: 0-10 Numeric Is Patient Pain Free? Yes - Nurse 3 - General Ulcer D/C NN Start: 09/02/22 10:16 Freq: Status: Active Protocol: Activity Type Activity Date Activity User E-sign Co-sign Detail Recorded Client Recorded Date Recorded By Document 09/02/22 11:35 MT [id number] 09/02/22 11:40 MT 09/02/22 11:35 Wound Care Center Nurse 3 #4- L MED ANKLE -Primary Dressing Applied Mepilex Border -Mepilex Border 1 Pain Scale: 0-10 Numeric Is Patient Pain Free? Yes WC - Visit Discharge Discharge Condition Stable Ambulatory Status Ambulatory Transportation Private Auto Medication Reconcilliation completed & No provided to patient/care provider Clinical Summary of Care Provided Yes Notes: pt refused tubigrips. 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 Will continue with Epifix, application #5. Wound was debrided and wound bed with good bleeding prior to application. Epifix was applied in sterile fashion, moistened with hydrogel, covered with adaptic, secured with steri-strips, covered with dry dressing. 100% of Epifix product was used. Patient was instructed to leave the Epifix securely in place until next week, keep clean and dry. Continue with current compression. No signs/symptoms of active infection. Pain around the wound continues to improve. Continue to encourage increased protein in diet, elevate legs when resting. Patient will follow up in the wound center in 1 week or sooner as needed should symptoms worsen.
[2022-09-09 10:47] VITALS: BP 141/64; PULSE 84; TEMP 36.2; BMI 26.2
--- NOTE | 2022-09-09 15:45 | PN.PCM_ITS ---
History of Present Illness Date of Service: 09/09/22 Chief Complaint: Left ankle ulcer History of Wound: Patient is a pleasant 76 y/o female who presents to the [facility] today for evaluation and treatment of a recurrent left medial ankle ulcer. She reports that this is at least the 10th time she has had this ulcer recur, she is well known to the [facility] though last here in 2019. She has a medical history significant for clotting disorder (Prothrombin thrombophilia), history of DVTs, and venous insufficiency. She does not smoke. She is not diabetic. She has been on Xarelto for years. She reports since starting the Xarelto she has had no further DVTs to her knowledge. She reports all her DVTs have been in the LLE. She reports she was evaluated by vascular surgeon in the past for ablation but was told she was not a candidate due to her hypercoagulable state. Her current wound has been ongoing since late June. She was seen by her PCP for the wound and was empirically started on doxycycline x 10 days. She reports she took about 4 days and then developed a blistering rash around the wound and a yeast infection and thus stopped the doxycycline. She was also applying aquaphor to the wound and covering with occlusive dressing. Since the wound started she has been wearing tubigrips she ordered online, but was not previously wearing compression. Subjective Subjective She is doing well, keeping the dressing dry and intact. Pain continues to improve. No erythema, swelling, foul odor, F/C, N/V. No other complaints. She has been wearing her own compression stockings of unknown strength rather than tubigrips. Has not been measured for new compression stockings as prescribed, some issue with insurance covering them. Objective Data Objective Data Vital Signs: Vital Signs Temp Pulse Resp BP 97.2 F L 84 18 141/64 H 09/09/22 10:47 09/09/22 10:47 08/31/22 00:26 09/09/22 10:47 Weight: 143 lb Body Mass Index (BMI) 26.2 Charges/Coding Wound Center CF Procedures [id number]: 36614 RMVL DEVITAL TIS 20 CM/< Multi Select Codes Wound Center CF Procedures [id number]: [id number] RMVL DEVITAL TIS 20 CM/< Physical Exam Const alert, oriented x3, no apparent distress and healthy appearing General Appearance: cooperative, comfortable and well kempt Exam Limitations: no limitations HEENT normocephalic, head/scalp atraumatic, hearing grossly normal bilaterally, external ears normal and external nose normal Eyes EOMs intact bilaterally General Eye: normal appearance of both eyes Neck full ROM General: normal visual inspection and trachea midline; Negative for anterior neck swelling Resp normal respiratory effort, normal air movement, no retractions and no use of accessory muscles Effort and Inspection: able to speak in complete sentences and symmetric chest movement; Negative for labored, stridor, uses accessory muscles or audible wheezes Cardio regular rate, regular rhythm and peripheral pulses 2+ throughout Bruits: Negative for carotid bruit Extremity Extremity Narrative: Bilateral lower extremity edema. Multiple varicosities and reticular veins noted bilaterally. Skin Wounds: wounds noted Wound Narrative: Venous ulcer noted to left medial ankle. No foul odor, fluctuance, induration. No cezar-wound erythema. Neuro oriented x3, CN's II-XII intact bilaterally, moves all extremities, no focal motor deficits, no sensory deficits noted and gait normal Speech: speech normal Psych mental status grossly normal, thought process normal, affect normal, speech normal and activity/motor behavior normal Insight: insight good Judgement: judgement good Debridement Note Debridement Note Wound debrided: Left medial ankle ulcer Laterality: Left Type of Debridement: Excisional debridement Anesthesia Used: 5% Lidocaine Gel and Cetacaine Depth: Down to and including healthy tissue and in the subcutaneous layer Percentage of wound debrided: 100 Instrument Used: 3mm curette Tissue Removed: slough, devitalized tissue Amount of bleeding with debridement: Mild Bleeding Controlled with: Pressure Patient tolerated procedure: Patient tolerated procedure well Post-Debridement Measurements and Additional Note: Post-Debridement Measurements/Treatment - Nurse 1 - General Ulcer Assessment Start: 09/02/22 10:16 Freq: Status: Active Protocol: PEMA Activity Type Activity Date Activity User E-sign Co-sign Detail Recorded Client Recorded Date Recorded By Document 09/02/22 10:16 MS [id number] 09/02/22 10:18 AK Document 09/09/22 10:47 TALA [id number] 09/09/22 10:49 AK 09/02/22 09/09/22 10:16 10:47 - Today's Visit Information Type of service Follow-up Visit Follow-up Visit (Physician/BIODIESEL PRODUCT MANAGER (Physician/BIODIESEL PRODUCT MANAGER ) ) Arrival Mode Ambulatory Ambulatory Patient Identification Verified (Name & Yes Yes ) Patient Requires Transmission-Based No No Precautions Safety Precautions NA NA Height and Weight Body Mass Index (BMI) 26.2 26.2 BMI Classification Overweight Overweight Vital Signs Temperature (97.8 F-99.1 F) 97.2 F L 97.2 F L Temperature Source Temporal Temporal Pulse Rate (60-100) 81 84 Pulse Location Monitor Monitor Blood Pressure (90/60-120/80) 130/72 H 141/64 H Blood Pressure Mean (mm Hg) 91 89 Source Monitor Monitor History Since Last Visit- (Skip if this is Patient's initial visit) Have you changed medications since your No No last visit? Any new allergies or adverse reactions No No Had a fall/change in ADL's that may No No increase risk of falls Signs or symptoms of abuse and/or No No neglect since last visit Have you been in the hospital since your No No last visit? Has dressing in place as prescribed Yes Yes Has compression in place as prescribed N/A N/A Has offloadiing in place as prescribed N/A N/A Experienced any changes in pain level or No No management Left Footwear Regular Shoe Regular Shoe Right Footwear Regular Shoe Regular Shoe Pain Scale: 0-10 Numeric Is Patient Pain Free? Yes No WC - Nurse 1 - General Ulcer Measurement Start: 09/02/22 10:16 Freq: Status: Active Protocol: Activity Type Activity Date Activity User E-sign Co-sign Detail Recorded Client Recorded Date Recorded By Document 09/02/22 10:16 MS [id number] 09/02/22 10:18 AK Document 09/09/22 10:47 MS [id number] 09/09/22 10:49 AK 09/02/22 09/09/22 10:16 10:47 Wound Center Nurse 1 #4- L MED ANKLE -Combined with other wound No No -Current Size (cm) - Length 0.4 0.3 -Current Size (cm) - Width 0.4 0.4 -Current Size (cm) - Depth 0.1 0.1 -Total Square Cm 0.16 0.12 -Date of Last Picture (Recall this 09/02/22 09/09/22 field) -Photo Taken Yes Yes -Tunneling No No -Undermining/Tunneling No No -Circular Undermining No No -Change in Wound Grade/Stage No No -Exudate Amt Small Small -Exudate Type Serosanguineous Serosanguineous -Wound Margin Distinct, Distinct, Outline Outline Attached Attached -Granulation Amt None Present (0 Medium (34-66%) %) -Granulation Quality N/A,[place] -Slough/Fibrin Yes Yes -Necrosis Amt Medium (34-66%) Medium (34-66%) -Necrotic Tissue Type Adherent Slough Adherent Slough -Structure Exposed N/A N/A -Texture ([place]-wound Skin Appearance) Assessed No Abnormality, Assessed -Moisture ([place]-wound Skin Appearance) No Abnormality, No Abnormality, Assessed Assessed -Color ([place]-wound Skin Appearance) No Abnormality Assessed, Hemosiderin Staining -Temperature ([place]-wound Skin No Abnormality No Abnormality Appearance) (Pt Warm) (Pt Warm) -Tenderness on Palpation ([place]-wound No No Skin Appearance) -Ulcer Cleansing Rinsed/ Soap and Water Irrigated with Saline -Foul Odor after Cleansing No No -Anesthetic Used 5% Lidocaine 5% Lidocaine Gel Gel Lower Limb Edema Present No Left Calf (cm) 37 Left Ankle (cm) 22 WC - Nurse 2 - General Ulcer CM Notes Start: 09/02/22 10:16 Freq: Status: Active Protocol: Activity Type Activity Date Activity User E-sign Co-sign Detail Recorded Client Recorded Date Recorded By Document 09/02/22 12:38 PL [id number] 09/02/22 12:39 PL Document 09/09/22 12:30 PL [id number] 09/09/22 12:34 PL 09/02/22 09/09/22 12:38 12:30 Wound Center Nurse 2 #4- L MED ANKLE -Time 10:44 11:05 -Correct Patient Yes Yes -Correct Side, Site, Position Yes Yes -Correct Procedure Yes Yes -Procedure Performed Yes Yes -Type of Procedure Debridement Debridement -Clinical Debridement Subcutaneous Subcutaneous -Tissue Removed Subcutaneous Subcutaneous -Post Debridement (cm) - Length 0.6 0.5 -Post Debridement (cm) - Width 0.5 0.5 -Post Debridement (cm) - Depth 0.1 0.1 -Total Square (Post) (cm) 0.30 0.25 -Area of Debridement (cm) - Length 0.6 0.5 -Area of Debridement (cm) - Width 0.5 0.5 -Total Square (Area) (cm) 0.30 0.25 -Tunneling No No -Undermining/Tunneling No No -Circular Undermining No No -Wound/Ulcer Outcome Not Healed Not Healed -Ulcer Cleansing Rinsed/ Rinsed/ Irrigated with Irrigated with Saline Saline -Foul Odor after Cleansing No No -Bioengineered Tissue Yes Yes -Type of Bioengineered Tissue Epifix 18mm Epifix 18mm Disc Disc -Expiration Date 06/02/27 06/02/23 -Product Lot Number [id number] -Percent Used 100 100 -Bleeding Controlled with Pressure Pressure -Treatment Response Procedure Procedure Tolerated Well Tolerated Well -Debridement - Subq, 1st 20sq cm No No -Apply Skin Sub - 1st 25 sq cm - Legs 1 1 -Epifix 18mm Disc 3 3 Pain Scale: 0-10 Numeric Is Patient Pain Free? Yes Yes - Nurse 3 - General Ulcer D/C NN Start: 09/02/22 10:16 Freq: Status: Active Protocol: Activity Type Activity Date Activity User E-sign Co-sign Detail Recorded Client Recorded Date Recorded By Document 09/02/22 11:35 MT [id number] 09/02/22 11:40 MT Document 09/09/22 11:27 AK [id number] 09/09/22 11:28 AK 09/02/22 09/09/22 11:35 11:27 Wound Care Center Nurse 3 #4- L MED ANKLE -Foul Odor after Cleansing No -Negative Pressure Wound Therapy N/A -Primary Dressing Applied Mepilex Border Mepilex Border -Mepilex Border 1 1 Left -Tubular Bandage Double Layer -Size of Tubigrip Used Size D -Size D ($) 2 Pain Scale: 0-10 Numeric Is Patient Pain Free? Yes No - Visit Discharge Discharge Condition Stable Stable Ambulatory Status Ambulatory Ambulatory Transportation Private Auto Private Auto Medication Reconcilliation completed & No Yes provided to patient/care provider Clinical Summary of Care Provided Yes Yes Notes: pt refused tubigrips. 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 Will continue with Epifix, application #6. Wound progress appears slightly stalled, I think we need to ensure adequate compression. Instructed patient to wear tubigrips instead of her own compression stockings. Will do double tubigrips as tolerated. Wound was debrided and wound bed with good bleeding prior to application. Epifix was applied in sterile fashion, moistened with hydrogel, covered with adaptic, secured with steri-strips, covered with dry dressing. 100% of Epifix product was used. Patient was instructed to leave the Epifix securely in place until next week, keep clean and dry. No signs/symptoms of active infection. Pain around the wound continues to improve. Continue to encourage increased protein in diet, elevate legs when resting. Patient will follow up in the wound center in 1 week or sooner as needed should symptoms worsen.
[2022-09-16 10:28] VITALS: BP 146/70; PULSE 73; RESP 16; TEMP 36.1; BMI 26.2
--- NOTE | 2022-09-16 11:40 | PN.PCM_ITS ---
History of Present Illness Date of Service: 09/16/22 Chief Complaint: Left ankle ulcer History of Wound: Patient is a pleasant 76 y/o female who presents to the [facility] today for evaluation and treatment of a recurrent left medial ankle ulcer. She reports that this is at least the 10th time she has had this ulcer recur, she is well known to the [facility] though last here in 2019. She has a medical history significant for clotting disorder (Prothrombin thrombophilia), history of DVTs, and venous insufficiency. She does not smoke. She is not diabetic. She has been on Xarelto for years. She reports since starting the Xarelto she has had no further DVTs to her knowledge. She reports all her DVTs have been in the LLE. She reports she was evaluated by vascular surgeon in the past for ablation but was told she was not a candidate due to her hypercoagulable state. Her current wound has been ongoing since late June. She was seen by her PCP for the wound and was empirically started on doxycycline x 10 days. She reports she took about 4 days and then developed a blistering rash around the wound and a yeast infection and thus stopped the doxycycline. She was also applying aquaphor to the wound and covering with occlusive dressing. Since the wound started she has been wearing tubigrips she ordered online, but was not previously wearing compression. Subjective Subjective She is doing well, keeping the dressing dry and intact. She has been wearing the double tubigrips as directed. Pain continues to improve. No erythema, swelling, foul odor, F/C, N/V. No other complaints. Objective Data Objective Data Vital Signs: Vital Signs Temp Pulse Resp BP O2 Del Method 97 F L 73 16 146/70 H Room Air 09/16/22 10:28 09/16/22 10:28 09/16/22 10:28 09/16/22 10:28 09/16/22 10:28 Oxygen Delivery Method Room Air Weight: 143 lb Body Mass Index (BMI) 26.2 Charges/Coding Wound Center CF Procedures [id number]: [id number] RMVL DEVITAL TIS 20 CM/< Multi Select Codes Wound Center CF Procedures [id number]: [id number] RMVL DEVITAL TIS 20 CM/< Physical Exam Const alert, oriented x3, no apparent distress and healthy appearing General Appearance: cooperative, comfortable and well kempt Exam Limitations: no limitations HEENT normocephalic, head/scalp atraumatic, hearing grossly normal bilaterally, external ears normal and external nose normal Eyes EOMs intact bilaterally General Eye: normal appearance of both eyes Neck full ROM General: normal visual inspection and trachea midline; Negative for anterior neck swelling Resp normal respiratory effort, normal air movement, no retractions and no use of accessory muscles Effort and Inspection: able to speak in complete sentences and symmetric chest movement; Negative for labored, stridor, uses accessory muscles or audible wheezes Cardio regular rate, regular rhythm and peripheral pulses 2+ throughout Bruits: Negative for carotid bruit Extremity Extremity Narrative: Bilateral lower extremity edema. Multiple varicosities and reticular veins noted bilaterally. Skin Wounds: wounds noted Wound Narrative: Venous ulcer noted to left medial ankle. No foul odor, fluctuance, induration. No cezar-wound erythema. Neuro oriented x3, CN's II-XII intact bilaterally, moves all extremities, no focal motor deficits, no sensory deficits noted and gait normal Speech: speech normal Psych mental status grossly normal, thought process normal, affect normal, speech normal and activity/motor behavior normal Insight: insight good Judgement: judgement good Debridement Note Debridement Note Wound debrided: Left medial ankle ulcer Laterality: Left Type of Debridement: Excisional debridement Anesthesia Used: 5% Lidocaine Gel and Cetacaine Depth: Down to and including healthy tissue and in the subcutaneous layer Percentage of wound debrided: 100 Instrument Used: 3mm curette Tissue Removed: slough, devitalized tissue Amount of bleeding with debridement: Mild Bleeding Controlled with: Pressure Patient tolerated procedure: Patient tolerated procedure well Post-Debridement Measurements and Additional Note: Post-Debridement Measurements/Treatment - Nurse 1 - General Ulcer Assessment Start: 09/02/22 10:16 Freq: Status: Active Protocol: PEMA Activity Type Activity Date Activity User E-sign Co-sign Detail Recorded Client Recorded Date Recorded By Document 09/02/22 10:16 CO [id number] 09/02/22 10:18 AK Document 09/09/22 10:47 CO [id number] 09/09/22 10:49 AK Document 09/16/22 10:28 [facility] [id number] 09/16/22 10:33 BMF 09/02/22 09/09/22 09/16/22 10:16 10:47 10:28 - Today's Visit Information Type of service Follow-up Visit Follow-up Visit Follow-up Visit (Physician/[facility] (Physician/[facility] (Physician/[facility] DR[facility] ) ) ) Arrival Mode Ambulatory Ambulatory Ambulatory Transfer Assistance None Patient Identification Verified (Name & Yes Yes Yes ) Patient Requires Transmission-Based No No No Precautions Safety Precautions NA NA Height and Weight Body Mass Index (BMI) 26.2 26.2 26.2 BMI Classification Overweight Overweight Overweight Vital Signs Temperature (97.8 F-99.1 F) 97.2 F L 97.2 F L 97 F L Temperature Source Temporal Temporal Temporal Pulse Rate (60-100) 81 84 73 Pulse Location Monitor Monitor Monitor Respiratory Rate (12-18) 16 Respiratory rate source Observation Oxygen Delivery Method Room Air Blood Pressure (90/60-120/80) 130/72 H 141/64 H 146/70 H Blood Pressure Mean (mm Hg) 91 89 95 Source Monitor Monitor Monitor Position Sitting Blood Pressure Location Right Arm History Since Last Visit- (Skip if this is Patient's initial visit) Have you changed medications since your No No No last visit? Any new allergies or adverse reactions No No No Had a fall/change in ADL's that may No No No increase risk of falls Signs or symptoms of abuse and/or No No No neglect since last visit Have you been in the hospital since your No No No last visit? Has dressing in place as prescribed Yes Yes Yes Has compression in place as prescribed N/A N/A Yes Has offloadiing in place as prescribed N/A N/A N/A Experienced any changes in pain level or No No No management Left Footwear Regular Shoe Regular Shoe Regular Shoe Right Footwear Regular Shoe Regular Shoe Regular Shoe Pain Scale: 0-10 Numeric Is Patient Pain Free? Yes No Yes - Nurse 1 - General Ulcer Measurement Start: 09/02/22 10:16 Freq: Status: Active Protocol: Activity Type Activity Date Activity User E-sign Co-sign Detail Recorded Client Recorded Date Recorded By Document 09/02/22 10:16 CO [id number] 09/02/22 10:18 AK Document 09/09/22 10:47 AK [id number] 09/09/22 10:49 AK Document 09/16/22 10:28 [facility] [id number] 09/16/22 10:33 BMF Edit Result 09/16/22 10:28 BMF (1) [id number] 09/16/22 10:34 BMF (1) Left Calf (cm) => 38 Left Ankle (cm) => 23 09/02/22 09/09/22 09/16/22 10:16 10:47 10:28 Wound Center Nurse 1 #4- L MED ANKLE -Combined with other wound No No No -Current Size (cm) - Length 0.4 0.3 0.8 -Current Size (cm) - Width 0.4 0.4 0.5 -Current Size (cm) - Depth 0.1 0.1 0.1 -Total Square Cm 0.16 0.12 0.40 -Date of Last Picture (Recall this 09/02/22 09/09/22 09/16/22 field) -Photo Taken Yes Yes Yes -Epithelialization None Present -Tunneling No No No -Undermining/Tunneling No No No -Circular Undermining No No No -Change in Wound Grade/Stage No No -Exudate Amt Small Small Small -Exudate Type Serosanguineous Serosanguineous Serosanguineous -Wound Margin Distinct, Distinct, Distinct, Outline Outline Outline Attached Attached Attached -Granulation Amt None Present (0 Medium (34-66%) Large (67-100%) %) -Granulation Quality N/A,Heber-Overgaard Heber-Overgaard Red -Slough/Fibrin Yes Yes Yes -Necrosis Amt Medium (34-66%) Medium (34-66%) Small (1-33%) -Necrotic Tissue Type Adherent Slough Adherent Slough Adherent Slough -Structure Exposed N/A N/A -Texture (Cezar-wound Skin Appearance) Assessed No Abnormality, Assessed, Assessed Scarring -Moisture (Cezar-wound Skin Appearance) No Abnormality, No Abnormality, Assessed,Dry/ Assessed Assessed Scaly -Color (Cezar-wound Skin Appearance) No Abnormality Assessed, Assessed, Hemosiderin Hemosiderin Staining Staining -Temperature (Cezar-wound Skin No Abnormality No Abnormality No Abnormality Appearance) (Pt Warm) (Pt Warm) (Pt Warm) -Tenderness on Palpation (Cezar-wound No No No Skin Appearance) -Ulcer Cleansing Rinsed/ Soap and Water Soap and Water Irrigated with Saline -Foul Odor after Cleansing No No No -Anesthetic Used 5% Lidocaine 5% Lidocaine 5% Lidocaine Gel Gel Gel Lower Limb Edema Present No Left Calf (cm) 37 38 Left Ankle (cm) 22 23 WC - Nurse 2 - General Ulcer CM Notes Start: 09/02/22 10:16 Freq: Status: Active Protocol: Activity Type Activity Date Activity User E-sign Co-sign Detail Recorded Client Recorded Date Recorded By Document 09/02/22 12:38 PL [id number] 09/02/22 12:39 PL Document 09/09/22 12:30 PL [id number] 09/09/22 12:34 PL 09/02/22 09/09/22 12:38 12:30 Wound Center Nurse 2 #4- L MED ANKLE -Time 10:44 11:05 -Correct Patient Yes Yes -Correct Side, Site, Position Yes Yes -Correct Procedure Yes Yes -Procedure Performed Yes Yes -Type of Procedure Debridement Debridement -Clinical Debridement Subcutaneous Subcutaneous -Tissue Removed Subcutaneous Subcutaneous -Post Debridement (cm) - Length 0.6 0.5 -Post Debridement (cm) - Width 0.5 0.5 -Post Debridement (cm) - Depth 0.1 0.1 -Total Square (Post) (cm) 0.30 0.25 -Area of Debridement (cm) - Length 0.6 0.5 -Area of Debridement (cm) - Width 0.5 0.5 -Total Square (Area) (cm) 0.30 0.25 -Tunneling No No -Undermining/Tunneling No No -Circular Undermining No No -Wound/Ulcer Outcome Not Healed Not Healed -Ulcer Cleansing Rinsed/ Rinsed/ Irrigated with Irrigated with Saline Saline -Foul Odor after Cleansing No No -Bioengineered Tissue Yes Yes -Type of Bioengineered Tissue Epifix 18mm Epifix 18mm Disc Disc -Expiration Date 06/02/27 06/02/23 -Product Lot Number [id number] -Percent Used 100 100 -Bleeding Controlled with Pressure Pressure -Treatment Response Procedure Procedure Tolerated Well Tolerated Well -Debridement - Subq, 1st 20sq cm No No -Apply Skin Sub - 1st 25 sq cm - Legs 1 1 -Epifix 18mm Disc 3 3 Pain Scale: 0-10 Numeric Is Patient Pain Free? Yes Yes - Nurse 3 - General Ulcer D/C NN Start: 09/02/22 10:16 Freq: Status: Active Protocol: Activity Type Activity Date Activity User E-sign Co-sign Detail Recorded Client Recorded Date Recorded By Document 09/02/22 11:35 CA [id number] 09/02/22 11:40 CA Document 09/09/22 11:27 AK [id number] 09/09/22 11:28 AK Document 09/16/22 11:09 CA [id number] 09/16/22 11:10 CA 09/02/22 09/09/22 09/16/22 11:35 11:27 11:09 Wound Care Center Nurse 3 #4- L MED ANKLE -Foul Odor after Cleansing No -Negative Pressure Wound Therapy N/A -Primary Dressing Applied Mepilex Border Mepilex Border Mepilex Border -Mepilex Border 1 1 1 Left -Tubular Bandage Double Layer Single Layer -Size of Tubigrip Used Size D Size D -Size D ($) 2 1 Pain Scale: 0-10 Numeric Is Patient Pain Free? Yes No Yes WC - Visit Discharge Discharge Condition Stable Stable Stable Ambulatory Status Ambulatory Ambulatory Ambulatory Transportation Private Auto Private Auto Private Auto Medication Reconcilliation completed & No Yes No provided to patient/care provider Clinical Summary of Care Provided Yes Yes Yes Notes: pt refused pt aware that tubigrips. pt she needs to wears own keep dressing, compression clean, dry and stocking intact. 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 Size overall stable from last week, quite small but not yet completely healed. Continued with Epifix, application #7. Wound was debrided and wound bed with good bleeding prior to application. Epifix was applied in sterile fashion, moistened with hydrogel, covered with adaptic, secured with steri-strips, covered with dry dressing. 100% of Epifix product was used. Patient was instructed to leave the Epifix securely in place until next week, keep clean and dry. No signs/symptoms of active infection. Pain around the wound continues to improve. Continue to encourage increased protein in diet, elevate legs when resting. Patient will follow up in the wound center in 1 week or sooner as needed should symptoms worsen.
[2022-09-23 10:39] VITALS: BP 148/69; PULSE 88; RESP 16; TEMP 35.7; BMI 26.2
--- NOTE | 2022-09-23 11:03 | PN.PCM_ITS ---
History of Present Illness Date of Service: 09/23/22 Chief Complaint: Left ankle ulcer History of Wound: Patient is a pleasant 76 y/o female who presents to the [facility] today for evaluation and treatment of a recurrent left medial ankle ulcer. She reports that this is at least the 10th time she has had this ulcer recur, she is well known to the [facility] though last here in 2019. She has a medical history significant for clotting disorder (Prothrombin thrombophilia), history of DVTs, and venous insufficiency. She does not smoke. She is not diabetic. She has been on Xarelto for years. She reports since starting the Xarelto she has had no further DVTs to her knowledge. She reports all her DVTs have been in the LLE. She reports she was evaluated by vascular surgeon in the past for ablation but was told she was not a candidate due to her hypercoagulable state. Her current wound has been ongoing since late June. She was seen by her PCP for the wound and was empirically started on doxycycline x 10 days. She reports she took about 4 days and then developed a blistering rash around the wound and a yeast infection and thus stopped the doxycycline. She was also applying aquaphor to the wound and covering with occlusive dressing. Since the wound started she has been wearing tubigrips she ordered online, but was not previously wearing compression. Subjective Subjective Continues to do well with the dressing. Did switch over to 20-30mmHg [place] compression socks this week instead of the 30-40mmHg tubigrips. Her pain is completely resolved. She denies drainage, erythema, swelling, fevers, chills, nausea, vomiting. Objective Data Objective Data Vital Signs: Vital Signs Temp Pulse Resp BP O2 Del Method 96.2 F L 88 16 148/69 H Room Air 09/23/22 10:39 09/23/22 10:39 09/23/22 10:39 09/23/22 10:39 09/16/22 10:28 Oxygen Delivery Method Room Air Weight: 143 lb Body Mass Index (BMI) 26.2 Charges/Coding Wound Center CF Procedures [id number]: [id number] RMVL DEVITAL TIS 20 CM/< Multi Select Codes Wound Center CF Procedures [id number]: [id number] RMVL DEVITAL TIS 20 CM/< Physical Exam Const alert, oriented x3, no apparent distress and healthy appearing General Appearance: cooperative, comfortable and well kempt Exam Limitations: no limitations HEENT normocephalic, head/scalp atraumatic, hearing grossly normal bilaterally, external ears normal and external nose normal Eyes EOMs intact bilaterally General Eye: normal appearance of both eyes Neck full ROM General: normal visual inspection and trachea midline; Negative for anterior neck swelling Resp normal respiratory effort, normal air movement, no retractions and no use of accessory muscles Effort and Inspection: able to speak in complete sentences and symmetric chest movement; Negative for labored, stridor, uses accessory muscles or audible wheezes Cardio regular rate, regular rhythm and peripheral pulses 2+ throughout Bruits: Negative for carotid bruit Extremity Extremity Narrative: Bilateral lower extremity edema. Multiple varicosities and reticular veins noted bilaterally. Skin Wounds: wounds noted Wound Narrative: Venous ulcer noted to left medial ankle. No foul odor, fluctuance, induration. No cezar-wound erythema. Neuro oriented x3, CN's II-XII intact bilaterally, moves all extremities, no focal motor deficits, no sensory deficits noted and gait normal Speech: speech normal Psych mental status grossly normal, thought process normal, affect normal, speech normal and activity/motor behavior normal Insight: insight good Judgement: judgement good Debridement Note Debridement Note Wound debrided: Left medial ankle ulcer Laterality: Left Type of Debridement: Excisional debridement Anesthesia Used: 5% Lidocaine Gel and Cetacaine Depth: Down to and including healthy tissue and in the subcutaneous layer Percentage of wound debrided: 100 Instrument Used: 3mm curette Tissue Removed: slough, devitalized tissue Amount of bleeding with debridement: Mild Bleeding Controlled with: Pressure Patient tolerated procedure: Patient tolerated procedure well Post-Debridement Measurements and Additional Note: Post-Debridement Measurements/Treatment - Nurse 1 - General Ulcer Assessment Start: 09/02/22 10:16 Freq: Status: Active Protocol: PEMA Activity Type Activity Date Activity User E-sign Co-sign Detail Recorded Client Recorded Date Recorded By Document 09/02/22 10:16 ID [id number] 09/02/22 10:18 AK Document 09/09/22 10:47 AK [id number] 09/09/22 10:49 AK Document 09/16/22 10:28 [facility] [id number] 09/16/22 10:33 BMF Document 09/23/22 10:39 [id number] 09/23/22 10:41 JF 09/02/22 09/09/22 09/16/22 10:16 10:47 10:28 - Today's Visit Information Type of service Follow-up Visit Follow-up Visit Follow-up Visit (Physician/BEHAVIORAL HEALTH TECHNICIAN (Physician/BEHAVIORAL HEALTH TECHNICIAN (Physician/BEHAVIORAL HEALTH TECHNICIAN ) ) ) Arrival Mode Ambulatory Ambulatory Ambulatory Transfer Assistance None Patient Identification Verified (Name & Yes Yes Yes ) Patient Requires Transmission-Based No No No Precautions Safety Precautions NA NA Height and Weight Body Mass Index (BMI) 26.2 26.2 26.2 BMI Classification Overweight Overweight Overweight Vital Signs Temperature (97.8 F-99.1 F) 97.2 F L 97.2 F L 97 F L Temperature Source Temporal Temporal Temporal Pulse Rate (60-100) 81 84 73 Pulse Location Monitor Monitor Monitor Respiratory Rate (12-18) 16 Respiratory rate source Observation Oxygen Delivery Method Room Air Blood Pressure (90/60-120/80) 130/72 H 141/64 H 146/70 H Blood Pressure Mean (mm Hg) 91 89 95 Source Monitor Monitor Monitor Position Sitting Blood Pressure Location Right Arm History Since Last Visit- (Skip if this is Patient's initial visit) Have you changed medications since your No No No last visit? Any new allergies or adverse reactions No No No Had a fall/change in ADL's that may No No No increase risk of falls Signs or symptoms of abuse and/or No No No neglect since last visit Have you been in the hospital since your No No No last visit? Has dressing in place as prescribed Yes Yes Yes Has compression in place as prescribed N/A N/A Yes Has offloadiing in place as prescribed N/A N/A N/A Experienced any changes in pain level or No No No management Left Footwear Regular Shoe Regular Shoe Regular Shoe Right Footwear Regular Shoe Regular Shoe Regular Shoe Pain Scale: 0-10 Numeric Is Patient Pain Free? Yes No Yes 09/23/22 10:39 - Today's Visit Information Type of service Follow-up Visit (Physician/BEHAVIORAL HEALTH TECHNICIAN ) Arrival Mode Ambulatory Transfer Assistance Patient Identification Verified (Name & Yes ) Patient Requires Transmission-Based No Precautions Safety Precautions Height and Weight Body Mass Index (BMI) 26.2 BMI Classification Overweight Vital Signs Temperature (97.8 F-99.1 F) 96.2 F L Temperature Source Temporal Pulse Rate (60-100) 88 Pulse Location Monitor Respiratory Rate (12-18) 16 Respiratory rate source Observation Oxygen Delivery Method Blood Pressure (90/60-120/80) 148/69 H Blood Pressure Mean (mm Hg) 95 Source Monitor Position Semi-Fowlers Blood Pressure Location Left Arm History Since Last Visit- (Skip if this is Patient's initial visit) Have you changed medications since your No last visit? Any new allergies or adverse reactions No Had a fall/change in ADL's that may No increase risk of falls Signs or symptoms of abuse and/or No neglect since last visit Have you been in the hospital since your No last visit? Has dressing in place as prescribed Yes Has compression in place as prescribed Yes Has offloadiing in place as prescribed N/A Experienced any changes in pain level or management Left Footwear Regular Shoe Right Footwear Regular Shoe Pain Scale: 0-10 Numeric Is Patient Pain Free? Yes WC - Nurse 1 - General Ulcer Measurement Start: 09/02/22 10:16 Freq: Status: Active Protocol: Activity Type Activity Date Activity User E-sign Co-sign Detail Recorded Client Recorded Date Recorded By Document 09/02/22 10:16 AK [id number] 09/02/22 10:18 AK Document 09/09/22 10:47 AK [id number] 09/09/22 10:49 AK Document 09/16/22 10:28 BMF [id number] 09/16/22 10:33 BMF Edit Result 09/16/22 10:28 BMF (1) [id number] 09/16/22 10:34 BMF Document 09/23/22 10:39 JF [id number] 09/23/22 10:41 JF (1) Left Calf (cm) => 38 Left Ankle (cm) => 23 09/02/22 09/09/22 09/16/22 10:16 10:47 10:28 Wound Center Nurse 1 #4- L MED ANKLE -Combined with other wound No No No -Current Size (cm) - Length 0.4 0.3 0.8 -Current Size (cm) - Width 0.4 0.4 0.5 -Current Size (cm) - Depth 0.1 0.1 0.1 -Total Square Cm 0.16 0.12 0.40 -Date of Last Picture (Recall this 09/02/22 09/09/22 09/16/22 field) -Photo Taken Yes Yes Yes -Epithelialization None Present -Tunneling No No No -Undermining/Tunneling No No No -Circular Undermining No No No -Change in Wound Grade/Stage No No -Exudate Amt Small Small Small -Exudate Type Serosanguineous Serosanguineous Serosanguineous -Wound Margin Distinct, Distinct, Distinct, Outline Outline Outline Attached Attached Attached -Granulation Amt None Present (0 Medium (34-66%) Large (67-100%) %) -Granulation Quality N/A,[place] Red -Slough/Fibrin Yes Yes Yes -Necrosis Amt Medium (34-66%) Medium (34-66%) Small (1-33%) -Necrotic Tissue Type Adherent Slough Adherent Slough Adherent Slough -Structure Exposed N/A N/A -Texture ([place]-wound Skin Appearance) Assessed No Abnormality, Assessed, Assessed Scarring -Moisture ([place]-wound Skin Appearance) No Abnormality, No Abnormality, Assessed,Dry/ Assessed Assessed Scaly -Color ([place]ar-wound Skin Appearance) No Abnormality Assessed, Assessed, Hemosiderin Hemosiderin Staining Staining -Temperature ([place]-wound Skin No Abnormality No Abnormality No Abnormality Appearance) (Pt Warm) (Pt Warm) (Pt Warm) -Tenderness on Palpation ([place]-wound No No No Skin Appearance) -Ulcer Cleansing Rinsed/ Soap and Water Soap and Water Irrigated with Saline -Foul Odor after Cleansing No No No -Anesthetic Used 5% Lidocaine 5% Lidocaine 5% Lidocaine Gel Gel Gel Lower Limb Edema Present No Left Calf (cm) 37 38 Left Ankle (cm) 22 09/23/22 10:39 Wound Center Nurse 1 #4- L MED ANKLE -Combined with other wound No -Current Size (cm) - Length 0.4 -Current Size (cm) - Width 0.5 -Current Size (cm) - Depth 0.2 -Total Square Cm 0.20 -Date of Last Picture (Recall this field) -Photo Taken Yes -Epithelialization Small 1-33% -Tunneling No -Undermining/Tunneling No -Circular Undermining No -Change in Wound Grade/Stage -Exudate Amt Small -Exudate Type Serosanguineous -Wound Margin Flat & Intact -Granulation Amt Medium (34-66%) -Granulation Quality Red -Slough/Fibrin Yes -Necrosis Amt Medium (34-66%) -Necrotic Tissue Type Adherent Slough -Structure Exposed N/A -Texture ([place]-wound Skin Appearance) Assessed, Localized Edema -Moisture ([place]-wound Skin Appearance) Assessed,Dry/ Scaly -Color ([place]-wound Skin Appearance) Assessed, Hemosiderin Staining -Temperature ([place]-wound Skin No Abnormality Appearance) (Pt Warm) -Tenderness on Palpation ([place]-wound No Skin Appearance) -Ulcer Cleansing Rinsed/ Irrigated with Saline -Foul Odor after Cleansing No -Anesthetic Used 5% Lidocaine Gel Lower Limb Edema Present Yes Left Calf (cm) 36.8 Left Ankle (cm) 22.0 WC - Nurse 2 - General Ulcer CM Notes Start: 09/02/22 10:16 Freq: Status: Active Protocol: Activity Type Activity Date Activity User E-sign Co-sign Detail Recorded Client Recorded Date Recorded By Document 09/02/22 12:38 PL [id number] 09/02/22 12:39 PL Document 09/09/22 12:30 PL [id number] 09/09/22 12:34 PL Document 09/16/22 12:24 PL [id number] 09/16/22 12:25 PL 09/02/22 09/09/22 09/16/22 12:38 12:30 12:24 Wound Center Nurse 2 #4- L MED ANKLE -Time 10:44 11:05 10:46 -Correct Patient Yes Yes Yes -Correct Side, Site, Position Yes Yes Yes -Correct Procedure Yes Yes Yes -Procedure Performed Yes Yes Yes -Type of Procedure Debridement Debridement Debridement -Clinical Debridement Subcutaneous Subcutaneous Subcutaneous -Tissue Removed Subcutaneous Subcutaneous Subcutaneous -Post Debridement (cm) - Length 0.6 0.5 0.5 -Post Debridement (cm) - Width 0.5 0.5 0.5 -Post Debridement (cm) - Depth 0.1 0.1 0.1 -Total Square (Post) (cm) 0.30 0.25 0.25 -Area of Debridement (cm) - Length 0.6 0.5 0.5 -Area of Debridement (cm) - Width 0.5 0.5 0.5 -Total Square (Area) (cm) 0.30 0.25 0.25 -Tunneling No No No -Undermining/Tunneling No No No -Circular Undermining No No No -Wound/Ulcer Outcome Not Healed Not Healed Not Healed -Ulcer Cleansing Rinsed/ Rinsed/ Rinsed/ Irrigated with Irrigated with Irrigated with Saline Saline Saline -Foul Odor after Cleansing No No No -Bioengineered Tissue Yes Yes Yes -Type of Bioengineered Tissue Epifix 18mm Epifix 18mm Epifix 18mm Disc Disc Disc -Expiration Date 06/02/27 06/02/23 07/03/27 -Product Lot Number [id number] -Percent Used 100 100 100 -Bleeding Controlled with Pressure Pressure Pressure -Treatment Response Procedure Procedure Procedure Tolerated Well Tolerated Well Tolerated Well -Debridement - Subq, 1st 20sq cm No No No -Apply Skin Sub - 1st 25 sq cm - Legs 1 1 1 -Epifix 18mm Disc 3 3 3 Pain Scale: 0-10 Numeric Is Patient Pain Free? Yes Yes Yes - Nurse 3 - General Ulcer D/C NN Start: 09/02/22 10:16 Freq: Status: Active Protocol: Activity Type Activity Date Activity User E-sign Co-sign Detail Recorded Client Recorded Date Recorded By Document 09/02/22 11:35 VT [id number] 09/02/22 11:40 VT Document 09/09/22 11:27 ID [id number] 09/09/22 11:28 ID Document 09/16/22 11:09 VT [id number] 09/16/22 11:10 VT 09/02/22 09/09/22 09/16/22 11:35 11:27 11:09 Wound Care Center Nurse 3 #4- L MED ANKLE -Foul Odor after Cleansing No -Negative Pressure Wound Therapy N/A -Primary Dressing Applied Mepilex Border Mepilex Border Mepilex Border -Mepilex Border 1 1 1 Left -Tubular Bandage Double Layer Single Layer -Size of Tubigrip Used Size D Size D -Size D ($) 2 1 Pain Scale: 0-10 Numeric Is Patient Pain Free? Yes No Yes - Visit Discharge Discharge Condition Stable Stable Stable Ambulatory Status Ambulatory Ambulatory Ambulatory Transportation Private Auto Private Auto Private Auto Medication Reconcilliation completed & No Yes No provided to patient/care provider Clinical Summary of Care Provided Yes Yes Yes Notes: pt refused pt aware that tubigrips. pt she needs to wears own keep dressing, compression clean, dry and stocking intact. 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 Size overall stable from last week, quite small but not yet completely healed. Continued with Epifix, application #8. Wound was debrided and wound bed with good bleeding prior to application. Epifix was applied in sterile fashion, moistened with hydrogel, covered with adaptic, secured with steri-strips, covered with dry dressing. 100% of Epifix product was used. Patient was instructed to leave the Epifix securely in place until next week, keep clean and dry. Discussed with patient the importance of adequate compression and asked that she wear the double tubgrips for 30-40mmHg compression until wound is healed and she is agreeable. After this, I feel it is reasonable to maintain with 20-30mmHg compression stockings. No signs/symptoms of active infection. Pain around the wound continues to improve. Continue to encourage increased protein in diet, elevate legs when resting. Patient will follow up in the wound center in 1 week or sooner as needed should symptoms worsen.
[2022-09-30 09:24] VITALS: RESP 16; TEMP 35.6; BMI 26.2
--- NOTE | 2022-09-30 11:39 | PCM.WC.PN ---
History of Present Illness Date of Service: 09/30/22 Chief Complaint: Left ankle ulcer History of Wound: Patient is a pleasant 76 y/o female who presents to the [facility] today for evaluation and treatment of a recurrent left medial ankle ulcer. She reports that this is at least the 10th time she has had this ulcer recur, she is well known to the [facility] though last here in 2019. She has a medical history significant for clotting disorder (Prothrombin thrombophilia), history of DVTs, and venous insufficiency. She does not smoke. She is not diabetic. She has been on Xarelto for years. She reports since starting the Xarelto she has had no further DVTs to her knowledge. She reports all her DVTs have been in the LLE. She reports she was evaluated by vascular surgeon in the past for ablation but was told she was not a candidate due to her hypercoagulable state. Her current wound has been ongoing since late June. She was seen by her PCP for the wound and was empirically started on doxycycline x 10 days. She reports she took about 4 days and then developed a blistering rash around the wound and a yeast infection and thus stopped the doxycycline. She was also applying aquaphor to the wound and covering with occlusive dressing. Since the wound started she has been wearing tubigrips she ordered online, but was not previously wearing compression. Subjective Subjective Continues to do well with the dressing. Has been wearing tubigrips as directed. Pain remains resolved. She denies drainage, erythema, swelling, fevers, chills, nausea, vomiting. Objective Data Objective Data Vital Signs: Vital Signs Temp Pulse Resp BP O2 Del Method 96.1 F L 88 16 148/69 H Room Air 09/30/22 09:24 09/23/22 10:39 09/30/22 09:24 09/23/22 10:39 09/30/22 09:24 Oxygen Delivery Method Room Air Weight: 143 lb Body Mass Index (BMI) 26.2 Charges/Coding Wound Center CF Procedures [id number]: [id number] RMVL DEVITAL TIS 20 CM/< Multi Select Codes Wound Center CF Procedures [id number]: [id number] RMVL DEVITAL TIS 20 CM/< Physical Exam Const alert, oriented x3, no apparent distress and healthy appearing General Appearance: cooperative, comfortable and well kempt Exam Limitations: no limitations HEENT normocephalic, head/scalp atraumatic, hearing grossly normal bilaterally, external ears normal and external nose normal Eyes EOMs intact bilaterally General Eye: normal appearance of both eyes Neck full ROM General: normal visual inspection and trachea midline; Negative for anterior neck swelling Resp normal respiratory effort, normal air movement, no retractions and no use of accessory muscles Effort and Inspection: able to speak in complete sentences and symmetric chest movement; Negative for labored, stridor, uses accessory muscles or audible wheezes Extremity Extremity Narrative: Bilateral lower extremity edema. Multiple varicosities and reticular veins noted bilaterally. Skin Wounds: wounds noted Wound Narrative: Venous ulcer noted to left medial ankle. No foul odor, fluctuance, induration. No cezar-wound erythema. Neuro oriented x3, CN's II-XII intact bilaterally, moves all extremities, no focal motor deficits, no sensory deficits noted and gait normal Speech: speech normal Psych mental status grossly normal, thought process normal, affect normal, speech normal and activity/motor behavior normal Insight: insight good Judgement: judgement good Debridement Note Debridement Note Wound debrided: Left medial ankle ulcer Laterality: Left Type of Debridement: Excisional debridement Anesthesia Used: 5% Lidocaine Gel and Cetacaine Depth: Down to and including healthy tissue and in the subcutaneous layer Percentage of wound debrided: 100 Instrument Used: 3mm curette Tissue Removed: slough, devitalized tissue Amount of bleeding with debridement: Mild Bleeding Controlled with: Pressure Patient tolerated procedure: Patient tolerated procedure well Post-Debridement Measurements and Additional Note: Post-Debridement Measurements/Treatment WC - Nurse 1 - General Ulcer Assessment Start: 09/02/22 10:16 Freq: Status: Active Protocol: PEMA Activity Type Activity Date Activity User E-sign Co-sign Detail Recorded Client Recorded Date Recorded By Document 09/02/22 10:16 AK [id number] 09/02/22 10:18 AK Document 09/09/22 10:47 AK [id number] 09/09/22 10:49 AK Document 09/16/22 10:28 [facility] [id number] 09/16/22 10:33 BM Document 09/23/22 10:39 [id number] 09/23/22 10:41 JF Document 09/30/22 09:24 [facility] [id number] 09/30/22 09:27 BMF 09/02/22 09/09/22 09/16/22 10:16 10:47 10:28 WC - Today's Visit Information Type of service Follow-up Visit Follow-up Visit Follow-up Visit (Physician/DROP WIRE STRINGER (Physician/DROP WIRE STRINGER (Physician/DROP WIRE STRINGER ) ) ) Arrival Mode Ambulatory Ambulatory Ambulatory Transfer Assistance None Patient Identification Verified (Name & Yes Yes Yes ) Patient Requires Transmission-Based No No No Precautions Safety Precautions NA NA Height and Weight Body Mass Index (BMI) 26.2 26.2 26.2 BMI Classification Overweight Overweight Overweight Vital Signs Temperature (97.8 F-99.1 F) 97.2 F L 97.2 F L 97 F L Temperature Source Temporal Temporal Temporal Pulse Rate (60-100) 81 84 73 Pulse Location Monitor Monitor Monitor Respiratory Rate (12-18) 16 Respiratory rate source Observation Oxygen Delivery Method Room Air Blood Pressure (90/60-120/80) 130/72 H 141/64 H 146/70 H Blood Pressure Mean (mm Hg) 91 89 95 Source Monitor Monitor Monitor Position Sitting Blood Pressure Location Right Arm History Since Last Visit- (Skip if this is Patient's initial visit) Have you changed medications since your No No No last visit? Any new allergies or adverse reactions No No No Had a fall/change in ADL's that may No No No increase risk of falls Signs or symptoms of abuse and/or No No No neglect since last visit Have you been in the hospital since your No No No last visit? Has dressing in place as prescribed Yes Yes Yes Has compression in place as prescribed N/A N/A Yes Has offloadiing in place as prescribed N/A N/A N/A Experienced any changes in pain level or No No No management Left Footwear Regular Shoe Regular Shoe Regular Shoe Right Footwear Regular Shoe Regular Shoe Regular Shoe Pain Scale: 0-10 Numeric Is Patient Pain Free? Yes No Yes 09/23/22 09/30/22 10:39 09:24 WC - Today's Visit Information Type of service Follow-up Visit Follow-up Visit (Physician/DROP WIRE STRINGER (Physician/DROP WIRE STRINGER ) ) Arrival Mode Ambulatory Ambulatory Transfer Assistance None Patient Identification Verified (Name & Yes Yes ) Patient Requires Transmission-Based No No Precautions Safety Precautions Height and Weight Body Mass Index (BMI) 26.2 26.2 BMI Classification Overweight Overweight Vital Signs Temperature (97.8 F-99.1 F) 96.2 F L 96.1 F L Temperature Source Temporal Temporal Pulse Rate (60-100) 88 Pulse Location Monitor Respiratory Rate (12-18) 16 16 Respiratory rate source Observation Observation Oxygen Delivery Method Room Air Blood Pressure (90/60-120/80) 148/69 H Blood Pressure Mean (mm Hg) 95 Source Monitor Position Semi-Fowlers Blood Pressure Location Left Arm History Since Last Visit- (Skip if this is Patient's initial visit) Have you changed medications since your No No last visit? Any new allergies or adverse reactions No No Had a fall/change in ADL's that may No No increase risk of falls Signs or symptoms of abuse and/or No No neglect since last visit Have you been in the hospital since your No No last visit? Has dressing in place as prescribed Yes Yes Has compression in place as prescribed Yes Yes Has offloadiing in place as prescribed N/A N/A Experienced any changes in pain level or No management Left Footwear Regular Shoe Regular Shoe Right Footwear Regular Shoe Regular Shoe Pain Scale: 0-10 Numeric Is Patient Pain Free? Yes Yes WC - Nurse 1 - General Ulcer Measurement Start: 09/02/22 10:16 Freq: Status: Active Protocol: Activity Type Activity Date Activity User E-sign Co-sign Detail Recorded Client Recorded Date Recorded By Document 09/02/22 10:16 AK [id number] 09/02/22 10:18 AK Document 09/09/22 10:47 AK [id number] 09/09/22 10:49 AK Document 09/16/22 10:28 BMF [id number] 09/16/22 10:33 BMF Edit Result 09/16/22 10:28 BMF (1) [id number] 09/16/22 10:34 BMF Document 09/23/22 10:39 [id number] 09/23/22 10:41 Document 09/30/22 09:24 BMF [id number] 09/30/22 09:27 BMF (1) Left Calf (cm) => 38 Left Ankle (cm) => 23 09/02/22 09/09/22 09/16/22 10:16 10:47 10:28 Wound Center Nurse 1 #4- L MED ANKLE -Combined with other wound No No No -Current Size (cm) - Length 0.4 0.3 0.8 -Current Size (cm) - Width 0.4 0.4 0.5 -Current Size (cm) - Depth 0.1 0.1 0.1 -Total Square Cm 0.16 0.12 0.40 -Date of Last Picture (Recall this 09/02/22 09/09/22 09/16/22 field) -Photo Taken Yes Yes Yes -Epithelialization None Present -Tunneling No No No -Undermining/Tunneling No No No -Circular Undermining No No No -Change in Wound Grade/Stage No No -Exudate Amt Small Small Small -Exudate Type Serosanguineous Serosanguineous Serosanguineous -Wound Margin Distinct, Distinct, Distinct, Outline Outline Outline Attached Attached Attached -Granulation Amt None Present (0 Medium (34-66%) Large (67-100%) %) -Granulation Quality N/A,[facility] Red -Slough/Fibrin Yes Yes Yes -Necrosis Amt Medium (34-66%) Medium (34-66%) Small (1-33%) -Necrotic Tissue Type Adherent Slough Adherent Slough Adherent Slough -Structure Exposed N/A N/A -Texture (Cezar-wound Skin Appearance) Assessed No Abnormality, Assessed, Assessed Scarring -Moisture (Cezar-wound Skin Appearance) No Abnormality, No Abnormality, Assessed,Dry/ Assessed Assessed Scaly -Color (Cezar-wound Skin Appearance) No Abnormality Assessed, Assessed, Hemosiderin Hemosiderin Staining Staining -Temperature (Cezar-wound Skin No Abnormality No Abnormality No Abnormality Appearance) (Pt Warm) (Pt Warm) (Pt Warm) -Tenderness on Palpation (Cezar-wound No No No Skin Appearance) -Ulcer Cleansing Rinsed/ Soap and Water Soap and Water Irrigated with Saline -Foul Odor after Cleansing No No No -Anesthetic Used 5% Lidocaine 5% Lidocaine 5% Lidocaine Gel Gel Gel Lower Limb Edema Present No Left Calf (cm) 37 38 Left Ankle (cm) 09/23/22 09/30/22 10:39 09:24 Wound Center Nurse 1 #4- L MED ANKLE -Combined with other wound No No -Current Size (cm) - Length 0.4 0.4 -Current Size (cm) - Width 0.5 0.3 -Current Size (cm) - Depth 0.2 0.2 -Total Square Cm 0.20 0.12 -Date of Last Picture (Recall this 09/30/22 field) -Photo Taken Yes Yes -Epithelialization Small 1-33% None Present -Tunneling No No -Undermining/Tunneling No No -Circular Undermining No No -Change in Wound Grade/Stage -Exudate Amt Small Small -Exudate Type Serosanguineous Serosanguineous -Wound Margin Flat & Intact Distinct, Outline Attached -Granulation Amt Medium (34-66%) Large (67-100%) -Granulation Quality Red Red -Slough/Fibrin Yes Yes -Necrosis Amt Medium (34-66%) Small (1-33%) -Necrotic Tissue Type Adherent Slough Adherent Slough -Structure Exposed N/A -Texture (Cezar-wound Skin Appearance) Assessed, Assessed, Localized Edema Scarring -Moisture (Cezar-wound Skin Appearance) Assessed,Dry/ Assessed Scaly -Color (Cezar-wound Skin Appearance) Assessed, Assessed Hemosiderin Staining -Temperature (Cezar-wound Skin No Abnormality No Abnormality Appearance) (Pt Warm) (Pt Warm) -Tenderness on Palpation (Cezar-wound No No Skin Appearance) -Ulcer Cleansing Rinsed/ Soap and Water Irrigated with Saline -Foul Odor after Cleansing No No -Anesthetic Used 5% Lidocaine 5% Lidocaine Gel Gel Lower Limb Edema Present Yes Left Calf (cm) 36.8 37.8 Left Ankle (cm) 22.0 22.8 WC - Nurse 2 - General Ulcer CM Notes Start: 09/02/22 10:16 Freq: Status: Active Protocol: Activity Type Activity Date Activity User E-sign Co-sign Detail Recorded Client Recorded Date Recorded By Document 09/02/22 12:38 PL [id number] 09/02/22 12:39 PL Document 09/09/22 12:30 PL [id number] 09/09/22 12:34 PL Document 09/16/22 12:24 PL [id number] 09/16/22 12:25 PL Document 09/23/22 12:14 PL [id number] 09/23/22 12:15 PL 09/02/22 09/09/22 09/16/22 12:38 12:30 12:24 Wound Center Nurse 2 #4- L MED ANKLE -Time 10:44 11:05 10:46 -Correct Patient Yes Yes Yes -Correct Side, Site, Position Yes Yes Yes -Correct Procedure Yes Yes Yes -Procedure Performed Yes Yes Yes -Type of Procedure Debridement Debridement Debridement -Clinical Debridement Subcutaneous Subcutaneous Subcutaneous -Tissue Removed Subcutaneous Subcutaneous Subcutaneous -Post Debridement (cm) - Length 0.6 0.5 0.5 -Post Debridement (cm) - Width 0.5 0.5 0.5 -Post Debridement (cm) - Depth 0.1 0.1 0.1 -Total Square (Post) (cm) 0.30 0.25 0.25 -Area of Debridement (cm) - Length 0.6 0.5 0.5 -Area of Debridement (cm) - Width 0.5 0.5 0.5 -Total Square (Area) (cm) 0.30 0.25 0.25 -Tunneling No No No -Undermining/Tunneling No No No -Circular Undermining No No No -Wound/Ulcer Outcome Not Healed Not Healed Not Healed -Ulcer Cleansing Rinsed/ Rinsed/ Rinsed/ Irrigated with Irrigated with Irrigated with Saline Saline Saline -Foul Odor after Cleansing No No No -Bioengineered Tissue Yes Yes Yes -Type of Bioengineered Tissue Epifix 18mm Epifix 18mm Epifix 18mm Disc Disc Disc -Expiration Date 06/02/27 06/02/23 07/03/27 -Product Lot Number [id number] -Percent Used 100 100 100 -Bleeding Controlled with Pressure Pressure Pressure -Treatment Response Procedure Procedure Procedure Tolerated Well Tolerated Well Tolerated Well -Debridement - Subq, 1st 20sq cm No No No -Apply Skin Sub - 1st 25 sq cm - Legs 1 1 1 -Epifix 18mm Disc 3 3 3 Pain Scale: 0-10 Numeric Is Patient Pain Free? Yes Yes Yes 09/23/22 12:14 Wound Center Nurse 2 #4- L MED ANKLE -Time 10:50 -Correct Patient Yes -Correct Side, Site, Position Yes -Correct Procedure Yes -Procedure Performed Yes -Type of Procedure Debridement -Clinical Debridement Subcutaneous -Tissue Removed Subcutaneous -Post Debridement (cm) - Length 0.4 -Post Debridement (cm) - Width 0.4 -Post Debridement (cm) - Depth 0.1 -Total Square (Post) (cm) 0.16 -Area of Debridement (cm) - Length 0.4 -Area of Debridement (cm) - Width 0.4 -Total Square (Area) (cm) 0.16 -Tunneling No -Undermining/Tunneling No -Circular Undermining No -Wound/Ulcer Outcome Not Healed -Ulcer Cleansing Rinsed/ Irrigated with Saline -Foul Odor after Cleansing No -Bioengineered Tissue Yes -Type of Bioengineered Tissue Epifix 18mm Disc -Expiration Date -Product Lot Number -Percent Used -Bleeding Controlled with Pressure -Treatment Response Procedure Tolerated Well -Debridement - Subq, 1st 20sq cm No -Apply Skin Sub - 1st 25 sq cm - Legs 1 -Epifix 18mm Disc 3 Pain Scale: 0-10 Numeric Is Patient Pain Free? Yes - Nurse 3 - General Ulcer D/C NN Start: 09/02/22 10:16 Freq: Status: Active Protocol: Activity Type Activity Date Activity User E-sign Co-sign Detail Recorded Client Recorded Date Recorded By Document 09/02/22 11:35 OR [id number] 09/02/22 11:40 MT Document 09/09/22 11:27 AK [id number] 09/09/22 11:28 AK Document 09/16/22 11:09 OR [id number] 09/16/22 11:10 MT Document 09/23/22 11:17 AK [id number] 09/23/22 11:17 AK Document 09/30/22 09:24 BM [id number] 09/30/22 09:27 [facility] 09/02/22 09/09/22 09/16/22 11:35 11:27 11:09 Wound Care Center Nurse 3 #4- L MED ANKLE -Ulcer Cleansing -Foul Odor after Cleansing No -Negative Pressure Wound Therapy N/A -Primary Dressing Applied Mepilex Border Mepilex Border Mepilex Border -Other Dressing -Mepilex Border 1 1 1 Left -Tubular Bandage Double Layer Single Layer -Size of Tubigrip Used Size D Size D -Size D ($) 2 1 -Other Treatment Response Vital Signs Temperature (97.8 F-99.1 F) Temperature Source Respiratory Rate (12-18) Respiratory rate source Oxygen Delivery Method Pain Scale: 0-10 Numeric Is Patient Pain Free? Yes No Yes - Visit Discharge Discharge Condition Stable Stable Stable Ambulatory Status Ambulatory Ambulatory Ambulatory Transportation [employer] Medication Reconcilliation completed & No Yes No provided to patient/care provider Clinical Summary of Care Provided Yes Yes Yes Notes: pt refused pt aware that tubigrips. pt she needs to wears own keep dressing, compression clean, dry and stocking intact. 09/23/22 09/30/22 11:17 09:24 Wound Care Center Nurse 3 #4- L MED ANKLE -Ulcer Cleansing Not Cleansed -Foul Odor after Cleansing No -Negative Pressure Wound Therapy N/A -Primary Dressing Applied -Other Dressing sample mepilex epifix; pt brought border drsg to apply -Mepilex Border Left -Tubular Bandage -Size of Tubigrip Used -Size D ($) -Other pts own compression stocking applied Treatment Response Procedure Tolerated Well Vital Signs Temperature (97.8 F-99.1 F) 96.1 F L Temperature Source Temporal Respiratory Rate (12-18) 16 Respiratory rate source Observation Oxygen Delivery Method Room Air Pain Scale: 0-10 Numeric Is Patient Pain Free? 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 Continued with Epifix, application #9. Wound was debrided and wound bed with good bleeding prior to application. Epifix was applied in sterile fashion, moistened with hydrogel, covered with adaptic, secured with steri-strips, covered with dry dressing. 100% of Epifix product was used. Patient was instructed to leave the Epifix securely in place until next week, keep clean and dry. Continue with double tubigrip compression. Elevate legs when resting. No signs/symptoms of active infection. Patient will follow up in the wound center in 1 week or sooner as needed should symptoms worsen.
== END 2022-09-30 23:59 | disposition home or self-care (01) ==
LOC: WC 08:30
PROVIDERS: PCP Internal Medicine; Referring Provider Physician Assistant; Visit Provider Physician Assistant
DX: I83.023 Varicose veins of left lower extremity with ulcer of ankle (principal); L97.329 Non-pressure chronic ulcer of left ankle with unspecified severity; D68.4 Acquired coagulation factor deficiency; Z86.718 Personal history of other venous thrombosis and embolism; Z79.01 Long term (current) use of anticoagulants
CPT/HCPCS: 15271; Q4186

== ENCOUNTER 2022-10-28 11:00 | Outpatient (RCR) | payer MEDICARE, OTHER, SELFPAY ==
[2022-10-01 01:47] VITALS: BP 148/69; PULSE 88; RESP 16; TEMP 35.6; BMI 26.2
[2022-10-07 10:14] VITALS: BP 133/78; PULSE 85; RESP 18; TEMP 36.2; BMI 26.2
--- NOTE | 2022-10-07 12:59 | PCM.WC.PN ---
History of Present Illness Date of Service: 10/07/22 Chief Complaint: Left ankle ulcer History of Wound: Patient is a pleasant 76 y/o female who presents to the [facility] today for evaluation and treatment of a recurrent left medial ankle ulcer. She reports that this is at least the 10th time she has had this ulcer recur, she is well known to the [facility] though last here in 2019. She has a medical history significant for clotting disorder (Prothrombin thrombophilia), history of DVTs, and venous insufficiency. She does not smoke. She is not diabetic. She has been on Xarelto for years. She reports since starting the Xarelto she has had no further DVTs to her knowledge. She reports all her DVTs have been in the LLE. She reports she was evaluated by vascular surgeon in the past for ablation but was told she was not a candidate due to her hypercoagulable state. Her current wound has been ongoing since late June. She was seen by her PCP for the wound and was empirically started on doxycycline x 10 days. She reports she took about 4 days and then developed a blistering rash around the wound and a yeast infection and thus stopped the doxycycline. She was also applying aquaphor to the wound and covering with occlusive dressing. Since the wound started she has been wearing tubigrips she ordered online, but was not previously wearing compression. Subjective Subjective Pain remains resolved. No issues with dressing. Noticing small amount of nonpurulent drainage. Denies signs/symptoms of infection, new or worsening pain. Objective Data Objective Data Vital Signs: Vital Signs Temp Pulse Resp BP 97.2 F L 85 18 133/78 H 10/07/22 10:14 10/07/22 10:14 10/07/22 10:14 10/07/22 10:14 Weight: 143 lb Body Mass Index (BMI) 26.2 Charges/Coding Multi Select Codes Integumentary Integumentary CPT Codes: 10257 Terri subq tissue 20 sq cm/< Physical Exam Const alert, oriented x3, no apparent distress and healthy appearing General Appearance: cooperative, comfortable and well kempt Exam Limitations: no limitations HEENT normocephalic, head/scalp atraumatic, hearing grossly normal bilaterally, external ears normal and external nose normal Eyes EOMs intact bilaterally General Eye: normal appearance of both eyes Neck full ROM General: normal visual inspection and trachea midline; Negative for anterior neck swelling Resp normal respiratory effort, normal air movement, no retractions and no use of accessory muscles Effort and Inspection: able to speak in complete sentences and symmetric chest movement; Negative for labored, stridor, uses accessory muscles or audible wheezes Extremity Extremity Narrative: Bilateral lower extremity edema. Multiple varicosities and reticular veins noted bilaterally. Skin Wounds: wounds noted Wound Narrative: Venous ulcer noted to left medial ankle. No foul odor, fluctuance, induration. No ines-wound erythema. Neuro oriented x3, CN's II-XII intact bilaterally, moves all extremities, no focal motor deficits, no sensory deficits noted and gait normal Speech: speech normal Psych mental status grossly normal, thought process normal, affect normal, speech normal and activity/motor behavior normal Insight: insight good Judgement: judgement good Debridement Note Debridement Note Wound debrided: Left medial ankle ulcer Laterality: Left Type of Debridement: Excisional debridement Anesthesia Used: 5% Lidocaine Gel and Cetacaine Depth: Down to and including healthy tissue and in the subcutaneous layer Percentage of wound debrided: 100 Instrument Used: 3mm curette Tissue Removed: slough, devitalized tissue Amount of bleeding with debridement: Mild Bleeding Controlled with: Pressure Patient tolerated procedure: Patient tolerated procedure well Post-Debridement Measurements and Additional Note: Post-Debridement Measurements/Treatment - Nurse 1 - General Ulcer Assessment Start: 10/07/22 10:14 Freq: Status: Active Protocol: PEMA Activity Type Activity Date Activity User E-sign Co-sign Detail Recorded Client Recorded Date Recorded By Document 10/07/22 10:14 MARJORIE [id number] 10/07/22 10:22 MARJORIE 10/07/22 10:14 - Today's Visit Information Type of service Follow-up Visit (Physician/MULTIP[employer] CREWMEMBER ) Arrival Mode Ambulatory Transfer Assistance None Patient Identification Verified (Name & Yes ) Patient Requires Transmission-Based No Precautions Safety Precautions NA Height and Weight Body Mass Index (BMI) 26.2 BMI Classification Overweight Vital Signs Temperature (97.8 F-99.1 F) 97.2 F L Temperature Source Temporal Pulse Rate (60-100) 85 Respiratory Rate (12-18) 18 Blood Pressure (90/60-120/80) 133/78 H Blood Pressure Mean (mm Hg) 96 History Since Last Visit- (Skip if this is Patient's initial visit) Have you changed medications since your No last visit? Any new allergies or adverse reactions No Had a fall/change in ADL's that may No increase risk of falls Signs or symptoms of abuse and/or No neglect since last visit Have you been in the hospital since your No last visit? Has dressing in place as prescribed Yes Has compression in place as prescribed Yes Has offloadiing in place as prescribed N/A Experienced any changes in pain level or No management Pain Scale: 0-10 Numeric Is Patient Pain Free? Yes WC - Nurse 1 - General Ulcer Measurement Start: 10/07/22 10:14 Freq: Status: Active Protocol: Activity Type Activity Date Activity User E-sign Co-sign Detail Recorded Client Recorded Date Recorded By Document 10/07/22 10:14 PL [id number] 10/07/22 10:22 PL 10/07/22 10:14 Wound Center Nurse 1 #4- L MED ANKLE -Combined with other wound No -Current Size (cm) - Length 0.3 -Current Size (cm) - Width 0.3 -Current Size (cm) - Depth 0.1 -Total Square Cm 0.09 -Photo Taken No -Epithelialization Medium 34-66% -Tunneling No -Undermining/Tunneling No -Circular Undermining No -Classification - Thickness Partial Thickness -Exudate Amt Small -Exudate Type Serosanguineous -Granulation Amt Medium (34-66%) -Granulation Quality [place] -Slough/Fibrin Yes -Necrosis Amt Medium (34-66%) -Necrotic Tissue Type Adherent Slough -Texture (Ines-wound Skin Appearance) No Abnormality -Moisture (Ines-wound Skin Appearance) No Abnormality -Color (Ines-wound Skin Appearance) No Abnormality -Temperature (Ines-wound Skin No Abnormality Appearance) (Pt Warm) -Ulcer Cleansing Rinsed/ Irrigated with Saline -Foul Odor after Cleansing No -Anesthetic Used 5% Lidocaine Gel WC - Nurse 2 - General Ulcer CM Notes Start: 10/07/22 10:14 Freq: Status: Active Protocol: Activity Type Activity Date Activity User E-sign Co-sign Detail Recorded Client Recorded Date Recorded By Document 10/07/22 11:17 PL [id number] 10/07/22 11:18 PL 10/07/22 11:17 Wound Center Nurse 2 -Time 10:25 -Correct Patient Yes -Correct Side, Site, Position Yes -Correct Procedure Yes -Procedure Performed Yes -Type of Procedure Debridement -Clinical Debridement Subcutaneous -Tissue Removed Subcutaneous -Post Debridement (cm) - Length 0.3 -Post Debridement (cm) - Width 0.3 -Post Debridement (cm) - Depth 0.1 -Total Square (Post) (cm) 0.09 -Area of Debridement (cm) - Length 0.3 -Area of Debridement (cm) - Width 0.3 -Total Square (Area) (cm) 0.09 -Tunneling No -Undermining/Tunneling No -Circular Undermining No -Wound/Ulcer Outcome Not Healed -Bleeding Controlled with Pressure -Treatment Response Procedure Tolerated Well -Debridement - Subq, 1st 20sq cm Yes Pain Scale: 0-10 Numeric Is Patient Pain Free? 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 Swelling seems to be well controlled. Epifix was not applied today. Apply slightly moistened promogran, cover with foam dressing. Change daily or more often as needed to keep dressing clean and dry. Continue with double tubigrip compression. Elevate legs when resting. Patient will follow up in the wound center in 2 weeks or sooner as needed should symptoms worsen.
[2022-10-21 10:10] VITALS: BP 142/67; PULSE 86; RESP 16; TEMP 35.7; BMI 26.2
--- NOTE | 2022-10-21 13:29 | PN.PCM_ITS ---
History of Present Illness Date of Service: 10/21/22 Chief Complaint: Left ankle ulcer History of Wound: Patient is a pleasant 76 y/o female who presents to the [facility] today for evaluation and treatment of a recurrent left medial ankle ulcer. She reports that this is at least the 10th time she has had this ulcer recur, she is well known to the [facility] though last here in 2019. She has a medical history significant for clotting disorder (Prothrombin thrombophilia), history of DVTs, and venous insufficiency. She does not smoke. She is not diabetic. She has been on Xarelto for years. She reports since starting the Xarelto she has had no further DVTs to her knowledge. She reports all her DVTs have been in the LLE. She reports she was evaluated by vascular surgeon in the past for ablation but was told she was not a candidate due to her hypercoagulable state. Her current wound has been ongoing since late June. She was seen by her PCP for the wound and was empirically started on doxycycline x 10 days. She reports she took about 4 days and then developed a blistering rash around the wound and a yeast infection and thus stopped the doxycycline. She was also applying aquaphor to the wound and covering with occlusive dressing. Since the wound started she has been wearing tubigrips she ordered online, but was not previously wearing compression. Subjective Subjective The wound is very tiny, but still persists and she has had an increase in associated pain and surrounding redness over this last week. She is wearing compression consistently. She is very active so up on her feet most of the day. She was wanting to hold off on venous ablation until after the wound has healed. Objective Data Objective Data Vital Signs: Vital Signs Temp Pulse Resp BP O2 Del Method 96.2 F L 86 16 142/67 H Room Air 10/21/22 10:10 10/21/22 10:10 10/21/22 10:10 10/21/22 10:10 10/21/22 10:10 Oxygen Delivery Method Room Air Weight: 143 lb Body Mass Index (BMI) 26.2 Charges/Coding Multi Select Codes Integumentary Integumentary CPT Codes: 72182 Terri subq tissue 20 sq cm/< Physical Exam Const alert, oriented x3, no apparent distress and healthy appearing General Appearance: cooperative, comfortable and well kempt Exam Limitations: no limitations HEENT normocephalic, head/scalp atraumatic, hearing grossly normal bilaterally, external ears normal and external nose normal Eyes EOMs intact bilaterally General Eye: normal appearance of both eyes Neck full ROM General: normal visual inspection and trachea midline; Negative for anterior neck swelling Resp normal respiratory effort, normal air movement, no retractions and no use of accessory muscles Effort and Inspection: able to speak in complete sentences and symmetric chest movement; Negative for labored, stridor, uses accessory muscles or audible wheezes Extremity Extremity Narrative: Bilateral lower extremity edema. Multiple varicosities and reticular veins noted bilaterally. Skin Wounds: wounds noted Wound Narrative: Venous ulcer noted to left medial ankle, quite small .3x.3cm. Small amount of serous drainage. No foul odor, fluctuance, induration. Mild cezar-wound erythema. Neuro oriented x3, CN's II-XII intact bilaterally, moves all extremities, no focal motor deficits, no sensory deficits noted and gait normal Speech: speech normal Psych mental status grossly normal, thought process normal, affect normal, speech normal and activity/motor behavior normal Insight: insight good Judgement: judgement good Debridement Note Debridement Note Wound debrided: Left medial ankle ulcer Laterality: Left Type of Debridement: Excisional debridement Anesthesia Used: 5% Lidocaine Gel and Cetacaine Depth: Down to and including healthy tissue and in the subcutaneous layer Percentage of wound debrided: 100 Instrument Used: 3mm curette Tissue Removed: slough, devitalized tissue Amount of bleeding with debridement: Mild Bleeding Controlled with: Pressure Patient tolerated procedure: Patient tolerated procedure well Post-Debridement Measurements and Additional Note: Post-Debridement Measurements/Treatment - Nurse 1 - General Ulcer Assessment Start: 10/07/22 10:14 Freq: Status: Active Protocol: PEMA Activity Type Activity Date Activity User E-sign Co-sign Detail Recorded Client Recorded Date Recorded By Document 10/07/22 10:14 [id number] 10/07/22 10:22 Document 10/21/22 10:10 [facility] [id number] 10/21/22 10:17 [facility] 10/07/22 10/21/22 10:14 10:10 - Today's Visit Information Type of service Follow-up Visit Follow-up Visit (Physician/SYSTEMS TECHNICIAN (Physician/SYSTEMS TECHNICIAN ) ) Arrival Mode Ambulatory Ambulatory Transfer Assistance None None Patient Identification Verified (Name & Yes Yes ) Patient Requires Transmission-Based No No Precautions Safety Precautions NA Height and Weight Body Mass Index (BMI) 26.2 26.2 BMI Classification Overweight Overweight Vital Signs Temperature (97.8 F-99.1 F) 97.2 F L 96.2 F L Temperature Source Temporal Temporal Pulse Rate (60-100) 85 86 Pulse Location Monitor Respiratory Rate (12-18) 18 16 Respiratory rate source Observation Oxygen Delivery Method Room Air Blood Pressure (90/60-120/80) 133/78 H 142/67 H Blood Pressure Mean (mm Hg) 96 92 Source Monitor Position Sitting Blood Pressure Location Left Arm History Since Last Visit- (Skip if this is Patient's initial visit) Have you changed medications since your No No last visit? Any new allergies or adverse reactions No No Had a fall/change in ADL's that may No No increase risk of falls Signs or symptoms of abuse and/or No No neglect since last visit Have you been in the hospital since your No No last visit? Has dressing in place as prescribed Yes Yes Has compression in place as prescribed Yes Yes Has offloadiing in place as prescribed N/A N/A Experienced any changes in pain level or No No management Left Footwear Regular Shoe Right Footwear Regular Shoe Pain Scale: 0-10 Numeric Is Patient Pain Free? Yes Yes WC - Nurse 1 - General Ulcer Measurement Start: 10/07/22 10:14 Freq: Status: Active Protocol: Activity Type Activity Date Activity User E-sign Co-sign Detail Recorded Client Recorded Date Recorded By Document 10/07/22 10:14 [id number] 10/07/22 10:22 Document 10/21/22 10:10 [facility] [id number] 10/21/22 10:17 [facility] 10/07/22 10/21/22 10:14 10:10 Wound Center Nurse 1 #4- L MED ANKLE -Combined with other wound No No -Current Size (cm) - Length 0.3 0.4 -Current Size (cm) - Width 0.3 0.4 -Current Size (cm) - Depth 0.1 0.3 -Total Square Cm 0.09 0.16 -Date of Last Picture (Recall this 10/21/22 field) -Photo Taken No Yes -Epithelialization Medium 34-66% None Present -Tunneling No No -Undermining/Tunneling No No -Circular Undermining No No -Classification - Thickness Partial Thickness -Exudate Amt Small Medium -Exudate Type Serosanguineous Serosanguineous -Wound Margin Distinct, Outline Attached -Granulation Amt Medium (34-66%) Small (1-33%) -Granulation Quality [place] Red -Slough/Fibrin Yes Yes -Necrosis Amt Medium (34-66%) Large (67-100%) -Necrotic Tissue Type Adherent Slough Adherent Slough -Texture ([place]-wound Skin Appearance) No Abnormality Assessed, Excoriation, Scarring -Moisture ([place]-wound Skin Appearance) No Abnormality Assessed -Color ([place]-wound Skin Appearance) No Abnormality Assessed, Erythema -Temperature ([place]-wound Skin No Abnormality No Abnormality Appearance) (Pt Warm) (Pt Warm) -Tenderness on Palpation ([place]-wound Yes Skin Appearance) -Ulcer Cleansing Rinsed/ Rinsed/ Irrigated with Irrigated with Saline Saline -Foul Odor after Cleansing No No -Anesthetic Used 5% Lidocaine 5% Lidocaine Gel Gel Lower Limb Edema Present Yes Left Calf (cm) 37.4 Left Ankle (cm) 22.5 WC - Nurse 2 - General Ulcer CM Notes Start: 10/07/22 10:14 Freq: Status: Active Protocol: Activity Type Activity Date Activity User E-sign Co-sign Detail Recorded Client Recorded Date Recorded By Document 10/07/22 11:17 PL [id number] 10/07/22 11:18 PL Document 10/21/22 11:10 PL [id number] 10/21/22 11:11 PL 10/07/22 10/21/22 11:17 11:10 Wound Center Nurse 2 #4- L MED ANKLE -Time 10:25 10:30 -Correct Patient Yes Yes -Correct Side, Site, Position Yes Yes -Correct Procedure Yes Yes -Procedure Performed Yes Yes -Type of Procedure Debridement Debridement -Clinical Debridement Subcutaneous Subcutaneous -Tissue Removed Subcutaneous Subcutaneous -Post Debridement (cm) - Length 0.3 0.4 -Post Debridement (cm) - Width 0.3 0.3 -Post Debridement (cm) - Depth 0.1 0.1 -Total Square (Post) (cm) 0.09 0.12 -Area of Debridement (cm) - Length 0.3 0.4 -Area of Debridement (cm) - Width 0.3 0.3 -Total Square (Area) (cm) 0.09 0.12 -Tunneling No No -Undermining/Tunneling No No -Circular Undermining No No -Wound/Ulcer Outcome Not Healed Not Healed -Ulcer Cleansing Rinsed/ Irrigated with Saline -Foul Odor after Cleansing No -Bioengineered Tissue No -Bleeding Controlled with Pressure Pressure -Treatment Response Procedure Procedure Tolerated Well Tolerated Well -Debridement - Subq, 1st 20sq cm Yes Yes Pain Scale: 0-10 Numeric Is Patient Pain Free? Yes Yes - Nurse 3 - General Ulcer D/C NN Start: 10/07/22 10:14 Freq: Status: Active Protocol: Activity Type Activity Date Activity User E-sign Co-sign Detail Recorded Client Recorded Date Recorded By Document 10/21/22 10:50 [facility] [id number] 10/21/22 10:51 [facility] 10/21/22 10:50 Wound Care Center Nurse 3 #4- L MED ANKLE -Ulcer Cleansing Rinsed/ Irrigated with Saline -Foul Odor after Cleansing No -Primary Dressing Applied Mepilex Border -Other Dressing promogran -Mepilex Border 1 Left -Other pts own compression stocking applied Treatment Response Procedure Tolerated Well Pain Scale: 0-10 Numeric Is Patient Pain Free? 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 Some swelling at the ankle even with adequate compression. Continue promogran with foam dressing. Continue with compression stockings. Advised patient to try to rest more frequently with legs elevated throughout the day. Elevate legs on pillow when sleeping at night, as tolerated. Obtained wound cultures today due to increased pain and redness. Will prescribe antibiotics as indicated by C&S. Discussed with patient that it may be time to reconsider venous ablation. She initially wanted to get this done after wound healed. It may be best at this point to get the ablation in order to aid in wound healing. She will make an appt with our vascular office to re-discuss ablation. Patient will follow up in the wound center in 1 week.
[2022-10-28 11:07] VITALS: BP 155/82; PULSE 80; RESP 16; TEMP 36; BMI 26.2
--- NOTE | 2022-10-28 14:18 | PN.PCM_ITS ---
History of Present Illness Date of Service: 10/28/22 Chief Complaint: Left ankle ulcer History of Wound: Patient is a pleasant 76 y/o female who presents to the [facility] today for evaluation and treatment of a recurrent left medial ankle ulcer. She reports that this is at least the 10th time she has had this ulcer recur, she is well known to the [facility] though last here in 2019. She has a medical history significant for clotting disorder (Prothrombin thrombophilia), history of DVTs, and venous insufficiency. She does not smoke. She is not diabetic. She has been on Xarelto for years. She reports since starting the Xarelto she has had no further DVTs to her knowledge. She reports all her DVTs have been in the LLE. She reports she was evaluated by vascular surgeon in the past for ablation but was told she was not a candidate due to her hypercoagulable state. Her current wound has been ongoing since late June. She was seen by her PCP for the wound and was empirically started on doxycycline x 10 days. She reports she took about 4 days and then developed a blistering rash around the wound and a yeast infection and thus stopped the doxycycline. She was also applying aquaphor to the wound and covering with occlusive dressing. Since the wound started she has been wearing tubigrips she ordered online, but was not previously wearing compression. Subjective Subjective She picked up her antibiotic. She will start it tomorrow. Has taken a few days of probiotics first to avoid GI issues and yeast infection as she has had in the past with abx. No F/C, N/V, extending erythema. She is having skin irritation from the adhesive dressing, it is quite itchy and irritating to her. She is going on a trip to [place] and so will not be in next Monday. Objective Data Objective Data Vital Signs: Vital Signs Temp Pulse Resp BP O2 Del Method 96.8 F L 80 16 155/82 H Room Air 10/28/22 11:07 10/28/22 11:07 10/28/22 11:07 10/28/22 11:07 10/28/22 11:07 Oxygen Delivery Method Room Air Weight: 143 lb Body Mass Index (BMI) 26.2 Lab / Micro Data Micro: Microbiology 10/21/22 10:40 Wound Abcess - Ankle Gram Stain - Final 10/21/22 10:40 Wound Abcess - Ankle Wound Culture - Final Enterobacter cloacae complex 10/21/22 10:40 Wound Abcess - Ankle Anaerobic Culture - Final No anaerobic bacteria isolated. Charges/Coding Procedures Integumentary 111xxx-113xx: 22749 Terri subq tissue 20 sq cm/< Physical Exam Const alert, oriented x3, no apparent distress and healthy appearing General Appearance: cooperative, comfortable and well kempt Exam Limitations: no limitations HEENT normocephalic, head/scalp atraumatic, hearing grossly normal bilaterally, external ears normal and external nose normal Eyes EOMs intact bilaterally General Eye: normal appearance of both eyes Neck full ROM General: normal visual inspection and trachea midline; Negative for anterior neck swelling Resp normal respiratory effort, normal air movement, no retractions and no use of accessory muscles Effort and Inspection: able to speak in complete sentences and symmetric chest movement; Negative for labored, stridor, uses accessory muscles or audible wheezes Extremity Extremity Narrative: Bilateral lower extremity edema. Multiple varicosities and reticular veins noted bilaterally. Skin Wounds: wounds noted Wound Narrative: Venous ulcer noted to left medial ankle, quite small .3x.3cm. Small amount of serous drainage. No foul odor, fluctuance, induration. Increased periwound irritation/contact dermatitis where adhesive dressing has been. Neuro oriented x3, CN's II-XII intact bilaterally, moves all extremities, no focal motor deficits, no sensory deficits noted and gait normal Speech: speech normal Psych mental status grossly normal, thought process normal, affect normal, speech normal and activity/motor behavior normal Insight: insight good Judgement: judgement good Debridement Note Debridement Note Wound debrided: Left medial ankle ulcer Laterality: Left Type of Debridement: Excisional debridement Anesthesia Used: 5% Lidocaine Gel and Cetacaine Depth: Down to and including healthy tissue and in the subcutaneous layer Percentage of wound debrided: 100 Instrument Used: 3mm curette Tissue Removed: slough, devitalized tissue Amount of bleeding with debridement: Mild Bleeding Controlled with: Pressure Patient tolerated procedure: Patient tolerated procedure well Post-Debridement Measurements and Additional Note: Post-Debridement Measurements/Treatment MELIDA - Nurse 1 - General Ulcer Assessment Start: 10/07/22 10:14 Freq: Status: Active Protocol: PEMA Activity Type Activity Date Activity User E-sign Co-sign Detail Recorded Client Recorded Date Recorded By Document 10/07/22 10:14 [id number] 10/07/22 10:22 PL Document 10/21/22 10:10 [facility] [id number] 10/21/22 10:17 BM Document 10/28/22 11:07 [facility] [id number] 10/28/22 11:16 BMF 10/07/22 10/21/22 10/28/22 10:14 10:10 11:07 WC - Today's Visit Information Type of service Follow-up Visit Follow-up Visit Follow-up Visit (Physician/SHAKER REPAIRER (Physician/SHAKER REPAIRER (Physician/SHAKER REPAIRER ) ) ) Arrival Mode Ambulatory Ambulatory Ambulatory Transfer Assistance None None None Patient Identification Verified (Name & Yes Yes Yes ) Patient Requires Transmission-Based No No No Precautions Safety Precautions NA Height and Weight Body Mass Index (BMI) 26.2 26.2 26.2 BMI Classification Overweight Overweight Overweight Vital Signs Temperature (97.8 F-99.1 F) 97.2 F L 96.2 F L 96.8 F L Temperature Source Temporal Temporal Temporal Pulse Rate (60-100) 85 86 80 Pulse Location Monitor Monitor Respiratory Rate (12-18) 18 16 16 Respiratory rate source Observation Observation Oxygen Delivery Method Room Air Room Air Blood Pressure (90/60-120/80) 133/78 H 142/67 H 155/82 H Blood Pressure Mean (mm Hg) 96 92 106 Source Monitor Monitor Position Sitting Sitting Blood Pressure Location Left Arm Left Arm History Since Last Visit- (Skip if this is Patient's initial visit) Have you changed medications since your No No No last visit? Any new allergies or adverse reactions No No No Had a fall/change in ADL's that may No No No increase risk of falls Signs or symptoms of abuse and/or No No No neglect since last visit Have you been in the hospital since your No No No last visit? Has dressing in place as prescribed Yes Yes Yes Has compression in place as prescribed Yes Yes Yes Has offloadiing in place as prescribed N/A N/A N/A Experienced any changes in pain level or No No No management Left Footwear Regular Shoe Regular Shoe Right Footwear Regular Shoe Regular Shoe Pain Scale: 0-10 Numeric Is Patient Pain Free? Yes Yes Yes WC - Nurse 1 - General Ulcer Measurement Start: 10/07/22 10:14 Freq: Status: Active Protocol: Activity Type Activity Date Activity User E-sign Co-sign Detail Recorded Client Recorded Date Recorded By Document 10/07/22 10:14 [id number] 10/07/22 10:22 Document 10/21/22 10:10 [facility] [id number] 10/21/22 10:17 [facility] Document 10/28/22 11:07 [facility] [id number] 10/28/22 11:16 [facility] 10/07/22 10/21/22 10/28/22 10:14 10:10 11:07 Wound Center Nurse 1 #4- L MED ANKLE -Combined with other wound No No No -Current Size (cm) - Length 0.3 0.4 0.6 -Current Size (cm) - Width 0.3 0.4 0.7 -Current Size (cm) - Depth 0.1 0.3 0.3 -Total Square Cm 0.09 0.16 0.42 -Date of Last Picture (Recall this 10/21/22 10/28/22 field) -Photo Taken No Yes Yes -Epithelialization Medium 34-66% None Present None Present -Tunneling No No No -Undermining/Tunneling No No No -Circular Undermining No No No -Classification - Thickness Partial Thickness -Exudate Amt Small Medium Medium -Exudate Type Serosanguineous Serosanguineous Serous -Wound Margin Distinct, Distinct, Outline Outline Attached Attached -Granulation Amt Medium (34-66%) Small (1-33%) Large (67-100%) -Granulation Quality [place] Red -Slough/Fibrin Yes Yes Yes -Necrosis Amt Medium (34-66%) Large (67-100%) Small (1-33%) -Necrotic Tissue Type Adherent Slough Adherent Slough Adherent Slough -Texture (Ines-wound Skin Appearance) No Abnormality Assessed, Assessed, Excoriation, Scarring,Rash Scarring -Moisture (Ines-wound Skin Appearance) No Abnormality Assessed Assessed,Dry/ Scaly -Color (Ines-wound Skin Appearance) No Abnormality Assessed, Assessed, Erythema Erythema -Temperature (Ines-wound Skin No Abnormality No Abnormality No Abnormality Appearance) (Pt Warm) (Pt Warm) (Pt Warm) -Tenderness on Palpation (Ines-wound Yes No Skin Appearance) -Ulcer Cleansing Rinsed/ Rinsed/ Rinsed/ Irrigated with Irrigated with Irrigated with Saline Saline Saline -Foul Odor after Cleansing No No No -Anesthetic Used 5% Lidocaine 5% Lidocaine 5% Lidocaine Gel Gel Gel Lower Limb Edema Present Yes Left Calf (cm) 37.4 37.7 Left Ankle (cm) 22.5 22.7 WC - Nurse 2 - General Ulcer CM Notes Start: 10/07/22 10:14 Freq: Status: Active Protocol: Activity Type Activity Date Activity User E-sign Co-sign Detail Recorded Client Recorded Date Recorded By Document 10/07/22 11:17 PL [id number] 10/07/22 11:18 PL Document 10/21/22 11:10 PL [id number] 10/21/22 11:11 PL Document 10/28/22 11:39 JF [id number] 10/28/22 11:44 JF 10/07/22 10/21/22 10/28/22 11:17 11:10 11:39 Wound Center Nurse 2 #4- L MED ANKLE -Time 10:25 10:30 11:40 -Correct Patient Yes Yes Yes -Correct Side, Site, Position Yes Yes Yes -Correct Procedure Yes Yes Yes -Procedure Performed Yes Yes Yes -Type of Procedure Debridement Debridement Debridement -Clinical Debridement Subcutaneous Subcutaneous Subcutaneous -Tissue Removed Subcutaneous Subcutaneous Subcutaneous -Post Debridement (cm) - Length 0.3 0.4 0.4 -Post Debridement (cm) - Width 0.3 0.3 0.3 -Post Debridement (cm) - Depth 0.1 0.1 0.2 -Total Square (Post) (cm) 0.09 0.12 0.12 -Area of Debridement (cm) - Length 0.3 0.4 0.4 -Area of Debridement (cm) - Width 0.3 0.3 0.3 -Total Square (Area) (cm) 0.09 0.12 0.12 -Tunneling No No No -Undermining/Tunneling No No No -Circular Undermining No No No -Wound/Ulcer Outcome Not Healed Not Healed Not Healed -Ulcer Cleansing Rinsed/ Rinsed/ Irrigated with Irrigated with Saline Saline -Foul Odor after Cleansing No No -Bioengineered Tissue No No -Bleeding Controlled with Pressure Pressure Pressure -Treatment Response Procedure Procedure Procedure Tolerated Well Tolerated Well Tolerated Well -Offloading No -Debridement - Subq, 1st 20sq cm Yes Yes Yes Pain Scale: 0-10 Numeric Is Patient Pain Free? Yes Yes Yes - Nurse 3 - General Ulcer D/C NN Start: 10/07/22 10:14 Freq: Status: Active Protocol: Activity Type Activity Date Activity User E-sign Co-sign Detail Recorded Client Recorded Date Recorded By Document 10/21/22 10:50 [facility] [id number] 10/21/22 10:51 [facility] Document 10/28/22 11:58 [facility] [id number] 10/28/22 11:59 [facility] 10/21/22 10/28/22 10:50 11:58 Wound Care Center Nurse 3 #4- L MED ANKLE -Ulcer Cleansing Rinsed/ Rinsed/ Irrigated with Irrigated with Saline Saline -Foul Odor after Cleansing No No -Primary Dressing Applied Mepilex Border -Other Dressing promogran PROMOGRAN -Primary Dressing Covered/Secured with Dry Gauze & Roll Gauze, Secured with Tape -Mepilex Border 1 Left -Other pts own REAPPLIED PTS compression OWN COMPRESSION stocking STOCKING applied Treatment Response Procedure Procedure Tolerated Well Tolerated Well Pain Scale: 0-10 Numeric Is Patient Pain Free? 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 Given contact dermatitis from adhesive, will instead do kerlix wrap followed by coban wrap over top to keep in place. Hopefully the coban will also make it easy to continue to wear compression stockings, patient also has tubigrips she could use if the stockings are too hard to get over the dressing. Wound culture returned positive for enterobacter species which was susceptible to Bactrim. I sent Bactrim DS BID x14 days and she will start this tomorrow. She has an appointment in the vascular office when she returns from her trip to discuss ablation again. Patient will follow up in the wound center in 2 weeks.
== END 2022-10-30 23:59 | disposition home or self-care (01) ==
LOC: WC 11:00
PROVIDERS: PCP Internal Medicine; Referring Provider Physician Assistant; Visit Provider Physician Assistant
DX: I83.023 Varicose veins of left lower extremity with ulcer of ankle (principal); L97.329 Non-pressure chronic ulcer of left ankle with unspecified severity; D68.9 Coagulation defect, unspecified; B37.2 Candidiasis of skin and nail; Z86.718 Personal history of other venous thrombosis and embolism; Z79.01 Long term (current) use of anticoagulants
CPT/HCPCS: 11042; 87070; 87075; 87077; 87186; 87205

== ENCOUNTER 2022-11-23 13:15 | Outpatient (RCR) | payer MEDICARE, OTHER, SELFPAY ==
[2022-10-31 00:34] VITALS: BP 155/82; PULSE 80; RESP 16; TEMP 36; BMI 26.2
[2022-11-11 09:40] VITALS: BP 129/70; PULSE 87; RESP 16; TEMP 36.1; BMI 26.2
--- NOTE | 2022-11-11 16:34 | PCM.WC.PN ---
History of Present Illness Date of Service: 11/11/22 Chief Complaint: Left ankle ulcer History of Wound: Patient is a pleasant 76 y/o female who presents to the [facility] today for evaluation and treatment of a recurrent left medial ankle ulcer. She reports that this is at least the 10th time she has had this ulcer recur, she is well known to the [facility] though last here in 2019. She has a medical history significant for clotting disorder (Prothrombin thrombophilia), history of DVTs, and venous insufficiency. She does not smoke. She is not diabetic. She has been on Xarelto for years. She reports since starting the Xarelto she has had no further DVTs to her knowledge. She reports all her DVTs have been in the LLE. She reports she was evaluated by vascular surgeon in the past for ablation but was told she was not a candidate due to her hypercoagulable state. Her current wound has been ongoing since late June. She was seen by her PCP for the wound and was empirically started on doxycycline x 10 days. She reports she took about 4 days and then developed a blistering rash around the wound and a yeast infection and thus stopped the doxycycline. She was also applying aquaphor to the wound and covering with occlusive dressing. Since the wound started she has been wearing tubigrips she ordered online, but was not previously wearing compression. Subjective Subjective She is doing very well. Dressing changes have been going well. While on her trip to [place] she was able to elevate her legs much more often than usual. She did complete the antibiotics as prescribed. Her wound is much improved in appearance and pain from last visit, though still persists. Objective Data Objective Data Vital Signs: Vital Signs Temp Pulse Resp BP 96.9 F L 87 16 129/70 H 11/11/22 09:40 11/11/22 09:40 11/11/22 09:40 11/11/22 09:40 Weight: 143 lb Body Mass Index (BMI) 26.2 Charges/Coding Procedures Integumentary 111xxx-113xx: 75630 Terri subq tissue 20 sq cm/< Physical Exam Const alert, oriented x3, no apparent distress and healthy appearing General Appearance: cooperative, comfortable and well kempt Exam Limitations: no limitations HEENT normocephalic, head/scalp atraumatic, hearing grossly normal bilaterally, external ears normal and external nose normal Eyes EOMs intact bilaterally General Eye: normal appearance of both eyes Neck full ROM General: normal visual inspection and trachea midline; Negative for anterior neck swelling Resp normal respiratory effort, normal air movement, no retractions and no use of accessory muscles Effort and Inspection: able to speak in complete sentences and symmetric chest movement; Negative for labored, stridor, uses accessory muscles or audible wheezes Extremity Extremity Narrative: Bilateral lower extremity edema. Multiple varicosities and reticular veins noted bilaterally. Skin Wounds: wounds noted Wound Narrative: Venous ulcer noted to left medial ankle, quite small. No drainage noted today. No foul odor, fluctuance, induration. Overall appearance much improved from last visit, no redness or irritation. Neuro oriented x3, CN's II-XII intact bilaterally, moves all extremities, no focal motor deficits, no sensory deficits noted and gait normal Speech: speech normal Psych mental status grossly normal, thought process normal, affect normal, speech normal and activity/motor behavior normal Insight: insight good Judgement: judgement good Debridement Note Debridement Note Wound debrided: Left medial ankle ulcer Laterality: Left Type of Debridement: Excisional debridement Anesthesia Used: 5% Lidocaine Gel and Cetacaine Depth: Down to and including healthy tissue and in the subcutaneous layer Percentage of wound debrided: 100 Instrument Used: 3mm curette Tissue Removed: slough, devitalized tissue Amount of bleeding with debridement: Mild Bleeding Controlled with: Pressure Patient tolerated procedure: Patient tolerated procedure well Post-Debridement Measurements and Additional Note: Post-Debridement Measurements/Treatment - Nurse 1 - General Ulcer Assessment Start: 11/11/22 09:36 Freq: Status: Active Protocol: PEMA Activity Type Activity Date Activity User E-sign Co-sign Detail Recorded Client Recorded Date Recorded By Document 11/11/22 09:40 [id number] 11/11/22 09:43 11/11/22 09:40 - Today's Visit Information Type of service Follow-up Visit (Physician/CONCESSION MANAGER ) Arrival Mode Ambulatory Patient Identification Verified (Name & Yes ) Patient Requires Transmission-Based No Precautions Height and Weight Body Mass Index (BMI) 26.2 BMI Classification Overweight Vital Signs Temperature (97.8 F-99.1 F) 96.9 F L Temperature Source Temporal Pulse Rate (60-100) 87 Pulse Location Monitor Respiratory Rate (12-18) 16 Respiratory rate source Observation Blood Pressure (90/60-120/80) 129/70 H Blood Pressure Mean (mm Hg) 89 Source Monitor Position Semi-Fowlers Blood Pressure Location Left Arm History Since Last Visit- (Skip if this is Patient's initial visit) Have you changed medications since your No last visit? Any new allergies or adverse reactions No Had a fall/change in ADL's that may No increase risk of falls Have you been in the hospital since your No last visit? Has dressing in place as prescribed Yes Has compression in place as prescribed Yes Has offloadiing in place as prescribed N/A Experienced any changes in pain level or No management Left Footwear Regular Shoe Right Footwear Regular Shoe Pain Scale: 0-10 Numeric Is Patient Pain Free? Yes - Nurse 1 - General Ulcer Measurement Start: 11/11/22 09:36 Freq: Status: Active Protocol: Activity Type Activity Date Activity User E-sign Co-sign Detail Recorded Client Recorded Date Recorded By Document 11/11/22 09:40 MIGUEL [id number] 11/11/22 09:43 MIGUEL 11/11/22 09:40 Wound Center Nurse 1 #4- L MED ANKLE -Combined with other wound No -Current Size (cm) - Length 0.4 -Current Size (cm) - Width 0.2 -Current Size (cm) - Depth 0.1 -Total Square Cm 0.08 -Photo Taken Yes -Epithelialization Small 1-33% -Tunneling No -Undermining/Tunneling No -Circular Undermining No -Exudate Amt Small -Exudate Type Serosanguineous -Wound Margin Flat & Intact -Granulation Amt Medium (34-66%) -Granulation Quality Red -Slough/Fibrin Yes -Necrosis Amt Small (1-33%) -Necrotic Tissue Type Adherent Slough -Structure Exposed N/A -Texture (Ines-wound Skin Appearance) Assessed, Localized Edema -Moisture (Ines-wound Skin Appearance) Assessed,Dry/ Scaly -Color (Ines-wound Skin Appearance) Assessed, Hemosiderin Staining -Temperature (Ines-wound Skin No Abnormality Appearance) (Pt Warm) -Tenderness on Palpation (Ines-wound No Skin Appearance) -Ulcer Cleansing Rinsed/ Irrigated with Saline -Foul Odor after Cleansing No -Anesthetic Used 5% Lidocaine Gel Lower Limb Edema Present Yes Left Calf (cm) 37.7 Left Ankle (cm) 22.5 - Nurse 2 - General Ulcer CM Notes Start: 11/11/22 09:36 Freq: Status: Active Protocol: Activity Type Activity Date Activity User E-sign Co-sign Detail Recorded Client Recorded Date Recorded By Document 11/11/22 12:04 PL [id number] 11/11/22 12:05 PL 11/11/22 12:04 Wound Center Nurse 2 #4- L MED ANKLE -Time 09:53 -Correct Patient Yes -Correct Side, Site, Position Yes -Correct Procedure Yes -Procedure Performed Yes -Type of Procedure Debridement -Clinical Debridement Subcutaneous -Tissue Removed Subcutaneous -Post Debridement (cm) - Length 0.4 -Post Debridement (cm) - Width 0.2 -Post Debridement (cm) - Depth 0.1 -Total Square (Post) (cm) 0.08 -Area of Debridement (cm) - Length 0.4 -Area of Debridement (cm) - Width 0.2 -Total Square (Area) (cm) 0.08 -Tunneling No -Undermining/Tunneling No -Circular Undermining No -Wound/Ulcer Outcome Not Healed -Ulcer Cleansing Rinsed/ Irrigated with Saline -Foul Odor after Cleansing No -Bioengineered Tissue No -Bleeding Controlled with Pressure -Treatment Response Procedure Tolerated Well -Debridement - Subq, 1st 20sq cm Yes Pain Scale: 0-10 Numeric Is Patient Pain Free? Yes - Nurse 3 - General Ulcer D/C NN Start: 11/11/22 09:36 Freq: Status: Active Protocol: Activity Type Activity Date Activity User E-sign Co-sign Detail Recorded Client Recorded Date Recorded By Document 11/11/22 10:08 [facility] [id number] 11/11/22 10:08 [facility] 11/11/22 10:08 Wound Care Center Nurse 3 #4- L MED ANKLE -Other Covering PROMOGRAN, BORDER DRSG Left -Other PTS OWN STOCKING REAPPLIED Treatment Response Procedure Tolerated Well Pain Scale: 0-10 Numeric Is Patient Pain Free? 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 Continue kerlix and coban wrap over top. Continue with compression stockings. Continue to elevate legs as often as possible throughout the day. No signs/symptoms of infection. She has an appointment to discuss venous ablation next week. Patient will follow up in the wound center in 1 week.
[2022-11-18 09:38] VITALS: BP 133/81; PULSE 87; TEMP 35.8; BMI 26.2
--- NOTE | 2022-11-18 10:25 | PN.PCM_ITS ---
History of Present Illness Date of Service: 11/18/22 Chief Complaint: Left ankle ulcer History of Wound: Patient is a pleasant 76 y/o female who presents to the [facility] today for evaluation and treatment of a recurrent left medial ankle ulcer. She reports that this is at least the 10th time she has had this ulcer recur, she is well known to the [facility] though last here in 2019. She has a medical history significant for clotting disorder (Prothrombin thrombophilia), history of DVTs, and venous insufficiency. She does not smoke. She is not diabetic. She has been on Xarelto for years. She reports since starting the Xarelto she has had no further DVTs to her knowledge. She reports all her DVTs have been in the LLE. She reports she was evaluated by vascular surgeon in the past for ablation but was told she was not a candidate due to her hypercoagulable state. Her current wound has been ongoing since late June 2022. Was not previously wearing compression. Subjective Subjective Patient is doing well this week. She is understandably frustrated with the stalled healing. Unfortunately, since being back from her trip she has been back to her usually busy lifestyle and hsa not been able to elevate her feet as much. She has been wearing her compression. No new or increased pain, redness, drainage. No N/V, F/C. She is in the process of being scheduled for venous ablation of left GSV. Objective Data Objective Data Vital Signs: Vital Signs Temp Pulse Resp BP O2 Del Method 96.5 F L 87 16 133/81 H Room Air 11/18/22 09:38 11/18/22 09:38 11/11/22 09:40 11/18/22 09:38 11/18/22 09:38 Oxygen Delivery Method Room Air Weight: 143 lb Body Mass Index (BMI) 26.2 Physical Exam Const alert, oriented x3, no apparent distress and healthy appearing General Appearance: cooperative, comfortable and well kempt Exam Limitations: no limitations HEENT normocephalic, head/scalp atraumatic, hearing grossly normal bilaterally, external ears normal and external nose normal Eyes EOMs intact bilaterally General Eye: normal appearance of both eyes Neck full ROM General: normal visual inspection and trachea midline; Negative for anterior neck swelling Resp normal respiratory effort, normal air movement, no retractions and no use of accessory muscles Effort and Inspection: able to speak in complete sentences and symmetric chest movement; Negative for labored, stridor, uses accessory muscles or audible whee zes Extremity Extremity Narrative: Bilateral lower extremity edema. Multiple varicosities and reticular veins noted bilaterally. Skin Wounds: wounds noted Wound Narrative: Venous ulcer noted to left medial ankle, quite small. No drainage noted today. No foul odor, fluctuance, induration. Neuro oriented x3, CN's II-XII intact bilaterally, moves all extremities, no focal motor deficits, no sensory deficits noted and gait normal Speech: speech normal Psych mental status grossly normal, thought process normal, affect normal, speech normal and activity/motor behavior normal Insight: insight good Judgement: judgement good Debridement Note Debridement Note Wound debrided: Left medial ankle ulcer Laterality: Left Type of Debridement: Excisional debridement Anesthesia Used: 5% Lidocaine Gel and Cetacaine Depth: Down to and including healthy tissue and in the subcutaneous layer Percentage of wound debrided: 100 Instrument Used: 3mm curette Tissue Removed: slough, devitalized tissue Amount of bleeding with debridement: Mild Bleeding Controlled with: Pressure Patient tolerated procedure: Patient tolerated procedure well Post-Debridement Measurements and Additional Note: Post-Debridement Measurements/Treatment - Nurse 1 - General Ulcer Assessment Start: 11/11/22 09:36 Freq: Status: Active Protocol: PEMA Activity Type Activity Date Activity User E-sign Co-sign Detail Recorded Client Recorded Date Recorded By Document 11/11/22 09:40 [id number] 11/11/22 09:43 Document 11/18/22 09:38 VT [id number] 11/18/22 09:45 VT 11/11/22 11/18/22 09:40 09:38 - Today's Visit Information Type of service Follow-up Visit Follow-up Visit (Physician/NUCLEAR TECHNICIAN (Physician/NUCLEAR TECHNICIAN ) ) Arrival Mode Ambulatory Ambulatory Transfer Assistance None Patient Identification Verified (Name & Yes Yes ) Patient Requires Transmission-Based No No Precautions Safety Precautions NA Height and Weight Body Mass Index (BMI) 26.2 26.2 BMI Classification Overweight Overweight Vital Signs Temperature (97.8 F-99.1 F) 96.9 F L 96.5 F L Temperature Source Temporal Temporal Pulse Rate (60-100) 87 87 Pulse Location Monitor Monitor Respiratory Rate (12-18) 16 Respiratory rate source Observation Oxygen Delivery Method Room Air Blood Pressure (90/60-120/80) 129/70 H 133/81 H Blood Pressure Mean (mm Hg) 89 98 Source Monitor Monitor Position Semi-Fowlers Semi-Fowlers Blood Pressure Location Left Arm Left Arm History Since Last Visit- (Skip if this is Patient's initial visit) Have you changed medications since your No No last visit? Any new allergies or adverse reactions No No Had a fall/change in ADL's that may No No increase risk of falls Signs or symptoms of abuse and/or No neglect since last visit Have you been in the hospital since your No No last visit? Has dressing in place as prescribed Yes Yes Has compression in place as prescribed Yes Yes Has offloadiing in place as prescribed N/A N/A Experienced any changes in pain level or No No management Left Footwear Regular Shoe Regular Shoe Right Footwear Regular Shoe Regular Shoe Pain Scale: 0-10 Numeric Is Patient Pain Free? Yes Yes WC - Nurse 1 - General Ulcer Measurement Start: 11/11/22 09:36 Freq: Status: Active Protocol: Activity Type Activity Date Activity User E-sign Co-sign Detail Recorded Client Recorded Date Recorded By Document 11/11/22 09:40 [id number] 11/11/22 09:43 JF Document 11/18/22 09:38 AK [id number] 11/18/22 09:45 AK 11/11/22 11/18/22 09:40 09:38 Wound Center Nurse 1 #4- L MED ANKLE -Combined with other wound No No -Current Size (cm) - Length 0.4 0.5 -Current Size (cm) - Width 0.2 0.3 -Current Size (cm) - Depth 0.1 0.3 -Total Square Cm 0.08 0.15 -Date of Last Picture (Recall this 11/18/22 field) -Photo Taken Yes Yes -Epithelialization Small 1-33% None Present -Tunneling No No -Undermining/Tunneling No No -Circular Undermining No No -Exudate Amt Small Medium -Exudate Type Serosanguineous Serosanguineous -Wound Margin Flat & Intact Distinct, Outline Attached -Granulation Amt Medium (34-66%) Large (67-100%) -Granulation Quality Red Red -Slough/Fibrin Yes No -Necrosis Amt Small (1-33%) None Present (0 %) -Necrotic Tissue Type Adherent Slough -Structure Exposed N/A N/A -Texture (Ines-wound Skin Appearance) Assessed, Assessed, Localized Edema Scarring -Moisture (Ines-wound Skin Appearance) Assessed,Dry/ Assessed Scaly -Color (Ines-wound Skin Appearance) Assessed, Assessed, Hemosiderin Erythema Staining -Temperature (Ines-wound Skin No Abnormality No Abnormality Appearance) (Pt Warm) (Pt Warm) -Tenderness on Palpation (Ines-wound No Skin Appearance) -Ulcer Cleansing Rinsed/ Rinsed/ Irrigated with Irrigated with Saline Saline -Foul Odor after Cleansing No No -Anesthetic Used 5% Lidocaine 5% Lidocaine Gel Gel Lower Limb Edema Present Yes Yes Left Calf (cm) 37.7 37.2 Left Ankle (cm) 22.5 22.5 MELIDA - Nurse 2 - General Ulcer CM Notes Start: 11/11/22 09:36 Freq: Status: Active Protocol: Activity Type Activity Date Activity User E-sign Co-sign Detail Recorded Client Recorded Date Recorded By Document 11/11/22 12:04 MARJORIE [id number] 11/11/22 12:05 MARJORIE 11/11/22 12:04 Wound Center Nurse 2 #4- L MED ANKLE -Time 09:53 -Correct Patient Yes -Correct Side, Site, Position Yes -Correct Procedure Yes -Procedure Performed Yes -Type of Procedure Debridement -Clinical Debridement Subcutaneous -Tissue Removed Subcutaneous -Post Debridement (cm) - Length 0.4 -Post Debridement (cm) - Width 0.2 -Post Debridement (cm) - Depth 0.1 -Total Square (Post) (cm) 0.08 -Area of Debridement (cm) - Length 0.4 -Area of Debridement (cm) - Width 0.2 -Total Square (Area) (cm) 0.08 -Tunneling No -Undermining/Tunneling No -Circular Undermining No -Wound/Ulcer Outcome Not Healed -Ulcer Cleansing Rinsed/ Irrigated with Saline -Foul Odor after Cleansing No -Bioengineered Tissue No -Bleeding Controlled with Pressure -Treatment Response Procedure Tolerated Well -Debridement - Subq, 1st 20sq cm Yes Pain Scale: 0-10 Numeric Is Patient Pain Free? Yes MELIDA - Nurse 3 - General Ulcer D/C NN Start: 11/11/22 09:36 Freq: Status: Active Protocol: Activity Type Activity Date Activity User E-sign Co-sign Detail Recorded Client Recorded Date Recorded By Document 11/11/22 10:08 [facility] [id number] 11/11/22 10:08 [facility] 11/11/22 10:08 Wound Care Center Nurse 3 #4- L MED ANKLE -Other Covering PROMOGRAN, BORDER DRSG Left -Other PTS OWN STOCKING REAPPLIED Treatment Response Procedure Tolerated Well Pain Scale: 0-10 Numeric Is Patient Pain Free? 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 Continue with compression stockings. Continue to elevate legs as often as possible throughout the day. No signs/symptoms of infection. Increase protein and decrease carbs in diet to aid in healing. Patient will follow up in the wound center next Monday as I will not be there next Monday for a f/u appt.
[2022-11-23 13:17] VITALS: BP 126/68; PULSE 82; RESP 20; TEMP 36.2; BMI 26.2
--- NOTE | 2022-11-23 22:02 | PCM.WC.PN ---
History of Present Illness Date of Service: 11/23/22 Chief Complaint: Left ankle ulcer History of Wound: Patient is a pleasant 76 y/o female who presents to the [facility] today for evaluation and treatment of a recurrent left medial ankle ulcer. She reports that this is at least the 10th time she has had this ulcer recur, she is well known to the [facility] though last here in 2019. She has a medical history significant for clotting disorder (Prothrombin thrombophilia), history of DVTs, and venous insufficiency. She does not smoke. She is not diabetic. She has been on Xarelto for years. She reports since starting the Xarelto she has had no further DVTs to her knowledge. She reports all her DVTs have been in the LLE. She reports she was evaluated by vascular surgeon in the past for ablation but was told she was not a candidate due to her hypercoagulable state. Her current wound has been ongoing since late June 2022. Was not previously wearing compression. Subjective Subjective She is doing fine with dressing changes. Has increased irritation/itching around the wound, in the area of the bandages she has been using. She has been wearing her compression. No new or increased pain, redness, drainage. No N/V, F/C. She is scheduled for GSV ablation on 12/22. Objective Data Objective Data Vital Signs: Vital Signs Temp Pulse Resp BP O2 Del Method 97.2 F L 82 20 H 126/68 H Room Air 11/23/22 13:17 11/23/22 13:17 11/23/22 13:17 11/23/22 13:17 11/18/22 09:38 Oxygen Delivery Method Room Air Weight: 143 lb Body Mass Index (BMI) 26.2 Charges/Coding Procedures Integumentary 111xxx-113xx: 45768 Terri subq tissue 20 sq cm/< Physical Exam Const alert, oriented x3, no apparent distress and healthy appearing General Appearance: cooperative, comfortable and well kempt Exam Limitations: no limitations HEENT normocephalic, head/scalp atraumatic, hearing grossly normal bilaterally, external ears normal and external nose normal Eyes EOMs intact bilaterally General Eye: normal appearance of both eyes Neck full ROM General: normal visual inspection and trachea midline; Negative for anterior neck swelling Resp normal respiratory effort, normal air movement, no retractions and no use of accessory muscles Effort and Inspection: able to speak in complete sentences and symmetric chest movement; Negative for labored, stridor, uses accessory muscles or audible wheezes Extremity Extremity Narrative: Bilateral lower extremity edema. Multiple varicosities and reticular veins noted bilaterally. Skin Wounds: wounds noted Wound Narrative: Venous ulcer noted to left medial ankle, quite small. No foul odor, fluctuance, induration. Periwound skin is erythematous, appears like contact dermatitis. Neuro oriented x3, CN's II-XII intact bilaterally, moves all extremities, no focal motor deficits, no sensory deficits noted and gait normal Speech: speech normal Psych mental status grossly normal, thought process normal, affect normal, speech normal and activity/motor behavior normal Insight: insight good Judgement: judgement good Debridement Note Debridement Note Wound debrided: Left medial ankle ulcer Laterality: Left Type of Debridement: Excisional debridement Anesthesia Used: 5% Lidocaine Gel and Cetacaine Depth: Down to and including healthy tissue and in the subcutaneous layer Percentage of wound debrided: 100 Instrument Used: 3mm curette Tissue Removed: slough, devitalized tissue Amount of bleeding with debridement: Mild Bleeding Controlled with: Pressure Patient tolerated procedure: Patient tolerated procedure well Post-Debridement Measurements and Additional Note: Post-Debridement Measurements/Treatment - Nurse 1 - General Ulcer Assessment Start: 11/11/22 09:36 Freq: Status: Active Protocol: PEMA Activity Type Activity Date Activity User E-sign Co-sign Detail Recorded Client Recorded Date Recorded By Document 11/11/22 09:40 [id number] 11/11/22 09:43 Document 11/18/22 09:38 AK [id number] 11/18/22 09:45 AK Document 11/23/22 13:17 DL [id number] 11/23/22 13:23 DL 11/11/22 11/18/22 11/23/22 09:40 09:38 13:17 - Today's Visit Information Type of service Follow-up Visit Follow-up Visit Follow-up Visit (Physician/BLUEPRINT BLOCKER (Physician/BLUEPRINT BLOCKER (Physician/BLUEPRINT BLOCKER ) ) ) Arrival Mode Ambulatory Ambulatory Ambulatory Transfer Assistance None None Patient Identification Verified (Name & Yes Yes Yes ) Patient Requires Transmission-Based No No Precautions Safety Precautions NA Height and Weight Body Mass Index (BMI) 26.2 26.2 26.2 BMI Classification Overweight Overweight Overweight Vital Signs Temperature (97.8 F-99.1 F) 96.9 F L 96.5 F L 97.2 F L Temperature Source Temporal Temporal Temporal Pulse Rate (60-100) 87 87 82 Pulse Location Monitor Monitor Monitor Respiratory Rate (12-18) 16 20 H Respiratory rate source Observation Observation Oxygen Delivery Method Room Air Blood Pressure (90/60-120/80) 129/70 H 133/81 H 126/68 H Blood Pressure Mean (mm Hg) 89 98 87 Source Monitor Monitor Monitor Position Semi-Fowlers Semi-Fowlers Blood Pressure Location Left Arm Left Arm History Since Last Visit- (Skip if this is Patient's initial visit) Have you changed medications since your No No No last visit? Any new allergies or adverse reactions No No No Had a fall/change in ADL's that may No No No increase risk of falls Signs or symptoms of abuse and/or No No neglect since last visit Have you been in the hospital since your No No No last visit? Has dressing in place as prescribed Yes Yes Yes Has compression in place as prescribed Yes Yes Yes Has offloadiing in place as prescribed N/A N/A N/A Experienced any changes in pain level or No No No management Left Footwear Regular Shoe Regular Shoe Right Footwear Regular Shoe Regular Shoe Pain Scale: 0-10 Numeric Is Patient Pain Free? Yes Yes Yes WC - Nurse 1 - General Ulcer Measurement Start: 11/11/22 09:36 Freq: Status: Active Protocol: Activity Type Activity Date Activity User E-sign Co-sign Detail Recorded Client Recorded Date Recorded By Document 11/11/22 09:40 [id number] 11/11/22 09:43 Document 11/18/22 09:38 AK [id number] 11/18/22 09:45 AK Document 11/23/22 13:17 DL [id number] 11/23/22 13:23 DL 11/11/22 11/18/22 11/23/22 09:40 09:38 13:17 Wound Center Nurse 1 #4- L MED ANKLE -Combined with other wound No No -Current Size (cm) - Length 0.4 0.5 0.4 -Current Size (cm) - Width 0.2 0.3 0.3 -Current Size (cm) - Depth 0.1 0.3 0.2 -Total Square Cm 0.08 0.15 0.12 -Date of Last Picture (Recall this 11/18/22 field) -Photo Taken Yes Yes Yes -Epithelialization Small 1-33% None Present -Tunneling No No -Undermining/Tunneling No No -Circular Undermining No No -Exudate Amt Small Medium Medium -Exudate Type Serosanguineous Serosanguineous Serosanguineous -Wound Margin Flat & Intact Distinct, Distinct, Outline Outline Attached Attached -Granulation Amt Medium (34-66%) Large (67-100%) Small (1-33%) -Granulation Quality Red Red [place] -Slough/Fibrin Yes No -Necrosis Amt Small (1-33%) None Present (0 Small (1-33%) %) -Necrotic Tissue Type Adherent Slough Adherent Slough -Structure Exposed N/A N/A N/A -Texture (Ines-wound Skin Appearance) Assessed, Assessed, Scarring Localized Edema Scarring -Moisture (Ines-wound Skin Appearance) Assessed,Dry/ Assessed No Abnormality Scaly -Color (Ines-wound Skin Appearance) Assessed, Assessed, Erythema, Hemosiderin Erythema Hemosiderin Staining Staining -Temperature (Ines-wound Skin No Abnormality No Abnormality No Abnormality Appearance) (Pt Warm) (Pt Warm) (Pt Warm) -Tenderness on Palpation (Ines-wound No No Skin Appearance) -Ulcer Cleansing Rinsed/ Rinsed/ Rinsed/ Irrigated with Irrigated with Irrigated with Saline Saline Saline -Foul Odor after Cleansing No No No -Anesthetic Used 5% Lidocaine 5% Lidocaine 5% Lidocaine Gel Gel Gel Lower Limb Edema Present Yes Yes Left Calf (cm) 37.7 37.2 36.4 Left Ankle (cm) 22.5 22.5 22.2 WC - Nurse 2 - General Ulcer CM Notes Start: 11/11/22 09:36 Freq: Status: Active Protocol: Activity Type Activity Date Activity User E-sign Co-sign Detail Recorded Client Recorded Date Recorded By Document 11/11/22 12:04 PL [id number] 11/11/22 12:05 PL Document 11/18/22 11:49 PL [id number] 11/18/22 11:50 PL Document 11/23/22 13:29 MW [id number] 11/23/22 13:43 MW 11/11/22 11/18/22 11/23/22 12:04 11:49 13:29 Wound Center Nurse 2 #4- L MED ANKLE -Time 09:53 09:54 13:29 -Correct Patient Yes Yes Yes -Correct Side, Site, Position Yes Yes Yes -Correct Procedure Yes Yes Yes -Procedure Performed Yes Yes Yes -Type of Procedure Debridement Debridement Debridement -Clinical Debridement Subcutaneous Subcutaneous Subcutaneous -Tissue Removed Subcutaneous Subcutaneous Subcutaneous -Post Debridement (cm) - Length 0.4 0.4 0.7 -Post Debridement (cm) - Width 0.2 0.6 0.4 -Post Debridement (cm) - Depth 0.1 0.2 0.2 -Total Square (Post) (cm) 0.08 0.24 0.28 -Area of Debridement (cm) - Length 0.4 0.4 0.7 -Area of Debridement (cm) - Width 0.2 0.6 0.4 -Total Square (Area) (cm) 0.08 0.24 0.28 -Tunneling No No No -Undermining/Tunneling No No No -Circular Undermining No No No -Wound/Ulcer Outcome Not Healed Not Healed Not Healed -Ulcer Cleansing Rinsed/ Rinsed/ Rinsed/ Irrigated with Irrigated with Irrigated with Saline Saline Saline -Foul Odor after Cleansing No No No -Bioengineered Tissue No No No -Bleeding Controlled with Pressure Pressure Pressure -Treatment Response Procedure Procedure Procedure Tolerated Well Tolerated Well Tolerated Well -Offloading No -Debridement - Subq, 1st 20sq cm Yes Yes Yes Pain Scale: 0-10 Numeric Is Patient Pain Free? Yes Yes Yes WC - Nurse 3 - General Ulcer D/C NN Start: 11/11/22 09:36 Freq: Status: Active Protocol: Activity Type Activity Date Activity User E-sign Co-sign Detail Recorded Client Recorded Date Recorded By Document 11/11/22 10:08 [facility] [id number] 11/11/22 10:08 [facility] Document 11/18/22 11:09 [place] [id number] 11/18/22 11:10 AK Document 11/23/22 13:52 DL [id number] 11/23/22 13:55 DL 11/11/22 11/18/22 11/23/22 10:08 11:09 13:52 Wound Care Center Nurse 3 #4- L MED ANKLE -Ulcer Cleansing Rinsed/ Rinsed/ Irrigated with Irrigated with Saline Saline -Foul Odor after Cleansing No No -Negative Pressure Wound Therapy N/A -Primary Dressing Applied Fibracol Plus 4x4 -Other Dressing Fibricol Plus/ Mepilex -Primary Dressing Covered/Secured with Dry Gauze, Secured with Tape -Other Covering PROMOGRAN, BORDER DRSG -Fibracol Plus 4x4 1 Left -Stockings Yes -Other PTS OWN STOCKING REAPPLIED Treatment Response Procedure Tolerated Well Pain Scale: 0-10 Numeric Is Patient Pain Free? 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 Will prescribe triamcinolone ointment 0.5% to be applied twice daily to the periwound skin, do NOT apply to the wound bed. Will see if this helps with the irritation/itching. Continue with compression stockings. Emphasized the importance of trying to elevate legs throughout the day. No signs/symptoms of infection. Increase protein and decrease carbs in diet to aid in healing. Patient will f/u with me on 12/09 when I return from vacation. She will contact the wound center if she feels she needs to be seen in a nurse visit or by another provider while I am out.
== END 2022-11-30 23:59 | disposition home or self-care (01) ==
LOC: WC 13:15
PROVIDERS: PCP Internal Medicine; Referring Provider Physician Assistant; Visit Provider Physician Assistant
DX: I83.023 Varicose veins of left lower extremity with ulcer of ankle (principal); L97.329 Non-pressure chronic ulcer of left ankle with unspecified severity; D68.9 Coagulation defect, unspecified; B37.2 Candidiasis of skin and nail; Z86.718 Personal history of other venous thrombosis and embolism; Z79.01 Long term (current) use of anticoagulants
CPT/HCPCS: 11042

== ENCOUNTER 2022-12-22 08:11 | Day surgery (SDC) | payer MEDICARE, OTHER, SELFPAY ==
[2022-12-21 08:10] VITALS: BMI 27.8
[2022-12-22 08:45] LABS: Absolute Lymphocyte Count 1.25 X10^3/uL (0.83-4.51); Absolute Neutrophil Count 5.9 X10^3/uL (2.0-7.7); Basophil# 0.04 X10^3/uL; Basophil% 0.5 % (0-1); Eosinophil# 0.26 X10^3/uL; Eosinophils% 3.2 % (0-5); Hematocrit 40.4 % (37-47); Hemoglobin 13.3 g/dL (12.0-15.0); Lymphocyte # 1.25 X10^3/ul (0.83-4.51); Lymphocyte % 15.3 % (19-41); Mean Corp Hgb Conc 32.9 g/dL (32-36); Mean Corpuscular Volume 97.1 fL (81-99); Monocyte# 0.68 X10^3/uL; Monocyte% 8.3 % (0-10); NRBC Flagged by Analyzer 0 % (0-5); Neutrophil # 5.94 X10^3/uL (2.7-7.7); Neutrophil % 72.5 % (47-70); Platelet Count 281 K/mm3 (150-450); RBC Distribution Width CV 11.8 % (11.6-14.6); RBC Distribution Width SD 42.1 fl (35.1-43.9); Red Blood Count 4.16 M/mm3 (4.2-5.4); White Blood Count 8.2 K/mm3 (4.4-11.0)
--- NOTE | 2022-12-22 08:45 | PCM.HP.STD ---
[facility] - General General Date of Service: 12/22/22 [facility] Narrative BRENT VELARDE, is a 77 F who presents today for venous glue ablation of L GSV secondary to recurrent and persistent chronic venous wound of the left medial malleolus. She has reflux throughout the left great saphenous vein including SFJ Her current wound has been ongoing since late June 2022 and this is at least the 10th time she has had this ulcer recur. The wound has been refractory to many different modalities of local wound care as well as over 6 months of adequate, consistent compression. She has a medical history significant for clotting disorder (Prothrombin thrombophilia), history of DVTs, and venous insufficiency. She does not smoke. She is not diabetic. She has been on Xarelto for years. She reports since starting the Xarelto she has had no further DVTs to her knowledge. All DVTs were in her LLE. Otherwise, she has no significant medical history. She has no complaints today. She denies CP, SOB, palpitations, N/V, F/C, new or worsening pain/swelling/redness of BLE. [facility] Home Medications cholecalciferol (vitamin D3) 50 mcg (2,000 unit) capsule (D3-2000) 500 unit PO DAILY 07/28/17 [History Last Taken Unknown] citalopram 20 mg tablet (Celexa) 10 mg PO DAILY 07/28/17 [History Last Taken Unknown] rivaroxaban 10 mg tablet (Xarelto) 10 mg PO DAILY 07/28/17 [History Last Taken 12/20/22] omega-3 fatty acids 500 mg capsule 1,500 mg PO DAILY 07/14/22 [History Last Taken Unknown] Allergy/AdvReac Type Severity Reaction Status Date / Time Penicillins [PCN] Allergy Severe Hives Verified 11/15/22 14:13 doxycycline Allergy Hives Verified 11/15/22 14:13 fluconazole Allergy Other Verified 08/04/22 10:56 Food Allergies: Uncoded Allergy Hives Verified 11/15/22 14:13 isosorbide [From Imdur] AdvReac Other Verified 08/04/22 10:56 Surgical History H/O tubal ligation Previous back surgery Social History Smoking Status: Never smoker ROS ROS Narrative ROS General General: No weight change, appetite, fatigue, colon cancer, breast cancer or weakness HEENT HEENT: No difficulty swallowing, eye injury, eye surgery, swollen glands or hoarseness Endo Endocrine: No thyroid disease, diabetes mellitus, thyroid cancer, Hair loss, heat intolerance or cold intolerance Skin Skin: No rash or changing moles Musc Musculoskeletal: No back problems, arthritis, rheumatoid arthritis, gout or joint pain Cardio Cardiovascular: No murmur, pacemaker, heart disease, atrial fibrillation, high blood pressure, heart attack, heart stent, palpitations, shortness of breat with exertion or chest pain Psych Psychiatric: Yes anxiety; No depression or hearing voices Resp Respiratory: No shortness of breath, No sleep apnea, No cough, No COPD, No asthma, No emphysema and No wheezing Gastro Gastrointestinal: No abdominal pain, No nausea or vomiting, No diarrhea, No constipation, No blood in stool, No acid reflux, No hemorrhoids, No ulcers, No gallbladder problem and No black,tarry stools Abe Hematologic: Yes blood thinners, Yes blood disorders, No bleeding, No anemia and Yes blood clots Neuro Neurologic: No system reviewed and no additional complaints, except as documented, No as per HPI, No abnormal gait, No abnormal hearing, No abnormal movements, No abnormal speech, No behavioral changes, No burning sensations, No confusion, No convulsions, No disequilibrium, No dizziness, No localized weakness, No frequent falls, No headache(s), No lack of coordination, No loss of vision, No memory loss, No numbness, No other visual disturbances, No radicular pain, No restless legs, No sensory deficit, No syncope, No tingling, No tremor(s), No weakness and No other Vital Signs Vital Signs Vital Signs: Weight Weight: 152 lb Body Mass Index (BMI) 27.8 Physical Exam Narrative Physical Exam Const alert, oriented x3, no apparent distress and healthy appearing General Appearance: cooperative, comfortable and well kempt Exam Limitations: no limitations HEENT normocephalic, head/scalp atraumatic, hearing grossly normal bilaterally, external ears normal and external nose normal Eyes EOMs intact bilaterally General Eye: normal appearance of both eyes Neck full ROM General: normal visual inspection and trachea midline; Negative for anterior neck swelling Resp normal respiratory effort, normal air movement, no retractions and no use of accessory muscles Effort and Inspection: able to speak in complete sentences and symmetric chest movement; Negative for labored, stridor, uses accessory muscles or audible wheezes Extremity Extremity Narrative: Bilateral lower extremity edema. Multiple varicosities and reticular veins noted bilaterally. Skin Wounds: wounds noted Wound Narrative: Venous ulcer noted to left medial ankle, quite small.? No foul odor, fluctuance, induration. 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 She will follow-up in the office in 3-4 weeks or sooner as needed following the procedure.
[2022-12-22 08:56] LABS: Anion Gap 5 (5-15); BUN 19 mg/dL (7-18); BUN/Creat Ratio 21.8 RATIO (10-20); Calcium,Total 9.1 mg/dL (8.5-10.1); Chloride 106 mmol/L (98-107); Creatinine, Serum 0.87 mg/dL (0.55-1.02); EST Glomerular Filtration Rate 67 mL/min (>60); Est Glom Filt Rate - Afr Amer 82 mL/min (>60); Estimated Creatinine Clearance 44.19 ml/min; Glucose 111 mg/dL (74-106); Potassium 4.3 mmol/L (3.5-5.1); Sodium Level 139 mmol/L (136-145)
--- NOTE | 2022-12-22 12:27 | OP.PCM_ITS ---
Report of Operation Date of Procedure: 12/22/22 Pre-Operative Diagnosis: venous insufficiency with ulceration, left lower extre mity Post-Operative Diagnosis: same Surgery/Procedure Performed:: left greater saphenous glue ablation Description of Surgical Findings:: 62 cm treatment length, <3 cc glue volume Surgeon: Aroldo Lord Type of Anesthesia: Local and Sedation,Conscious Estimated Blood Loss (mL): 1 Description of Procedure: HPI: Patient is a 77-year-old female with a longstanding left lower extremity venous ulceration that has failed to resolve despite maximal conservative therapy She had venous duplex with reflux evaluation which identified reflux throughout the greater saphenous vein. She presents now for below ablation. Description of procedure: Upon obtaining form consent and verification correct patient procedure site patient taken to [facility] where she was positioned prepped and draped in usual sterile fashion. Time was performed conscious administered with Versed. Ultrasound used to evaluate the course of the saphenous vein and a suitable access point identified just above the venous woun d in the distal calf. Skin was anesthetized with 1% lidocaine and the vessel accessed in retrograde fashion with a micropuncture needle and wire under ultrasound guidance. This then exchanged out for the 7 [place] sheath ablation sheath. Wires and advanced via the 7 [place] sheath and positioned the common femoral vein. The ablation delivery guide was then advanced over the wire and positioned at the saphenofemoral junction. The glue delivery catheter was then advanced into position and pulled down to a satisfactory length below the saphenofemoral junction. Glue was then infused per instructions and manual pressure held for 3 minutes. Sequential fluid infusion throughout the length of the saphenous vein down to just above the catheter was performed. The delivery guide and catheter then withdrawn after which the sheath was removed and manual pressure held for until hemostasis was obtained. Dry sterile dressing with an Bernardo wrap were then applied the patient was taken recovery room with anticipated discharge home.
== END 2022-12-22 12:00 | disposition home or self-care (01) ==
PROVIDERS: PCP Internal Medicine; Referring Provider Surgery Trauma Surgery; Visit Provider Surgery Trauma Surgery
DX: I83.012 Varicose veins of right lower extremity with ulcer of calf (principal); L97.829 Non-pressure chronic ulcer of other part of left lower leg with unspecified severity; I87.2 Venous insufficiency (chronic) (peripheral); Z79.01 Long term (current) use of anticoagulants; Z79.899 Other long term (current) drug therapy
CPT/HCPCS: 36415; 36482; 80048; 85025; 99152; 99153; C1894; J7040

== ENCOUNTER → 2022-12-28 | Outpatient (CLI) | payer MEDICARE, OTHER, SELFPAY ==
--- NOTE | 2022-12-28 08:00 | VDLE_ITS ---
Reason For Study: Lt Leg Swelling RIGHT LEFT CFV is compressible, spontaneous, phasic, Lt GSV is DILATED and NONCOMPRESSIBLE competent and demonstrates normal throughout vessel. Mixed intraluminal echoes augmentation. Bright intraluminal echoes consistent with recent chemical ablation noted on valve consistent with chronic DVT. procedure. Echoes appear to extend slightly Procedure into the junction. ASV of the Lt thigh is This is a venous duplex using B-mode, color DILATED and NONCOMPRESSIBLE. flow and spectral Doppler. Exam performed in department. CFV is partially compressible, spontaneous, The exam was diagnostic. phasic, competent, and demonstrates normal A preliminary report was called and/or faxed augmentation. Echogenicity noted at junction. to Dr. Lord. FV is compressible, spontaneous, phasic, competent and demonstrates normal augmentation. POP V is compressible, spontaneous, phasic, competent and demonstrates normal augmentation. Bright intraluminal echoes noted consistent with chronic DVT. T/P Trunk is compressible. PTV is compressible. LT PerV is compressible. VL/Venous Duplex US, Unilateral Interpretation Summary Left great saphenous vein occluded, recent chemical ablation. Thrombus extending to saphenofemoral junction. Chronic deep vein thrombosis is noted in the left popliteal vein. Chronic deep vein thrombosis is noted in the right common femoral vein. Ordering Physician: Ashley Arenas Referring Physician: Albertina Garzon D.O. Performed By: Edwar Yoo, RVT
== END | disposition home or self-care (01) ==
LOC: CVS 08:00
PROVIDERS: PCP Internal Medicine; Referring Provider Physician Assistant; Visit Provider Physician Assistant
DX: M79.89 Other specified soft tissue disorders (principal); L97.929 Non-pressure chronic ulcer of unspecified part of left lower leg with unspecified severity; I83.029 Varicose veins of left lower extremity with ulcer of unspecified site; D68.4 Acquired coagulation factor deficiency; Z48.812 Encounter for surgical aftercare following surgery on the circulatory system
CPT/HCPCS: 93971

== ENCOUNTER 2022-12-30 10:15 | Outpatient (RCR) | payer MEDICARE, OTHER, SELFPAY ==
[2022-12-01 00:30] VITALS: BP 126/68; PULSE 82; RESP 20; TEMP 36.2; BMI 26.2
[2022-12-09 09:35] VITALS: BP 141/72; PULSE 83; RESP 18; TEMP 35.6; BMI 26.2
--- NOTE | 2022-12-09 11:14 | PN.PCM_ITS ---
History of Present Illness Date of Service: 12/09/22 Chief Complaint: Left ankle ulcer History of Wound: Patient is a pleasant 76 y/o female who presents to the [facility] today for evaluation and treatment of a recurrent left medial ankle ulcer. She reports that this is at least the 10th time she has had this ulcer recur, she is well known to the [facility] though last here in 2019. She has a medical history significant for clotting disorder (Prothrombin thrombophilia), history of DVTs, and venous insufficiency. She does not smoke. She is not diabetic. She has been on Xarelto for years. She reports since starting the Xarelto she has had no further DVTs to her knowledge. She reports all her DVTs have been in the LLE. She reports she was evaluated by vascular surgeon in the past for ablation but was told she was not a candidate due to her hypercoagulable state. Her current wound has been ongoing since late June 2022. Was not previously wearing compression. Subjective Subjective Recently got new measured compression stockings and has been wearing them the last few days. 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 Otherwise, no new or worsening pain, drainage, foul odor. Objective Data Objective Data Vital Signs: Vital Signs Temp Pulse Resp BP 96.1 F L 83 18 141/72 H 12/09/22 09:35 12/09/22 09:35 12/09/22 09:35 12/09/22 09:35 Weight: 143 lb Body Mass Index (BMI) 26.2 Charges/Coding Procedures Integumentary 111xxx-113xx: 47268 Terri subq tissue 20 sq cm/< Physical Exam Const alert, oriented x3, no apparent distress and healthy appearing General Appearance: cooperative, comfortable and well kempt Exam Limitations: no limitations HEENT normocephalic, head/scalp atraumatic, hearing grossly normal bilaterally, external ears normal and external nose normal Eyes EOMs intact bilaterally General Eye: normal appearance of both eyes Neck full ROM General: normal visual inspection and trachea midline; Negative for anterior neck swelling Resp normal respiratory effort, normal air movement, no retractions and no use of accessory muscles Effort and Inspection: able to speak in complete sentences and symmetric chest movement; Negative for labored, stridor, uses accessory muscles or audible wheezes Extremity Extremity Narrative: Bilateral lower extremity edema. Multiple varicosities and reticular veins noted bilaterally. Skin Wounds: wounds noted Wound Narrative: Venous ulcer noted to left medial ankle, quite small. No foul odor, fluctuance, induration. Periwound skin is improved in appearance from last week. Neuro oriented x3, CN's II-XII intact bilaterally, moves all extremities, no focal motor deficits, no sensory deficits noted and gait normal Speech: speech normal Psych mental status grossly normal, thought process normal, affect normal, speech normal and activity/motor behavior normal Insight: insight good Judgement: judgement good Debridement Note Debridement Note Wound debrided: Left medial ankle ulcer Laterality: Left Type of Debridement: Excisional debridement Anesthesia Used: 5% Lidocaine Gel and Cetacaine Depth: Down to and including healthy tissue and in the subcutaneous layer Percentage of wound debrided: 100 Instrument Used: 3mm curette Tissue Removed: slough, devitalized tissue Amount of bleeding with debridement: Mild Bleeding Controlled with: Pressure Patient tolerated procedure: Patient tolerated procedure well Post-Debridement Measurements and Additional Note: Post-Debridement Measurements/Treatment - Nurse 1 - General Ulcer Assessment Start: 12/09/22 09:35 Freq: Status: Active Protocol: PEMA Activity Type Activity Date Activity User E-sign Co-sign Detail Recorded Client Recorded Date Recorded By Document 12/09/22 09:35 KW [id number] 12/09/22 09:48 KW 12/09/22 09:35 - Today's Visit Information 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 service 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 ) Arrival Mode Ambulatory Patient Identification Verified (Name & Yes ) Patient Requires Transmission-Based No Precautions Safety Precautions NA Height and Weight Body Mass Index (BMI) 26.2 BMI Classification Overweight Vital Signs Temperature (97.8 F-99.1 F) 96.1 F L Temperature Source Temporal Pulse Rate (60-100) 83 Pulse Location Monitor Respiratory Rate (12-18) 18 Respiratory rate source Observation Blood Pressure (90/60-120/80) 141/72 H Blood Pressure Mean (mm Hg) 95 Source Monitor Position Supine Blood Pressure Location Left Arm History Since Last Visit- (Skip if this is Patient's initial visit) Have you changed medications since your No last visit? Any new allergies or adverse reactions No Had a fall/change in ADL's that may No increase risk of falls Signs or symptoms of abuse and/or No neglect since last visit Have you been in the hospital since your No last visit? Has dressing in place as prescribed Yes Has compression in place as prescribed Yes Has offloadiing in place as prescribed N/A Experienced any changes in pain level or No management Left Footwear Regular Shoe Right Footwear Regular Shoe Pain Scale: 0-10 Numeric Is Patient Pain Free? No - Nurse 1 - General Ulcer Measurement Start: 12/09/22 09:35 Freq: Status: Active Protocol: Activity Type Activity Date Activity User E-sign Co-sign Detail Recorded Client Recorded Date Recorded By Document 12/09/22 09:35 [id number] 12/09/22 09:48 KW 12/09/22 09:35 Wound Center Nurse 1 #4- L MED ANKLE -Combined with other wound No -Current Size (cm) - Length 0.4 -Current Size (cm) - Width 0.3 -Current Size (cm) - Depth 0.1 -Total Square Cm 0.12 -Date of Last Picture (Recall this 12/09/22 field) -Photo Taken Yes -Tunneling No -Undermining/Tunneling No -Wound Margin Distinct, Outline Attached -Granulation Amt Medium (34-66%) -Granulation Quality [place] -Slough/Fibrin Yes -Necrosis Amt Medium (34-66%) -Texture (Ines-wound Skin Appearance) Assessed -Moisture (Ines-wound Skin Appearance) Dry/Scaly -Color (Ines-wound Skin Appearance) Assessed, Erythema -Temperature (Ines-wound Skin No Abnormality Appearance) (Pt Warm) -Tenderness on Palpation (Ines-wound No Skin Appearance) -Ulcer Cleansing Rinsed/ Irrigated with Saline -Foul Odor after Cleansing No -Anesthetic Used 5% Lidocaine Gel Lower Limb Edema Present No Left Calf (cm) 27 Left Ankle (cm) 23 - Nurse 3 - General Ulcer D/C NN Start: 12/09/22 09:35 Freq: Status: Active Protocol: Activity Type Activity Date Activity User E-sign Co-sign Detail Recorded Client Recorded Date Recorded By Document 12/09/22 10:56 [id number] 12/09/22 10:57 KW 12/09/22 10:56 Wound Care Center Nurse 3 #4- L MED ANKLE -Ulcer Cleansing Rinsed/ Irrigated with Saline -Foul Odor after Cleansing No -Primary Dressing Applied Fibracol Plus 4x4 -Primary Dressing Covered/Secured with Dry Gauze, Secured with Tape -Fibracol Plus 4x4 1 Pain Scale: 0-10 Numeric Is Patient Pain Free? 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 Continue with the lotion that is helping the periwound skin, careful not to apply too close or directly on the wound bed. Continue with compression stockings and elevation. No signs/symptoms of infection. Increase protein and decrease carbs in diet to aid in healing. Patient will f/u with me in 1 week.
--- NOTE | 2022-12-16 07:29 | PCM.WC.PN ---
History of Present Illness Date of Service: 12/16/22 Chief Complaint: Left ankle ulcer History of Wound: Patient is a pleasant 76 y/o female who presents to the [facility] today for evaluation and treatment of a recurrent left medial ankle ulcer. She reports that this is at least the 10th time she has had this ulcer recur, she is well known to the [facility] though last here in 2019. She has a medical history significant for clotting disorder (Prothrombin thrombophilia), history of DVTs, and venous insufficiency. She does not smoke. She is not diabetic. She has been on Xarelto for years. She reports since starting the Xarelto she has had no further DVTs to her knowledge. She reports all her DVTs have been in the LLE. She reports she was evaluated by vascular surgeon in the past for ablation but was told she was not a candidate due to her hypercoagulable state. Her current wound has been ongoing since late June 2022. Was not previously wearing compression. Subjective Subjective She is doing well. Wound is overall stable. Continues to wear compression as directed. No new or worsening pain or swelling. She is scheduled for venous ablation next and the will be out of town from Monday to Monday next week. Objective Data Objective Data Vital Signs: Vital Signs Temp Pulse Resp BP 96.1 F L 83 18 141/72 H 12/09/22 09:35 12/09/22 09:35 12/09/22 09:35 12/09/22 09:35 Weight: 143 lb Body Mass Index (BMI) 26.2 Charges/Coding Procedures Integumentary 111xxx-113xx: 99184 Terri subq tissue 20 sq cm/< Physical Exam Const alert, oriented x3, no apparent distress and healthy appearing General Appearance: cooperative, comfortable and well kempt Exam Limitations: no limitations HEENT normocephalic, head/scalp atraumatic, hearing grossly normal bilaterally, external ears normal and external nose normal Eyes EOMs intact bilaterally General Eye: normal appearance of both eyes Neck full ROM General: normal visual inspection and trachea midline; Negative for anterior neck swelling Resp normal respiratory effort, normal air movement, no retractions and no use of accessory muscles Effort and Inspection: able to speak in complete sentences and symmetric chest movement; Negative for labored, stridor, uses accessory muscles or audible wheezes Extremity Extremity Narrative: Bilateral lower extremity edema. Multiple varicosities and reticular veins noted bilaterally. Skin Wounds: wounds noted Wound Narrative: Venous ulcer noted to left medial ankle, quite small. No foul odor, fluctuance, induration. Neuro oriented x3, CN's II-XII intact bilaterally, moves all extremities, no focal motor deficits, no sensory deficits noted and gait normal Speech: speech normal Psych mental status grossly normal, thought process normal, affect normal, speech normal and activity/motor behavior normal Insight: insight good Judgement: judgement good Debridement Note Debridement Note Wound debrided: Left medial ankle ulcer Laterality: Left Type of Debridement: Excisional debridement Anesthesia Used: 5% Lidocaine Gel and Cetacaine Depth: Down to and including healthy tissue and in the subcutaneous layer Percentage of wound debrided: 100 Instrument Used: 3mm curette Tissue Removed: slough, devitalized tissue Amount of bleeding with debridement: Mild Bleeding Controlled with: Pressure Patient tolerated procedure: Patient tolerated procedure well Post-Debridement Measurements and Additional Note: Post-Debridement Measurements/Treatment - Nurse 1 - General Ulcer Assessment Start: 12/09/22 09:35 Freq: Status: Active Protocol: PEMA Activity Type Activity Date Activity User E-sign Co-sign Detail Recorded Client Recorded Date Recorded By Document 12/09/22 09:35 [id number] 12/09/22 09:48 12/09/22 09:35 - Today's Visit Information Type of service 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 ) Arrival Mode Ambulatory Patient Identification Verified (Name & Yes ) Patient Requires Transmission-Based No Precautions Safety Precautions NA Height and Weight Body Mass Index (BMI) 26.2 BMI Classification Overweight Vital Signs Temperature (97.8 F-99.1 F) 96.1 F L Temperature Source Temporal Pulse Rate (60-100) 83 Pulse Location Monitor Respiratory Rate (12-18) 18 Respiratory rate source Observation Blood Pressure (90/60-120/80) 141/72 H Blood Pressure Mean (mm Hg) 95 Source Monitor Position Supine Blood Pressure Location Left Arm History Since Last Visit- (Skip if this is Patient's initial visit) Have you changed medications since your No last visit? Any new allergies or adverse reactions No Had a fall/change in ADL's that may No increase risk of falls Signs or symptoms of abuse and/or No neglect since last visit Have you been in the hospital since your No last visit? Has dressing in place as prescribed Yes Has compression in place as prescribed Yes Has offloadiing in place as prescribed N/A Experienced any changes in pain level or No management Left Footwear Regular Shoe Right Footwear Regular Shoe Pain Scale: 0-10 Numeric Is Patient Pain Free? No - Nurse 1 - General Ulcer Measurement Start: 12/09/22 09:35 Freq: Status: Active Protocol: Activity Type Activity Date Activity User E-sign Co-sign Detail Recorded Client Recorded Date Recorded By Document 12/09/22 09:35 [id number] 12/09/22 09:48 KW 12/09/22 09:35 Wound Center Nurse 1 #4- L MED ANKLE -Combined with other wound No -Current Size (cm) - Length 0.4 -Current Size (cm) - Width 0.3 -Current Size (cm) - Depth 0.1 -Total Square Cm 0.12 -Date of Last Picture (Recall this 12/09/22 field) -Photo Taken Yes -Tunneling No -Undermining/Tunneling No -Wound Margin Distinct, Outline Attached -Granulation Amt Medium (34-66%) -Granulation Quality [place] -Slough/Fibrin Yes -Necrosis Amt Medium (34-66%) -Texture (Ines-wound Skin Appearance) Assessed -Moisture (Ines-wound Skin Appearance) Dry/Scaly -Color (Ines-wound Skin Appearance) Assessed, Erythema -Temperature (Ines-wound Skin No Abnormality Appearance) (Pt Warm) -Tenderness on Palpation (Ines-wound No Skin Appearance) -Ulcer Cleansing Rinsed/ Irrigated with Saline -Foul Odor after Cleansing No -Anesthetic Used 5% Lidocaine Gel Lower Limb Edema Present No Left Calf (cm) 27 Left Ankle (cm) 23 - Nurse 2 - General Ulcer CM Notes Start: 12/09/22 09:35 Freq: Status: Active Protocol: Activity Type Activity Date Activity User E-sign Co-sign Detail Recorded Client Recorded Date Recorded By Document 12/09/22 12:09 PL [id number] 12/09/22 12:09 PL 12/09/22 12:09 Wound Center Nurse 2 #4- L MED ANKLE -Time 10:17 -Correct Patient Yes -Correct Side, Site, Position Yes -Correct Procedure Yes -Procedure Performed Yes -Type of Procedure Debridement -Clinical Debridement Subcutaneous -Tissue Removed Subcutaneous -Post Debridement (cm) - Length 0.5 -Post Debridement (cm) - Width 0.5 -Post Debridement (cm) - Depth 0.2 -Total Square (Post) (cm) 0.25 -Area of Debridement (cm) - Length 0.5 -Area of Debridement (cm) - Width 0.5 -Total Square (Area) (cm) 0.25 -Tunneling No -Undermining/Tunneling No -Circular Undermining No -Wound/Ulcer Outcome Not Healed -Ulcer Cleansing Rinsed/ Irrigated with Saline -Foul Odor after Cleansing No -Bioengineered Tissue No -Bleeding Controlled with Pressure -Treatment Response Procedure Tolerated Well -Debridement - Subq, 1st 20sq cm Yes Pain Scale: 0-10 Numeric Is Patient Pain Free? Yes - Nurse 3 - General Ulcer D/C NN Start: 12/09/22 09:35 Freq: Status: Active Protocol: Activity Type Activity Date Activity User E-sign Co-sign Detail Recorded Client Recorded Date Recorded By Document 12/09/22 10:56 [id number] 12/09/22 10:57 12/09/22 10:56 Wound Care Center Nurse 3 #4- L MED ANKLE -Ulcer Cleansing Rinsed/ Irrigated with Saline -Foul Odor after Cleansing No -Primary Dressing Applied Fibracol Plus 4x4 -Primary Dressing Covered/Secured with Dry Gauze, Secured with Tape -Fibracol Plus 4x4 1 Pain Scale: 0-10 Numeric Is Patient Pain Free? 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 Continue fibracol and dry dressing. Continue with the lotion that is helping the periwound skin, careful not to apply too close or directly on the wound bed. Continue with compression stockings and elevation. I continue to emphasize the importance of elevating her feet as often as possible throughout the day. No signs/symptoms of infection. Increase protein and decrease carbs in diet to aid in healing. She will return in 2 weeks.
[2022-12-16 12:00] VITALS: BP 123/95; PULSE 69; TEMP 35.9; BMI 26.2
--- NOTE | 2022-12-30 07:11 | PCM.WC.PN ---
History of Present Illness Date of Service: 12/30/22 Chief Complaint: Left ankle ulcer History of Wound: Patient is a pleasant 76 y/o female who presents to the [facility] today for evaluation and treatment of a recurrent left medial ankle ulcer. She reports that this is at least the 10th time she has had this ulcer recur, she is well known to the [facility] though last here in 2019. She has a medical history significant for clotting disorder (Prothrombin thrombophilia), history of DVTs, and venous insufficiency. She does not smoke. She is not diabetic. She has been on Xarelto for years. She reports since starting the Xarelto she has had no further DVTs to her knowledge. She reports all her DVTs have been in the LLE. She reports she was evaluated by vascular surgeon in the past for ablation but was told she was not a candidate due to her hypercoagulable state. Her current wound has been ongoing since late June 2022. Was not previously wearing compression. Subjective Subjective Following venous ablation last week, patient developed SVT in the SFJ and ASV. Her Xarelto has been increased to 20mg daily from 10mg daily for the next 8 weeks. She has some associated discomfort. Otherwise, she is doing okay. Objective Data Objective Data Vital Signs: Vital Signs Temp Pulse Resp BP 96.7 F L 69 18 123/95 H 12/16/22 12:00 12/16/22 12:00 12/09/22 09:35 12/16/22 12:00 Weight: 143 lb Body Mass Index (BMI) 26.2 Charges/Coding Procedures Integumentary 111xxx-113xx: [id number] Terri subq tissue 20 sq cm/< Physical Exam Narrative Physical Exam Const alert, oriented x3, no apparent distress and healthy appearing General Appearance: cooperative, comfortable and well kempt Exam Limitations: no limitations HEENT normocephalic, head/scalp atraumatic, hearing grossly normal bilaterally, external ears normal and external nose normal Eyes EOMs intact bilaterally General Eye: normal appearance of both eyes Neck full ROM General: normal visual inspection and trachea midline; Negative for anterior neck swelling Resp normal respiratory effort, normal air movement, no retractions and no use of accessory muscles Effort and Inspection: able to speak in complete sentences and symmetric chest movement; Negative for labored, stridor, uses accessory muscles or audible wheezes Extremity Extremity Narrative: Bilateral lower extremity edema. Multiple varicosities and reticular veins noted bilaterally. Skin Wounds: wounds noted Wound Narrative: Venous ulcer noted to left medial ankle, quite small.? No foul odor, fluctuance, induration. Neuro oriented x3, CN's II-XII intact bilaterally, moves all extremities, no focal motor deficits, no sensory deficits noted and gait normal Speech: speech normal Psych mental status grossly normal, thought process normal, affect normal, speech normal and activity/motor behavior normal Insight: insight good Judgement: judgement good Debridement Note Debridement Note Wound debrided: Left medial ankle ulcer Laterality: Left Type of Debridement: Excisional debridement Anesthesia Used: 5% Lidocaine Gel and Cetacaine Depth: Down to and including healthy tissue and in the subcutaneous layer Percentage of wound debrided: 100 Instrument Used: 3mm curette Tissue Removed: slough, devitalized tissue Amount of bleeding with debridement: Mild Bleeding Controlled with: Pressure Patient tolerated procedure: Patient tolerated procedure well Post-Debridement Measurements and Additional Note: Post-Debridement Measurements/Treatment - Nurse 1 - General Ulcer Assessment Start: 12/09/22 09:35 Freq: Status: Active Protocol: PEMA Activity Type Activity Date Activity User E-sign Co-sign Detail Recorded Client Recorded Date Recorded By Document 12/09/22 09:35 [id number] 12/09/22 09:48 Document 12/16/22 12:00 MS [id number] 12/16/22 12:02 TALA 12/09/22 12/16/22 09:35 12:00 - Today's Visit Information Type of service Follow-up Visit Follow-up Visit (Physician/ROOF TRUSS BUILDER (Physician/ROOF TRUSS BUILDER ) ) Arrival Mode Ambulatory Ambulatory Patient Identification Verified (Name & Yes Yes ) Patient Requires Transmission-Based No No Precautions Safety Precautions NA Height and Weight Body Mass Index (BMI) 26.2 26.2 BMI Classification Overweight Overweight Vital Signs Temperature (97.8 F-99.1 F) 96.1 F L 96.7 F L Temperature Source Temporal Temporal Pulse Rate (60-100) 83 69 Pulse Location Monitor Monitor Respiratory Rate (12-18) 18 Respiratory rate source Observation Blood Pressure (90/60-120/80) 141/72 H 123/95 H Blood Pressure Mean (mm Hg) 95 104 Source Monitor Monitor Position Supine Blood Pressure Location Left Arm History Since Last Visit- (Skip if this is Patient's initial visit) Have you changed medications since your No No last visit? Any new allergies or adverse reactions No No Had a fall/change in ADL's that may No No increase risk of falls Signs or symptoms of abuse and/or No No neglect since last visit Have you been in the hospital since your No No last visit? Has dressing in place as prescribed Yes Yes Has compression in place as prescribed Yes Yes Has offloadiing in place as prescribed N/A N/A Experienced any changes in pain level or No No management Left Footwear Regular Shoe Regular Shoe Right Footwear Regular Shoe Regular Shoe Pain Scale: 0-10 Numeric Is Patient Pain Free? No Yes WC - Nurse 1 - General Ulcer Measurement Start: 12/09/22 09:35 Freq: Status: Active Protocol: Activity Type Activity Date Activity User E-sign Co-sign Detail Recorded Client Recorded Date Recorded By Document 12/09/22 09:35 [id number] 12/09/22 09:48 KW Document 12/16/22 12:00 MS [id number] 12/16/22 12:02 MS 12/09/22 12/16/22 09:35 12:00 Wound Center Nurse 1 #4- L MED ANKLE -Combined with other wound No No -Current Size (cm) - Length 0.4 0.5 -Current Size (cm) - Width 0.3 0.4 -Current Size (cm) - Depth 0.1 0.2 -Total Square Cm 0.12 0.20 -Date of Last Picture (Recall this 12/09/22 field) -Photo Taken Yes No -Tunneling No -Undermining/Tunneling No No -Circular Undermining No -Change in Wound Grade/Stage No -Exudate Amt Small -Exudate Type Serosanguineous -Wound Margin Distinct, Distinct, Outline Outline Attached Attached -Granulation Amt Medium (34-66%) Small (1-33%) -Granulation Quality Bodfish Bodfish -Slough/Fibrin Yes Yes -Necrosis Amt Medium (34-66%) Large (67-100%) -Necrotic Tissue Type Adherent Slough -Structure Exposed N/A -Texture (Ines-wound Skin Appearance) Assessed No Abnormality, Assessed -Moisture (Iens-wound Skin Appearance) Dry/Scaly No Abnormality, Assessed -Color (Ines-wound Skin Appearance) Assessed, No Abnormality, Erythema Assessed -Temperature (Ines-wound Skin No Abnormality No Abnormality Appearance) (Pt Warm) (Pt Warm) -Tenderness on Palpation (Ines-wound No No Skin Appearance) -Ulcer Cleansing Rinsed/ Rinsed/ Irrigated with Irrigated with Saline Saline -Foul Odor after Cleansing No No -Anesthetic Used 5% Lidocaine 5% Lidocaine Gel Gel Lower Limb Edema Present No Left Calf (cm) 27 38 Left Ankle (cm) 23 22 WC - Nurse 2 - General Ulcer CM Notes Start: 12/09/22 09:35 Freq: Status: Active Protocol: Activity Type Activity Date Activity User E-sign Co-sign Detail Recorded Client Recorded Date Recorded By Document 12/09/22 12:09 PL [id number] 12/09/22 12:09 PL Document 12/16/22 14:35 PL [id number] 12/16/22 14:37 PL 12/09/22 12/16/22 12:09 14:35 Wound Center Nurse 2 #4- L MED ANKLE -Time 10:17 11:34 -Correct Patient Yes Yes -Correct Side, Site, Position Yes Yes -Correct Procedure Yes Yes -Procedure Performed Yes Yes -Type of Procedure Debridement Debridement -Clinical Debridement Subcutaneous Subcutaneous -Tissue Removed Subcutaneous Subcutaneous -Post Debridement (cm) - Length 0.5 0.4 -Post Debridement (cm) - Width 0.5 0.4 -Post Debridement (cm) - Depth 0.2 0.2 -Total Square (Post) (cm) 0.25 0.16 -Area of Debridement (cm) - Length 0.5 0.4 -Area of Debridement (cm) - Width 0.5 0.4 -Total Square (Area) (cm) 0.25 0.16 -Tunneling No No -Undermining/Tunneling No No -Circular Undermining No No -Wound/Ulcer Outcome Not Healed Not Healed -Ulcer Cleansing Rinsed/ Rinsed/ Irrigated with Irrigated with Saline Saline -Foul Odor after Cleansing No No -Bioengineered Tissue No No -Bleeding Controlled with Pressure Pressure -Treatment Response Procedure Procedure Tolerated Well Tolerated Well -Debridement - Subq, 1st 20sq cm Yes Yes Pain Scale: 0-10 Numeric Is Patient Pain Free? Yes Yes WC - Nurse 3 - General Ulcer D/C NN Start: 12/09/22 09:35 Freq: Status: Active Protocol: Activity Type Activity Date Activity User E-sign Co-sign Detail Recorded Client Recorded Date Recorded By Document 12/09/22 10:56 [id number] 12/09/22 10:57 Document 12/16/22 12:03 [id number] 12/16/22 12:04 12/09/22 12/16/22 10:56 12:03 Wound Care Center Nurse 3 #4- L MED ANKLE -Ulcer Cleansing Rinsed/ Rinsed/ Irrigated with Irrigated with Saline Saline -Foul Odor after Cleansing No No -Primary Dressing Applied Fibracol Plus Fibracol Plus 4x4 4x4 -Primary Dressing Covered/Secured with Dry Gauze, Dry Gauze, Secured with Secured with Tape Tape -Fibracol Plus 4x4 1 1 Pain Scale: 0-10 Numeric Is Patient Pain Free? Yes Yes WC - Visit Discharge Discharge Condition Stable Stable Ambulatory Status Ambulatory Ambulatory Transportation Private Auto Medication Reconcilliation completed & No No provided to patient/care provider Clinical Summary of Care Provided Yes Yes Assessment/Plan Assessment/Plan 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: CODE(S): I83.029 - Varicose veins of left lower extremity with ulcer of unspecified site; L97.929 - Non-pressure chronic ulcer of unspecified part of left lower leg with unspecified severity PLAN: Plan Continue fibracol and dry dressing. Continue with compression stockings and elevation. I continue to emphasize the importance of elevating her feet as often as possible throughout the day. No signs/symptoms of infection. Increase protein and decrease carbs in diet to aid in healing. She will return in 2 weeks.
[2022-12-30 11:00] VITALS: BP 142/73; PULSE 80; TEMP 35.9; BMI 26.2
== END 2022-12-30 23:59 | disposition home or self-care (01) ==
LOC: WC 10:15
PROVIDERS: PCP Internal Medicine; Referring Provider Physician Assistant; Visit Provider Physician Assistant
DX: I83.023 Varicose veins of left lower extremity with ulcer of ankle (principal); L97.329 Non-pressure chronic ulcer of left ankle with unspecified severity; Z86.718 Personal history of other venous thrombosis and embolism
CPT/HCPCS: 11042

== ENCOUNTER 2023-01-13 10:02 | Outpatient (RCR) | payer MEDICARE, OTHER, SELFPAY ==
[2022-12-31 01:15] VITALS: BP 142/73; PULSE 80; RESP 18; TEMP 35.9; BMI 26.2
--- NOTE | 2023-01-13 07:13 | PN.PCM_ITS ---
History of Present Illness Date of Service: 01/13/23 Chief Complaint: Left ankle ulcer History of Wound: Patient is a pleasant 76 y/o female who presents to the [facility] today for evaluation and treatment of a recurrent left medial ankle ulcer. She reports that this is at least the 10th time she has had this ulcer recur, she is well known to the [facility] though last here in 2019. She has a medical history significant for clotting disorder (Prothrombin thrombophilia), history of DVTs, and venous insufficiency. She does not smoke. She is not diabetic. She has been on Xarelto for years. She reports since starting the Xarelto she has had no further DVTs to her knowledge. She reports all her DVTs have been in the LLE. She reports she was evaluated by vascular surgeon in the past for ablation but was told she was not a candidate due to her hypercoagulable state. Her current wound has been ongoing since late June 2022. Was not previously wearing compression. Subjective Subjective Patient is doing very well this week. She feels wound has improved in size. She reports her LLE overall is feeling much better, no further redness or pain. She is wearing compression as directed. Objective Data Objective Data Vital Signs: Vital Signs Temp Pulse Resp BP 96.7 F L 80 18 142/73 H 12/31/22 01:15 12/31/22 01:15 12/31/22 01:15 12/31/22 01:15 Weight: 143 lb Body Mass Index (BMI) 26.2 Charges/Coding Visit Charges Office Visits / Consults: [id number] OV L2 Est Physical Exam Narrative Physical Exam Const alert, oriented x3, no apparent distress and healthy appearing General Appearance: cooperative, comfortable and well kempt Exam Limitations: no limitations HEENT normocephalic, head/scalp atraumatic, hearing grossly normal bilaterally, external ears normal and external nose normal Eyes EOMs intact bilaterally General Eye: normal appearance of both eyes Neck full ROM General: normal visual inspection and trachea midline; Negative for anterior neck swelling Resp normal respiratory effort, normal air movement, no retractions and no use of accessory muscles Effort and Inspection: able to speak in complete sentences and symmetric chest movement; Negative for labored, stridor, uses accessory muscles or audible wheezes Extremity Extremity Narrative: Bilateral lower extremity edema. Multiple varicosities and reticular veins noted bilaterally. Skin Wounds: wounds noted Wound Narrative: Venous ulcer noted to left medial ankle, quite small.? No foul odor, fluctuance, induration. Neuro oriented x3, CN's II-XII intact bilaterally, moves all extremities, no focal motor deficits, no sensory deficits noted and gait normal Speech: speech normal Psych mental status grossly normal, thought process normal, affect normal, speech normal and activity/motor behavior normal Insight: insight good Judgement: judgement good Debridement Note Debridement Note No debridement was completed: No debridement was completed today Assessment/Plan Assessment/Plan 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: CODE(S): I83.029 - Varicose veins of left lower extremity with ulcer of unspecified site; L97.929 - Non-pressure chronic ulcer of unspecified part of left lower leg with unspecified severity PLAN: Plan No debridement performed today as I think it is not benefitting her at this point so will take a break from this and see if wound improves. Continue fibracol and dry dressing. Continue with compression stockings and elevation. I continue to emphasize the importance of elevating her feet as often as possible throughout the day. Return in 3 weeks or sooner as needed.
[2023-01-13 11:48] VITALS: BP 141/77; PULSE 80; RESP 18; TEMP 36.6; BMI 26.2
== END 2023-01-30 23:59 | disposition home or self-care (01) ==
LOC: WC 10:02
PROVIDERS: PCP Internal Medicine; Referring Provider Physician Assistant; Visit Provider Physician Assistant
DX: I83.023 Varicose veins of left lower extremity with ulcer of ankle (principal); L97.329 Non-pressure chronic ulcer of left ankle with unspecified severity; Z86.718 Personal history of other venous thrombosis and embolism
CPT/HCPCS: 99213; G0463

== ENCOUNTER → 2023-01-23 | Outpatient (CLI) | payer MEDICARE, OTHER, SELFPAY ==
--- NOTE | 2023-01-23 14:52 | CT_ITS ---
EXAM: CT ABDOMEN WITH INTRAVENOUS CONTRAST CLINICAL INDICATION: Abdominal pain TECHNIQUE: Helically acquired images were obtained of the abdomen with intravenous contrast. This CT exam was performed using one or more of the following dose reduction techniques: automated exposure control, adjustment of the mA and/or kV according to patient size, and/or use of iterative reconstruction technique. CONTRAST: Oral and amp; IV Readi-CAT and amp; 100mL Isovue-300 RADIATION DOSE: Total DLP: 453.63 mGy-cm. COMPARISON: Abdominal CT of 09/24/2018. Chest CT of 05/26/2021. FINDINGS: LOWER THORAX: Chronic pleural-parenchymal scarring with traction bronchiectasis noted within the medial aspect right lower lobe. The nodular focus of groundglass opacity within the left lower lobe is again noted, measuring 5 mm in diameter as compared with 6-7 mm on prior studies, and this is a benign finding in view of its long-term stability. No acute basilar pulmonary infiltrates or pleural effusions. A small hiatal hernia is noted. No coronary artery calcification is visualized. No significant pericardial effusion. LIVER: Unremarkable. Homogeneous. No focal mass. GALLBLADDER AND BILE DUCTS: Gallbladder is again noted be surgically absent. There is stable mild postcholecystectomy prominence of the intra and extrahepatic bile ducts. No calcified common duct stone is noted. PANCREAS: An uncomplicated duodenal diverticulum abuts the pancreatic head. No pancreatic mass, pancreatic ductal dilatation or peripancreatic stranding identified. SPLEEN: Unremarkable. Normal size without focal cystic or solid mass. ADRENALS: Unremarkable. No nodules. KIDNEYS AND URETERS: Unremarkable. Normal renal size and position. No hydronephrosis. STOMACH AND BOWEL: Stomach is partially decompressed. No periduodenal inflammatory changes or distended small bowel loops. Oral contrast passes through the small bowel into the colon. The visualized large and small bowel loops are unremarkable. No focal inflammatory change. INTRAPERITONEAL SPACE: Unremarkable. No ascites or other fluid collection. No free air. BONES/JOINTS: Lower thoracic and lower lumbar degenerative disc disease. Extensive lumbar facet arthritis with slight anterolisthesis of L4 on L5. No suspicious lytic or blastic abnormality. SOFT TISSUES: Unremarkable. No discrete abdominal wall hernia. VASCULATURE: Calcific abdominal aorta and its branches. No AAA. 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 SMA and [place] enhance normally. LYMPH NODES: No enlarged lymph nodes. CT/Abdomen WITH IV Contrast IMPRESSION: 1. No significant interval change. 2. Previous cholecystectomy with stable mild postcholecystectomy prominence of the intra and extrahepatic bile ducts. 3. No pancreatic mass or findings of acute pancreatitis identified. 4. Small hiatal hernia again noted. Electronically Signed: Gt Cheung MD at 4:54 EDT ,
== END | disposition home or self-care (01) ==
LOC: CT 14:52
PROVIDERS: PCP Internal Medicine; Referring Provider Internal Medicine; Visit Provider Internal Medicine
DX: R10.9 Unspecified abdominal pain (principal)
CPT/HCPCS: 74160; Q9967

== ENCOUNTER 2023-02-03 10:06 | Outpatient (RCR) | payer MEDICARE, OTHER, SELFPAY ==
[2023-01-31 00:17] VITALS: BP 141/77; PULSE 80; RESP 18; TEMP 36.6; BMI 26.2
[2023-02-03 10:12] VITALS: BP 136/63; PULSE 86; RESP 18; TEMP 35.9; BMI 26.2
--- NOTE | 2023-02-03 10:32 | PN.PCM_ITS ---
History of Present Illness Date of Service: 02/03/23 Chief Complaint: Left ankle ulcer History of Wound: Patient is a pleasant 76 y/o female who presents to the [facility] today for evaluation and treatment of a recurrent left medial ankle ulcer. She reports that this is at least the 10th time she has had this ulcer recur, she is well known to the [facility] though last here in 2019. She has a medical history significant for clotting disorder (Prothrombin thrombophilia), history of DVTs, and venous insufficiency. She does not smoke. She is not diabetic. She has been on Xarelto for years. She reports since starting the Xarelto she has had no further DVTs to her knowledge. She reports all her DVTs have been in the LLE. She reports she was evaluated by vascular surgeon in the past for ablation but was told she was not a candidate due to her hypercoagulable state. Her current wound has been ongoing since late June 2022. Was not previously wearing compression. Subjective Subjective She notes occasional, minimal drainage in the area of the wound but thinks this might actually just be from the fibracol dressing itself. Otherwise, no pain in this area. She continues to do well following ablation and she continues to wear compression as directed. Objective Data Objective Data Vital Signs: Vital Signs Temp Pulse Resp BP 96.7 F L 86 18 136/63 H 02/03/23 10:12 02/03/23 10:12 02/03/23 10:12 02/03/23 10:12 Weight: 143 lb Body Mass Index (BMI) 26.2 Charges/Coding Visit Charges Office Visits / Consults: [id number] OV L3 Est Physical Exam Narrative Physical Exam Const alert, oriented x3, no apparent distress and healthy appearing General Appearance: cooperative, comfortable and well kempt Exam Limitations: no limitations HEENT normocephalic, head/scalp atraumatic, hearing grossly normal bilaterally, external ears normal and external nose normal Eyes EOMs intact bilaterally General Eye: normal appearance of both eyes Neck full ROM General: normal visual inspection and trachea midline; Negative for anterior neck swelling Resp normal respiratory effort, normal air movement, no retractions and no use of accessory muscles Effort and Inspection: able to speak in complete sentences and symmetric chest movement; Negative for labored, stridor, uses accessory muscles or audible wheezes Extremity Extremity Narrative: Bilateral lower extremity edema. Multiple varicosities and reticular veins noted bilaterally. Skin Wounds: wounds noted Wound Narrative: L medial malleolus ulceration appears epithelialized though there is an indentation/divot I suspect from the recurrence of wound in this area/scar tissue. No drainage noted. Neuro oriented x3, CN's II-XII intact bilaterally, moves all extremities, no focal motor deficits, no sensory deficits noted and gait normal Speech: speech normal Psych mental status grossly normal, thought process normal, affect normal, speech normal and activity/motor behavior normal Insight: insight good Judgement: judgement good Debridement Note Debridement Note No debridement was completed: No debridement was completed today Post-Debridement Measurements and Additional Note: Post-Debridement Measurements/Treatment WC - Nurse 1 - General Ulcer Assessment Start: 02/03/23 10:12 Freq: Status: Active Protocol: PEMA Activity Type Activity Date Activity User E-sign Co-sign Detail Recorded Client Recorded Date Recorded By Document 02/03/23 10:12 DL [id number] 02/03/23 10:14 DL 02/03/23 10:12 WC - Today's Visit Information Type of service Follow-up Visit (Physician/[facility] [facility] ) Arrival Mode Ambulatory Transfer Assistance None Patient Identification Verified (Name & Yes ) Patient Requires Transmission-Based No Precautions Height and Weight Body Mass Index (BMI) 26.2 BMI Classification Overweight Vital Signs Temperature (97.8 F-99.1 F) 96.7 F L Temperature Source Temporal Pulse Rate (60-100) 86 Pulse Location Monitor Respiratory Rate (12-18) 18 Respiratory rate source Observation Blood Pressure (90/60-120/80) 136/63 H Blood Pressure Mean (mm Hg) 87 Source Monitor History Since Last Visit- (Skip if this is Patient's initial visit) Have you changed medications since your No last visit? Any new allergies or adverse reactions No Had a fall/change in ADL's that may No increase risk of falls Signs or symptoms of abuse and/or No neglect since last visit Have you been in the hospital since your No last visit? Has dressing in place as prescribed Yes Has compression in place as prescribed Yes Has offloadiing in place as prescribed N/A Pain Scale: 0-10 Numeric Is Patient Pain Free? Yes - Nurse 1 - General Ulcer Measurement Start: 02/03/23 10:12 Freq: Status: Active Protocol: Activity Type Activity Date Activity User E-sign Co-sign Detail Recorded Client Recorded Date Recorded By Document 02/03/23 10:12 HERBERTH [id number] 02/03/23 10:14 HERBERTH 02/03/23 10:12 Wound Center Nurse 1 #4- L MED ANKLE -Current Size (cm) - Length 0.1 -Current Size (cm) - Width 0.1 -Current Size (cm) - Depth 0.1 -Total Square Cm 0.01 -Photo Taken Yes -Exudate Amt None Present -Wound Margin Distinct, Outline Attached -Granulation Amt Small (1-33%) -Granulation Quality Hemphill -Necrosis Amt None Present (0 %) -Structure Exposed N/A -Texture (Ines-wound Skin Appearance) Scarring,Rash -Moisture (Ines-wound Skin Appearance) No Abnormality -Color (Ines-wound Skin Appearance) No Abnormality -Temperature (Ines-wound Skin No Abnormality Appearance) (Pt Warm) -Tenderness on Palpation (Ines-wound No Skin Appearance) -Ulcer Cleansing Rinsed/ Irrigated with Saline -Foul Odor after Cleansing No -Anesthetic Used 5% Lidocaine Gel Assessment/Plan Assessment/Plan 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 She is instructed to continue with compression and to continue to elevate legs when resting. Return as needed.
== END 2023-02-03 14:50 | disposition home or self-care (01) ==
LOC: WC 10:06
PROVIDERS: PCP Internal Medicine; Referring Provider Physician Assistant; Visit Provider Physician Assistant
DX: I83.023 Varicose veins of left lower extremity with ulcer of ankle (principal); L97.929 Non-pressure chronic ulcer of unspecified part of left lower leg with unspecified severity; D68.69 Other thrombophilia; Z86.718 Personal history of other venous thrombosis and embolism; Z79.01 Long term (current) use of anticoagulants
CPT/HCPCS: 99213; G0463

== ENCOUNTER → 2023-02-14 | Outpatient (CLI) | payer MEDICARE, OTHER, SELFPAY ==
--- NOTE | 2023-02-14 13:23 | BI_ITS ---
MAMMOGRAPHY - BILATERAL SCREENING REASON FOR EXAM: Female, 77 years old. Routine annual screening examination. PERTINENT HISTORY: Non-contributory. Remote left stereotactic breast biopsy. TECHNIQUE: Digital bilateral breast jas (3D mammographic acquisition) in the CC and MLO projections. 2-D mediolateral oblique (MLO) and craniocaudad (CC) views of both breasts were obtained. CAD: Full Field Digital Mammography with Computer Added Detection was performed. COMPARISON: Comparison is made with prior study February 10, 2022 and February 09, 2021. FINDINGS: Breast Composition: The breasts are extremely dense, which lowers the sensitivity of mammography. There are no dominant masses or suspicious calcifications. A tissue clip marker is once again seen in the slightly upper lateral aspect of the left breast. Stable bilateral secretory calcifications. No other significant abnormalities are identified. There has been no significant change since the prior study. BI/SCRN MAMM (CAD)W/JAS BILAT IMPRESSION: Stable bilateral screening mammogram. Yearly follow-up mammogram recommended. (A) ASSESSMENT CATEGORY: BIRADS Category 2: Benign. A letter regarding these results will be sent to the patient by the facility within 30 days. Approximately 10% of breast cancers are not detected by mammography. A normal mammogram should not delay biopsy of a clinically suspicious abnormality. [id number] Electronically Signed: Tj Roca MD at 14:31 EDT ,
--- NOTE | 2023-02-14 13:26 | BD_ITS ---
STUDY: DUAL ENERGY X-RAY ABSORPTIOMETRY / DXA REASON FOR EXAM: Female, 77 years old. [id number] TECHNIQUE: Bone Mineral Density (BMD) measurements of lumbar spine and bilateral hips were obtained. COMPARISON: Comparison is made with prior study February 09, 2021. FINDINGS: Lumbar Spine (L1-L4): g/cm2 (1.151) / T-score (1.2) / Z-score (3.6) Findings are suggestive of normal bone density with a low fracture risk. Left Femur Total: g/cm2 (0.885) / T-score (-0.5) / Z-score (1.3) Left Femoral Neck: g/cm2 (0.786) / T-score (-0.6) / Z-score (1.5) Right Femur Total: g/cm2 (0.871) / T-score (-0.6) / Z-score (1.2) Right Femoral Neck: g/cm2 (0.743) / T-score (-1.0) / Z-score (1.1) The T-Scores on the most recent prior examination were: Lumbar Spine (L1-L4): There has been improvement of bone density since the previous examination. Left Femur Total: which represents an improvement of 0.5%. Right Femur Total: which represents an improvement of 0.1%. BD/Dexa Bone Density Study IMPRESSION: The patient is considered normal as outlined below according to World [place] Organization (WHO) criteria with a low fracture risk. There has been improvement of bone density since the previous examination. Reference Information: The T-score is the number of standard deviations above or below the standard which is normal for young adults at their peak bone mineral density. The World Health Organization (WHO) interprets the T-scores as follows: Above -1 Normal bone density Between -1 and -2.5 Osteopenia Equal to / or below -2.5 Osteoporosis As a practical clinical guideline, osteopenia may be graded as follows: Mild -1 through -1.5 Moderate -1.6 through -2.0 Severe -2.1 through -2.4 The Z-score is the number of standard deviations above or below age-matched controls. A Z-score of less than -1.5 would be considered abnormal. References: 1. NIH Osteoporosis and Related Bone Diseases www osteo.org 2. International Society for Clinical Densitometry www iscd.org 3. National Osteoporosis Foundation www nof.org Electronically Signed: Tj Roca MD at 15:14 EDT ,
== END | disposition home or self-care (01) ==
LOC: OPBI 13:21
PROVIDERS: PCP Internal Medicine; Referring Provider Internal Medicine; Visit Provider Internal Medicine
DX: Z12.31 Encounter for screening mammogram for malignant neoplasm of breast (principal); Z78.0 Asymptomatic menopausal state
CPT/HCPCS: 77063; 77067; 77080

== ENCOUNTER → 2024-04-30 | Outpatient (CLI) | payer MEDICARE, OTHER, SELFPAY ==
--- NOTE | 2024-04-30 11:25 | RAD_ITS ---
INDICATION: right knee pain EXAMINATION/TECHNIQUE: X-RAY - RIGHT XR Knee Complete 4 Views or More 4 VIEWS COMPARISON: Prior study dated: 04/24/2020 FINDINGS: SOFT TISSUES: No soft tissue swelling or gas. No radiopaque foreign body. BONES/JOINTS: No acute fracture or subluxation.. Normal alignment. Mild degenerative arthrosis of the medial and lateral joint compartments. Faint chondrocalcinosis is again seen. No sclerotic or destructive changes observed. RAD/Knee 4 or More Views IMPRESSION: Mild degenerative arthrosis unchanged Electronically Signed: Robbi Trotter MD at 13:38 EDT ,
== END | disposition home or self-care (01) ==
LOC: RAD 11:11
PROVIDERS: PCP Internal Medicine; Referring Provider Internal Medicine; Visit Provider Internal Medicine
DX: M25.561 Pain in right knee (principal)
CPT/HCPCS: 73564

== ENCOUNTER → 2024-05-21 | Outpatient (CLI) | payer MEDICARE, OTHER, SELFPAY ==
--- NOTE | 2024-05-21 13:31 | BI_ITS ---
MAMMOGRAPHY - BILATERAL SCREENING REASON FOR EXAM: Female, 78 years old. Routine annual screening examination. PERTINENT HISTORY: Non-contributory. Prior left stereotactic breast biopsy. TECHNIQUE: Digital bilateral breast jas (3D mammographic acquisition) in the CC and MLO projections. 2-D mediolateral oblique (MLO) and craniocaudad (CC) views of both breasts were obtained. CAD: Full Field Digital Mammography with Computer Added Detection was performed. COMPARISON: Comparison is made with prior study dated February 14, 2023 and February 10, 2022. FINDINGS: Breast Composition: The breasts are extremely dense, which lowers the sensitivity of mammography. There are no dominant masses or suspicious calcifications. Stable bilateral secretory calcification. A tissue clip marker is once again seen in the slightly upper lateral aspect of the left breast No other significant abnormalities are identified. There has been no significant change since the prior study. BI/SCRN MAMM (CAD)W/JAS BILAT IMPRESSION: Stable bilateral screening mammogram. Yearly follow-up mammogram recommended. (A) ASSESSMENT CATEGORY: BIRADS Category 2: Benign. A letter regarding these results will be sent to the patient by the facility within 30 days. Approximately 10% of breast cancers are not detected by mammography. A normal mammogram should not delay biopsy of a clinically suspicious abnormality. [id number] Electronically Signed: Tj Roca MD at 14:17 EST ,
== END | disposition home or self-care (01) ==
LOC: OPBI 13:31
PROVIDERS: PCP Internal Medicine; Referring Provider Internal Medicine; Visit Provider Internal Medicine
DX: Z12.31 Encounter for screening mammogram for malignant neoplasm of breast (principal)
CPT/HCPCS: 77063; 77067

== ENCOUNTER → 2024-08-05 | Outpatient (CLI) | payer MEDICARE, OTHER, SELFPAY ==
--- NOTE | 2024-08-05 08:45 | RAD_ITS ---
EXAM: ESOPHAGUS DUAL CONTRAST CLINICAL HISTORY: Dysphagia for solids. Esophageal spasms. COMPARISON: None. TECHNIQUE: The patient ingested barium. Multiple fluoroscopic images were obtained. FINDINGS: The esophagus is unremarkable. There is no evidence of esophageal obstruction. No mass lesion is seen. No evidence of hiatal hernia. No evidence of gastroesophageal reflux. The patient ingested a 12 mm tablet the barium without any difficulty. Mild degree of dextroscoliosis and multilevel disc space narrowing and spondylosis. RAD/Esophagus Dual Contrast IMPRESSION: Unremarkable esophagram. Reading Location: [place] [id number]
== END | disposition home or self-care (01) ==
LOC: RAD 08:28
PROVIDERS: PCP Internal Medicine; Referring Provider Internal Medicine Gastroenterology; Visit Provider Internal Medicine Gastroenterology
DX: K21.9 Gastro-esophageal reflux disease without esophagitis (principal); R07.89 Other chest pain
CPT/HCPCS: 74221

== ENCOUNTER → 2025-05-22 | Outpatient (CLI) | payer MEDICARE, OTHER, SELFPAY ==
--- NOTE | 2025-05-22 09:42 | BD_ITS ---
PROCEDURE: DEXA BONE DENSITY STUDY 05/22/2025 REASON FOR EXAM: F, age 79 y/o . Postmenopausal. TECHNIQUE: Procedure Code: BDDBD Modality: DX Procedure: DEXA BONE DENSITY STUDY COMPARISON: February 14, 2023. FINDINGS: BMD and T-SCORES Lumbar spine: 1.190 g/cm2, T-score 4.1 Levels: L1 through L4 Change from prior: Improvement of 3.6%. Left femoral neck: 0.725 g/cm2, T-score -1.1 Femoral neck comparison data not recommended for monitoring change. Left total hip: 0.872 g/cm2, T-score -0.6 Change from prior: Loss of 1.5%. Right femoral neck: 0.716 g/cm2, T-score -1.2 Femoral neck comparison data not recommended for monitoring change. Right total hip: 0.850 g/cm2, T-score -0.8 Change from prior: Loss of 2.4%. The World Health Organization has defined the following categories based on bone density: Normal bone density: T-score equal to or greater than -1.0 Osteopenia: T-score between -1.0 and -2.5 Osteoporosis: T-score equal to or less than -2.5 FRAX (or Comparable) Fracture Risk Assessment: 10 Year Probability of Fracture: Major Osteoporotic Fracture: % Hip Fracture: 2.1% (Note: FRAX is not to be reported in setting of normal range bone density, osteoporosis on DEXA, known history of osteoporosis, prior osteoporotic hip or vertebral fracture, or for any patient undergoing pharmacological treatment for bone loss.) The National Osteoporosis Foundation (NOF) recommends pharmacological treatment for patients with a FRAX 10-year risk of 3% or higher for a hip fracture, or 20% or higher for a major osteoporotic fracture, to prevent osteoporosis and reduce fracture risk. The patient does meet the pharmacological treatment recommendations for prevention of osteoporosis. BD/Dexa Bone Density Study IMPRESSION: OSTEOPENIA. Recommend follow-up as clinically warranted. Reading Location: [id number]
--- NOTE | 2025-05-22 09:42 | BI_ITS ---
EXAM: SCRN MAMM (CAD)W/JAS BILAT DATE: 05/22/2025 CLINICAL HISTORY: F, Age 79 y/o , ENCOUNTER FOR SCREENING MAMMOGRAM FOR MAILGNANT NEOPLASM OF BREAS Prior left stereotactic breast biopsy. TECHNIQUE: Procedure Code: [id number] Modality: MG Procedure: SCRN MAMM (CAD)W/JAS BILAT COMPARISON: Prior exam(s) dated May 21, 2024.. FINDINGS: TISSUE DENSITY: The breasts are extremely dense, which lowers the sensitivity of mammography. Bilateral Breast Mammographic Findings: No significant masses, calcifications or other abnormalities are identified. A tissue clip marker is once again seen in the slightly upper lateral aspect of the left breast. No suspicious masses, areas of developing architectural distortion, or suspicious calcifications. There has been no significant interval change. BI/SCRN MAMM (CAD)W/JAS BILAT IMPRESSION: Stable bilateral screening mammogram. OVERALL FINAL ASSESSMENT BI-RADS 2: BENIGN RECOMMENDATION: Routine annual follow-up in 1 Year Additional Recommendation none A letter with findings and recommendations will be mailed to the patient. Reading Location: [id number]
== END | disposition home or self-care (01) ==
LOC: OPBD 09:41
PROVIDERS: PCP Internal Medicine; Referring Provider Internal Medicine; Visit Provider Internal Medicine
DX: Z12.31 Encounter for screening mammogram for malignant neoplasm of breast (principal); Z78.0 Asymptomatic menopausal state
CPT/HCPCS: 77063; 77067; 77080

== ENCOUNTER → 2025-06-19 | Outpatient (CLI) | payer MEDICARE, OTHER, SELFPAY ==
[2025-06-19 12:33] LABS: Creatinine, Urine (random) 163.00 mg/dL (28.00-217.00); Microalbumin,Random Urine 19.7 mg/L (<20 mg/L)
[2025-06-19 12:36] LABS: Hematocrit 38.0 % (37-47); Hemoglobin 12.6 g/dL (12.0-15.0); Immature Granulocytes Count 0.040 X10^3/uL (0.0-0.0); Mean Corp Hgb Conc 33.2 g/dL (32-36); Mean Corpuscular Volume 97.4 fL (81-99); Mean Platelet Vol. 10.2 fl (6.2-12.0); NRBC Flagged by Analyzer 0 % (0-5); Platelet Count 310 K/mm3 (150-450); RBC Distribution Width CV 11.7 % (11.6-14.6); RBC Distribution Width SD 41.8 fl (35.1-43.9); Red Blood Count 3.90 M/mm3 (4.2-5.4); White Blood Count 8.7 K/mm3 (4.4-11.0)
[2025-06-19 12:51] LABS: FOLATES,SERUM (FOLIC ACID) 9.17 ng/mL (4.60-34.80)
[2025-06-19 13:02] LABS: AST(SGOT) 22 U/L (<=31); Alanine Aminotransfer ALT/SGPT 17 U/L (<=34); Albumin, Serum 4.2 g/dL (3.4-4.8); Alkaline Phosphatase 82 U/L (35-104); Anion Gap 11 (5-15); BUN 16 mg/dL (4-19); BUN/Creat Ratio 19.1 RATIO (10-20); Calcium,Total 9.2 mg/dL (7.6-11.0); Carbon Dioxide 25.2 mmol/L (21.0-32.0); Chloride 102 mmol/L (98-108); Cholesterol 222 mg/dL (<=200); Globulin 3.0 g/dL (2.2-4.2); Glucose 122 mg/dL (70-99); Low Density Lipoprotein Calc. 156 mg/dL; Potassium 4.3 mmol/L (3.3-5.1); Triglycerides 102 mg/dL; Very Low Density Lipoprotein 20 mg/dL (5-40); Vitamin B12 759 pg/mL (180-914); cholesterol:hdl ratio screen 4.61
== END | disposition home or self-care (01) ==
LOC: CIMLAB 10:58
PROVIDERS: PCP Internal Medicine; Referring Provider Internal Medicine; Visit Provider Internal Medicine
DX: E78.00 Pure hypercholesterolemia, unspecified (principal); E53.8 Deficiency of other specified B group vitamins; R73.01 Impaired fasting glucose
CPT/HCPCS: 36415; 80053; 80061; 82043; 82570; 82607; 82746; 83036; 85025